=== PATIENT | male | born 1985 | race African-American/Black ===

== ENCOUNTER 2017-02-18 12:46 | Observation (INO) | payer MEDICAID ==
[~2017-02-18] VITALS: Ht 167.6 cm; Wt 68.1 kg
[~2017-02-18 12:46] MED LIST: CEFD300C3 PO; HYDR2TAB6 PO
[2017-02-18] MEDS ORDERED: NS IV 1000 ML 1,000 ML IV ONE (12:58)
[2017-02-18] MEDS ORDERED: BUTORPHANOL INJ 2 MG/ML (STADOL) VIAL IV ONE ×2 (13:00→14:30)
[2017-02-18 13:04] LABS: BASOPHILS # (AUTO) 0.1 10^3/uL (0.0-0.1); BASOPHILS % (AUTO) 1 % (0-10); EOSINOPHILS # (AUTO) 0.3 10^3/uL (0.0-0.3); EOSINOPHILS % (AUTO) 2 % (0-10); LYMPHOCYTES # (AUTO) 1.8 X 10^3 (1.0-4.0); LYMPHOCYTES % (AUTO) 14 % (12-44); MEAN CORPUSCULAR HEMOGLOBIN 32 PG (25-34); MEAN CORPUSCULAR HGB CONC 36 G/DL (32-36); MEAN CORPUSCULAR VOLUME 89 FL (80-99); MEAN PLATELET VOLUME 12.1 FL (7.4-10.4); MONOCYTES # (AUTO) 1.9 X 10^3 (0.0-1.0); MONOCYTES % (AUTO) 14 % (0-12); NEUTROPHILS % (AUTO) 69 % (42-75); PLATELET COUNT 233 10^3/uL (130-400); RED CELL DISTRIBUTION WIDTH 20.3 % (10.0-14.5)
--- NOTE | 2017-02-18 13:22 | ED General ---
General Chief Complaint: General Problems/Pain Stated Complaint: GENERALIZED PAIN History of Present Illness Time Seen by Provider: 13:00 Initial Comments Patient brought to emergency department via EMS for acute pain and possible sickle cell crisis. He moved back to [place] from [place] approximately 2 weeks ago. He states he will be living here permanently now. He is not currently taking any medications. He was given a total of fentanyl and 100 g via EMS, pains remains a 6/10. He denies any trigger to set off the crisis. Complaining of upper back and shoulder pain. He denies a recent sickle cell crisis for at least 6 months. He was hospitalized on 2 previous occasions here for sickle cell, last time Apr 2016, he required 2 units PRBC and had issues with fluid overload. Timing/Duration: 1-3 Hours Severity: Moderate Modifying Factors: improves with Medication, improves with Rest Associated Systoms: Denies Symptoms Allergies and Home Medications Allergies Coded Allergies: morphine (Unverified Adverse Reaction, Unknown, PT HAS TAKEN LORTAB & STADOL IN THE PAST, 02/18/17) Home Medications No Active Prescriptions or Reported Meds Constitutional: see HPI Respiratory: no symptoms reported, see HPI Cardiovascular: no symptoms reported, see HPI Gastrointestinal: no symptoms reported, see HPI Musculoskeletal: see HPI, back pain (upper back), joint pain (bilateral shoulders) Skin: no symptoms reported, see HPI All Other Systems Reviewed Negative Unless Noted: Yes Past Jcnltji-Qdangv-Yyjyaq Hx Patient Social History Alcohol Use: Denies Use Recreational Drug Use: Yes Drug of Choice: MARIJUANA Smoking Status: Current Everyday Smoker Type Used: Cigarettes 2nd Hand Smoke Exposure: Yes Recent Hopitalizations: No Physical Abuse: No Sexual Abuse: No Immunizations Up To Date Tetanus Booster (TDap): More than 5yrs PED Vaccines UTD: No Seasonal Allergies Seasonal Allergies: No Surgeries History of Surgeries: Yes (SPLENECTOMY) Surgeries: Gallbladder, Orthopedic Respiratory History of Respiratory Disorde: No Currently Using CPAP: No Currently Using BIPAP: No Cardiovascular History of Cardiac Disorders: No Neurological History of Neurological Disord: No Reproductive System Hx Reproductive Disorders: No Sexually Transmitted Disease: No HIV/AIDS: No Gastrointestinal History of Gastrointestinal Di: No Musculoskeletal History of Musculoskeletal Dis: No Endocrine History of Endocrine Disorders: No Cancer History of Cancer: No Psychosocial History of Psychiatric Problem: No Suicide Risk Score: 0 Integumentary History of Skin or Integumenta: No Blood Transfusions History of Blood Disorders: Yes (SICKLE CELL ANEMIA) Adverse Reaction to a Blood Tr: No Reviewed Nursing Assessment Reviewed/Agree w Nursing PMH: Yes Family Medical History Family Medial History: Asthma G8 BROTHER Parkinson's disease Seizure disorder G8 BROTHER Physical Exam Vital Signs Vital Sign - Last 12Hours 02/18/17 02/18/17 02/18/17 12:46 15:30 16:16 Temp 99.0 Pulse 83 Resp 40 B/P (MAP) 112/67 Pulse Ox 91 O2 Delivery Room Air O2 Flow Rate 2.00 FiO2 28 Capillary Refill : General Appearance: No Apparent Distress, WD/WN Eyes: Bilateral Eye Normal Inspection, Bilateral Eye PERRL, Bilateral Eye EOMI , Bilateral Eye Scleral Icterus (mild) HEENT: PERRL/EOMI, TMs Normal, Normal ENT Inspection, Pharynx Normal Neck: Full Range of Motion, Normal Inspection, Non Tender, Supple Respiratory: Chest Non Tender, Lungs Clear, Normal Breath Sounds Cardiovascular: Regular Rate, Rhythm, No Edema, No Murmur, Normal Peripheral Pulses Gastrointestinal: Normal Bowel Sounds, No Organomegaly, No Pulsatile Mass, Non Tender, Soft Extremity: Normal Capillary Refill, Normal Inspection, Normal Range of Motion, Other (generalized myalgias and arthralgias) Neurologic/Psychiatric: Alert, Oriented x3, No Motor/Sensory Deficits, Normal Mood/Affect Skin: Normal Color, Warm/Dry Lymphatic: No Adenopathy Progress/Results/Core Measures Results/Orders Lab Results Laboratory Tests Test 02/18/17 12:55 Range/Units White Blood Count 13.0 H 4.3-11.0 10^3/uL Red Blood Count 2.76 L 4.35-5.85 10^6/uL Hemoglobin 8.6 L 13.3-17.7 G/DL Hematocrit 24 L 40-54 % Mean Corpuscular Volume 89 80-99 FL Mean Corpuscular Hemoglobin 32 25-34 PG Mean Corpuscular Hemoglobin Concent 36 32-36 G/DL Red Cell Distribution Width 20.3 H 10.0-14.5 % Platelet Count 233 130-400 10^3/uL Mean Platelet Volume 12.1 H 7.4-10.4 FL Neutrophils (%) (Auto) 69 42-75 % Lymphocytes (%) (Auto) 14 12-44 % Monocytes (%) (Auto) 14 H 0-12 % Eosinophils (%) (Auto) 2 0-10 % Basophils (%) (Auto) 1 0-10 % Neutrophils # (Auto) 9.0 H 1.8-7.8 X 10^3 Lymphocytes # (Auto) 1.8 1.0-4.0 X 10^3 Monocytes # (Auto) 1.9 H 0.0-1.0 X 10^3 Eosinophils # (Auto) 0.3 0.0-0.3 10^3/uL Basophils # (Auto) 0.1 0.0-0.1 10^3/uL Erythrocyte Sedimentation Rate 6 0-15 MM/HR Absolute Reticulocyte Count 328 H 24-90 10e9/L Percent Reticulocyte Count 11.87 H 0.50-2.40 % Sodium Level 140 135-145 MMOL/L Potassium Level 4.3 3.6-5.0 MMOL/L Chloride Level 107 98-107 MMOL/L Carbon Dioxide Level 25 21-32 MMOL/L Anion Gap 8 5-14 MMOL/L Blood Urea Nitrogen 7 7-18 MG/DL Creatinine 0.77 0.60-1.30 MG/DL Estimat Glomerular Filtration Rate > 60 BUN/Creatinine Ratio 9 Glucose Level 95 70-105 MG/DL Calcium Level 9.2 8.5-10.1 MG/DL Magnesium Level 2.2 1.8-2.4 MG/DL Total Bilirubin 3.5 H 0.1-1.0 MG/DL Aspartate Amino Transf (AST/SGOT) 35 H 5-34 U/L Alanine Aminotransferase (ALT/SGPT) 14 0-55 U/L Alkaline Phosphatase 53 40-136 U/L Total Creatine Kinase 43 30-200 U/L Creatine Kinase MB 0.2 <6.6 NG/ML C-Reactive Protein High Sensitivity 0.58 H 0.00-0.50 MG/DL Total Protein 7.0 6.4-8.2 GM/DL Albumin 4.0 3.2-4.5 GM/DL Smear Scan My Orders Orders - PEG STRAUSS Cbc With Automated Diff (02/18/17 12:49) Comprehensive Metabolic Panel (02/18/17 12:49) Creatine Kinase (02/18/17 12:49) Creatine Kinase Mb (02/18/17 12:49) Hs C Reactive Protein (02/18/17 12:49) Magnesium (02/18/17 12:49) Ua Culture If Indicated (02/18/17 12:49) Erythrocyte Sedimentation Rate (02/18/17 12:49) Ekg Tracing (02/18/17 12:49) Butorphanol Injection (Stadol Injection) (02/18/17 13:00) Saline Lock/Iv-Start (02/18/17 12:58) Ns Iv 1000 Ml (Sodium Chloride 0.9%) (02/18/17 12:58) Reticulocyte Count (02/18/17 14:18) Butorphanol Injection (Stadol Injection) (02/18/17 14:30) Medications Given in ED Current Medications Medications Dose Ordered Sig/Arlene Route Start Time Stop Time Status Last Admin Dose Admin Butorphanol Tartrate 2 mg ONCE ONCE IV 02/18/17 13:00 02/18/17 13:01 DC 02/18/17 13:05 2 MG Sodium Chloride 1,000 ml @ 175 mls/hr Q5H43M ONCE IV 02/18/17 12:58 02/18/17 15:40 DC 02/18/17 13:05 175 MLS/HR Vital Signs/I&O Vital Sign - Last 12Hours 02/18/17 02/18/17 02/18/17 02/18/17 12:46 15:30 15:31 16:16 Temp 99.0 97.3 Pulse 83 55 60 Resp 40 16 B/P (MAP) 112/67 104/65 Pulse Ox 91 100 94 O2 Delivery Room Air Nasal Cannula Nasal Cannula O2 Flow Rate 2.00 2.00 FiO2 28 Progress Note : Time: 13:00 Progress Note Initial evaluation for probable sickle cell crisis. The patient is already received 200 g of fentanyl and continue straight his pain at 6/10, will get Stadol 2 mg IV and fluid resuscitation, normal saline 1 L IV. 1330 patient resting, reports his pain has improved since the Stadol was administered. Hemoglobin 8.6, hematocrit 24, platelets 233, WBC 13. Absolute retake count 328, ESR 6. Total bilirubin 3.5, AST 35, ALT 14, CRP 0.58. Remainder of labs within normal limits. [address] Mcfadden, agreed to admit patient. Orders reviewed and in place. 1440 Dr. Mcfadden emergency department to evaluate patient. ECG Initial ECG Impression Date: Feb 18, 2017 Initial ECG Impression Time: 13:08 Initial ECG Rate: 69 Initial ECG Rhythm: Normal Sinus Initial ECG Intervals: Normal Initial ECG Intervals HI 160, QRS D 88, QT 368, QTC 395. Bradley PI, QRS 9, T 41. Initial ECG Impression: Normal Initial ECG Comparisson: Unchanged Comment Reviewed with Dr. Ruby, concurred with interpretation Departure Impression Impression: Primary Impression: Sickle cell crisis Additional Impression: Pain, acute Disposition: ADMITTED INPATIENT Condition: Stable Admissions Decision to Admit Reason: Admit from ER (General) Decision to Admit/Date: Feb 18, 2017 Time/Decision to Admit Time: 14:20 Departure-Patient Inst. Referrals: NO,LOCAL PHYSICIAN (PCP/Family) Primary Care Physician Scripts No Active Prescriptions or Reported Meds PEG STRAUSS Feb 18, 2017 13:22
[2017-02-18 13:23] LABS: ALANINE AMINOTRANSFERASE 14 U/L (0-55); ANION GAP 8 MMOL/L (5-14); ASPARTATE AMINO TRANSFERASE 35 U/L (5-34); BILIRUBIN,TOTAL 3.5 MG/DL (0.1-1.0); BLOOD UREA NITROGEN 7 MG/DL (7-18); BUN/CREATININE RATIO 9; CALCIUM 9.2 MG/DL (8.5-10.1); CARBON DIOXIDE 25 MMOL/L (21-32); CHLORIDE 107 MMOL/L (98-107); CREATINE KINASE 43 U/L (30-200); CREATININE SERUM 0.77 MG/DL (0.60-1.30); GFR ESTIMATED > 60; GLUCOSE 95 MG/DL (70-105); MAGNESIUM 2.2 MG/DL (1.8-2.4); POTASSIUM 4.3 MMOL/L (3.6-5.0); SODIUM 140 MMOL/L (135-145); hs C REACTIVE PROTEIN 0.58 MG/DL (0.00-0.50)
[2017-02-18 13:40] LABS: ERYTHROCYTE SEDIMENTATION RATE 6 MM/HR (0-15)
[2017-02-18 14:26] LABS: RED BLOOD COUNT 2.76 10^6/uL (4.35-5.85); RETICULOCYTE % 11.87 % (0.50-2.40)
--- NOTE | 2017-02-18 14:48 | History & Physical-Hospitalist ---
HPI History of Present Illness: HPI/Chief Complaint CC: Shoulder Pain HPI: Pt is a 31yoAAM with a pmh of sickle cell anemia who presented to the ER with CC of shoulder pain. He states his symptoms started today and have spread to his back. He has had similar pain in the past when he was having a crisis. He describes it as achy in his back and shoulder bones. He recently moved here from [place] and does not have a doctor. He previously had been on hydroxyurea but has been off of it for years. He does not take pain medicines at home on a daily basis. He alston snot currently follow with a spray maker or PCP. He denies any chest pain or SOB. He is unsure of his baseline hemoglobin. Source: patient, RN/MD, old records Date Seen 02/18/17 Time Seen by Provider: 14:20 Attending Physician Fantasma Mcfadden MD PCP No,Local Physician Referring Physician Date of Admission Home Medications & Allergies Home Medications Reviewed patient Home Medication Reconciliation Form Allergies Allergies Coded Allergies morphine (Unverified Adverse Reaction, Unknown, PT HAS TAKEN LORTAB & STADOL IN THE PAST, 02/18/17) Past Aedtqwy-Nmujit-Rwcowk Hx Patient Social History Alcohol Use: Denies Use Recreational Drug Use: Yes Drug of Choice: MARIJUANA Smoking Status: Current Everyday Smoker Cigaretts per day: 10 Type Used: Cigarettes 2nd Hand Smoke Exposure: Yes Recent Foreign Travel: No Contact w/other who traveled: No Recent Hopitalizations: No Recent Infectious Disease Expo: No Immunizations Up To Date Tetanus Booster (TDap): More than 5yrs Pediatric: No Seasonal Allergies Seasonal Allergies: No Surgeries Yes (SPLENECTOMY) Gallbladder, Orthopedic Respiratory No Currently Using CPAP: No Currently Using BIPAP: No Cardiovascular No Neurological No Reproductive System Hx Reproductive Disorders: No Sexually Transmitted Disease: No HIV/AIDS: No Gastrointestinal No Musculoskeletal No Endocrine History of Endocrine Disorders: No Cancer No Psychosocial History of Psychiatric Problem: No Integumentary History of Skin or Integumenta: No Blood Transfusions History of Blood Disorders: Yes (SICKLE CELL ANEMIA) Adverse Reaction to a Blood Tr: No Family Medical History Significant Family History: Asthma, Diabetes, Hypertension Family Hx: Asthma G8 BROTHER Parkinson's disease Seizure disorder G8 BROTHER Review of Systems Constitutional: No chills, No fever EENTM: No blurred vision, No double vision, No nose congestion, No throat pain Respiratory: No cough, No dyspnea on exertion, No short of breath Cardiovascular: No chest pain, No edema, No palpitations Gastrointestinal: No abdominal pain, No constipation, No diarrhea, No nausea, No vomiting Genitourinary: No dysuria, No frequency Musculoskeletal: back pain, joint pain Skin: No lesions, No rash Psychiatric/Neurological: Denies Headache, Denies Numbness, Denies Tingling Physical Exam Physical Exam Vital Signs Vital Sign - Last 12Hours 02/18/17 02/18/17 02/18/17 12:46 15:30 16:16 Temp 99.0 Pulse 83 Resp 40 B/P (MAP) 112/67 Pulse Ox 91 O2 Delivery Room Air O2 Flow Rate 2.00 FiO2 28 Capillary Refill : Less Than 3 Seconds General Appearance: No Apparent Distress, WD/WN HEENT: PERRL/EOMI, Moist Mucous Membranes, Scleral Icterus (L), Scleral Icterus (R) Neck: Non Tender, Supple Respiratory: Chest Non Tender, Lungs Clear, Normal Breath Sounds, No Accessory Muscle Use, No Respiratory Distress Cardiovascular: Regular Rate, Rhythm, No Murmur Gastrointestinal: Normal Bowel Sounds, Non Tender, Soft Extremity: Normal Capillary Refill, No Calf Tenderness, No Pedal Edema Neurologic/Psychiatric: Alert, Oriented x3 Skin: Normal Color, Warm/Dry Results Results/Procedures Lab Laboratory Tests 02/18/17 12:55 Assessment/Plan Admission Diagnosis Sickle Cell Crisis Diagnosis/Problems Diagnosis/Problems (1) Sickle cell crisis Status: Acute Assessment & Plan: History of sickle cell, has had multiple admissions here for crisis Pain controlled with Stadol and Fentanyl in ER, will continue IVF NS @150ml/hr Hgb 8.6, review shows normally close to 10 Await retic count Supplemental oxygen (2) Hyperbilirubinemia Status: Chronic Assessment & Plan: Elevated but down from where it normally is during admission Likely due to crisis Will get direct bili (3) Leukocytosis Status: Acute Assessment & Plan: Likely due to crisis No signs of infection Qualifiers: Qualified Codes: D72.829 - Elevated white blood cell count, unspecified (4) Tobacco abuse Status: Chronic Assessment & Plan: Recommended cessation (5) Prophylactic measure Assessment & Plan: Lovenox Regular Diet NS 150 ml/hr FANTASMA MCFADDEN MD Feb 18, 2017 14:48
[2017-02-18 15:31] VITALS: BP 104/65
[2017-02-18] MEDS ORDERED: CATHETER FLUSH 10 ML SYR IV PRN (15:45)
[2017-02-18] MEDS: NS IV 1000 ML 1,000 ML IV SCH ×2 (15:46→22:24)
[2017-02-18 16:16] VITALS: BP 104/65
[2017-02-18] MEDS ORDERED: RT-ALBUTEROL SULF 2.5 MG/3 ML PRE-MIX VIAL IH PRN (17:00)
[2017-02-18] MEDS: BUTORPHANOL INJ 2 MG/ML (STADOL) VIAL IV PRN ×2 (17:33→22:23)
--- NOTE | 2017-02-18 18:11 | Diagnostic Imaging Report ---
INDICATION: Sickle cell disease, shoulder pain. COMPARISON: 05/22/2016. FINDINGS: Single view of the chest demonstrates cardiac enlargement with central vascular congestion. There is no pneumothorax, effusion, or focal infiltrate. Osseous structures are stable. IMPRESSION: Cardiac enlargement with central vascular congestion. Dictated by: Dictated on workstation # [id number]
[2017-02-18] MEDS: fentaNYL INJECTION 100 MCG/2 ML AMP INJ PRN (18:43)
[2017-02-18] MEDS: RT-ALBUTEROL SULF 2.5 MG/3 ML PRE-MIX VIAL IH SCH (19:14)
[2017-02-18 19:22] VITALS: BP 109/64
--- NOTE | 2017-02-18 20:32 | CONSULTATION REPORT ---
DATE OF SERVICE: 02/18/2017 REFERRING PHYSICIAN: Johanna Mcfadden The patient is admitted to room 422. IMPRESSION: 1. A 31-year-old male with sickle cell anemia admitted with fairly rapid onset shoulder and upper back pain since the last 24 hours. 2. The patient has just moved from [place] to [place] and has not been drinking adequately. He has been out in the hot weather the past 2 days and complained of dry mouth, clinically consistent with dehydration. 3. Acute sickling episode with bone pain. 4. No evidence of fever or other infections triggering the sickle cell crisis. RECOMMENDATIONS: 1. Pain control as you are doing. 2. To receive hydration with normal saline at 500 mL x2 liters, then at 150 mL per hour. 3. Oxygen to maintain saturations more than 92%. 4. Repeat CBC, reticulocyte count and smear in the morning, along with chemistry panel. 5. If hemoglobin drops below 8 grams/dL, would recommend transfusion with 1 unit of packed red blood cells. 6. Previously the patient has been moving around between [place], [place] and [place] and did not have a steady home or followups with a physician. Today he mentioned that he is not moving from [place] now and will be staying here. I will consider treatment with hydroxyurea to reduce the acute crisis if he is compliant and will follow up on an outpatient basis. BRIEF HISTORY: The patient is a 31-year-old -Latvian male with a history of sickle cell anemia and multiple admissions at [facility] during the last year for acute crisis. He has had hospitalizations both in [place] as well as in [place], intermittently. He moved back to [place] approximately a week ago and has been busy and not drinking adequately. He started having shoulder and upper back pain. Within the last 24 hours it was worsening rapidly and he came to the emergency room. He was admitted for pain control and management of exacerbation of sickle cell crisis. Hematology consultation was requested for concurrent management. PAST MEDICAL HISTORY: Significant for sickle cell disease. He has had frequent crises recently. In the past, he was treated with hydroxyurea when he was in [place], but he has not taken this for several years. No other medical problems other than the multiple hospitalizations for sickle cell crises. PRIOR SURGERIES: Include a cholecystectomy and previous orthopedic surgery. SOCIAL HISTORY: The patient is not . He recently moved to [facility] from [place], but has been here on multiple previous occasions. Today, the patient indicated that he will be staying in [place] now onwards. He smokes at least a pack of cigarettes on a daily basis and uses recreational drugs. Also uses alcohol intermittently, but denied binge drinking. FAMILY HISTORY: Significant for his brother with history of asthma and another brother with history of seizure disorder. PHYSICAL EXAMINATION: Today showed young -Latvian male, somnolent but arousable. He is in mild distress due to the back pain. His temperature was 97.3, pulse rate of 55, respirations 16, blood pressure 104/65, pulse oximetry showed 100% saturation on 2 liters of oxygen by nasal cannula. HEENT: Normocephalic, extraocular muscles intact. Conjunctivae were slightly pale, mild scleral icterus noted. Oral mucosa dry. NECK: Supple with no JVD. No cervical, supraclavicular, or axillary lymphadenopathy palpable. CHEST: Symmetrical. LUNGS: Fairly clear to auscultation without wheezes or rales. CARDIOVASCULAR: Regular in rate and rhythm. No murmurs or gallops heard. ABDOMEN: Soft, nontender, with no hepatosplenomegaly or other masses palpable. EXTREMITIES: Showed no edema. NEUROLOGICAL: Grossly intact without focal motor deficits. CBC done today in the emergency room showed WBC 13.0, hemoglobin 8.6, platelet count 233,000 with neutrophil count of 9.0, lymphocyte count 1.8, and monocyte count of 1.9. Absolute reticulocyte count was elevated at 328,000 with percentage of 11.87. Chemistry panel showed normal electrolytes. BUN was 7 and creatinine 0.77, the GFR more than 60 mL per minute. Total bilirubin was 3.5 with AST of 35. The rest of the liver function studies are within normal limits. Chest x-ray is pending. Thank you for allowing me to participate in this patient's care. I will follow the patient with you and make appropriate recommendations. Job ID: [id number] DocumentID: [id number] Dictated Date: 02/18/2017 17:54:08 Outbound Call Center Representative Date: 02/18/2017 20:31:40 Dictated By: JORDAN SIMS MD [facility]
[2017-02-19] VITALS (9 sets, daily range): BP systolic 104–116; BP diastolic 55–77
[2017-02-19] MEDS: fentaNYL INJECTION 100 MCG/2 ML AMP INJ PRN ×3 (01:53→11:17)
[2017-02-19] MEDS: NS IV 1000 ML 1,000 ML IV SCH ×3 (05:20→19:35)
[2017-02-19] MEDS: BUTORPHANOL INJ 2 MG/ML (STADOL) VIAL IV PRN ×2 (05:20→09:40)
[2017-02-19] MEDS: RT-ALBUTEROL SULF 2.5 MG/3 ML PRE-MIX VIAL IH SCH ×2 (07:03→19:24)
[2017-02-19 07:07] LABS: BASOPHILS # (AUTO) 0.1 10^3/uL (0.0-0.1); BASOPHILS % (AUTO) 1 % (0-10); EOSINOPHILS # (AUTO) 0.2 10^3/uL (0.0-0.3); EOSINOPHILS % (AUTO) 2 % (0-10); LYMPHOCYTES # (AUTO) 2.2 X 10^3 (1.0-4.0); LYMPHOCYTES % (AUTO) 20 % (12-44); MEAN CORPUSCULAR HEMOGLOBIN 31 PG (25-34); MEAN CORPUSCULAR HGB CONC 35 G/DL (32-36); MEAN CORPUSCULAR VOLUME 90 FL (80-99); MEAN PLATELET VOLUME 12.1 FL (7.4-10.4); MONOCYTES # (AUTO) 1.5 X 10^3 (0.0-1.0); MONOCYTES % (AUTO) 13 % (0-12); NEUTROPHILS # (AUTO) 7.3 X 10^3 (1.8-7.8); NEUTROPHILS % (AUTO) 64 % (42-75); PLATELET COUNT 171 10^3/uL (130-400); RED BLOOD COUNT 2.44 10^6/uL (4.35-5.85); RED CELL DISTRIBUTION WIDTH 20.4 % (10.0-14.5); RETICULOCYTE % 12.07 % (0.50-2.40); WHITE BLOOD COUNT 11.3 10^3/uL (4.3-11.0)
[2017-02-19 07:36] LABS: ALANINE AMINOTRANSFERASE 13 U/L (0-55); ALBUMIN 3.7 GM/DL (3.2-4.5); ANION GAP 9 MMOL/L (5-14); ASPARTATE AMINO TRANSFERASE 25 U/L (5-34); BILIRUBIN,TOTAL 3.1 MG/DL (0.1-1.0); BLOOD UREA NITROGEN 6 MG/DL (7-18); BUN/CREATININE RATIO 8; CALCIUM 8.8 MG/DL (8.5-10.1); CARBON DIOXIDE 25 MMOL/L (21-32); CHLORIDE 108 MMOL/L (98-107); CREATININE SERUM 0.73 MG/DL (0.60-1.30); GFR ESTIMATED > 60; GLUCOSE 120 MG/DL (70-105); POTASSIUM 3.8 MMOL/L (3.6-5.0); SODIUM 142 MMOL/L (135-145); TOTAL PROTEIN 6.6 GM/DL (6.4-8.2)
[2017-02-19 07:43] LABS: PATH WILL NEED TO REVIEW SMEAR PATH TO REVIEW
[2017-02-19 07:44] LABS: ANISOCYTOSIS MODERATE; EOSINOPHILS % (MANUAL) 4 %; LYMPHOCYTES % (MANUAL) 16 %; NEUTROPHILS % (MANUAL) 68 %; POIKILOCYTOSIS MODERATE; POLYCHROMASIA MODERATE
[2017-02-19 07:45] LABS: SICKLE CELLS MARKED
--- NOTE | 2017-02-19 10:27 | Progress Note-Hospitalist ---
Subjective HPI/CC On Admission Date Seen by Provider: Feb 19, 2017 Time Seen by Provider: 09:20 CC: Shoulder Pain HPI: Pt is a 31yoAAM with a pmh of sickle cell anemia who presented to the ER with CC of shoulder pain. He states his symptoms started today and have spread to his back. He has had similar pain in the past when he was having a crisis. He describes it as achy in his back and shoulder bones. He recently moved here from [place] and does not have a doctor. He previously had been on hydroxyurea but has been off of it for years. He does not take pain medicines at home on a daily basis. He alston snot currently follow with a cleaner operator or PCP. He denies any chest pain or SOB. He is unsure of his baseline hemoglobin. Subjective/Events-last exam Pt reports feeling slightly better than yesterday. He continue to have pain. He still denies any SOB/CP. Objective Exam Vital Signs Vital Sign - Last 12Hours 02/18/17 02/18/17 02/18/17 12:46 15:30 16:16 Temp 99.0 Pulse 83 Resp 40 B/P (MAP) 112/67 Pulse Ox 91 O2 Delivery Room Air O2 Flow Rate 2.00 FiO2 28 Capillary Refill : Less Than 3 Seconds General Appearance: No Apparent Distress, WD/WN Respiratory: Lungs Clear, No Respiratory Distress Cardiovascular: No Murmur Gastrointestinal: Normal Bowel Sounds, Non Tender, Soft Neurologic/Psychiatric: Alert, Oriented x3 Results/Procedures Lab Laboratory Tests 02/18/17 12:55 02/19/17 06:40 Assessment/Plan Assessment and Plan Assess & Plan/Chief Complaint Sickle Cell Crisis Diagnosis/Problems Diagnosis/Problems (1) Sickle cell crisis Status: Acute Assessment & Plan: History of sickle cell, has had multiple admissions here for crisis Pain controlled with Stadol and Fentanyl in ER, will continue Will add orals as well in attempt to transition to regimen for home IVF NS @150ml/hr Hgb 7.6,likely dilutional, will defer transfusion Supplemental oxygen (2) Hyperbilirubinemia Status: Chronic Assessment & Plan: Elevated but down from where it normally is during admission Likely due to crisis Will get direct bili (3) Leukocytosis Status: Acute Assessment & Plan: Likely due to crisis, improving No signs of infection Qualifiers: Qualified Codes: D72.829 - Elevated white blood cell count, unspecified (4) Tobacco abuse Status: Chronic Assessment & Plan: Recommended cessation (5) Prophylactic measure Assessment & Plan: Lovenox Regular Diet NS 150 ml/hr Will add stool softeners FANTASMA HARTMANN MD Feb 19, 2017 10:27
[2017-02-19] MEDS: POLYETHYLENE GLYCOL 17 GM (MIRALAX) PACK PO SCH (11:16)
[2017-02-19] MEDS: HYDROcodone/APAP 5 MG/325 MG (LORTAB) TAB PO PRN ×2 (11:17→23:47)
--- NOTE | 2017-02-19 14:49 | Progress Note-Standard ---
Standard Progress Note Progress Notes/Assess & Plan Date Seen by Provider: Feb 19, 2017 Time Seen by Provider: 14:42 Progress/Assessment & Plan 31-year-old -[place] male with history of sickle cell anemia admitted with acute shoulder and back pain. Elevated reticulocyte count and significant sickling on the peripheral smear. Still having significant pain. Fentanyl not controlling pain well. Previously has had good luck with Dilaudid. Will DC fentanyl and start on Dilaudid IV. Labs noted. Hemoglobin 7.6. We will transfuse 1 unit PRBC. Maintain hemoglobin more than 8 g/dL. Continue hydration. Maintain oxygen saturation more than or equal to 95. Monitor CBC and reticulocyte count serially. Once pain under control with reticulocyte count normalizing, may discharge patient. He does not need maintenance pain medications when not in crisis. Schedule a follow-up with me at the cancer center in 3-4 weeks. No oncology, coverage this weekend. Dr. Jeffery waste minimization technician for next week as I am out of town. JORDAN SIMS Feb 19, 2017 14:49
[2017-02-19] MEDS: HYDROmorphone (DILAUDID) 2 MG/ML VIAL IVP PRN ×2 (15:04→19:35)
[2017-02-20] VITALS: BP 108/70
[2017-02-20] MEDS: HYDROmorphone (DILAUDID) 2 MG/ML VIAL IVP PRN ×3 (01:04→06:43)
[2017-02-20] MEDS: NS IV 1000 ML 1,000 ML IV SCH ×2 (01:47→08:28)
[2017-02-20 04:00] VITALS: BP 118/72
[2017-02-20 06:40] LABS: BASOPHILS # (AUTO) 0.1 10^3/uL (0.0-0.1); BASOPHILS % (AUTO) 1 % (0-10); EOSINOPHILS # (AUTO) 0.4 10^3/uL (0.0-0.3); EOSINOPHILS % (AUTO) 4 % (0-10); LYMPHOCYTES # (AUTO) 1.9 X 10^3 (1.0-4.0); LYMPHOCYTES % (AUTO) 19 % (12-44); MEAN CORPUSCULAR HEMOGLOBIN 31 PG (25-34); MEAN CORPUSCULAR HGB CONC 34 G/DL (32-36); MEAN CORPUSCULAR VOLUME 89 FL (80-99); MEAN PLATELET VOLUME 12.1 FL (7.4-10.4); MONOCYTES # (AUTO) 1.8 X 10^3 (0.0-1.0); MONOCYTES % (AUTO) 18 % (0-12); NEUTROPHILS # (AUTO) 5.8 X 10^3 (1.8-7.8); NEUTROPHILS % (AUTO) 58 % (42-75); PLATELET COUNT 189 10^3/uL (130-400); RED BLOOD COUNT 2.95 10^6/uL (4.35-5.85); RED CELL DISTRIBUTION WIDTH 19.5 % (10.0-14.5); RETICULOCYTE % 10.96 % (0.50-2.40)
[2017-02-20] MEDS: RT-ALBUTEROL SULF 2.5 MG/3 ML PRE-MIX VIAL IH SCH (06:47)
[2017-02-20 08:00] VITALS: BP 100/53
[2017-02-20] MEDS: POLYETHYLENE GLYCOL 17 GM (MIRALAX) PACK PO SCH (08:28)
[2017-02-20] MEDS: HYDROcodone/APAP 5 MG/325 MG (LORTAB) TAB PO PRN (08:29)
[2017-02-20 11:00] VITALS: BP 100/53
--- NOTE | 2017-02-20 11:15 | Discharge Summary-Hospitalist ---
Diagnosis/Chief Complaint Date of Admission Feb 18, 2017 at 15:20 Date of Discharge Discharge Date: Feb 20, 2017 Admission Diagnosis Sickle Cell Crisis Discharge Diagnosis Sickle Cell Crisis (1) Sickle cell crisis Status: Acute Assessment & Plan: History of sickle cell, has had multiple admissions here for crisis Pain controlled with Stadol and Dilaudid, Lortab added as well IVF NS @150ml/hr received 1u pRBCs here Supplemental oxygen Retic count up today (2) Hyperbilirubinemia Status: Chronic Assessment & Plan: Near baseline, improving (3) Leukocytosis Status: Resolved Assessment & Plan: Likely due to crisis, No signs of infection (4) Tobacco abuse Status: Chronic Assessment & Plan: Recommended cessation (5) Prophylactic measure Assessment & Plan: Lovenox Regular Diet NS 150 ml/hr Stool softeners Discharge Summary Consultations Oncology- Dr. Sims Discharge Physical Examination Allergies: Coded Allergies: morphine (Unverified Adverse Reaction, Unknown, PT HAS TAKEN LORTAB & STADOL IN THE PAST, 02/18/17) Vitals & I&Os Vital Signs Date Time Temp Pulse Resp B/P (MAP) Pulse Ox O2 Delivery O2 Flow Rate FiO2 02/20/17 11:00 69 18 100/53 98 Nasal Cannula 3.00 02/20/17 08:00 98.4 02/18/17 16:16 28 Hospital Course Pt is a 31yoAAM who presented with severe shoulder pain found to be in sickle cell crisis. He was admitted for IVF, oxygen, and pain management. Dr. Sims was consulted to assist with management. His pain improved and he received 1 unit of pRBC during his admission. On day of discharge he was still on oxygen, requiring IV pain medicine, and his retic count was increasing. Upon my arrival to room he informed me that he would like to leave today. I discussed plan of care and how I did not feel he was medically optimized for discharge. I explained the risk of leaving prior to optimization and informed him he would have to leave AMA. He acknowledged risks of leaving including and debility and signed appropriate AMA paperwork. Labs (last 24 hrs) Laboratory Tests 02/20/17 06:23: White Blood Count 10.0, Red Blood Count 2.95L, Hemoglobin 9.0L, Hematocrit 26L, Mean Corpuscular Volume 89, Mean Corpuscular Hemoglobin 31, Mean Corpuscular Hemoglobin Concent 34, Red Cell Distribution Width 19.5H, Platelet Count 189, Mean Platelet Volume 12.1H, Neutrophils (%) (Auto) 58, Lymphocytes (%) (Auto) 19 , Monocytes (%) (Auto) 18H, Eosinophils (%) (Auto) 4, Basophils (%) (Auto) 1, Neutrophils # (Auto) 5.8, Lymphocytes # (Auto) 1.9, Monocytes # (Auto) 1.8H, Eosinophils # (Auto) 0.4H, Basophils # (Auto) 0.1, Absolute Reticulocyte Count 323H, Percent Reticulocyte Count 10.96H Pending Labs Laboratory Tests 02/20/17 06:23: White Blood Count 10.0, Red Blood Count 2.95, Hemoglobin 9.0, Hematocrit 26, Mean Corpuscular Volume 89, Mean Corpuscular Hemoglobin 31, Mean Corpuscular Hemoglobin Concent 34, Red Cell Distribution Width 19.5, Platelet Count 189, Mean Platelet Volume 12.1, Neutrophils (%) (Auto) 58, Lymphocytes (%) (Auto) 19 , Monocytes (%) (Auto) 18, Eosinophils (%) (Auto) 4, Basophils (%) (Auto) 1, Neutrophils # (Auto) 5.8, Lymphocytes # (Auto) 1.9, Monocytes # (Auto) 1.8, Eosinophils # (Auto) 0.4, Basophils # (Auto) 0.1, Absolute Reticulocyte Count 323, Percent Reticulocyte Count 10.96 Discharge Home Medications: Active Scripts Active No Active Prescriptions or Reported Medications Instructions to patient/family Please see electronic discharge instructions given to patient. Clinical Quality Measures DVT/VTE Risk/Contraindication: Risk Factor Score Per Nursin RFS Level Per Nursing on Admit: 1=Low/No VTE PPX Copy Copies To 1: JORDAN SIMS Problem Qualifiers (1) Leukocytosis: Leukocytosis type: unspecified Qualified Codes: D72.829 - Elevated white blood cell count, unspecified FANTASMA HARTMANN MD Feb 20, 2017 11:15
== END 2017-02-20 11:09 | disposition left against medical advice (07) ==
LOC: EDUNIT# 12:46 → ER 12:47 → 4TH 14:20 → UNDOADMOB 14:20 → 4TH 15:20
PROVIDERS: ADMIT Family Medicine; ATTEND Family Medicine
DX: D57.00 Hb-SS disease with crisis, unspecified (principal); I51.7 Cardiomegaly; E80.6 Other disorders of bilirubin metabolism; D72.829 Elevated white blood cell count, unspecified; F17.210 Nicotine dependence, cigarettes, uncomplicated
CPT/HCPCS: 36415; 36430; 71010; 80053; 82550; 82553; 83735; 85007; 85025; 85027; 85045; 85652; 86141; 86850; 86900; 86901; 86920; 93005; 94640; 94760; 96361; 96374; 96376; G0378

== ENCOUNTER 2017-04-25 03:23 | Inpatient (IN) | payer MEDICAID, OTHER ==
[~2017-04-25] VITALS: Ht 167.6 cm; Wt 69.9 kg
[2017-04-25] VITALS (8 sets, daily range): BP systolic 98–105; BP diastolic 57–70
[2017-04-25] MEDS ORDERED: fentaNYL INJECTION 100 MCG/2 ML AMP ONE (03:25)
[2017-04-25] MEDS ORDERED: NS IV 1000 ML 1,000 ML ONE (03:25)
[2017-04-25] MEDS ORDERED: fentaNYL INJECTION 100 MCG/2 ML AMP IVP STA ×2 (03:34→03:50)
[2017-04-25] MEDS ORDERED: NS IV 1000 ML 1,000 ML IV ONE (03:34)
[2017-04-25 03:41] LABS: BASOPHILS # (AUTO) 0.1 10^3/uL (0.0-0.1); BASOPHILS % (AUTO) 1 % (0-10); EOSINOPHILS # (AUTO) 0.4 10^3/uL (0.0-0.3); EOSINOPHILS % (AUTO) 5 % (0-10); LYMPHOCYTES # (AUTO) 3.5 X 10^3 (1.0-4.0); LYMPHOCYTES % (AUTO) 38 % (12-44); MEAN CORPUSCULAR HEMOGLOBIN 31 PG (25-34); MEAN CORPUSCULAR HGB CONC 36 G/DL (32-36); MEAN CORPUSCULAR VOLUME 88 FL (80-99); MEAN PLATELET VOLUME 11.9 FL (7.4-10.4); MONOCYTES # (AUTO) 1.5 X 10^3 (0.0-1.0); MONOCYTES % (AUTO) 16 % (0-12); NEUTROPHILS # (AUTO) 3.7 X 10^3 (1.8-7.8); NEUTROPHILS % (AUTO) 40 % (42-75); PLATELET COUNT 189 10^3/uL (130-400); RED BLOOD COUNT 2.93 10^6/uL (4.35-5.85); RED CELL DISTRIBUTION WIDTH 22.3 % (10.0-14.5); WHITE BLOOD COUNT 9.2 10^3/uL (4.3-11.0)
[2017-04-25] MEDS ORDERED: ONDANSETRON 4 MG/2 ML (SDV) Z0FRAN IVP ONE (03:45)
[2017-04-25 03:53] LABS: ALANINE AMINOTRANSFERASE 13 U/L (0-55); ALBUMIN 4.1 GM/DL (3.2-4.5); ANION GAP 10 MMOL/L (5-14); ASPARTATE AMINO TRANSFERASE 33 U/L (5-34); BILIRUBIN,TOTAL 4.1 MG/DL (0.1-1.0); BLOOD UREA NITROGEN 10 MG/DL (7-18); BUN/CREATININE RATIO 11; CALCIUM 9.3 MG/DL (8.5-10.1); CARBON DIOXIDE 27 MMOL/L (21-32); CHLORIDE 105 MMOL/L (98-107); CREATININE SERUM 0.89 MG/DL (0.60-1.30); GFR ESTIMATED > 60; GLUCOSE 91 MG/DL (70-105); POTASSIUM 4.2 MMOL/L (3.6-5.0); SODIUM 142 MMOL/L (135-145); TOTAL PROTEIN 7.3 GM/DL (6.4-8.2)
[2017-04-25 03:59] LABS: ANISOCYTOSIS MODERATE; BAND NEUTROPHILS 3 %; EOSINOPHILS % (MANUAL) 4 %; LYMPHOCYTES % (MANUAL) 33 %; NEUTROPHILS % (MANUAL) 37 %; POIKILOCYTOSIS SLIGHT; POLYCHROMASIA MODERATE; SICKLE CELLS MARKED; TROPONIN I < 0.30 NG/ML (<0.30)
[2017-04-25 04:00] LABS: CRENATED RBC SLIGHT; INR 1.1 (0.8-1.4); PROTHROMBIN TIME PATIENT 14.2 SEC (12.2-14.7)
--- NOTE | 2017-04-25 04:01 | ED General ---
General Chief Complaint: General Problems/Pain Stated Complaint: SICKLE CELL ANEMIA PAIN Nursing Triage Note: C/O GENERALIZED PAIN DURING SICKLE CELL CRISIS. Nursing Sepsis Screen: No Definite Risk Source of Information: Patient, EMS History of Present Illness Time Seen by Provider: 03:23 Initial Comments PT ARRIVES VIA EMS FROM HOME PT STATES IT FEELS LIKE HE IS HAVING A SICKLE CELL CRISIS STATES HE WOKE UP APPROXIMATELY AN HOUR AGO WITH SEVERE PAIN IN TRUNK AREA, MOSTLY IN HIS LOWER BACK BUT ALSO SOME IN CHEST STATES ALL DAY YESTERDAY HE FELT A LITTLE ACHEY HAS HAD SLIGHT NON-PRODUCTIVE COUGH NO FEVER NO SHORTNESS OF BREATH C/O NAUSEA, NO VOMITING HAS BEEN A LITTLE LIGHTHEADED OFF AND ON THE LAST FEW DAYS NO HEADACHE NO VISION CHANGES NO PARESTHESIAS OR MOTOR DEFICITS THIS IS PT'S 4TH VISIT FOR THIS PROBLEM--LAST TIME WAS IN PT MOVED HERE OVER A YEAR AGO FROM [place], BUT WAS ALSO LIVING IN [place] AND HAD SEVERAL HOSPITAL ADMITS IN THOSE STATES WELL. PT HAS BEEN ADVISED AND APPOINTMENTS ARRANGED FOR PT TO ESTABLISH WITH LOCAL PCP AND HEMATOLOGY, BUT PT HAS NEVER ATTEMPTED TO FOLLOW UP WITH ANYONE AT ANY TIME. PT HAS BEEN ON HYDROXYUREA IN THE PAST, BUT NOT FOR A LONG TIME. PT IS S/P SPLENECTOMY PCP: NONE Allergies and Home Medications Allergies Coded Allergies: morphine (Unverified Adverse Reaction, Unknown, PT HAS TAKEN LORTAB & STADOL IN THE PAST, 02/18/17) Home Medications No Active Prescriptions or Reported Meds Constitutional: see HPI, No chills, No diaphoresis, dizziness, No fever EENTM: no symptoms reported Respiratory: see HPI, cough, No short of breath, No wheezing Cardiovascular: see HPI, chest pain, No edema, No palpitations, No syncope, No vascular heart diseas Gastrointestinal: see HPI, abdominal pain, nausea, No vomiting Genitourinary: no symptoms reported, No hematuria Musculoskeletal: see HPI, back pain, muscle pain Skin: no symptoms reported Psychiatric/Neurological: No Symptoms Reported, Anxiety, Denies Headache, Denies Numbness, Denies Paresthesia, Denies Seizure, Denies Tingling, Denies Weakness Hematologic/Lymphatic: See HPI Immunological/Allergic: no symptoms reported Past Inesbkq-Gllmwd-Smnmqv Hx Patient Social History Alcohol Use: Occasionally Uses (HISTORY OF ABUSE, CLAIMS NOW ONLY "OCCASIONAL" USE, CLAIMS LAST USE WAS 03/23/17) Number of Drinks Today: 0 Alcohol Beverage of Choice: Whiskey Recreational Drug Use: Yes (+THC, COCAINE (SNORTED) HAS ALSO ADMITTED TO METHAMPHETAMINESIN PAST) Drug of Choice: THC, COCAINE, ALSO ADMITTED TO METHAMPHETAMINES IN PAST Smoking Status: Current Everyday Smoker (1 PPD) Type Used: Cigarettes 2nd Hand Smoke Exposure: Yes Recent Foreign Travel: No Contact w/Someone Who Travel: No Recent Infectious Disease Expo: No Recent Hopitalizations: No Immunizations Up To Date Tetanus Booster (TDap): More than 5yrs PED Vaccines UTD: No Seasonal Allergies Seasonal Allergies: No Surgeries History of Surgeries: Yes (SPLENECTOMY; LEFT FOREARM SURGERY--CAUGHT IN RINGER OF WASHING MACHINE AGE 5; BILATERAL ANKLE SURGERY ) Surgeries: Gallbladder, Orthopedic Respiratory History of Respiratory Disorde: No Currently Using CPAP: No Currently Using BIPAP: No Cardiovascular History of Cardiac Disorders: No Neurological History of Neurological Disord: No Reproductive System Hx Reproductive Disorders: No Sexually Transmitted Disease: No HIV/AIDS: No Genitourinary History of Genitourinary Disor: No Gastrointestinal History of Gastrointestinal Di: No Musculoskeletal History of Musculoskeletal Dis: Yes (LEFT FOREARM INJURY AGE 5--S/P SURGERY; BIALTERAL ANKLE SURGERY ) Endocrine History of Endocrine Disorders: No HEENT History of HEENT Disorders: No Cancer History of Cancer: No Psychosocial History of Psychiatric Problem: No Integumentary History of Skin or Integumenta: No Blood Transfusions History of Blood Disorders: Yes (SICKLE CELL ANEMIA) Adverse Reaction to a Blood Tr: No Family Medical History Significant Family History: Asthma, Diabetes, Hypertension Family Medial History: Asthma G8 BROTHER Parkinson's disease Seizure disorder G8 BROTHER Physical Exam Vital Signs Vital Sign - Last 12Hours 04/25/17 04/25/17 03:30 03:36 Temp 98.8 Pulse 74 Resp 37 B/P (MAP) 109/88 Pulse Ox 100 O2 Delivery Nasal Cannula O2 Flow Rate 3.00 Capillary Refill : Less Than 3 Seconds General Appearance: WD/WN, Anxious, Other (MOANING, GRUNTING, DIRTY, MALODOROUS ) HEENT: PERRL/EOMI, Other (ORAL MUCOSA DRY) Neck: Full Range of Motion, Normal Inspection, Non Tender, Supple, No Carotid Bruit, No JVD Respiratory: Normal Breath Sounds, No Accessory Muscle Use Cardiovascular: Regular Rate, Rhythm, No Edema, No JVD, No Murmur, Normal Peripheral Pulses Gastrointestinal: Normal Bowel Sounds, No Organomegaly, No Pulsatile Mass, Non Tender, Soft Back: Normal Inspection, No CVA Tenderness, No Vertebral Tenderness Extremity: Normal Capillary Refill, Normal Inspection, Normal Range of Motion, Non Tender, No Calf Tenderness, No Pedal Edema Neurologic/Psychiatric: Alert, Oriented x3, No Motor/Sensory Deficits, 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 Norm as Tested Skin: Normal Color, Warm/Dry, Tattoos/Piercings (TATTOOS) Progress/Results/Core Measures Suspected Sepsis Recent Fever Within 48 Hours: No Infection Criteria Present: None New/Unexplained Altered Menta: No Sepsis Screen: No Definite Risk Sepsis Diagnosis: SIRS Temperature:98.8 Pulse: 74 Respiratory Rate: 37 Laboratory Tests 04/25/17 03:30: White Blood Count 9.2 Blood Pressure 109 /88 Mean: 95 Laboratory Tests 04/25/17 03:30: Creatinine 0.89, INR Comment 1.1, Platelet Count 189, Total Bilirubin 4.1H Results/Orders Lab Results Laboratory Tests Test 04/25/17 03:30 04/25/17 04:40 Range/Units White Blood Count 9.2 4.3-11.0 10^3/uL Red Blood Count 2.93 L 4.35-5.85 10^6/uL Hemoglobin 9.2 L 13.3-17.7 G/DL Hematocrit 26 L 40-54 % Mean Corpuscular Volume 88 80-99 FL Mean Corpuscular Hemoglobin 31 25-34 PG Mean Corpuscular Hemoglobin Concent 36 32-36 G/DL Red Cell Distribution Width 22.3 H 10.0-14.5 % Platelet Count 189 130-400 10^3/uL Mean Platelet Volume 11.9 H 7.4-10.4 FL Neutrophils (%) (Auto) 40 L 42-75 % Lymphocytes (%) (Auto) 38 12-44 % Monocytes (%) (Auto) 16 H 0-12 % Eosinophils (%) (Auto) 5 0-10 % Basophils (%) (Auto) 1 0-10 % Neutrophils # (Auto) 3.7 1.8-7.8 X 10^3 Lymphocytes # (Auto) 3.5 1.0-4.0 X 10^3 Monocytes # (Auto) 1.5 H 0.0-1.0 X 10^3 Eosinophils # (Auto) 0.4 H 0.0-0.3 10^3/uL Basophils # (Auto) 0.1 0.0-0.1 10^3/uL Neutrophils % (Manual) 37 % Lymphocytes % (Manual) 33 % Monocytes % (Manual) 23 % Eosinophils % (Manual) 4 % Band Neutrophils 3 % Nucleated Red Blood Cells 2 Polychromasia MODERATE Poikilocytosis SLIGHT Anisocytosis MODERATE Sickle Cells MARKED Crenated Cell SLIGHT Prothrombin Time 14.2 12.2-14.7 SEC INR Comment 1.1 0.8-1.4 Activated Partial Thromboplast Time 30 24-35 SEC Sodium Level 142 135-145 MMOL/L Potassium Level 4.2 3.6-5.0 MMOL/L Chloride Level 105 98-107 MMOL/L Carbon Dioxide Level 27 21-32 MMOL/L Anion Gap 10 5-14 MMOL/L Blood Urea Nitrogen 10 7-18 MG/DL Creatinine 0.89 0.60-1.30 MG/DL Estimat Glomerular Filtration Rate > 60 BUN/Creatinine Ratio 11 Glucose Level 91 70-105 MG/DL Calcium Level 9.3 8.5-10.1 MG/DL Total Bilirubin 4.1 H 0.1-1.0 MG/DL Aspartate Amino Transf (AST/SGOT) 33 5-34 U/L Alanine Aminotransferase (ALT/SGPT) 13 0-55 U/L Alkaline Phosphatase 51 40-136 U/L Troponin I < 0.30 <0.30 NG/ML Total Protein 7.3 6.4-8.2 GM/DL Albumin 4.1 3.2-4.5 GM/DL Urine Color YELLOW Urine Clarity CLEAR Urine pH 8 5-9 Urine Specific [place] 1.010 L 1.016-1.022 Urine Protein 1+ H NEGATIVE Urine Glucose (UA) NEGATIVE NEGATIVE Urine Ketones NEGATIVE NEGATIVE Urine Nitrite NEGATIVE NEGATIVE Urine Bilirubin NEGATIVE NEGATIVE Urine Urobilinogen 4 H NORMAL MG/DL Urine Leukocyte Esterase NEGATIVE NEGATIVE Urine RBC (Auto) 3+ H NEGATIVE Urine RBC NONE /HPF Urine WBC NONE /HPF Urine Squamous Epithelial Cells RARE /HPF Urine Crystals NONE /LPF Urine Bacteria NEGATIVE /HPF Urine Casts NONE /LPF Urine Mucus NEGATIVE /LPF Urine Culture Indicated NO My Orders Orders - MERCEDES DAVID DO Fentanyl Injection (Sublimaze Injection (04/25/17 03:25) Ns Iv 1000 Ml (Sodium Chloride 0.9%) (04/25/17 03:25) Saline Lock/Iv-Start (04/25/17 03:34) Ekg Tracing (04/25/17 03:34) O2 (04/25/17 03:34) Monitor-Rhythm Ecg Trace Only (04/25/17 03:34) Comprehensive Metabolic Panel (04/25/17 03:34) Drug Screen Stat (Urine) (04/25/17 03:34) Protime With Inr (04/25/17 03:34) Partial Thromboplastin Time (04/25/17 03:34) Troponin I (04/25/17 03:34) Ua Culture If Indicated (04/25/17 03:34) Saline Lock/Iv-Start (04/25/17 03:34) Ns Iv 1000 Ml (Sodium Chloride 0.9%) (04/25/17 03:34) Fentanyl Injection (Sublimaze Injection (04/25/17 03:34) Cbc And Manual Diff (04/25/17 03:34) Chest 1 View, Ap/Pa Only (04/25/17 03:41) Ondansetron Injection (Zofran Injectio (04/25/17 03:45) Fentanyl Injection (Sublimaze Injection (04/25/17 03:50) Enoxaparin Injection (Lovenox Injection) (04/25/17 04:30) Medications Given in ED Current Medications Medications Dose Ordered Sig/Arlene Route Start Time Stop Time Status Last Admin Dose Admin Fentanyl Citrate 100 mcg STK-MED ONCE .ROUTE 04/25/17 03:25 04/25/17 03:35 DC 04/25/17 03:37 100 MCG Ondansetron HCl 4 mg ONCE ONCE IVP 04/25/17 03:45 04/25/17 03:46 DC 04/25/17 03:47 4 MG Sodium Chloride 1,000 ml @ ud STK-MED ONCE .ROUTE 04/25/17 03:25 04/25/17 03:35 DC 04/25/17 03:37 1,000 MLS/HR Vital Signs/I&O Vital Sign - Last 12Hours 04/25/17 04/25/17 04/25/17 03:30 03:36 04:34 Temp 98.8 98.8 Pulse 74 68 Resp 37 13 B/P (MAP) 109/88 Pulse Ox 100 100 100 O2 Delivery Nasal Cannula Nasal Cannula Nasal Cannula O2 Flow Rate 3.00 3.00 3.00 Capillary Refill : Less Than 3 Seconds Blood Pressure Mean: 95 Progress Note : Progress Note PAIN EASED WITH FENTANYL ECG Initial ECG Impression Time: 04:02 Initial ECG Rate: 70 Initial ECG Rhythm: Normal Sinus Initial ECG Impression: Normal Initial ECG Comparisson: Unchanged Diagnostic Imaging Comments CXR--NO ACUTE PROCESS, PENDING RADIOLOGIST REVIEW Reviewed: Reviewed by Me Departure Communication (Admissions) Progress Notes 0410--SPOKE WITH DR. HARTMANN, ACCEPTS PT FOR ADMIT. WILL CONSULT HEMATOLOGY IN AM Impression Impression: Primary Impression: Sickle cell crisis Additional Impressions: Anemia Elevated bilirubin Non-compliance Disposition: ADMITTED INPATIENT Condition: Improved Admissions Decision to Admit Reason: Admit from ER (General) Decision to Admit/Date: Apr 25, 2017 Time/Decision to Admit Time: 04:10 Departure-Patient Inst. Referrals: NO,LOCAL PHYSICIAN (PCP/Family) Primary Care Physician Scripts No Active Prescriptions or Reported Meds MERCEDES DAVID DO Apr 25, 2017 04:01
[2017-04-25] MEDS ORDERED: ENOXAPARIN 40 MG/0.4 ML (LOVENOX) SYR SC ONE (04:30)
[2017-04-25 04:47] LABS: BILIRUBIN,URINE NEGATIVE (NEGATIVE); KETONES,URINE NEGATIVE (NEGATIVE); LEUKOCYTE ESTERASE ,URINE NEGATIVE (NEGATIVE); NITRITE,URINE NEGATIVE (NEGATIVE); PH,URINE 8 (5-9); PROTEIN,URINE 1+ (NEGATIVE); UROBILINOGEN,URINE 4 MG/DL (NORMAL)
[2017-04-25] MEDS ORDERED: 1/2 NS IV SOLUTION 1,000 ML IV ONE (04:49)
[2017-04-25] MEDS ORDERED: BUTORPHANOL INJ 2 MG/ML (STADOL) VIAL ONE (04:57)
[2017-04-25 05:01] LABS: SQUAMOUS EPITHELIAL CELL,UR RARE /HPF
[2017-04-25] MEDS ORDERED: 1/2 NS IV SOLUTION 1,000 ML IV SCH (05:15)
[2017-04-25] MEDS ORDERED: ONDANSETRON 4 MG/2 ML (SDV) Z0FRAN IV PRN (05:45)
[2017-04-25] MEDS ORDERED: fentaNYL INJECTION 100 MCG/2 ML AMP IV PRN (05:45)
[2017-04-25] MEDS ORDERED: BUTORPHANOL INJ 2 MG/ML (STADOL) VIAL IV PRN (05:45)
[2017-04-25] MEDS ORDERED: INFLUENZA TRIvalent 2017-2018 0.5 ML/45 MCG SYR IM ONE (07:15)
--- NOTE | 2017-04-25 07:59 | Diagnostic Imaging Report ---
Indication: Chest pain. Sickle cell disease. Comparison: 02/18/17 Findings: Upright portable view of the chest is obtained. Heart size is upper limits of normal. The pulmonary vessels appear unremarkable. No focal pneumonia is seen. The lungs are clear. Impression: No acute abnormalities demonstrated. Dictated by: Dictated on workstation # [id number]
[2017-04-25 08:27] LABS: RED BLOOD COUNT 2.98 10^6/uL (4.35-5.85); RETICULOCYTE % 13.74 % (0.50-2.40)
--- NOTE | 2017-04-25 09:15 | History & Physical-Hospitalist ---
HPI History of Present Illness: HPI/Chief Complaint Pt is a 31yoAAM with a PMH of sickle cell anemia known to me from previous admission for sickle cell crisis. He reports he had been feeling achey yesterday and then was awoke from sleep due to the pain in his upper extremities prompting him to seek evaluation in the ER. He denies any SOB or chest pain. He still has back pain and upper arm pain. He reports minimal improvement from yesterday and feels the stadol is more effective than the fentanyl at this time. He denies any other complaints. He has not followed up with hematology since his last admission because he lost his paperwork and missed his appointment. Source: patient Date Seen 04/25/17 Time Seen by Provider: 08:30 Attending Physician Fantasma Mcfadden MD PCP No,Local Physician Referring Physician Date of Admission Apr 25, 2017 at 4:10 am Home Medications & Allergies Home Medications Reviewed patient Home Medication Reconciliation Form Allergies Allergies Coded Allergies morphine (Unverified Adverse Reaction, Unknown, PT HAS TAKEN LORTAB & STADOL IN THE PAST, 02/18/17) Past Nembipl-Yffcfb-Ebfozv Hx Patient Social History Alcohol Use: Occasionally Uses Number of Drinks Today: 0 Alcohol Beverage of Choice: Whiskey Recreational Drug Use: Yes (+THC, COCAINE (SNORTED) HAS ALSO ADMITTED TO METHAMPHETAMINESIN PAST) Drug of Choice: THC, COCAINE, ALSO ADMITTED TO METHAMPHETAMINES IN PAST Smoking Status: Current Everyday Smoker Type Used: Cigarettes 2nd Hand Smoke Exposure: Yes Physical Abuse Screen: No Sexual Abuse: No Recent Foreign Travel: No Contact w/other who traveled: No Recent Hopitalizations: No Recent Infectious Disease Expo: No Immunizations Up To Date Tetanus Booster (TDap): More than 5yrs Pediatric: No Seasonal Allergies Seasonal Allergies: No Surgeries Yes Gallbladder, Orthopedic Respiratory No Currently Using CPAP: No Currently Using BIPAP: No Cardiovascular No Neurological No Reproductive System Hx Reproductive Disorders: No Sexually Transmitted Disease: No HIV/AIDS: No Genitourinary No Gastrointestinal No Musculoskeletal Yes (LEFT FOREARM INJURY AGE 5--S/P SURGERY; BIALTERAL ANKLE SURGERY ) Fractures Endocrine History of Endocrine Disorders: No HEENT History of HEENT Disorders: No Cancer No Psychosocial History of Psychiatric Problem: No Integumentary History of Skin or Integumenta: No Blood Transfusions History of Blood Disorders: Yes (SICKLE CELL ANEMIA) Adverse Reaction to a Blood Tr: No Family Medical History Significant Family History: Asthma, Diabetes, Hypertension Family Hx: Asthma G8 BROTHER Parkinson's disease Seizure disorder G8 BROTHER Review of Systems Constitutional: No chills, No fever EENTM: No blurred vision, No double vision, No nose congestion, No throat pain Respiratory: No cough, No dyspnea on exertion, No short of breath Cardiovascular: No chest pain, No edema, No palpitations Gastrointestinal: No abdominal pain, No constipation, No diarrhea, No nausea, No vomiting Genitourinary: No dysuria, No frequency Musculoskeletal: back pain, joint pain, muscle pain Skin: No lesions, No rash Psychiatric/Neurological: Denies Headache, Denies Numbness, Denies Tingling Physical Exam Physical Exam Vital Signs Vital Sign - Last 12Hours 04/25/17 04/25/17 03:30 03:36 Temp 98.8 Pulse 74 Resp 37 B/P (MAP) 109/88 Pulse Ox 100 O2 Delivery Nasal Cannula O2 Flow Rate 3.00 Capillary Refill : Less Than 3 Seconds General Appearance: No Apparent Distress, WD/WN HEENT: PERRL/EOMI, Moist Mucous Membranes, No Scleral Icterus (L), No Scleral Icterus (R) Neck: Non Tender, Supple Respiratory: Lungs Clear, No Respiratory Distress Cardiovascular: Regular Rate, Rhythm, No JVD, No Murmur, Normal Peripheral Pulses Gastrointestinal: Normal Bowel Sounds, Non Tender, Soft Extremity: Normal Capillary Refill, Non Tender, No Calf Tenderness, No Pedal Edema Neurologic/Psychiatric: Alert, Oriented x3, Normal Mood/Affect Skin: Normal Color, Warm/Dry Results Results/Procedures Lab Laboratory Tests 04/25/17 03:30 04/25/17 09:47 Assessment/Plan Admission Diagnosis Sickle Cell Crisis Diagnosis/Problems Diagnosis/Problems (1) Sickle cell crisis Status: Acute Assessment & Plan: Retic up, pain consistent with crisis Will transition to Dilaudid as has provided better pain control last admission Will continue Stadol Continue IVF Continue oxygen supplementation Consult Heme appreciate recs (2) Non-compliance Status: Acute Assessment & Plan: Has not follow up since admission 2 months ago Discussed the importance of regular follow up Left AMA last time Advised patient on need to follow up regularly and to stay through this admission until medically optimized, he agreed (3) Tobacco abuse Status: Chronic Assessment & Plan: Recommended cessation (4) Hyperbilirubinemia Status: Chronic Assessment & Plan: Lower than previous admissions No appreciable jaundice (5) Prophylactic measure Assessment & Plan: Lovenox NS at 150ml/hr Reg Diet Clinical Quality Measures DVT/VTE Risk/Contraindication: Risk Factor Score Per Nursin RFS Level Per Nursing on Admit: 1=Low/No VTE PPX FANTASMA MCFADDEN MD Apr 25, 2017 9:15 am
[2017-04-25] MEDS: NS IV 1000 ML 1,000 ML IV SCH ×3 (09:41→23:17)
[2017-04-25] MEDS: ENOXAPARIN 40 MG/0.4 ML (LOVENOX) SYR SC SCH (09:41)
[2017-04-25 09:54] LABS: BASOPHILS # (AUTO) 0.1 10^3/uL (0.0-0.1); BASOPHILS % (AUTO) 1 % (0-10); EOSINOPHILS # (AUTO) 0.3 10^3/uL (0.0-0.3); EOSINOPHILS % (AUTO) 2 % (0-10); LYMPHOCYTES # (AUTO) 3.1 X 10^3 (1.0-4.0); LYMPHOCYTES % (AUTO) 23 % (12-44); MEAN CORPUSCULAR HEMOGLOBIN 32 PG (25-34); MEAN CORPUSCULAR HGB CONC 36 G/DL (32-36); MEAN CORPUSCULAR VOLUME 88 FL (80-99); MONOCYTES # (AUTO) 1.6 X 10^3 (0.0-1.0); MONOCYTES % (AUTO) 12 % (0-12); NEUTROPHILS # (AUTO) 8.5 X 10^3 (1.8-7.8); NEUTROPHILS % (AUTO) 62 % (42-75); RED BLOOD COUNT 2.79 10^6/uL (4.35-5.85); RED CELL DISTRIBUTION WIDTH 21.9 % (10.0-14.5); RETICULOCYTE % 14.81 % (0.50-2.40); WHITE BLOOD COUNT 13.6 10^3/uL (4.3-11.0)
[2017-04-25 10:17] LABS: ALANINE AMINOTRANSFERASE 14 U/L (0-55); ANION GAP 6 MMOL/L (5-14); ASPARTATE AMINO TRANSFERASE 35 U/L (5-34); BILIRUBIN,TOTAL 3.8 MG/DL (0.1-1.0); BLOOD UREA NITROGEN 7 MG/DL (7-18); BUN/CREATININE RATIO 9; CALCIUM 8.8 MG/DL (8.5-10.1); CARBON DIOXIDE 26 MMOL/L (21-32); CHLORIDE 107 MMOL/L (98-107); CREATININE SERUM 0.77 MG/DL (0.60-1.30); GFR ESTIMATED > 60; GLUCOSE 91 MG/DL (70-105); POTASSIUM 4.6 MMOL/L (3.6-5.0); SODIUM 139 MMOL/L (135-145); TOTAL PROTEIN 7.4 GM/DL (6.4-8.2)
[2017-04-25 10:25] LABS: BAND NEUTROPHILS 2 %; BASOPHILS % (MANUAL) 1 %; EOSINOPHILS % (MANUAL) 1 %; LYMPHOCYTES % (MANUAL) 23 %; NEUTROPHILS % (MANUAL) 58 %
[2017-04-25 10:26] LABS: MICROCYTOSIS MODERATE; POLYCHROMASIA MODERATE
[2017-04-25 10:27] LABS: SICKLE CELLS MODERATE
[2017-04-25 10:28] LABS: METAMYELOCYTES % 1 %
[2017-04-25 10:29] LABS: ANISOCYTOSIS MODERATE
[2017-04-25] MEDS ORDERED: diphenhydrAMINE 25 MG TAB (BENADRYL) PO NR (10:30)
[2017-04-25] MEDS ORDERED: ACETAMINOPHEN 500 MG TAB (TYLENOL) PO NR (10:30)
[2017-04-25 10:32] LABS: PLATELET COUNT 174 10^3/uL (130-400)
[2017-04-25] MEDS: HYDROmorphone (DILAUDID) 2 MG/ML VIAL IVP PRN ×4 (10:39→22:04)
[2017-04-25] MEDS: FOLIC ACID 1 MG TAB PO SCH (12:38)
--- NOTE | 2017-04-25 14:02 | CONSULTATION REPORT ---
DATE OF SERVICE: 04/25/2017 REFERRING PHYSICIAN: Johanna Mcfadden MD. The patient is admitted to ICU bed 8. IMPRESSION: 1. Sickle cell crisis with lower back pain and hypoxia. 2. History of sickle cell disease with recurrent crises. 2. Noncompliance with no outpatient followup. 3. Clinical dehydration. RECOMMENDATIONS: 1. Pain control with narcotic agents as you are doing. 2. Aggressive hydration because of dehydration. 3. Repeat CBC now and try to maintain hemoglobin more than 9 grams per deciliter. 4. Start the patient on folic acid 1 mg p.o. daily. HISTORY OF PRESENT ILLNESS: The patient is a 31-year-old -[place] male with history of sickle cell disease who has had multiple admissions for acute crisis in the past. Most recent admission was in January 2017. At that time, the patient left the hospital against medical advice once his pain had improved. He was recommended outpatient followup for consideration of hydroxyurea therapy, but he never made an appointment or kept this. He came to the emergency room last night with rapid onset low back pain. He has not been feeling well the past two days, but denied any fevers or other infections. He has not been eating or drinking well the past 24 hours prior to admission. PAST MEDICAL HISTORY: Significant for sickle cell disease with intermittent crisis. He was on treatment with hydroxyurea in the distant past. No other medical problems. PAST SURGICAL HISTORY: Include cholecystectomy and orthopedic surgery. SOCIAL HISTORY: The patient is single and is living in [facility] now. Previously, he lived in [place] and [place] intermittently. He uses approximately a pack of cigarettes daily and smokes cannabis also on an intermittent basis. He uses alcohol intermittently, but denied binge drinking. FAMILY HISTORY: Significant for his brother with seizure disorder and another brother with history of asthma. PHYSICAL EXAMINATION: GENERAL: Showed young -Eth[place]ian male, well developed and nourished, awake and oriented and in moderate distress due to low back pain. VITAL SIGNS: Temperature was 98.6, pulse rate 70, respiratory rate 18, blood pressure 103/70, oxygen saturation was 97% on 2 liters of oxygen by nasal cannula. HEENT: Normocephalic, extraocular muscles intact, conjunctivae slightly pale, oral mucosa is dry. NECK: Supple, with no JVD. No cervical, supraclavicular or axillary lymphadenopathy palpable. CHEST: Symmetrical. LUNGS: Clear to auscultation without wheezes or rales. HEART: Regular in rate and rhythm. No murmurs or gallops are heard. ABDOMEN: Soft, nontender with no hepatosplenomegaly or other masses palpable. The patient did not have any point tenderness on percussion along the spine. EXTREMITIES: Showed no edema. NEUROLOGIC: Showed no focal motor deficits. LABORATORY DATA: CBC done in the emergency room showed WBC 9.2, hemoglobin 9.2, MCV 88, platelet count 189,000. Absolute reticulocyte count of 410,000. Chemistry panel showed normal electrolytes and renal function. Total bilirubin was elevated at 4.1 with the rest of the liver function studies within normal limits. Chest x-ray done at the emergency room showed the heart size at upper limits of normal. Pulmonary vessels were unremarkable. No evidence of infiltrates or atelectasis noted. No other abnormalities noted. Thank you for allowing me to participate in this patient's care. I will follow the patient with you and make appropriate recommendations. Job ID: [id number] DocumentID: [id number] Dictated Date: 04/25/2017 09:55:02 Straw Hat Presser Date: 04/25/2017 14:01:25 Dictated By: JORDAN SIMS MD
[2017-04-26] VITALS (7 sets, daily range): BP systolic 100–117; BP diastolic 61–65
[2017-04-26] MEDS: NS IV 1000 ML 1,000 ML IV SCH ×3 (01:03→15:00)
[2017-04-26] MEDS: HYDROmorphone (DILAUDID) 2 MG/ML VIAL IVP PRN ×5 (02:04→22:09)
[2017-04-26] MEDS: FOLIC ACID 1 MG TAB PO SCH (08:38)
[2017-04-26] MEDS: ENOXAPARIN 40 MG/0.4 ML (LOVENOX) SYR SC SCH (09:48)
--- NOTE | 2017-04-26 14:37 | Progress Note-Hospitalist ---
Standard Progress Note Progress Notes/Assess & Plan Date Seen 04/26/17 Time Seen by Provider: 14:34 Diagnosis Sickle Cell Crisis Assess & Plan/Chief Complaint The patient is a 31-year-old black male who was admitted yesterday from the emergency room. He is known to have sickle cell disease. He was the admitted here earlier this year with a sickle cell crisis. This apparently began early yesterday. The trigger is not so clear. It is known that he has been something of a transient over the last year or more. He was originally from [place]. He has been in [facility] and [place] and now states that he is a resident of [place]. He is feeling much better today and would like to be discharged. I expect Dr. Gallegos to make rounds after clinic today and he will be the final determinant of this. Physical exam: He is ambulatory and pleasant. Lungs are clear to auscultation. CV is regular without murmur. Abdomen is soft without pain to palpation. Extremities show no pedal edema. Impression: Sickle cell crisis. Plan: Discharge if okay with Dr. Gallegos Labs Laboratory Tests 04/25/17 03:30 04/25/17 09:47 KAYY ANDREA MD Apr 26, 2017 14:37
--- NOTE | 2017-04-26 14:47 | Discharge Instructions ---
Discharge Instructions Patient Instructions Goal/Follow Up Appt: Drink at least 1 quart and a half of liquids each day Patient Instructions: If you to remain in the area make arrangements to be seen in the hematology Department at the cancer clinic Return to The Hospital For: Recurrence of symptoms Activity & Diet Discharge Diet: No Restrictions KAYY ANDREA MD Apr 26, 2017 14:47
[2017-04-26] MEDS ORDERED: HYDROmorphone (DILAUDID) 2 MG/ML VIAL IVP NR (17:15)
--- NOTE | 2017-04-26 17:17 | Progress Note-Standard ---
Standard Progress Note Progress Notes/Assess & Plan Date Seen by Provider: Apr 26, 2017 Time Seen by Provider: 17:11 Progress/Assessment & Plan 31-year-old -Martiniquais male with history of sickle cell disease admitted with rapid onset low back pain and sickle cell crisis. He is using pain medications regularly. He is on IV fluids and oxygen. He is feeling much better than the last 24 hours. He is sitting up and eating well. He did go outside and smoke per nursing staff. Back pain is better but still bothering him when he is sitting up and moving around. Vital Sign - Last 12Hours Date Time Temp Pulse Resp B/P (MAP) Pulse Ox O2 Delivery O2 Flow Rate FiO2 04/26/17 16:37 98.0 04/26/17 16:09 87 18 104/61 82 Room Air 04/26/17 08:00 2.00 Physical examination he is stable with no new findings since yesterday. Labs from yesterday noted. No labs were done today. Planning discharge for tomorrow if stable. I will decrease the IV fluids to 75 mL per hour per patient request. Recheck labs tomorrow morning. Follow-up at the cancer center in 2-3 weeks to discuss about treatment with hydroxyurea. JORDAN SIMS Apr 26, 2017 17:17
[2017-04-27] MEDS: NS IV 1000 ML 1,000 ML IV SCH (01:44)
[2017-04-27] MEDS: HYDROmorphone (DILAUDID) 2 MG/ML VIAL IVP PRN ×2 (03:45→08:30)
[2017-04-27 04:32] VITALS: BP 98/55
[2017-04-27 06:54] LABS: BASOPHILS # (AUTO) 0.1 10^3/uL (0.0-0.1); BASOPHILS % (AUTO) 1 % (0-10); EOSINOPHILS # (AUTO) 0.7 10^3/uL (0.0-0.3); EOSINOPHILS % (AUTO) 7 % (0-10); LYMPHOCYTES % (AUTO) 22 % (12-44); MEAN CORPUSCULAR HEMOGLOBIN 31 PG (25-34); MEAN CORPUSCULAR HGB CONC 36 G/DL (32-36); MEAN CORPUSCULAR VOLUME 86 FL (80-99); MEAN PLATELET VOLUME 12.3 FL (7.4-10.4); MONOCYTES # (AUTO) 1.6 X 10^3 (0.0-1.0); MONOCYTES % (AUTO) 18 % (0-12); NEUTROPHILS # (AUTO) 4.8 X 10^3 (1.8-7.8); NEUTROPHILS % (AUTO) 52 % (42-75); PLATELET COUNT 173 10^3/uL (130-400); RED BLOOD COUNT 2.79 10^6/uL (4.35-5.85); RED CELL DISTRIBUTION WIDTH 22.2 % (10.0-14.5); RETICULOCYTE % 11.89 % (0.50-2.40); WHITE BLOOD COUNT 9.2 10^3/uL (4.3-11.0)
[2017-04-27 07:12] LABS: ALANINE AMINOTRANSFERASE 25 U/L (0-55); ALBUMIN 3.6 GM/DL (3.2-4.5); ANION GAP 10 MMOL/L (5-14); ASPARTATE AMINO TRANSFERASE 49 U/L (5-34); BILIRUBIN,TOTAL 3.4 MG/DL (0.1-1.0); BLOOD UREA NITROGEN 8 MG/DL (7-18); BUN/CREATININE RATIO 11; CALCIUM 8.8 MG/DL (8.5-10.1); CARBON DIOXIDE 21 MMOL/L (21-32); CHLORIDE 108 MMOL/L (98-107); GFR ESTIMATED > 60; GLUCOSE 80 MG/DL (70-105); POTASSIUM 4.5 MMOL/L (3.6-5.0); SODIUM 139 MMOL/L (135-145); TOTAL PROTEIN 6.6 GM/DL (6.4-8.2)
[2017-04-27 08:00] VITALS: BP 120/65
[2017-04-27] MEDS: ENOXAPARIN 40 MG/0.4 ML (LOVENOX) SYR SC SCH (08:24)
[2017-04-27] MEDS: FOLIC ACID 1 MG TAB PO SCH (08:24)
--- NOTE | 2017-04-27 11:37 | Progress Note-Hospitalist ---
Standard Progress Note Progress Notes/Assess & Plan Date Seen 04/27/17 Time Seen by Provider: 11:35 Diagnosis Sickle Cell Crisis Assess & Plan/Chief Complaint The patient reports that he feels even better today than yesterday. He has his appetite returned. His been up and walking in the hallways and is eager to leave. His lab is slightly improved over yesterday. Dr. Duvall has arranged for follow-up appointment at the cancer center in 2-3 weeks. Physical exam: He is alert and pleasant. Lungs are clear to auscultation. CV is regular without murmur. Abdomen is soft without tenderness to palpation. Impression: Sickle cell crisis resolving. Plan: Discharge. See discharge sequence for more details. Labs Laboratory Tests 04/27/17 06:26 KAYY ANDREA MD Apr 27, 2017 11:37
[2017-04-27 13:17] VITALS: BP 120/65
== END 2017-04-27 13:17 | disposition home or self-care (01) | DRG 812 ==
LOC: EDUNIT# 03:23 → ER 03:24 → ICU 04:10 → 4TH 10:35
PROVIDERS: ADMIT Family Medicine; ATTEND Family Medicine
DX: D57.00 Hb-SS disease with crisis, unspecified (principal); E86.0 Dehydration; R09.02 Hypoxemia; M54.5 Low back pain; E80.6 Other disorders of bilirubin metabolism; F12.90 Cannabis use, unspecified, uncomplicated; F17.210 Nicotine dependence, cigarettes, uncomplicated; Z91.19 Patient's noncompliance with other medical treatment and regimen
CPT/HCPCS: 36415; 71010; 80053; 80306; 81000; 84484; 85007; 85025; 85027; 85045; 85610; 85730; 86850; 86900; 86901; 86920; 93005; 93041

== ENCOUNTER 2017-05-14 14:51 | Outpatient (RCR) | payer MEDICAID, OTHER ==
[2017-05-14 15:12] LABS: BASOPHILS # (AUTO) 0.1 10^3/uL (0.0-0.1); BASOPHILS % (AUTO) 2 % (0-10); EOSINOPHILS # (AUTO) 0.5 10^3/uL (0.0-0.3); EOSINOPHILS % (AUTO) 6 % (0-10); HEMATOCRIT 28 % (40-54); HEMOGLOBIN 9.8 G/DL (13.3-17.7); LYMPHOCYTES # (AUTO) 2.2 X 10^3 (1.0-4.0); LYMPHOCYTES % (AUTO) 30 % (12-44); MEAN CORPUSCULAR HEMOGLOBIN 31 PG (25-34); MEAN CORPUSCULAR HGB CONC 35 G/DL (32-36); MEAN CORPUSCULAR VOLUME 88 FL (80-99); MEAN PLATELET VOLUME 11.7 FL (7.4-10.4); MONOCYTES # (AUTO) 1.4 X 10^3 (0.0-1.0); MONOCYTES % (AUTO) 19 % (0-12); NEUTROPHILS # (AUTO) 3.2 X 10^3 (1.8-7.8); NEUTROPHILS % (AUTO) 44 % (42-75); PLATELET COUNT 233 10^3/uL (130-400); RED BLOOD COUNT 3.15 10^6/uL (4.35-5.85); RED CELL DISTRIBUTION WIDTH 18.4 % (10.0-14.5); WHITE BLOOD COUNT 7.2 10^3/uL (4.3-11.0)
[2017-05-14 15:30] LABS: ALANINE AMINOTRANSFERASE 9 U/L (0-55); ALBUMIN 4.2 GM/DL (3.2-4.5); ALKALINE PHOSPHATASE 55 U/L (40-136); BILIRUBIN,TOTAL 4.2 MG/DL (0.1-1.0); BUN/CREATININE RATIO 12; CALCIUM 9.4 MG/DL (8.5-10.1); CARBON DIOXIDE 28 MMOL/L (21-32); CHLORIDE 102 MMOL/L (98-107); CREATININE SERUM 0.78 MG/DL (0.60-1.30); GFR ESTIMATED > 60; GLUCOSE 86 MG/DL (70-105); POTASSIUM 4.2 MMOL/L (3.6-5.0); SODIUM 138 MMOL/L (135-145); TOTAL PROTEIN 7.4 GM/DL (6.4-8.2)
[2017-05-14] MEDS ORDERED: PNEUMOCOCCAL VACCINE 25 MCG/0.5 ML VIAL IM ONE (15:45)
== END 2017-08-12 | disposition home or self-care (01) ==
LOC: ONC 14:51
PROVIDERS: ATTEND Internal Medicine Hematology & Oncology
DX: D57.1 Sickle-cell disease without crisis (principal); F17.210 Nicotine dependence, cigarettes, uncomplicated; Z90.81 Acquired absence of spleen; Z23 Encounter for immunization
CPT/HCPCS: 36415; 80053; 82306; 82728; 83020; 83540; 85025; 90471; 90732; 99213

== ENCOUNTER 2017-06-19 04:12 | Inpatient (IN) | payer MEDICAID, OTHER ==
[~2017-06-19] VITALS: Ht 167.6 cm; Wt 65.8 kg
--- OUTSIDE RECORDS SUMMARY | 2017-06-19 04:19 | XMS REPORT | Continuity of Care Document ---
Author Author [facility] Organization [facility] Address Unknown Phone Unavailable Allergies Active Description Code Type Severity Reaction Onset Reported/Identified Relationship to Patient Clinical Status Yes No Known Drug Allergies [id number] Drug Allergy Unknown N/A 10/03/2015 Yes morphine [id number] Drug Allergy Unknown N/A 05/19/2016 Yes morphine [id number] Drug Allergy Unknown PT HAS TAKEN LO 02/18/2017 Medications There is no data. Problems Date Dx Coded Attending Type Code Diagnosis Diagnosed By 10/04/2015 LESLIE GILL DO Ot D57.01 HB-SS DISEASE WITH ACUTE CHEST SYNDROME 10/04/2015 LESLIE GILL DO Ot F12.90 CANNABIS USE, UNSPECIFIED, UNCOMPLICATED 10/04/2015 BRIDGET DÍAZ LESLIE Ot F17.210 NICOTINE DEPENDENCE, CIGARETTES, UNCOMPL 10/04/2015 BRIDGET DÍAZ LESLIE Ot J18.9 PNEUMONIA, UNSPECIFIED ORGANISM 10/04/2015 BRIDGET DÍAZ LESLIE Ot R09.02 HYPOXEMIA 10/05/2015 BRIDGET DÍAZ LESLIE Ot D57.01 HB-SS DISEASE WITH ACUTE CHEST SYNDROME 10/05/2015 BRIDGET DÍAZ LESLIE Ot F12.90 CANNABIS USE, UNSPECIFIED, UNCOMPLICATED 10/05/2015 TRUDY GILL DOI Ot F17.210 NICOTINE DEPENDENCE, CIGARETTES, UNCOMPL 10/05/2015 BRIDGET DÍAZ LESLIE Ot J18.9 PNEUMONIA, UNSPECIFIED ORGANISM 10/05/2015 BRIDGET DÍAZ LESLIE Ot R09.02 HYPOXEMIA 10/05/2015 BRIDGET DÍAZ LESLIE Ot D57.01 HB-SS DISEASE WITH ACUTE CHEST SYNDROME 10/05/2015 LESLIE GILL DO Ot F12.90 CANNABIS USE, UNSPECIFIED, UNCOMPLICATED 10/05/2015 TRUDY GILL DOI Ot F17.210 NICOTINE DEPENDENCE, CIGARETTES, UNCOMPL 10/05/2015 BRIDGET DÍAZ LESLIE Ot J18.9 PNEUMONIA, UNSPECIFIED ORGANISM 10/05/2015 GILL DO, LESLIE Ot R09.02 HYPOXEMIA 10/06/2015 GILL DO LESLIE Ot D57.01 HB-SS DISEASE WITH ACUTE CHEST SYNDROME 10/06/2015 BRIDGET DO LESLIE Ot F12.90 CANNABIS USE, UNSPECIFIED, UNCOMPLICATED 10/06/2015 BRIDGET DO LESLIE Ot F17.210 NICOTINE DEPENDENCE, CIGARETTES, UNCOMPL 10/06/2015 BRIDGET DO LESLIE Ot J18.9 PNEUMONIA, UNSPECIFIED ORGANISM 10/06/2015 BRIDGET DO LESLIE Ot R09.02 HYPOXEMIA 10/07/2015 BRIDGET DO LESLIE Ot D57.01 HB-SS DISEASE WITH ACUTE CHEST SYNDROME 10/07/2015 BRIDGET DO LESLIE Ot F12.90 CANNABIS USE, UNSPECIFIED, UNCOMPLICATED 10/07/2015 BRIDGET DÍAZ LESLIE Ot F17.210 NICOTINE DEPENDENCE, CIGARETTES, UNCOMPL 10/07/2015 BRIDGET DÍAZ LESLIE Ot J18.9 PNEUMONIA, UNSPECIFIED ORGANISM 10/07/2015 TRUDY GILL DOI Ot R09.02 HYPOXEMIA 10/08/2015 TRUDY GILL DOI Ot D57.01 HB-SS DISEASE WITH ACUTE CHEST SYNDROME 10/08/2015 TRUDY GILL DOI Ot F12.90 CANNABIS USE, UNSPECIFIED, UNCOMPLICATED 10/08/2015 BRIDGET DÍAZ LESLIE Ot F17.210 NICOTINE DEPENDENCE, CIGARETTES, UNCOMPL 10/08/2015 TRUDY GILL DOI Ot J18.9 PNEUMONIA, UNSPECIFIED ORGANISM 10/08/2015 BRIDGET DÍAZ LESLIE Ot R09.02 HYPOXEMIA 10/08/2015 BRIDGET DÍAZ LESLIE Ot D57.01 HB-SS DISEASE WITH ACUTE CHEST SYNDROME 10/08/2015 TRUDY GILL DOI Ot E87.70 FLUID OVERLOAD, UNSPECIFIED 10/08/2015 BRIDGET DÍAZ LESLIE Ot F12.90 CANNABIS USE, UNSPECIFIED, UNCOMPLICATED 10/08/2015 BRIDGET DÍAZ LESLIE Ot F15.10 OTHER STIMULANT ABUSE, UNCOMPLICATED 10/08/2015 BRIDGET DÍAZ LESLIE Ot F17.210 NICOTINE DEPENDENCE, CIGARETTES, UNCOMPL 10/08/2015 BRIDGET DÍAZ LESLIE Ot J18.9 PNEUMONIA, UNSPECIFIED ORGANISM 10/08/2015 TRUDY GILL DOI Ot K59.00 CONSTIPATION, UNSPECIFIED 10/08/2015 BRIDGET DÍAZ LESLIE Ot R09.02 HYPOXEMIA 10/08/2015 TRUDY GILL DOI Ot T40.2X5A ADVERSE EFFECT OF OTHER OPIOIDS, INITIAL 05/21/2016 AYDE TOLLIVER MD Ot D57.01 HB-SS DISEASE WITH ACUTE CHEST SYNDROME 05/21/2016 AYDE TOLLIVER MD Ot F17.210 NICOTINE DEPENDENCE, CIGARETTES, UNCOMPL 05/21/2016 AYDE TOLLIVER MD Ot D57.01 HB-SS DISEASE WITH ACUTE CHEST SYNDROME 05/21/2016 AYDE TOLLIVER MD Ot F17.210 NICOTINE DEPENDENCE, CIGARETTES, UNCOMPL 05/22/2016 AYDE TOLLIVER MD Ot D57.01 HB-SS DISEASE WITH ACUTE CHEST SYNDROME 05/22/2016 AYDE TOLLIVER MD Ot E87.70 FLUID OVERLOAD, UNSPECIFIED 05/22/2016 AYDE TOLLIVER MD Ot F17.210 NICOTINE DEPENDENCE, CIGARETTES, UNCOMPL 05/22/2016 AYDE TOLLIVER MD Ot J98.11 ATELECTASIS 05/22/2016 AYDE TOLLIVER MD Ot K59.03 DRUG INDUCED CONSTIPATION 05/22/2016 AYDE TOLLIVER MD Ot L50.9 URTICARIA, UNSPECIFIED 05/22/2016 AYDE TOLLIVER MD Ot R09.02 HYPOXEMIA 05/22/2016 AYDE TOLLIVER MD Ot T40.2X5A ADVERSE EFFECT OF OTHER OPIOIDS, INITIAL 02/20/2017 FANTASMA HARTMANN MD Ot D57.00 HB-SS DISEASE WITH CRISIS, UNSPECIFIED 02/20/2017 FANTASMA HARTMANN MD Ot D72.829 ELEVATED WHITE BLOOD CELL COUNT, UNSPECI 02/20/2017 FANTASMA HARTMANN MD Ot E80.6 OTHER DISORDERS OF BILIRUBIN METABOLISM 02/20/2017 FANTASMA HARTMANN MD Ot F17.210 NICOTINE DEPENDENCE, CIGARETTES, UNCOMPL 02/20/2017 FANTASMA HARTMANN MD Ot I51.7 CARDIOMEGALY 04/26/2017 FANTASMA HARTMANN MD, Ot D57.00 HB-SS DISEASE WITH CRISIS, UNSPECIFIED 04/26/2017 FANTASMA HARTMANN MD Ot E80.6 OTHER DISORDERS OF BILIRUBIN METABOLISM 04/26/2017 FANTASMA HARTMANN MD Ot E86.0 DEHYDRATION 04/26/2017 FANTASMA HARTMANN MD Ot F12.90 CANNABIS USE, UNSPECIFIED, UNCOMPLICATED 04/26/2017 MARY KATE MD, FANTASMA M Ot F17.210 NICOTINE DEPENDENCE, CIGARETTES, UNCOMPL 04/26/2017 FANTASMA HARTMANN MD Ot M54.5 LOW BACK PAIN 04/26/2017 FANTASMA HARTMANN MD Ot R09.02 HYPOXEMIA 04/26/2017 FANTASMA HARTMANN MD Ot Z91.19 PATIENT'S NONCOMPLIANCE W OT MEDICAL TR 04/27/2017 FANTASMA HARTMANN MD Ot D57.00 HB-SS DISEASE WITH CRISIS, UNSPECIFIED 04/27/2017 FANTASMA HARTMANN MD Ot E80.6 OTHER DISORDERS OF BILIRUBIN METABOLISM 04/27/2017 FANTASMA HARTMANN MD Ot E86.0 DEHYDRATION 04/27/2017 FANTASMA HARTMANN MD Ot F12.90 CANNABIS USE, UNSPECIFIED, UNCOMPLICATED 04/27/2017 FANTASMA HARTMANN MD Ot F17.210 NICOTINE DEPENDENCE, CIGARETTES, UNCOMPL 04/27/2017 FANTASMA HARTMANN MD Ot M54.5 LOW BACK PAIN 04/27/2017 FANTASMA HARTMANN MD Ot R09.02 HYPOXEMIA 04/27/2017 FANTASMA HARTMANN MD Ot Z91.19 PATIENT'S NONCOMPLIANCE W [facility] 04/27/2017 FANTASMA HARTMANN MD Ot D57.00 HB-SS DISEASE WITH CRISIS, UNSPECIFIED 04/27/2017 FANTASMA HARTMANN MD Ot E80.6 OTHER DISORDERS OF BILIRUBIN METABOLISM 04/27/2017 FANTASMA HARTMANN MD Ot E86.0 DEHYDRATION 04/27/2017 FANTASMA HARTMANN MD Ot F12.90 CANNABIS USE, UNSPECIFIED, UNCOMPLICATED 04/27/2017 FANTASMA HARTMANN MD Ot F17.210 NICOTINE DEPENDENCE, CIGARETTES, UNCOMPL 04/27/2017 FANTASMA HARTMANN MD Ot M54.5 LOW BACK PAIN 04/27/2017 FANTASMA HARTMANN MD Ot R09.02 HYPOXEMIA 04/27/2017 FANTASMA HARTMANN MD Ot Z91.19 PATIENT'S NONCOMPLIANCE W [facility] 05/19/2017 PEBBLES PALMER MD, Ot D57.1 SICKLE-CELL DISEASE WITHOUT CRISIS 05/19/2017 PEBBLES PALMER MD Ot F17.210 NICOTINE DEPENDENCE, CIGARETTES, UNCOMPL 05/19/2017 PEBBLES PALMER MD, Ot Z23 ENCOUNTER FOR IMMUNIZATION 05/19/2017 PEBBLES PALMER MD, Ot Z90.81 ACQUIRED ABSENCE OF SPLEEN 06/01/2017 PEBBLES PALMER MD, Ot D57.1 SICKLE-CELL DISEASE WITHOUT CRISIS 06/01/2017 PEBBLES PALMER MD, Ot F17.210 NICOTINE DEPENDENCE, CIGARETTES, UNCOMPL 06/01/2017 PEBBLES PALMER MD, Ot Z23 ENCOUNTER FOR IMMUNIZATION 06/01/2017 PEBBLES PALMER MD, Ot Z90.81 ACQUIRED ABSENCE OF SPLEEN Procedures There is no data. Results Test Result Range PT panel in platelet poor plasma by coagulation assay - 05/19/16 01:09 Prothrombin time (PT) in platelet poor plasma by coagulation assay 14.5 s 12.2-14.7 INR in platelet poor plasma or blood by coagulation assay 1.2 0.8-1.4 Activated partial thromboplastin time (aPTT) in platelet poor plasma bycoagulation assay - 05/19/16 01:09 Activated partial thromboplastin time (aPTT) in platelet poor plasma bycoagulation assay 30 s 24-35 Complete blood count (CBC) with automated white blood cell (WBC) differential - 05/19/16 01:09 Blood leukocytes automated count (number/volume) 12.3 10*3/uL 4.3-11.0 Blood erythrocytes automated count (number/volume) 3.04 10*6/uL 4.35-5.85 Venous blood hemoglobin measurement (mass/volume) 9.3 g/dL 13.3-17.7 Blood hematocrit (volume fraction) 27 % 40-54 Automated erythrocyte mean corpuscular volume 88 [foz_us] 80-99 Automated erythrocyte mean corpuscular hemoglobin (mass per erythrocyte) 31 pg 25-34 Automated erythrocyte mean corpuscular hemoglobin concentration measurement ( mass/volume) 35 g/dL 32-36 Automated erythrocyte distribution width ratio 24.6 % 10.0-14.5 Automated blood platelet count (count/volume) 271 10*3/uL 130-400 Automated blood platelet mean volume measurement 11.5 [foz_us] 7.4-10.4 Automated blood neutrophils/100 leukocytes 52 % 42-75 Automated blood lymphocytes/100 leukocytes 27 % 12-44 Blood monocytes/100 leukocytes 15 % 0-12 Automated blood eosinophils/100 leukocytes 4 % 0-10 Automated blood basophils/100 leukocytes 1 % 0-10 Blood neutrophils automated count (number/volume) 6.4 10*3 1.8-7.8 Blood lymphocytes automated count (number/volume) 3.3 10*3 1.0-4.0 Blood monocytes automated count (number/volume) 1.8 10*3 0.0-1.0 Automated eosinophil count 0.5 10*3/uL 0.0-0.3 Automated blood basophil count (count/volume) 0.2 10*3/uL 0.0-0.1 Blood manual differential performed detection - 05/19/16 01:09 Blood monocytes/100 leukocytes 12 % NRG Manual blood segmented neutrophils/100 leukocytes 51 % NRG Blood band neutrophils/100 leukocytes 1 % NRG Manual blood lymphocytes/100 leukocytes 30 % NRG Manual eosinophils/100 leukocytes in nose 3 % NRG Manual blood basophils/100 leukocytes 3 % NRG Blood polychromasia detection by light microscopy MARKED NRG Blood anisocytosis detection by light microscopy MARKED NRG Blood poikilocytosis detection by light microscopy MARKED NRG Manual blood nucleated erythrocytes/100 leukocytes ratio 5 NRG Blood hypochromia detection by light microscopy MODERATE NRG Blood target cells detection by light microscopy MARKED NRG Blood sickle cells detection by light microscopy MARKED NRG Erythrocyte sedimentation rate by westergren method - 05/19/16 01:09 Erythrocyte sedimentation rate by westergren method 7 mm 0-15 Comprehensive metabolic panel - 05/19/16 01:09 Serum or plasma sodium measurement (moles/volume) 138 mmol/L 135-145 Serum or plasma potassium measurement (moles/volume) 3.9 mmol/L 3.6-5.0 Serum or plasma chloride measurement (moles/volume) 106 mmol/L 98-107 Carbon dioxide 24 mmol/L 21-32 Serum or plasma anion gap determination (moles/volume) 8 mmol/L 5-14 Serum or plasma urea nitrogen measurement (mass/volume) 5 mg/dL 7-18 Serum or plasma creatinine measurement (mass/volume) 0.71 mg/dL 0.60-1.30 Serum or plasma urea nitrogen/creatinine mass ratio 7 NRG Serum or plasma creatinine measurement with calculation of estimated glomerular filtration rate > NRG Serum or plasma glucose measurement (mass/volume) 97 mg/dL 70-105 Serum or plasma calcium measurement (mass/volume) 9.1 mg/dL 8.5-10.1 Serum or plasma total bilirubin measurement (mass/volume) 5.2 mg/dL 0.1-1.0 Serum or plasma alkaline phosphatase measurement (enzymatic activity/volume) 61 U/L 40-136 Serum or plasma aspartate aminotransferase measurement (enzymatic activity/ volume) 29 U/L 5-34 Serum or plasma alanine aminotransferase measurement (enzymatic activity/volume ) 12 U/L 0-55 Serum or plasma protein measurement (mass/volume) 6.7 g/dL 6.4-8.2 Serum or plasma albumin measurement (mass/volume) 4.0 g/dL 3.2-4.5 Magnesium - 05/19/16 01:09 Magnesium 2.3 mg/dL 1.8-2.4 Serum or plasma creatine kinase measurement (enzymatic activity/volume) - 05/19 01:09 Serum or plasma creatine kinase measurement (enzymatic activity/volume) 54 U/L 30-200 Serum or plasma troponin i.cardiac measurement (mass/volume) - 05/19/16 01:09 Serum or plasma troponin i.cardiac measurement (mass/volume) < ng/ mL <0.30 Fibrin D-dimer FEU measurement in platelet poor plasma (mass/volume) - 01:09 Fibrin D-dimer FEU measurement in platelet poor plasma (mass/volume) 2.00 ug/mL 0.00-0.49 Serum or plasma lithium measurement (moles/volume) - 05/19/16 01:09 BNP level 31.3 pg/mL <100.0 Automated reticulocyte percentage - 05/19/16 02:30 Blood erythrocytes automated count (number/volume) 2.82 10*6/uL 4.35-5.85 Blood reticulocytes count (number/volume) 505 10*9/L 24- 90 Blood reticulocytes/100 erythrocytes 17.90 % 0.50-2.40 Complete urinalysis with reflex to culture - 05/19/16 03:37 Urine color determination YELLOW NRG Urine clarity determination CLEAR NRG Urine pH measurement by test strip 6.5 5-9 Specific gravity of urine by test strip 1.010 1.016- 1.022 Urine protein assay by test strip, semi-quantitative 1+ NEGATIVE Urine glucose detection by automated test strip NEGATIVE NEGATIVE Erythrocytes detection in urine sediment by light microscopy 1+ NEGATIVE Urine ketones detection by automated test strip NEGATIVE NEGATIVE Urine nitrite detection by test strip NEGATIVE NEGATIVE Urine total bilirubin detection by test strip NEGATIVE NEGATIVE Urine urobilinogen measurement by automated test strip (mass/volume) NORMAL NORMAL Urine leukocyte esterase detection by dipstick 1+ NEGATIVE Automated urine sediment erythrocyte count by microscopy (number/high power field) RARE NRG Automated urine sediment leukocyte count by microscopy (number/high power field ) RARE NRG Bacteria detection in urine sediment by light microscopy NEGATIVE NRG Squamous epithelial cells detection in urine sediment by light microscopy RARE NRG Crystals detection in urine sediment by light microscopy NONE NRG Casts detection in urine sediment by light microscopy NONE NRG Mucus detection in urine sediment by light microscopy SMALL NRG Complete urinalysis with reflex to culture NO NRG Complete blood count (CBC) with automated white blood cell (WBC) differential - 05/19/16 06:23 Blood leukocytes automated count (number/volume) 14.5 10*3/uL 4.3-11.0 Blood erythrocytes automated count (number/volume) 2.72 10*6/uL 4.35-5.85 Venous blood hemoglobin measurement (mass/volume) 8.3 g/dL 13.3-17.7 Blood hematocrit (volume fraction) 24 % 40-54 Automated erythrocyte mean corpuscular volume 88 [foz_us] 80-99 Automated erythrocyte mean corpuscular hemoglobin (mass per erythrocyte) 31 pg 25-34 Automated erythrocyte mean corpuscular hemoglobin concentration measurement ( mass/volume) 35 g/dL 32-36 Automated erythrocyte distribution width ratio 23.5 % 10.0-14.5 Automated blood platelet count (count/volume) 216 10*3/uL 130-400 Automated blood platelet mean volume measurement 10.9 [foz_us] 7.4-10.4 Automated blood neutrophils/100 leukocytes 54 % 42-75 Automated blood lymphocytes/100 leukocytes 30 % 12-44 Blood monocytes/100 leukocytes 12 % 0-12 Automated blood eosinophils/100 leukocytes 3 % 0-10 Automated blood basophils/100 leukocytes 1 % 0-10 Blood neutrophils automated count (number/volume) 7.8 10*3 1.8-7.8 Blood lymphocytes automated count (number/volume) 4.3 10*3 1.0-4.0 Blood monocytes automated count (number/volume) 1.8 10*3 0.0-1.0 Automated eosinophil count 0.5 10*3/uL 0.0-0.3 Automated blood basophil count (count/volume) 0.2 10*3/uL 0.0-0.1 Comprehensive metabolic panel - 05/19/16 06:23 Serum or plasma sodium measurement (moles/volume) 139 mmol/L 135-145 Serum or plasma potassium measurement (moles/volume) 3.8 mmol/L 3.6-5.0 Serum or plasma chloride measurement (moles/volume) 109 mmol/L 98-107 Carbon dioxide 24 mmol/L 21-32 Serum or plasma anion gap determination (moles/volume) 6 mmol/L 5-14 Serum or plasma urea nitrogen measurement (mass/volume) 5 mg/dL 7-18 Serum or plasma creatinine measurement (mass/volume) 0.67 mg/dL 0.60-1.30 Serum or plasma urea nitrogen/creatinine mass ratio 7 NRG Serum or plasma creatinine measurement with calculation of estimated glomerular filtration rate > NRG Serum or plasma glucose measurement (mass/volume) 104 mg/dL 70-105 Serum or plasma calcium measurement (mass/volume) 8.5 mg/dL 8.5-10.1 Serum or plasma total bilirubin measurement (mass/volume) 4.3 mg/dL 0.1-1.0 Serum or plasma alkaline phosphatase measurement (enzymatic activity/volume) 58 U/L 40-136 Serum or plasma aspartate aminotransferase measurement (enzymatic activity/ volume) 39 U/L 5-34 Serum or plasma alanine aminotransferase measurement (enzymatic activity/volume ) 15 U/L 0-55 Serum or plasma protein measurement (mass/volume) 6.3 g/dL 6.4-8.2 Serum or plasma albumin measurement (mass/volume) 3.7 g/dL 3.2-4.5 Serum or plasma phosphate measurement (mass/volume) - 05/19/16 06:23 Serum or plasma phosphate measurement (mass/volume) 4.1 mg/dL 2.3-4.7 Magnesium - 05/19/16 06:23 Magnesium 2.3 mg/dL 1.8-2.4 Blood lactic acid measurement (moles/volume) - 05/19/16 12:50 Blood lactic acid measurement (moles/volume) 1.2 mmol/L 0.5-2.0 Bacterial blood culture - 05/19/16 12:50 Bacterial blood culture NG NRG Bacterial blood culture - 05/19/16 13:30 Bacterial blood culture NG NRG Complete urinalysis with reflex to culture - 05/19/16 16:45 Urine color determination YELLOW NRG Urine clarity determination CLEAR NRG Urine pH measurement by test strip 6.5 5-9 Specific gravity of urine by test strip 1.010 1.016- 1.022 Urine protein assay by test strip, semi-quantitative NEGATIVE NEGATIVE Urine glucose detection by automated test strip NEGATIVE NEGATIVE Erythrocytes detection in urine sediment by light microscopy NEGATIVE NEGATIVE Urine ketones detection by automated test strip NEGATIVE NEGATIVE Urine nitrite detection by test strip NEGATIVE NEGATIVE Urine total bilirubin detection by test strip NEGATIVE NEGATIVE Urine urobilinogen measurement by automated test strip (mass/volume) NORMAL NORMAL Urine leukocyte esterase detection by dipstick NEGATIVE NEGATIVE Automated urine sediment erythrocyte count by microscopy (number/high power field) NONE NRG Automated urine sediment leukocyte count by microscopy (number/high power field ) RARE NRG Bacteria detection in urine sediment by light microscopy NEGATIVE NRG Squamous epithelial cells detection in urine sediment by light microscopy RARE NRG Crystals detection in urine sediment by light microscopy NONE NRG Casts detection in urine sediment by light microscopy NONE NRG Mucus detection in urine sediment by light microscopy NEGATIVE NRG Complete urinalysis with reflex to culture NO NRG RED CELLS LEUKO REDUCED AS1 - 05/19/16 18:21 RED CELLS LEUKO REDUCED AS1 TRANSFUSED 05/20/16 1528 NRG Blood type T Indirect antibody screen panel - 05/19/16 18:21 ABO+Rh group AP NRG Transfusion band number [id number] NRG Blood group antibody screen NEGATIVE NRG Complete blood count (CBC) with automated white blood cell (WBC) differential - 05/20/16 04:00 Blood leukocytes automated count (number/volume) 15.0 10*3/uL 4.3-11.0 Blood erythrocytes automated count (number/volume) 2.43 10*6/uL 4.35-5.85 Venous blood hemoglobin measurement (mass/volume) 7.2 g/dL 13.3-17.7 Blood hematocrit (volume fraction) 21 % 40-54 Automated erythrocyte mean corpuscular volume 85 [foz_us] 80-99 Automated erythrocyte mean corpuscular hemoglobin (mass per erythrocyte) 30 pg 25-34 Automated erythrocyte mean corpuscular hemoglobin concentration measurement ( mass/volume) 35 g/dL 32-36 Automated erythrocyte distribution width ratio 23.7 % 10.0-14.5 Automated blood platelet count (count/volume) 222 10*3/uL 130-400 Automated blood platelet mean volume measurement 11.4 [foz_us] 7.4-10.4 Automated blood neutrophils/100 leukocytes 68 % 42-75 Automated blood lymphocytes/100 leukocytes 15 % 12-44 Blood monocytes/100 leukocytes 14 % 0-12 Automated blood eosinophils/100 leukocytes 2 % 0-10 Automated blood basophils/100 leukocytes 1 % 0-10 Blood neutrophils automated count (number/volume) 10.2 10*3 1.8-7.8 Blood lymphocytes automated count (number/volume) 2.3 10*3 1.0-4.0 Blood monocytes automated count (number/volume) 2.1 10*3 0.0-1.0 Automated eosinophil count 0.3 10*3/uL 0.0-0.3 Automated blood basophil count (count/volume) 0.1 10*3/uL 0.0-0.1 Automated reticulocyte percentage - 05/20/16 04:00 Blood reticulocytes count (number/volume) 355 10*9/L 24- 90 Blood reticulocytes/100 erythrocytes 14.62 % 0.50-2.40 Whole blood basic metabolic panel - 05/20/16 04:00 Serum or plasma sodium measurement (moles/volume) 136 mmol/L 135-145 Serum or plasma potassium measurement (moles/volume) 4.0 mmol/L 3.6-5.0 Serum or plasma chloride measurement (moles/volume) 110 mmol/L 98-107 Carbon dioxide 20 mmol/L 21-32 Serum or plasma anion gap determination (moles/volume) 6 mmol/L 5-14 Serum or plasma urea nitrogen measurement (mass/volume) 5 mg/dL 7-18 Serum or plasma creatinine measurement (mass/volume) 0.69 mg/dL 0.60-1.30 Serum or plasma urea nitrogen/creatinine mass ratio 7 NRG Serum or plasma creatinine measurement with calculation of estimated glomerular filtration rate > NRG Serum or plasma glucose measurement (mass/volume) 96 mg/dL 70-105 Serum or plasma calcium measurement (mass/volume) 8.2 mg/dL 8.5-10.1 Serum or plasma phosphate measurement (mass/volume) - 05/20/16 04:00 Serum or plasma phosphate measurement (mass/volume) 3.6 mg/dL 2.3-4.7 Magnesium - 05/20/16 04:00 Magnesium 1.9 mg/dL 1.8-2.4 Complete blood count (CBC) with automated white blood cell (WBC) differential - 05/21/16 03:35 Blood leukocytes automated count (number/volume) 11.6 10*3/uL 4.3-11.0 Blood erythrocytes automated count (number/volume) 3.21 10*6/uL 4.35-5.85 Venous blood hemoglobin measurement (mass/volume) 9.7 g/dL 13.3-17.7 Blood hematocrit (volume fraction) 27 % 40-54 Automated erythrocyte mean corpuscular volume 84 [foz_us] 80-99 Automated erythrocyte mean corpuscular hemoglobin (mass per erythrocyte) 30 pg 25-34 Automated erythrocyte mean corpuscular hemoglobin concentration measurement ( mass/volume) 36 g/dL 32-36 Automated erythrocyte distribution width ratio 21.8 % 10.0-14.5 Automated blood platelet count (count/volume) 205 10*3/uL 130-400 Automated blood platelet mean volume measurement 11.8 [foz_us] 7.4-10.4 Automated blood neutrophils/100 leukocytes 67 % 42-75 Automated blood lymphocytes/100 leukocytes 13 % 12-44 Blood monocytes/100 leukocytes 17 % 0-12 Automated blood eosinophils/100 leukocytes 2 % 0-10 Automated blood basophils/100 leukocytes 1 % 0-10 Blood neutrophils automated count (number/volume) 8.3 10*3 1.8-7.8 Blood lymphocytes automated count (number/volume) 1.6 10*3 1.0-4.0 Blood monocytes automated count (number/volume) 2.1 10*3 0.0-1.0 Automated eosinophil count 0.3 10*3/uL 0.0-0.3 Automated blood basophil count (count/volume) 0.1 10*3/uL 0.0-0.1 Whole blood basic metabolic panel - 05/21/16 03:35 Serum or plasma sodium measurement (moles/volume) 138 mmol/L 135-145 Serum or plasma potassium measurement (moles/volume) 3.6 mmol/L 3.6-5.0 Serum or plasma chloride measurement (moles/volume) 104 mmol/L 98-107 Carbon dioxide 24 mmol/L 21-32 Serum or plasma anion gap determination (moles/volume) 10 mmol/L 5-14 Serum or plasma urea nitrogen measurement (mass/volume) 7 mg/dL 7-18 Serum or plasma creatinine measurement (mass/volume) 0.79 mg/dL 0.60-1.30 Serum or plasma urea nitrogen/creatinine mass ratio 9 NRG Serum or plasma creatinine measurement with calculation of estimated glomerular filtration rate > NRG Serum or plasma glucose measurement (mass/volume) 94 mg/dL 70-105 Serum or plasma calcium measurement (mass/volume) 8.5 mg/dL 8.5-10.1 Serum or plasma phosphate measurement (mass/volume) - 05/21/16 03:35 Serum or plasma phosphate measurement (mass/volume) 4.5 mg/dL 2.3-4.7 Magnesium - 05/21/16 03:35 Magnesium 2.1 mg/dL 1.8-2.4 Whole blood basic metabolic panel - 05/22/16 04:01 Serum or plasma sodium measurement (moles/volume) 139 mmol/L 135-145 Serum or plasma potassium measurement (moles/volume) 3.8 mmol/L 3.6-5.0 Serum or plasma chloride measurement (moles/volume) 104 mmol/L 98-107 Carbon dioxide 27 mmol/L 21-32 Serum or plasma anion gap determination (moles/volume) 8 mmol/L 5-14 Serum or plasma urea nitrogen measurement (mass/volume) 8 mg/dL 7-18 Serum or plasma creatinine measurement (mass/volume) 0.70 mg/dL 0.60-1.30 Serum or plasma urea nitrogen/creatinine mass ratio 11 NRG Serum or plasma creatinine measurement with calculation of estimated glomerular filtration rate > NRG Serum or plasma glucose measurement (mass/volume) 114 mg/dL 70-105 Serum or plasma calcium measurement (mass/volume) 8.8 mg/dL 8.5-10.1 Serum or plasma phosphate measurement (mass/volume) - 05/22/16 04:01 Serum or plasma phosphate measurement (mass/volume) 4.1 mg/dL 2.3-4.7 Magnesium - 05/22/16 04:01 Magnesium 2.2 mg/dL 1.8-2.4 Complete blood count (CBC) with automated white blood cell (WBC) differential - 05/22/16 04:01 Blood leukocytes automated count (number/volume) 9.6 10*3/uL 4.3-11.0 Blood erythrocytes automated count (number/volume) 3.04 10*6/uL 4.35-5.85 Venous blood hemoglobin measurement (mass/volume) 9.0 g/dL 13.3-17.7 Blood hematocrit (volume fraction) 26 % 40-54 Automated erythrocyte mean corpuscular volume 84 [foz_us] 80-99 Automated erythrocyte mean corpuscular hemoglobin (mass per erythrocyte) 30 pg 25-34 Automated erythrocyte mean corpuscular hemoglobin concentration measurement ( mass/volume) 35 g/dL 32-36 Automated erythrocyte distribution width ratio 21.1 % 10.0-14.5 Automated blood platelet count (count/volume) 175 10*3/uL 130-400 Automated blood platelet mean volume measurement 11.2 [foz_us] 7.4-10.4 Automated blood neutrophils/100 leukocytes 59 % 42-75 Automated blood lymphocytes/100 leukocytes 18 % 12-44 Blood monocytes/100 leukocytes 17 % 0-12 Automated blood eosinophils/100 leukocytes 6 % 0-10 Automated blood basophils/100 leukocytes 0 % 0-10 Blood neutrophils automated count (number/volume) 5.7 10*3 1.8-7.8 Blood lymphocytes automated count (number/volume) 1.7 10*3 1.0-4.0 Blood monocytes automated count (number/volume) 1.6 10*3 0.0-1.0 Automated eosinophil count 0.6 10*3/uL 0.0-0.3 Automated blood basophil count (count/volume) 0.0 10*3/uL 0.0-0.1 Blood blood smear finding identification by light microscopy YES NRG Automated reticulocyte percentage - 05/22/16 04:01 Blood reticulocytes count (number/volume) 443 10*9/L 24- 90 Blood reticulocytes/100 erythrocytes 14.56 % 0.50-2.40 Complete blood count (CBC) with automated white blood cell (WBC) differential - 02/18/17 12:55 Blood leukocytes automated count (number/volume) 13.0 10*3/uL 4.3-11.0 Blood erythrocytes automated count (number/volume) 2.70 10*6/uL 4.35-5.85 Venous blood hemoglobin measurement (mass/volume) 8.6 g/dL 13.3-17.7 Blood hematocrit (volume fraction) 24 % 40-54 Automated erythrocyte mean corpuscular volume 89 [foz_us] 80-99 Automated erythrocyte mean corpuscular hemoglobin (mass per erythrocyte) 32 pg 25-34 Automated erythrocyte mean corpuscular hemoglobin concentration measurement ( mass/volume) 36 g/dL 32-36 Automated erythrocyte distribution width ratio 20.3 % 10.0-14.5 Automated blood platelet count (count/volume) 233 10*3/uL 130-400 Automated blood platelet mean volume measurement 12.1 [foz_us] 7.4-10.4 Automated blood neutrophils/100 leukocytes 69 % 42-75 Automated blood lymphocytes/100 leukocytes 14 % 12-44 Blood monocytes/100 leukocytes 14 % 0-12 Automated blood eosinophils/100 leukocytes 2 % 0-10 Automated blood basophils/100 leukocytes 1 % 0-10 Blood neutrophils automated count (number/volume) 9.0 10*3 1.8-7.8 Blood lymphocytes automated count (number/volume) 1.8 10*3 1.0-4.0 Blood monocytes automated count (number/volume) 1.9 10*3 0.0-1.0 Automated eosinophil count 0.3 10*3/uL 0.0-0.3 Automated blood basophil count (count/volume) 0.1 10*3/uL 0.0-0.1 Blood blood smear finding identification by light microscopy [facility] Comprehensive metabolic panel - 02/18/17 12:55 Serum or plasma sodium measurement (moles/volume) 140 mmol/L 135-145 Serum or plasma potassium measurement (moles/volume) 4.3 mmol/L 3.6-5.0 Serum or plasma chloride measurement (moles/volume) 107 mmol/L 98-107 Carbon dioxide 25 mmol/L 21-32 Serum or plasma anion gap determination (moles/volume) 8 mmol/L 5-14 Serum or plasma urea nitrogen measurement (mass/volume) 7 mg/dL 7-18 Serum or plasma creatinine measurement (mass/volume) 0.77 mg/dL 0.60-1.30 Serum or plasma urea nitrogen/creatinine mass ratio 9 NR Serum or plasma creatinine measurement with calculation of estimated glomerular filtration rate > [facility] Serum or plasma glucose measurement (mass/volume) 95 mg/dL 70-105 Serum or plasma calcium measurement (mass/volume) 9.2 mg/dL 8.5-10.1 Serum or plasma total bilirubin measurement (mass/volume) 3.5 mg/dL 0.1-1.0 Serum or plasma alkaline phosphatase measurement (enzymatic activity/volume) 53 U/L 40-136 Serum or plasma aspartate aminotransferase measurement (enzymatic activity/ volume) 35 U/L 5-34 Serum or plasma alanine aminotransferase measurement (enzymatic activity/volume ) 14 U/L 0-55 Serum or plasma protein measurement (mass/volume) 7.0 g/dL 6.4-8.2 Serum or plasma albumin measurement (mass/volume) 4.0 g/dL 3.2-4.5 Magnesium - 02/18/17 12:55 Magnesium 2.2 mg/dL 1.8-2.4 Serum or plasma creatine kinase measurement (enzymatic activity/volume) - 02/18 12:55 Serum or plasma creatine kinase measurement (enzymatic activity/volume) 43 U/L 30-200 Serum or plasma creatine kinase MB measurement (enzymatic activity/volume) - 12:55 Serum or plasma creatine kinase MB measurement (enzymatic activity/volume) 0.2 ng/mL <6.6 Serum or plasma C reactive protein measurement (mass/volume) - 02/18/17 12:55 Serum or plasma C reactive protein measurement (mass/volume) 0.58 mg /dL 0.00-0.50 Erythrocyte sedimentation rate by westergren method - 02/18/17 12:55 Erythrocyte sedimentation rate by westergren method 6 mm 0-15 Automated reticulocyte percentage - 02/18/17 12:55 Blood erythrocytes automated count (number/volume) 2.76 10*6/uL 4.35-5.85 Blood reticulocytes count (number/volume) 328 10*9/L 24- 90 Blood reticulocytes/100 erythrocytes 11.87 % 0.50-2.40 Comprehensive metabolic panel - 02/19/17 06:40 Serum or plasma sodium measurement (moles/volume) 142 mmol/L 135-145 Serum or plasma potassium measurement (moles/volume) 3.8 mmol/L 3.6-5.0 Serum or plasma chloride measurement (moles/volume) 108 mmol/L 98-107 Carbon dioxide 25 mmol/L 21-32 Serum or plasma anion gap determination (moles/volume) 9 mmol/L 5-14 Serum or plasma urea nitrogen measurement (mass/volume) 6 mg/dL 7-18 Serum or plasma creatinine measurement (mass/volume) 0.73 mg/dL 0.60-1.30 Serum or plasma urea nitrogen/creatinine mass ratio 8 NRG Serum or plasma creatinine measurement with calculation of estimated glomerular filtration rate > NRG Serum or plasma glucose measurement (mass/volume) 120 mg/dL 70-105 Serum or plasma calcium measurement (mass/volume) 8.8 mg/dL 8.5-10.1 Serum or plasma total bilirubin measurement (mass/volume) 3.1 mg/dL 0.1-1.0 Serum or plasma alkaline phosphatase measurement (enzymatic activity/volume) 45 U/L 40-136 Serum or plasma aspartate aminotransferase measurement (enzymatic activity/ volume) 25 U/L 5-34 Serum or plasma alanine aminotransferase measurement (enzymatic activity/volume ) 13 U/L 0-55 Serum or plasma protein measurement (mass/volume) 6.6 g/dL 6.4-8.2 Serum or plasma albumin measurement (mass/volume) 3.7 g/dL 3.2-4.5 Pathologist review of blood test by dougie - 02/19/17 06:40 Blood leukocytes automated count (number/volume) 11.3 10*3/uL 4.3-11.0 Blood erythrocytes automated count (number/volume) 2.44 10*6/uL 4.35-5.85 Venous blood hemoglobin measurement (mass/volume) 7.6 g/dL 13.3-17.7 Blood hematocrit (volume fraction) 22 % 40-54 Automated erythrocyte mean corpuscular volume 90 [foz_us] 80-99 Automated erythrocyte mean corpuscular hemoglobin (mass per erythrocyte) 31 pg 25-34 Automated erythrocyte mean corpuscular hemoglobin concentration measurement ( mass/volume) 35 g/dL 32-36 Automated erythrocyte distribution width ratio 20.4 % 10.0-14.5 Automated blood platelet count (count/volume) 171 10*3/uL 130-400 Automated blood platelet mean volume measurement 12.1 [foz_us] 7.4-10.4 Automated blood neutrophils/100 leukocytes 64 % 42-75 Automated blood lymphocytes/100 leukocytes 20 % 12-44 Blood monocytes/100 leukocytes 12 % NRG Automated blood eosinophils/100 leukocytes 2 % 0-10 Automated blood basophils/100 leukocytes 1 % 0-10 Blood neutrophils automated count (number/volume) 7.3 10*3 1.8-7.8 Blood lymphocytes automated count (number/volume) 2.2 10*3 1.0-4.0 Blood monocytes automated count (number/volume) 1.5 10*3 0.0-1.0 Automated eosinophil count 0.2 10*3/uL 0.0-0.3 Automated blood basophil count (count/volume) 0.1 10*3/uL 0.0-0.1 Manual blood segmented neutrophils/100 leukocytes 68 % NRG Manual blood lymphocytes/100 leukocytes 16 % NRG Manual eosinophils/100 leukocytes in nose 4 % NRG Blood polychromasia detection by light microscopy MODERATE NRG Blood anisocytosis detection by light microscopy MODERATE NRG Blood poikilocytosis detection by light microscopy MODERATE NRG Manual blood nucleated erythrocytes/100 leukocytes ratio 3 NRG Blood reticulocytes count (number/volume) 295 10*9/L 24- 90 Blood reticulocytes/100 erythrocytes 12.07 % 0.50-2.40 Blood sickle cells detection by light microscopy MARKED NRG RED CELLS LEUKO REDUCED AS1 - 02/19/17 12:25 RED CELLS LEUKO REDUCED AS1 TRANSFUSED 02/19/17 1354 NRG Blood type T Indirect antibody screen panel - 02/19/17 12:25 ABO+Rh group AP NRG Transfusion band number [id number] NRG Blood group antibody screen NEGATIVE NRG Complete blood count (CBC) with automated white blood cell (WBC) differential - 02/20/17 06:23 Blood leukocytes automated count (number/volume) 10.0 10*3/uL 4.3-11.0 Blood erythrocytes automated count (number/volume) 2.95 10*6/uL 4.35-5.85 Venous blood hemoglobin measurement (mass/volume) 9.0 g/dL 13.3-17.7 Blood hematocrit (volume fraction) 26 % 40-54 Automated erythrocyte mean corpuscular volume 89 [foz_us] 80-99 Automated erythrocyte mean corpuscular hemoglobin (mass per erythrocyte) 31 pg 25-34 Automated erythrocyte mean corpuscular hemoglobin concentration measurement ( mass/volume) 34 g/dL 32-36 Automated erythrocyte distribution width ratio 19.5 % 10.0-14.5 Automated blood platelet count (count/volume) 189 10*3/uL 130-400 Automated blood platelet mean volume measurement 12.1 [foz_us] 7.4-10.4 Automated blood neutrophils/100 leukocytes 58 % 42-75 Automated blood lymphocytes/100 leukocytes 19 % 12-44 Blood monocytes/100 leukocytes 18 % 0-12 Automated blood eosinophils/100 leukocytes 4 % 0-10 Automated blood basophils/100 leukocytes 1 % 0-10 Blood neutrophils automated count (number/volume) 5.8 10*3 1.8-7.8 Blood lymphocytes automated count (number/volume) 1.9 10*3 1.0-4.0 Blood monocytes automated count (number/volume) 1.8 10*3 0.0-1.0 Automated eosinophil count 0.4 10*3/uL 0.0-0.3 Automated blood basophil count (count/volume) 0.1 10*3/uL 0.0-0.1 Automated reticulocyte percentage - 02/20/17 06:23 Blood reticulocytes count (number/volume) 323 10*9/L 24- 90 Blood reticulocytes/100 erythrocytes 10.96 % 0.50-2.40 Blood CBC with ordered manual differential panel - 04/25/17 03:30 Blood leukocytes automated count (number/volume) 9.2 10*3/uL 4.3-11.0 Blood erythrocytes automated count (number/volume) 2.93 10*6/uL 4.35-5.85 Venous blood hemoglobin measurement (mass/volume) 9.2 g/dL 13.3-17.7 Blood hematocrit (volume fraction) 26 % 40-54 Automated erythrocyte mean corpuscular volume 88 [foz_us] 80-99 Automated erythrocyte mean corpuscular hemoglobin (mass per erythrocyte) 31 pg 25-34 Automated erythrocyte mean corpuscular hemoglobin concentration measurement ( mass/volume) 36 g/dL 32-36 Automated erythrocyte distribution width ratio 22.3 % 10.0-14.5 Automated blood platelet count (count/volume) 189 10*3/uL 130-400 Automated blood platelet mean volume measurement 11.9 [foz_us] 7.4-10.4 Automated blood neutrophils/100 leukocytes 40 % 42-75 Automated blood lymphocytes/100 leukocytes 38 % 12-44 Blood monocytes/100 leukocytes 23 % NRG Automated blood eosinophils/100 leukocytes 5 % 0-10 Automated blood basophils/100 leukocytes 1 % 0-10 Blood neutrophils automated count (number/volume) 3.7 10*3 1.8-7.8 Blood lymphocytes automated count (number/volume) 3.5 10*3 1.0-4.0 Blood monocytes automated count (number/volume) 1.5 10*3 0.0-1.0 Automated eosinophil count 0.4 10*3/uL 0.0-0.3 Automated blood basophil count (count/volume) 0.1 10*3/uL 0.0-0.1 Manual blood segmented neutrophils/100 leukocytes 37 % NRG Blood band neutrophils/100 leukocytes 3 % NRG Manual blood lymphocytes/100 leukocytes 33 % NRG Manual eosinophils/100 leukocytes in nose 4 % NRG Blood polychromasia detection by light microscopy MODERATE NRG Blood anisocytosis detection by light microscopy MODERATE NRG Blood poikilocytosis detection by light microscopy SLIGHT NRG Manual blood nucleated erythrocytes/100 leukocytes ratio 2 NRG Blood jimena cells detection by light microscopy SLIGHT NRG Blood sickle cells detection by light microscopy MARKED NRG Comprehensive metabolic panel - 04/25/17 03:30 Serum or plasma sodium measurement (moles/volume) 142 mmol/L 135-145 Serum or plasma potassium measurement (moles/volume) 4.2 mmol/L 3.6-5.0 Serum or plasma chloride measurement (moles/volume) 105 mmol/L 98-107 Carbon dioxide 27 mmol/L 21-32 Serum or plasma anion gap determination (moles/volume) 10 mmol/L 5-14 Serum or plasma urea nitrogen measurement (mass/volume) 10 mg/dL 7-18 Serum or plasma creatinine measurement (mass/volume) 0.89 mg/dL 0.60-1.30 Serum or plasma urea nitrogen/creatinine mass ratio 11 NRG Serum or plasma creatinine measurement with calculation of estimated glomerular filtration rate > NRG Serum or plasma glucose measurement (mass/volume) 91 mg/dL 70-105 Serum or plasma calcium measurement (mass/volume) 9.3 mg/dL 8.5-10.1 Serum or plasma total bilirubin measurement (mass/volume) 4.1 mg/dL 0.1-1.0 Serum or plasma alkaline phosphatase measurement (enzymatic activity/volume) 51 U/L 40-136 Serum or plasma aspartate aminotransferase measurement (enzymatic activity/ volume) 33 U/L 5-34 Serum or plasma alanine aminotransferase measurement (enzymatic activity/volume ) 13 U/L 0-55 Serum or plasma protein measurement (mass/volume) 7.3 g/dL 6.4-8.2 Serum or plasma albumin measurement (mass/volume) 4.1 g/dL 3.2-4.5 Serum or plasma troponin i.cardiac measurement (mass/volume) - 04/25/17 03:30 Serum or plasma troponin i.cardiac measurement (mass/volume) < ng/ mL <0.30 PT panel in platelet poor plasma by coagulation assay - 04/25/17 03:30 Prothrombin time (PT) in platelet poor plasma by coagulation assay 14.2 s 12.2-14.7 INR in platelet poor plasma or blood by coagulation assay 1.1 0.8-1.4 Activated partial thromboplastin time (aPTT) in platelet poor plasma bycoagulation assay - 04/25/17 03:30 Activated partial thromboplastin time (aPTT) in platelet poor plasma bycoagulation assay 30 s 24-35 Automated reticulocyte percentage - 04/25/17 03:30 Blood erythrocytes automated count (number/volume) 2.98 10*6/uL 4.35-5.85 Blood reticulocytes count (number/volume) 410 10*9/L 24- 90 Blood reticulocytes/100 erythrocytes 13.74 % 0.50-2.40 Complete urinalysis with reflex to culture - 04/25/17 04:40 Urine color determination YELLOW NRG Urine clarity determination CLEAR NRG Urine pH measurement by test strip 8 5-9 Specific gravity of urine by test strip 1.010 1.016- 1.022 Urine protein assay by test strip, semi-quantitative 1+ NEGATIVE Urine glucose detection by automated test strip NEGATIVE NEGATIVE Erythrocytes detection in urine sediment by light microscopy 3+ NEGATIVE Urine ketones detection by automated test strip NEGATIVE NEGATIVE Urine nitrite detection by test strip NEGATIVE NEGATIVE Urine total bilirubin detection by test strip NEGATIVE NEGATIVE Urine urobilinogen measurement by automated test strip (mass/volume) 4 mg/dL NORMAL Urine leukocyte esterase detection by dipstick NEGATIVE NEGATIVE Automated urine sediment erythrocyte count by microscopy (number/high power field) NONE NRG Automated urine sediment leukocyte count by microscopy (number/high power field ) NONE NRG Bacteria detection in urine sediment by light microscopy NEGATIVE NRG Squamous epithelial cells detection in urine sediment by light microscopy RARE NRG Crystals detection in urine sediment by light microscopy NONE NRG Casts detection in urine sediment by light microscopy NONE NRG Mucus detection in urine sediment by light microscopy NEGATIVE NRG Complete urinalysis with reflex to culture NO NRG Urine drug screening test - 04/25/17 04:40 Urine phencyclidine detection by screening method NEGATIVE NEGATIVE Urine benzodiazepines detection by screening method NEGATIVE NEGATIVE Urine cocaine detection NEGATIVE NEGATIVE Urine amphetamines detection by screening method NEGATIVE NEGATIVE Urine methamphetamine detection by screening method NEGATIVE NEGATIVE Urine cannabinoids detection by screening method POSITIVE NEGATIVE Urine opiates detection by screening method POSITIVE NEGATIVE Urine barbiturates detection NEGATIVE NEGATIVE Screening urine tricyclic antidepressants detection NEGATIVE NEGATIVE Urine methadone detection by screening method NEGATIVE NEGATIVE Urine oxycodone detection NEGATIVE NEGATIVE Urine propoxyphene detection NEGATIVE NEGATIVE Comprehensive metabolic panel - 04/25/17 09:47 Serum or plasma sodium measurement (moles/volume) 139 mmol/L 135-145 Serum or plasma potassium measurement (moles/volume) 4.6 mmol/L 3.6-5.0 Serum or plasma chloride measurement (moles/volume) 107 mmol/L 98-107 Carbon dioxide 26 mmol/L 21-32 Serum or plasma anion gap determination (moles/volume) 6 mmol/L 5-14 Serum or plasma urea nitrogen measurement (mass/volume) 7 mg/dL 7-18 Serum or plasma creatinine measurement (mass/volume) 0.77 mg/dL 0.60-1.30 Serum or plasma urea nitrogen/creatinine mass ratio 9 NRG Serum or plasma creatinine measurement with calculation of estimated glomerular filtration rate > NRG Serum or plasma glucose measurement (mass/volume) 91 mg/dL 70-105 Serum or plasma calcium measurement (mass/volume) 8.8 mg/dL 8.5-10.1 Serum or plasma total bilirubin measurement (mass/volume) 3.8 mg/dL 0.1-1.0 Serum or plasma alkaline phosphatase measurement (enzymatic activity/volume) 52 U/L 40-136 Serum or plasma aspartate aminotransferase measurement (enzymatic activity/ volume) 35 U/L 5-34 Serum or plasma alanine aminotransferase measurement (enzymatic activity/volume ) 14 U/L 0-55 Serum or plasma protein measurement (mass/volume) 7.4 g/dL 6.4-8.2 Serum or plasma albumin measurement (mass/volume) 4.0 g/dL 3.2-4.5 Complete blood count (CBC) with automated white blood cell (WBC) differential - 04/25/17 09:47 Blood leukocytes automated count (number/volume) 13.6 10*3/uL 4.3-11.0 Blood erythrocytes automated count (number/volume) 2.79 10*6/uL 4.35-5.85 Venous blood hemoglobin measurement (mass/volume) 8.8 g/dL 13.3-17.7 Blood hematocrit (volume fraction) 25 % 40-54 Automated erythrocyte mean corpuscular volume 88 [foz_us] 80-99 Automated erythrocyte mean corpuscular hemoglobin (mass per erythrocyte) 32 pg 25-34 Automated erythrocyte mean corpuscular hemoglobin concentration measurement ( mass/volume) 36 g/dL 32-36 Automated erythrocyte distribution width ratio 21.9 % 10.0-14.5 Automated blood platelet count (count/volume) 174 10*3/uL 130-400 Automated blood platelet mean volume measurement 11.0 [foz_us] 7.4-10.4 Automated blood neutrophils/100 leukocytes 62 % 42-75 Automated blood lymphocytes/100 leukocytes 23 % 12-44 Blood monocytes/100 leukocytes 12 % 0-12 Automated blood eosinophils/100 leukocytes 2 % 0-10 Automated blood basophils/100 leukocytes 1 % 0-10 Blood neutrophils automated count (number/volume) 8.5 10*3 1.8-7.8 Blood lymphocytes automated count (number/volume) 3.1 10*3 1.0-4.0 Blood monocytes automated count (number/volume) 1.6 10*3 0.0-1.0 Automated eosinophil count 0.3 10*3/uL 0.0-0.3 Automated blood basophil count (count/volume) 0.1 10*3/uL 0.0-0.1 Blood manual differential performed detection - 04/25/17 09:47 Blood monocytes/100 leukocytes 14 % NRG Manual blood segmented neutrophils/100 leukocytes 58 % NRG Blood band neutrophils/100 leukocytes 2 % NRG Manual blood lymphocytes/100 leukocytes 23 % NRG Manual eosinophils/100 leukocytes in nose 1 % NRG Manual blood basophils/100 leukocytes 1 % NRG Blood polychromasia detection by light microscopy MODERATE NRG Blood anisocytosis detection by light microscopy MODERATE NRG Manual blood metamyelocytes/100 leukocytes 1 % NRG Blood dohle body detection by light microscopy SLIGHT NRG Manual blood nucleated erythrocytes/100 leukocytes ratio 3 NRG Blood microcytes detection by light microscopy MODERATE NRG Blood sickle cells detection by light microscopy MODERATE NRG Serum or plasma troponin i.cardiac measurement (mass/volume) - 04/25/17 09:47 Serum or plasma troponin i.cardiac measurement (mass/volume) < ng/ mL <0.30 Automated reticulocyte percentage - 04/25/17 09:47 Blood reticulocytes count (number/volume) 413 10*9/L 24- 90 Blood reticulocytes/100 erythrocytes 14.81 % 0.50-2.40 RED CELLS LEUKO REDUCED AS1 - 04/25/17 12:10 RED CELLS LEUKO REDUCED AS1 TRANSFUSED 04/25/17 1341 [facility] Blood type T Indirect antibody screen panel - 04/25/17 12:10 ABO+Rh group AP NRG Transfusion band number [id number] NR Blood group antibody screen NEGATIVE NRG Serum or plasma troponin i.cardiac measurement (mass/volume) - 04/25/17 15:36 Serum or plasma troponin i.cardiac measurement (mass/volume) < ng/ mL <0.30 Comprehensive metabolic panel - 04/27/17 06:26 Serum or plasma sodium measurement (moles/volume) 139 mmol/L 135-145 Serum or plasma potassium measurement (moles/volume) 4.5 mmol/L 3.6-5.0 Serum or plasma chloride measurement (moles/volume) 108 mmol/L 98-107 Carbon dioxide 21 mmol/L 21-32 Serum or plasma anion gap determination (moles/volume) 10 mmol/L 5-14 Serum or plasma urea nitrogen measurement (mass/volume) 8 mg/dL 7-18 Serum or plasma creatinine measurement (mass/volume) 0.70 mg/dL 0.60-1.30 Serum or plasma urea nitrogen/creatinine mass ratio 11 NRG Serum or plasma creatinine measurement with calculation of estimated glomerular filtration rate > NRG Serum or plasma glucose measurement (mass/volume) 80 mg/dL 70-105 Serum or plasma calcium measurement (mass/volume) 8.8 mg/dL 8.5-10.1 Serum or plasma total bilirubin measurement (mass/volume) 3.4 mg/dL 0.1-1.0 Serum or plasma alkaline phosphatase measurement (enzymatic activity/volume) 54 U/L 40-136 Serum or plasma aspartate aminotransferase measurement (enzymatic activity/ volume) 49 U/L 5-34 Serum or plasma alanine aminotransferase measurement (enzymatic activity/volume ) 25 U/L 0-55 Serum or plasma protein measurement (mass/volume) 6.6 g/dL 6.4-8.2 Serum or plasma albumin measurement (mass/volume) 3.6 g/dL 3.2-4.5 Complete blood count (CBC) with automated white blood cell (WBC) differential - 04/27/17 06:26 Blood leukocytes automated count (number/volume) 9.2 10*3/uL 4.3-11.0 Blood erythrocytes automated count (number/volume) 2.79 10*6/uL 4.35-5.85 Venous blood hemoglobin measurement (mass/volume) 8.6 g/dL 13.3-17.7 Blood hematocrit (volume fraction) 24 % 40-54 Automated erythrocyte mean corpuscular volume 86 [foz_us] 80-99 Automated erythrocyte mean corpuscular hemoglobin (mass per erythrocyte) 31 pg 25-34 Automated erythrocyte mean corpuscular hemoglobin concentration measurement ( mass/volume) 36 g/dL 32-36 Automated erythrocyte distribution width ratio 22.2 % 10.0-14.5 Automated blood platelet count (count/volume) 173 10*3/uL 130-400 Automated blood platelet mean volume measurement 12.3 [foz_us] 7.4-10.4 Automated blood neutrophils/100 leukocytes 52 % 42-75 Automated blood lymphocytes/100 leukocytes 22 % 12-44 Blood monocytes/100 leukocytes 18 % 0-12 Automated blood eosinophils/100 leukocytes 7 % 0-10 Automated blood basophils/100 leukocytes 1 % 0-10 Blood neutrophils automated count (number/volume) 4.8 10*3 1.8-7.8 Blood lymphocytes automated count (number/volume) 2.0 10*3 1.0-4.0 Blood monocytes automated count (number/volume) 1.6 10*3 0.0-1.0 Automated eosinophil count 0.7 10*3/uL 0.0-0.3 Automated blood basophil count (count/volume) 0.1 10*3/uL 0.0-0.1 Automated reticulocyte percentage - 04/27/17 06:26 Blood reticulocytes count (number/volume) 332 10*9/L 24- 90 Blood reticulocytes/100 erythrocytes 11.89 % 0.50-2.40 Encounters ACCT No. Visit Date/Time Discharge Status Pt. Type Provider Facility Loc./Unit Complaint [id number] 05/14/2017 14:51:00 05/14/2017 23:59:59 CLS Outpatient ESTELA MD, ROGEL [facility] ONC [id number] 04/25/2017 04:10:00 04/27/2017 13:17:00 DIS Inpatient MARY KATE OROZCO, FANTASMA [place] [facility] 4TH SICKLE CELL CRISIS,ANEMIA ,ELEVATED BILIRUBIN [id number] 02/18/2017 15:20:00 02/20/2017 11:00:00 DIS Inpatient MARY KATE OROZCO, FANTASMA [place] [address] SICKLE CELL CRISIS [id number] 05/19/2016 02:15:00 05/22/2016 15:00:00 DIS Inpatient AYDE TOLLIVER MD [facility] [address] SICKLE CELL CRISIS [id number] 06/19/2017 04:14:00 ACT Emergency MILKA OROZCO, MOE Ordaz [facility] ER LOWER BACK LEG PAIN [id number] 10/03/2015 06:17:00 ACT Inpatient LESLIE GILL DO [facility] 4TH SICKLE CELL CRISIS,PNEUMONIA,HYPOXIA
[2017-06-19] MEDS ORDERED: HYDROmorphone (DILAUDID) 2 MG/ML VIAL IVP STA ×2 (04:25→04:59)
[2017-06-19] MEDS ORDERED: NS IV 1000 ML 1,000 ML IV ONE (04:25)
[2017-06-19 04:37] LABS: ABSOLUTE RETIC # 407 10e9/L (24-90); BASOPHILS # (AUTO) 0.1 10^3/uL (0.0-0.1); BASOPHILS % (AUTO) 1 % (0-10); EOSINOPHILS # (AUTO) 0.4 10^3/uL (0.0-0.3); EOSINOPHILS % (AUTO) 4 % (0-10); HEMATOCRIT 26 % (40-54); HEMOGLOBIN 9.3 G/DL (13.3-17.7); LYMPHOCYTES # (AUTO) 2.7 X 10^3 (1.0-4.0); LYMPHOCYTES % (AUTO) 24 % (12-44); MEAN CORPUSCULAR HEMOGLOBIN 31 PG (25-34); MEAN CORPUSCULAR HGB CONC 36 G/DL (32-36); MEAN CORPUSCULAR VOLUME 86 FL (80-99); MEAN PLATELET VOLUME 11.8 FL (7.4-10.4); MONOCYTES # (AUTO) 1.5 X 10^3 (0.0-1.0); MONOCYTES % (AUTO) 14 % (0-12); NEUTROPHILS # (AUTO) 6.5 X 10^3 (1.8-7.8); NEUTROPHILS % (AUTO) 57 % (42-75); PLATELET COUNT 216 10^3/uL (130-400); RED BLOOD COUNT 2.99 10^6/uL (4.35-5.85); RED CELL DISTRIBUTION WIDTH 21.6 % (10.0-14.5); WHITE BLOOD COUNT 11.3 10^3/uL (4.3-11.0)
[2017-06-19 04:57] LABS: SMEAR SCAN COMMENT YES
[2017-06-19 05:02] LABS: ALANINE AMINOTRANSFERASE 8 U/L (0-55); ALKALINE PHOSPHATASE 50 U/L (40-136); BILIRUBIN,TOTAL 4.5 MG/DL (0.1-1.0); BUN/CREATININE RATIO 8; CALCIUM 9.5 MG/DL (8.5-10.1); CARBON DIOXIDE 24 MMOL/L (21-32); CHLORIDE 102 MMOL/L (98-107); CREATININE SERUM 0.83 MG/DL (0.60-1.30); GFR ESTIMATED > 60; GLUCOSE 81 MG/DL (70-105); POTASSIUM 3.8 MMOL/L (3.6-5.0); SODIUM 138 MMOL/L (135-145); TOTAL PROTEIN 7.2 GM/DL (6.4-8.2)
--- NOTE | 2017-06-19 05:31 | ED General ---
General Chief Complaint: General Problems/Pain Stated Complaint: LOWER BACK & LEG PAIN Nursing Triage Note: PT TO ED 5 W/ C/O LOWER BACK ET BILAT LEG PAIN ONSET X3 DAYS, WORSE THIS AM. PT HAS HX OF SICKLE CELL Nursing Sepsis Screen: No Definite Risk Source of Information: Patient Exam Limitations: No Limitations History of Present Illness Date Seen by Provider: Jun 19, 2017 Time Seen by Provider: 04:20 Initial Comments Here with complaint of bilateral lower extremity pain for the last 3 days. Has a history of sickle cell disease and states that is in a sickle cell crisis. Has been seen for this a few times previously and has been hospitalized for that here. Patient asking for pain medicine for the sickle crisis pain. Denies recent fever or chills. Denies breathing problems or chest pain. Denies nausea or vomiting. Timing/Duration: 2-3 Days Severity: Moderate, Severe Associated Systoms: No Chest Pain, No Cough, No Fever/Chills, No Nausea/ Vomiting, No Shortness of Air, No Weakness Allergies and Home Medications Allergies Coded Allergies: morphine (Unverified Adverse Reaction, Unknown, PT HAS TAKEN LORTAB & STADOL IN THE PAST, 02/18/17) Home Medications No Active Prescriptions or Reported Meds Constitutional: see HPI, No chills, No fever EENTM: no symptoms reported Respiratory: no symptoms reported, No cough, No short of breath Cardiovascular: No chest pain, No edema Gastrointestinal: No abdominal pain, No nausea, No vomiting Genitourinary: no symptoms reported Musculoskeletal: see HPI, joint pain, muscle pain, No muscle weakness Skin: no symptoms reported Psychiatric/Neurological: No Symptoms Reported All Other Systems Reviewed Negative Unless Noted: Yes Past Tahjsnd-Babsdp-Bwyugf Hx Patient Social History Alcohol Use: Denies Use Number of Drinks Today: GG Alcohol Beverage of Choice: Whiskey Recreational Drug Use: Yes (MARIJUANA AT PRESENT) Drug of Choice: THC, COCAINE, ALSO ADMITTED TO METHAMPHETAMINES IN PAST Smoking Status: Current Everyday Smoker Type Used: Cigarettes 2nd Hand Smoke Exposure: Yes Recent Foreign Travel: No Contact w/Someone Who Travel: No Recent Infectious Disease Expo: No Recent Hopitalizations: No Physical Abuse: No Sexual Abuse: No Mistreated: No Fear: No Immunizations Up To Date Tetanus Booster (TDap): More than 5yrs PED Vaccines UTD: No Seasonal Allergies Seasonal Allergies: No Surgeries History of Surgeries: Yes Surgeries: Gallbladder, Orthopedic Respiratory History of Respiratory Disorde: No Currently Using CPAP: No Currently Using BIPAP: No Cardiovascular History of Cardiac Disorders: No Neurological History of Neurological Disord: No Reproductive System Hx Reproductive Disorders: No Sexually Transmitted Disease: No HIV/AIDS: No Genitourinary History of Genitourinary Disor: No Gastrointestinal History of Gastrointestinal Di: No Musculoskeletal History of Musculoskeletal Dis: Yes (LEFT FOREARM INJURY AGE 5--S/P SURGERY; BIALTERAL ANKLE SURGERY ) Musculoskeletal Disorders: Fractures Endocrine History of Endocrine Disorders: No HEENT History of HEENT Disorders: No Cancer History of Cancer: No Psychosocial History of Psychiatric Problem: No Suicide Risk Score: 0 Integumentary History of Skin or Integumenta: No Blood Transfusions History of Blood Disorders: Yes (SICKLE CELL ANEMIA) Adverse Reaction to a Blood Tr: No Reviewed Nursing Assessment Reviewed/Agree w Nursing PMH: Yes Family Medical History Significant Family History: Asthma, Diabetes, Hypertension Family Medial History: Asthma G8 BROTHER Parkinson's disease Seizure disorder G8 BROTHER Physical Exam Vital Signs Vital Sign - Last 12Hours 06/19/17 04:14 Temp 97.5 Pulse 87 Resp 24 B/P (MAP) 99/71 (80) Pulse Ox 98 O2 Delivery Room Air Capillary Refill : Less Than 3 Seconds General Appearance: WD/WN, Moderate Distress HEENT: PERRL/EOMI, Pharynx Normal Neck: Non Tender, Supple Respiratory: Lungs Clear, Normal Breath Sounds Cardiovascular: Regular Rate, Rhythm, No Murmur Gastrointestinal: Non Tender, Soft Back: Normal Inspection, No CVA Tenderness, No Vertebral Tenderness Extremity: Normal Range of Motion, No Pedal Edema, Other (moderate to significant tenderness bilateral lower extremities with right greater than left. ) Neurologic/Psychiatric: Alert, Oriented x3 Skin: Normal Color, Warm/Dry Progress/Results/Core Measures Suspected Sepsis Recent Fever Within 48 Hours: No Infection Criteria Present: None New/Unexplained Altered Menta: No Sepsis Screen: No Definite Risk Sepsis Diagnosis: SIRS Temperature:97.5 Pulse: 87 Respiratory Rate: 24 Laboratory Tests 06/19/17 04:30: White Blood Count 11.3H Blood Pressure 99 /71 Mean: 80 Laboratory Tests 06/19/17 04:30: Creatinine 0.83, Platelet Count 216, Total Bilirubin 4.5H Results/Orders Lab Results Laboratory Tests Test 06/19/17 04:30 Range/Units White Blood Count 11.3 H 4.3-11.0 10^3/uL Red Blood Count 2.99 L 4.35-5.85 10^6/uL Hemoglobin 9.3 L 13.3-17.7 G/DL Hematocrit 26 L 40-54 % Mean Corpuscular Volume 86 80-99 FL Mean Corpuscular Hemoglobin 31 25-34 PG Mean Corpuscular Hemoglobin Concent 36 32-36 G/DL Red Cell Distribution Width 21.6 H 10.0-14.5 % Platelet Count 216 130-400 10^3/uL Mean Platelet Volume 11.8 H 7.4-10.4 FL Neutrophils (%) (Auto) 57 42-75 % Lymphocytes (%) (Auto) 24 12-44 % Monocytes (%) (Auto) 14 H 0-12 % Eosinophils (%) (Auto) 4 0-10 % Basophils (%) (Auto) 1 0-10 % Neutrophils # (Auto) 6.5 1.8-7.8 X 10^3 Lymphocytes # (Auto) 2.7 1.0-4.0 X 10^3 Monocytes # (Auto) 1.5 H 0.0-1.0 X 10^3 Eosinophils # (Auto) 0.4 H 0.0-0.3 10^3/uL Basophils # (Auto) 0.1 0.0-0.1 10^3/uL Absolute Reticulocyte Count 407 H 24-90 10e9/L Percent Reticulocyte Count 13.60 H 0.50-2.40 % Sodium Level 138 135-145 MMOL/L Potassium Level 3.8 3.6-5.0 MMOL/L Chloride Level 102 98-107 MMOL/L Carbon Dioxide Level 24 21-32 MMOL/L Anion Gap 12 5-14 MMOL/L Blood Urea Nitrogen 7 7-18 MG/DL Creatinine 0.83 0.60-1.30 MG/DL Estimat Glomerular Filtration Rate > 60 BUN/Creatinine Ratio 8 Glucose Level 81 70-105 MG/DL Calcium Level 9.5 8.5-10.1 MG/DL Total Bilirubin 4.5 H 0.1-1.0 MG/DL Aspartate Amino Transf (AST/SGOT) 24 5-34 U/L Alanine Aminotransferase (ALT/SGPT) 8 0-55 U/L Alkaline Phosphatase 50 40-136 U/L Total Protein 7.2 6.4-8.2 GM/DL Albumin 4.0 3.2-4.5 GM/DL Smear Scan YES My Orders Orders - MOE JARQUIN MD Cbc With Automated Diff (06/19/17 04:25) Comprehensive Metabolic Panel (06/19/17 04:25) Ua Culture If Indicated (06/19/17 04:25) Saline Lock/Iv-Start (06/19/17 04:25) Ns Iv 1000 Ml (Sodium Chloride 0.9%) (06/19/17 04:25) Hydromorphone Injection (Dilaudid Inject (06/19/17 04:25) Reticulocyte Count (06/19/17 04:25) O2 (06/19/17 04:25) Monitor-Rhythm Ecg Trace Only (06/19/17 04:25) Hydromorphone Injection (Dilaudid Inject (06/19/17 04:59) Medications Given in ED Current Medications Medications Dose Ordered Sig/Arlene Route Start Time Stop Time Status Last Admin Dose Admin Sodium Chloride 1,000 ml @ 0 mls/hr Q0M ONCE IV 06/19/17 04:25 06/19/17 04:28 DC 06/19/17 04:34 1,000 MLS/HR Vital Signs/I&O Vital Sign - Last 12Hours 06/19/17 04:14 Temp 97.5 Pulse 87 Resp 24 B/P (MAP) 99/71 (80) Pulse Ox 98 O2 Delivery Room Air Capillary Refill : Less Than 3 Seconds Blood Pressure Mean: 80 Progress Note : Progress Note Seen and evaluated. IV, labs,, UA, Dilaudid 1 mg IV, normal saline 1 L bolus and O2 via nasal cannula initiated. Monitor patient. Patient had is not improved. Repeat dosing of Dilaudid 2 mg IV ordered. This did help his pain. I did discuss the case with Dr. Mcfadden at 0545 and she accepts patient for admission, inpatient status. Patient agrees with plan. Departure Communication (Admissions) Time/Spoke to Admitting Phy: 05:45 Impression Impression: Primary Impression: Sickle cell crisis Disposition: 09 ADMITTED INPATIENT Condition: Stable Admissions Decision to Admit Reason: Admit from ER (General) Decision to Admit/Date: Jun 19, 2017 Time/Decision to Admit Time: 05:45 Departure-Patient Inst. Referrals: FANTASMA MCFADDEN MD (PCP) Primary Care Physician Scripts No Active Prescriptions or Reported Meds MOE JARQUIN MD Jun 19, 2017 05:31
--- OUTSIDE RECORDS SUMMARY | 2017-06-19 06:20 | XMS REPORT | Continuity of Care Document ---
Author Author [facility] Organization [facility] Address Unknown Phone Unavailable Allergies Active Description Code Type Severity Reaction Onset Reported/Identified Relationship to Patient Clinical Status Yes No Known Drug Allergies [id number] Drug Allergy Unknown N/A 10/03/2015 Yes morphine [id number] Drug Allergy Unknown N/A 05/19/2016 Yes morphine [id number] Drug Allergy Unknown PT HAS TAKEN LO [...] NICOTINE DEPENDENCE, CIGARETTES, UNCOMPL 10/08/2015 BRIDGET DÍAZ LESLEI Ot J18.9 PNEUMONIA, UNSPECIFIED ORGANISM 10/08/2015 TRUDY [...] HARTMANN MD Ot Z91.19 PATIENT'S NONCOMPLIANCE [facility] 04/27/2017 FANTASMA HARTMANN MD Ot [...] HARTMANN MD Ot Z91.19 PATIENT'S NONCOMPLIANCE [facility] 05/19/2017 PEBBLES PALMER MD, Ot [...] ABO+Rh group AP NRG Transfusion band number [id number] NRG Blood group antibody screen NEGATIVE NRG [...] blood smear finding identification by light microscopy [facility] Comprehensive metabolic panel - 02/18/17 [...] calculation of estimated glomerular filtration rate > [facility] Serum or plasma glucose measurement [...] ABO+Rh group AP NRG Transfusion band number [id number] NRG Blood group antibody screen NEGATIVE NRG [...] CELLS LEUKO REDUCED AS1 TRANSFUSED 04/25/17 1341 [facility] Blood type T Indirect antibody screen panel - 04/25/17 12:10 ABO+Rh group AP NRG Transfusion band number [id number] NR Blood group antibody screen NEGATIVE NRG [...] 90 Blood reticulocytes/100 erythrocytes 11.89 % 0.50-2.40 Complete blood count (CBC) with automated white blood cell (WBC) differential - 06/19/17 04:30 Blood leukocytes automated count (number/volume) 11.3 10*3/uL 4.3-11.0 Blood erythrocytes automated count (number/volume) 2.99 10*6/uL 4.35-5.85 Venous blood hemoglobin measurement (mass/volume) 9.3 g/dL 13.3-17.7 Blood hematocrit (volume fraction) 26 % 40-54 Automated erythrocyte mean corpuscular volume 86 [foz_us] 80-99 Automated erythrocyte mean corpuscular hemoglobin (mass per erythrocyte) 31 pg 25-34 Automated erythrocyte mean corpuscular hemoglobin concentration measurement ( mass/volume) 36 g/dL 32-36 Automated erythrocyte distribution width ratio 21.6 % 10.0-14.5 Automated blood platelet count (count/volume) 216 10*3/uL 130-400 Automated blood platelet mean volume measurement 11.8 [foz_us] 7.4-10.4 Automated blood neutrophils/100 leukocytes 57 % 42-75 Automated blood lymphocytes/100 leukocytes 24 % 12-44 Blood monocytes/100 leukocytes 14 % 0-12 Automated blood eosinophils/100 leukocytes 4 % 0-10 Automated blood basophils/100 leukocytes 1 % 0-10 Blood neutrophils automated count (number/volume) 6.5 10*3 1.8-7.8 Blood lymphocytes automated count (number/volume) 2.7 10*3 1.0-4.0 Blood monocytes automated count (number/volume) 1.5 10*3 0.0-1.0 Automated eosinophil count 0.4 10*3/uL 0.0-0.3 Automated blood basophil count (count/volume) 0.1 10*3/uL 0.0-0.1 Blood blood smear finding identification by light microscopy YES NRG Automated reticulocyte percentage - 06/19/17 04:30 Blood reticulocytes count (number/volume) 407 10*9/L 24- 90 Blood reticulocytes/100 erythrocytes 13.60 % 0.50-2.40 Comprehensive metabolic panel - 06/19/17 04:30 Serum or plasma sodium measurement (moles/volume) 138 mmol/L 135-145 Serum or plasma potassium measurement (moles/volume) 3.8 mmol/L 3.6-5.0 Serum or plasma chloride measurement (moles/volume) 102 mmol/L 98-107 Carbon dioxide 24 mmol/L 21-32 Serum or plasma anion gap determination (moles/volume) 12 mmol/L 5-14 Serum or plasma urea nitrogen measurement (mass/volume) 7 mg/dL 7-18 Serum or plasma creatinine measurement (mass/volume) 0.83 mg/dL 0.60-1.30 Serum or plasma urea nitrogen/creatinine mass ratio 8 NRG Serum or plasma creatinine measurement with calculation of estimated glomerular filtration rate > NRG Serum or plasma glucose measurement (mass/volume) 81 mg/dL 70-105 Serum or plasma calcium measurement (mass/volume) 9.5 mg/dL 8.5-10.1 Serum or plasma total bilirubin measurement (mass/volume) 4.5 mg/dL 0.1-1.0 Serum or plasma alkaline phosphatase measurement (enzymatic activity/volume) 50 U/L 40-136 Serum or plasma aspartate aminotransferase measurement (enzymatic activity/ volume) 24 U/L 5-34 Serum or plasma alanine aminotransferase measurement (enzymatic activity/volume ) 8 U/L 0-55 Serum or plasma protein measurement (mass/volume) 7.2 g/dL 6.4-8.2 Serum or plasma albumin measurement (mass/volume) 4.0 g/dL 3.2-4.5 Encounters ACCT No. Visit Date/Time Discharge Status Pt. Type Provider Facility Loc./Unit Complaint [id number] 05/14/2017 14:51:00 05/14/2017 23:59:59 CLS Outpatient PEBBLES PALMER MD [facility] ONC [id number] 04/25/2017 04:10:00 04/27/2017 13:17:00 DIS Inpatient FANTASMA HARTMANN MD [facility] 4TH SICKLE CELL CRISIS,ANEMIA ,ELEVATED BILIRUBIN [id number] 02/18/2017 15:20:00 02/20/2017 11:00:00 DIS Inpatient FANTASMA HARTMANN MD [facility] 4TH SICKLE CELL CRISIS [id number] 05/19/2016 02:15:00 05/22/2016 15:00:00 DIS Inpatient AYDE TOLLIVER MD [facility] 4TH SICKLE CELL CRISIS [id number] 06/19/2017 04:14:00 ACT Emergency MOE JARQUIN MD [facility] ER LOWER BACK LEG PAIN [id number] 10/03/2015 06:17:00 ACT Inpatient LESLIE GILL DO [facility] 4TH SICKLE CELL CRISIS,PNEUMONIA,HYPOXIA
[2017-06-19] MEDS ORDERED: NS IV 1000 ML 1,000 ML ONE (07:42)
[2017-06-19 08:30] VITALS: BP 93/55
[2017-06-19] MEDS: HYDROmorphone (DILAUDID) 2 MG/ML VIAL IV PRN ×6 (08:33→23:21)
[2017-06-19] MEDS: NS IV 1000 ML 1,000 ML IV SCH ×2 (11:05→16:29)
[2017-06-19 11:24] VITALS: BP 93/55
[2017-06-19] MEDS ORDERED: RT-ALBUTEROL SULF 2.5 MG/3 ML PRE-MIX VIAL INH PRN (11:30)
[2017-06-19] MEDS ORDERED: INFLUENZA TRIvalent 2017-2018 0.5 ML/45 MCG SYR IM ONE (11:45)
[2017-06-19 12:00] VITALS: BP 113/56
--- NOTE | 2017-06-19 12:18 | History & Physical-Hospitalist ---
HPI History of Present Illness: HPI/Chief Complaint Pt is a 31yoAAM with a PMH of sickle cell disease known to me from previous admissions. He presented to the ER for shoulder and leg pain that he felt was similar to his pain when he was in crisis. This has been going on for ~3 days but worsened this AM. He reports his pain is mostly in his left shoulder and his right ankle currently. He reports dilaudid is helping with his pain when he gets it but he is still having significant pain. He reports he did follow up with Dr Gallegos and was prescribed hydroxyurea but did not pick it up from the pharmacy. Source: patient Date Seen 06/19/17 Time Seen by Provider: 11:45 Attending Physician Fantasma Hartmann MD PCP Fantasma Hartmann MD Referring Physician Date of Admission Jun 19, 2017 at 5:50 am Home Medications & Allergies Home Medications Reviewed patient Home Medication Reconciliation Form Allergies Allergies Coded Allergies morphine (Unverified Adverse Reaction, Unknown, PT HAS TAKEN LORTAB & STADOL IN THE PAST, 02/18/17) Past Pfqbwun-Wpemls-Vwjccv Hx Patient Social History Alcohol Use: Denies Use Number of Drinks Today: GG Alcohol Beverage of Choice: Whiskey Recreational Drug Use: Yes (MARIJUANA AT PRESENT denies cocain or meth use @ this time 06/19/17) Drug of Choice: THC, COCAINE, ALSO ADMITTED TO METHAMPHETAMINES IN PAST. Smoking Status: Current Everyday Smoker Type Used: Cigarettes 2nd Hand Smoke Exposure: Yes Physical Abuse Screen: No Sexual Abuse: No Recent Foreign Travel: No Contact w/other who traveled: No Recent Hopitalizations: No Recent Infectious Disease Expo: No Immunizations Up To Date Tetanus Booster (TDap): More than 5yrs Pediatric: No Seasonal Allergies Seasonal Allergies: No Surgeries Yes Gallbladder, Orthopedic Respiratory No Currently Using CPAP: No Currently Using BIPAP: No Cardiovascular No Neurological No Reproductive System Hx Reproductive Disorders: No Sexually Transmitted Disease: No HIV/AIDS: No Genitourinary No Gastrointestinal No Musculoskeletal Yes (LEFT FOREARM INJURY AGE 5--S/P SURGERY; BIALTERAL ANKLE SURGERY INFANT) Fractures Endocrine History of Endocrine Disorders: No HEENT History of HEENT Disorders: No Cancer No Psychosocial History of Psychiatric Problem: No Integumentary History of Skin or Integumenta: No Blood Transfusions History of Blood Disorders: Yes (SICKLE CELL ANEMIA) Adverse Reaction to a Blood Tr: No Reviewed Nursing Assessment Reviewed/Agree w Nursing PMH: Yes Family Medical History Significant Family History: Asthma, Diabetes, Hypertension Family Hx: Asthma G8 BROTHER Parkinson's disease Seizure disorder G8 BROTHER Review of Systems Constitutional: No chills, No fever Respiratory: No cough, No short of breath Cardiovascular: No chest pain, No palpitations Gastrointestinal: No abdominal pain, No nausea, No vomiting Genitourinary: no symptoms reported Musculoskeletal: back pain, joint pain Physical Exam Physical Exam Vital Signs Vital Sign - Last 12Hours 06/19/17 06/19/17 04:14 11:24 Temp 97.5 Pulse 87 Resp 24 B/P (MAP) 99/71 (80) Pulse Ox 100 O2 Delivery Nasal Cannula O2 Flow Rate 3.00 FiO2 28 Capillary Refill : Less Than 3 Seconds General Appearance: WD/WN, Mild Distress (appears uncomfortable) HEENT: PERRL/EOMI, Moist Mucous Membranes Neck: Non Tender, Supple Respiratory: Lungs Clear, No Respiratory Distress Cardiovascular: Regular Rate, Rhythm, No Murmur Gastrointestinal: Normal Bowel Sounds, Non Tender, Soft Extremity: No Pedal Edema Neurologic/Psychiatric: Alert, Oriented x3, Normal Mood/Affect Skin: Normal Color, Warm/Dry Results Results/Procedures Lab Laboratory Tests 06/19/17 04:30 Assessment/Plan Admission Diagnosis Sickle Cell Crisis Diagnosis/Problems Diagnosis/Problems (1) Sickle cell crisis Status: Acute Assessment & Plan: Continue IVF and IV pain medicine Hgb 9.3 currently, no indication for transfusion at this time Trend, goal to keep above 8 Continue supplemental oxygen Hem consulted (2) Hyperbilirubinemia Status: Chronic Assessment & Plan: Near his baseline likely due to crisis (3) Leukocytosis Status: Resolved Assessment & Plan: likely reactive, trend Qualifiers: Qualified Codes: D72.829 - Elevated white blood cell count, unspecified (4) Noncompliance Assessment & Plan: Has not yet picked up hydroxyurea Has left AMA in the past Will continue to offer education on importance of compliance with medications and follow up Clinical Quality Measures DVT/VTE Risk/Contraindication: Risk Factor Score Per Nursin RFS Level Per Nursing on Admit: 2=Moderate FANTASMA HARTMANN MD Jun 19, 2017 12:18 pm
[2017-06-19 16:00] VITALS: BP 114/55
[2017-06-19] MEDS: RT-ALBUTEROL SULF 2.5 MG/3 ML PRE-MIX VIAL INH SCH (19:36)
[2017-06-19 20:00] VITALS: BP 103/60
[2017-06-20] VITALS (9 sets, daily range): BP systolic 96–113; BP diastolic 50–67
[2017-06-20] MEDS: NS IV 1000 ML 1,000 ML IV SCH ×3 (00:35→19:22)
[2017-06-20] MEDS: HYDROmorphone (DILAUDID) 2 MG/ML VIAL IV PRN ×6 (03:39→21:27)
[2017-06-20 04:58] LABS: ABSOLUTE RETIC # 281 10e9/L (24-90); BASOPHILS # (AUTO) 0.1 10^3/uL (0.0-0.1); BASOPHILS % (AUTO) 1 % (0-10); EOSINOPHILS # (AUTO) 0.3 10^3/uL (0.0-0.3); EOSINOPHILS % (AUTO) 2 % (0-10); LYMPHOCYTES # (AUTO) 2.7 X 10^3 (1.0-4.0); LYMPHOCYTES % (AUTO) 22 % (12-44); MEAN CORPUSCULAR HEMOGLOBIN 31 PG (25-34); MEAN CORPUSCULAR HGB CONC 36 G/DL (32-36); MEAN CORPUSCULAR VOLUME 86 FL (80-99); MEAN PLATELET VOLUME 12.5 FL (7.4-10.4); MONOCYTES # (AUTO) 2.4 X 10^3 (0.0-1.0); MONOCYTES % (AUTO) 20 % (0-12); NEUTROPHILS # (AUTO) 6.8 X 10^3 (1.8-7.8); NEUTROPHILS % (AUTO) 55 % (42-75); PLATELET COUNT 159 10^3/uL (130-400); RED BLOOD COUNT 2.25 10^6/uL (4.35-5.85); RED CELL DISTRIBUTION WIDTH 20.9 % (10.0-14.5)
[2017-06-20 05:21] LABS: HEMATOCRIT 21 % (40-54); WHITE BLOOD COUNT 11.6 10^3/uL (4.3-11.0)
[2017-06-20 05:23] LABS: SMEAR SCAN COMMENT YES
[2017-06-20 05:29] LABS: ALANINE AMINOTRANSFERASE 15 U/L (0-55); ALBUMIN 3.4 GM/DL (3.2-4.5); ALKALINE PHOSPHATASE 45 U/L (40-136); BILIRUBIN,TOTAL 3.3 MG/DL (0.1-1.0); BUN/CREATININE RATIO 9; CALCIUM 8.5 MG/DL (8.5-10.1); CARBON DIOXIDE 22 MMOL/L (21-32); CHLORIDE 105 MMOL/L (98-107); CREATININE SERUM 0.69 MG/DL (0.60-1.30); GFR ESTIMATED > 60; GLUCOSE 102 MG/DL (70-105); POTASSIUM 4.1 MMOL/L (3.6-5.0); SODIUM 139 MMOL/L (135-145); TOTAL PROTEIN 6.3 GM/DL (6.4-8.2)
[2017-06-20] MEDS: RT-ALBUTEROL SULF 2.5 MG/3 ML PRE-MIX VIAL INH SCH ×2 (08:01→19:45)
[2017-06-20] MEDS ORDERED: NS IV 500 ML 500 ML IV SCH (12:08)
--- NOTE | 2017-06-20 14:07 | Progress Note-Hospitalist ---
Subjective HPI/CC On Admission Date Seen by Provider: Jun 20, 2017 Time Seen by Provider: 11:30 Pt is a 31yoAAM with a PMH of sickle cell disease known to me from previous admissions. He presented to the ER for shoulder and leg pain that he felt was similar to his pain when he was in crisis. This has been going on for ~3 days but worsened this AM. He reports his pain is mostly in his left shoulder and his right ankle currently. He reports dilaudid is helping with his pain when he gets it but he is still having significant pain. He reports he did follow up with Dr Gallegos and was prescribed hydroxyurea but did not pick it up from the pharmacy. Subjective/Events-last exam Pt reports pain improved. Would like to DC home today. Discussed indications for continued admission, need for blood transfusion, and risks of leaving before medical optimization. Original still intent on leaving AMA but after some thought decided to stay. Objective Exam Vital Signs Vital Sign - Last 12Hours 06/19/17 06/19/17 04:14 11:24 Temp 97.5 Pulse 87 Resp 24 B/P (MAP) 99/71 (80) Pulse Ox 100 O2 Delivery Nasal Cannula O2 Flow Rate 3.00 FiO2 28 Capillary Refill : Less Than 3 Seconds General Appearance: No Apparent Distress, WD/WN HEENT: Scleral Icterus (L) (mild), Scleral Icterus (R) (mild) Respiratory: No Respiratory Distress Extremity: Other (normal gait) Neurologic/Psychiatric: Alert, Oriented x3 Results/Procedures Lab Laboratory Tests 06/20/17 04:22 Assessment/Plan Assessment and Plan Assess & Plan/Chief Complaint sickle cell crisis Diagnosis/Problems Diagnosis/Problems (1) Sickle cell crisis Status: Acute Assessment & Plan: Continue IVF and IV pain medicine Hgb 7.0 this AM, will transfuse x1 Continue supplemental oxygen Heme consulted (2) Hyperbilirubinemia Status: Chronic Assessment & Plan: Improving (3) Leukocytosis Status: Resolved Assessment & Plan: likely reactive, trend Qualifiers: Qualified Codes: D72.829 - Elevated white blood cell count, unspecified (4) Noncompliance Assessment & Plan: Has not yet picked up hydroxyurea Has left AMA in the past Will continue to offer education on importance of compliance with medications and follow up FANTASMA HARTMANN MD Jun 20, 2017 2:07 pm
[2017-06-21 00:40] VITALS: BP 106/66
[2017-06-21] MEDS: HYDROmorphone (DILAUDID) 2 MG/ML VIAL IV PRN ×7 (01:29→22:10)
[2017-06-21] MEDS: NS IV 1000 ML 1,000 ML IV SCH ×4 (01:37→18:56)
[2017-06-21 04:55] VITALS: BP 104/68
[2017-06-21 06:16] LABS: BASOPHILS # (AUTO) 0.1 10^3/uL (0.0-0.1); BASOPHILS % (AUTO) 1 % (0-10); EOSINOPHILS # (AUTO) 0.7 10^3/uL (0.0-0.3); EOSINOPHILS % (AUTO) 6 % (0-10); HEMATOCRIT 23 % (40-54); HEMOGLOBIN 8.1 G/DL (13.3-17.7); LYMPHOCYTES # (AUTO) 1.9 X 10^3 (1.0-4.0); LYMPHOCYTES % (AUTO) 19 % (12-44); MEAN CORPUSCULAR HEMOGLOBIN 30 PG (25-34); MEAN CORPUSCULAR HGB CONC 36 G/DL (32-36); MEAN CORPUSCULAR VOLUME 85 FL (80-99); MEAN PLATELET VOLUME 12.4 FL (7.4-10.4); MONOCYTES # (AUTO) 1.8 X 10^3 (0.0-1.0); MONOCYTES % (AUTO) 18 % (0-12); NEUTROPHILS # (AUTO) 5.7 X 10^3 (1.8-7.8); NEUTROPHILS % (AUTO) 56 % (42-75); PLATELET COUNT 195 10^3/uL (130-400); RED BLOOD COUNT 2.68 10^6/uL (4.35-5.85); RED CELL DISTRIBUTION WIDTH 19.4 % (10.0-14.5); WHITE BLOOD COUNT 10.2 10^3/uL (4.3-11.0)
[2017-06-21 06:34] LABS: SMEAR SCAN COMMENT YES
[2017-06-21 07:00] LABS: ALANINE AMINOTRANSFERASE 13 U/L (0-55); ALBUMIN 3.3 GM/DL (3.2-4.5); ALKALINE PHOSPHATASE 48 U/L (40-136); BILIRUBIN,TOTAL 2.7 MG/DL (0.1-1.0); BUN/CREATININE RATIO 9; CALCIUM 8.6 MG/DL (8.5-10.1); CARBON DIOXIDE 24 MMOL/L (21-32); CHLORIDE 106 MMOL/L (98-107); CREATININE SERUM 0.68 MG/DL (0.60-1.30); GFR ESTIMATED > 60; GLUCOSE 97 MG/DL (70-105); POTASSIUM 3.9 MMOL/L (3.6-5.0); SODIUM 139 MMOL/L (135-145); TOTAL PROTEIN 6.2 GM/DL (6.4-8.2)
[2017-06-21] MEDS: RT-ALBUTEROL SULF 2.5 MG/3 ML PRE-MIX VIAL INH SCH ×2 (07:50→21:30)
[2017-06-21 08:00] VITALS: BP 119/75
[2017-06-21 11:51] LABS: RED BLOOD COUNT 2.67 10^6/uL (4.35-5.85); RETICULOCYTE % 10.5 % (0.50-2.40)
[2017-06-21 12:00] VITALS: BP 108/62
[2017-06-21 16:00] VITALS: BP 122/70
--- NOTE | 2017-06-21 16:02 | Progress Note-Hospitalist ---
Subjective HPI/CC On Admission Date Seen by Provider: Jun 21, 2017 Time Seen by Provider: 16:00 Pt is a 31yoAAM with a PMH of sickle cell disease known to me from previous admissions. He presented to the ER for shoulder and leg pain that he felt was similar to his pain when he was in crisis. This has been going on for ~3 days but worsened this AM. He reports his pain is mostly in his left shoulder and his right ankle currently. He reports dilaudid is helping with his pain when he gets it but he is still having significant pain. He reports he did follow up with Dr Gallegos and was prescribed hydroxyurea but did not pick it up from the pharmacy. Subjective/Events-last exam Pt reports doing well. Pain improving. No other complaints. Objective Exam Vital Signs Vital Sign - Last 12Hours 06/19/17 06/19/17 04:14 11:24 Temp 97.5 Pulse 87 Resp 24 B/P (MAP) 99/71 (80) Pulse Ox 100 O2 Delivery Nasal Cannula O2 Flow Rate 3.00 FiO2 28 Capillary Refill : Less Than 3 Seconds General Appearance: No Apparent Distress, WD/WN Respiratory: Lungs Clear, No Respiratory Distress Cardiovascular: Regular Rate, Rhythm, No Murmur Gastrointestinal: Normal Bowel Sounds, Non Tender, Soft Neurologic/Psychiatric: Alert, Oriented x3, Normal Mood/Affect Results/Procedures Lab Laboratory Tests 06/21/17 05:40 Assessment/Plan Assessment and Plan Assess & Plan/Chief Complaint sickle cell crisis Diagnosis/Problems Diagnosis/Problems (1) Sickle cell crisis Status: Acute Assessment & Plan: Continue IVF and IV pain medicine Hgb 8.1 this AM Continue supplemental oxygen Heme consulted Dr Gallegos out sick today but did discuss with him, will see tomorrow if back (2) Hyperbilirubinemia Status: Chronic Assessment & Plan: Improving (3) Leukocytosis Status: Resolved Assessment & Plan: likely reactive, trend Qualifiers: Qualified Codes: D72.829 - Elevated white blood cell count, unspecified (4) Noncompliance Assessment & Plan: Has not yet picked up hydroxyurea Has left AMA in the past Will continue to offer education on importance of compliance with medications and follow up FANTASMA HARTMANN MD Jun 21, 2017 16:02
[2017-06-21 20:00] VITALS: BP 112/66
[2017-06-22] VITALS (9 sets, daily range): BP systolic 96–113; BP diastolic 47–65
[2017-06-22] MEDS: HYDROmorphone (DILAUDID) 2 MG/ML VIAL IV PRN ×7 (01:52→22:04)
[2017-06-22] MEDS: NS IV 1000 ML 1,000 ML IV SCH ×3 (02:00→19:35)
[2017-06-22] MEDS: RT-ALBUTEROL SULF 2.5 MG/3 ML PRE-MIX VIAL INH SCH ×3 (07:39→20:46)
[2017-06-22 07:41] LABS: BASOPHILS # (AUTO) 0.1 10^3/uL (0.0-0.1); BASOPHILS % (AUTO) 1 % (0-10); EOSINOPHILS % (AUTO) 11 % (0-10); HEMATOCRIT 21 % (40-54); HEMOGLOBIN 7.5 G/DL (13.3-17.7); LYMPHOCYTES # (AUTO) 1.7 X 10^3 (1.0-4.0); LYMPHOCYTES % (AUTO) 19 % (12-44); MEAN CORPUSCULAR HEMOGLOBIN 30 PG (25-34); MEAN CORPUSCULAR HGB CONC 36 G/DL (32-36); MEAN CORPUSCULAR VOLUME 84 FL (80-99); MEAN PLATELET VOLUME 12.5 FL (7.4-10.4); MONOCYTES # (AUTO) 1.7 X 10^3 (0.0-1.0); MONOCYTES % (AUTO) 19 % (0-12); NEUTROPHILS # (AUTO) 4.5 X 10^3 (1.8-7.8); NEUTROPHILS % (AUTO) 51 % (42-75); PLATELET COUNT 189 10^3/uL (130-400); RED CELL DISTRIBUTION WIDTH 19.8 % (10.0-14.5); WHITE BLOOD COUNT 8.9 10^3/uL (4.3-11.0)
[2017-06-22] MEDS ORDERED: NS IV 500 ML 500 ML IV SCH (14:03)
--- NOTE | 2017-06-22 14:13 | Progress Note-Hospitalist ---
Subjective HPI/CC On Admission Date Seen by Provider: Jun 22, 2017 Time Seen by Provider: 14:09 Pt is a 31yoAAM with a PMH of sickle cell disease known to me from previous admissions. He presented to the ER for shoulder and leg pain that he felt was similar to his pain when he was in crisis. This has been going on for ~3 days but worsened this AM. He reports his pain is mostly in his left shoulder and his right ankle currently. He reports dilaudid is helping with his pain when he gets it but he is still having significant pain. He reports he did follow up with Dr Gallegos and was prescribed hydroxyurea but did not pick it up from the pharmacy. Subjective/Events-last exam Still having persistent pain. Review of notes shows lower oxygen saturations. Hgb dropped again today. Objective Exam Vital Signs Vital Sign - Last 12Hours 06/19/17 06/19/17 04:14 11:24 Temp 97.5 Pulse 87 Resp 24 B/P (MAP) 99/71 (80) Pulse Ox 100 O2 Delivery Nasal Cannula O2 Flow Rate 3.00 FiO2 28 Capillary Refill : Less Than 3 Seconds General Appearance: No Apparent Distress, WD/WN HEENT: Scleral Icterus (L), Scleral Icterus (R) Respiratory: Lungs Clear, No Respiratory Distress Cardiovascular: Regular Rate, Rhythm, No Murmur Extremity: Pedal Edema Neurologic/Psychiatric: Alert, Oriented x3, Normal Mood/Affect Results/Procedures Lab Laboratory Tests 06/22/17 06:00 Assessment/Plan Assessment and Plan Assess & Plan/Chief Complaint sickle cell crisis Diagnosis/Problems Diagnosis/Problems (1) Sickle cell crisis Status: Acute Assessment & Plan: Continue IVF and IV pain medicine Hgb 7.5 this AM Will transfuse x1 Continue supplemental oxygen Heme consulted, appreciate recs (2) Hyperbilirubinemia Status: Chronic Assessment & Plan: Improving (3) Leukocytosis Status: Resolved Assessment & Plan: resolved Qualifiers: Qualified Codes: D72.829 - Elevated white blood cell count, unspecified (4) Noncompliance Assessment & Plan: Has not yet picked up hydroxyurea Has left AMA in the past Will continue to offer education on importance of compliance with medications and follow up FANTASMA HARTMANN MD Jun 22, 2017 14:13
--- NOTE | 2017-06-22 17:57 | CONSULTATION REPORT ---
DATE OF SERVICE: 06/22/2017 REFERRING PHYSICIAN: Johanna Mcfadden MD The patient is admitted to room 420. IMPRESSION: A 31-year-old male with a history of sickle cell disease requiring multiple admissions in the past for crisis. Following his last admission in March, the patient [facility] and was prescribed hydroxyurea. He did not tack picker the prescription because he did not have a ride to the pharmacy and he was not sure about the cost. He presented to the emergency room this time with 3-day history of lower back pain radiating to both his lower extremities and pelvis of fairly significant nature. He was evaluated in the emergency room and admitted for further management. He has been receiving pain control, IV hydration, oxygen supplementation as well as transfusion as needed to maintain his hemoglobin more than 8 grams per deciliter. Hematology consultation was requested for concurrent management. PAST MEDICAL HISTORY: Significant for sickle cell disease as mentioned, he was on treatment with hydroxyurea in the distant past, but has not had a stable follow up with hematology for several years. Also has noncompliance until recently. PAST SURGICAL HISTORY: Include cholecystectomy and fractures in the distant past. SOCIAL HISTORY: The patient is single, but is living in [place] with a significant other. He smokes up to a pack of cigarettes a day and uses cannabis on an intermittent basis. Previously, he has used other recreational drugs like methamphetamine and cocaine. He uses alcohol intermittently. FAMILY HISTORY: Significant for his brother with seizure disorder and another brother with asthma. PHYSICAL EXAMINATION: GENERAL: Today showed a young male, well developed, well nourished, awake and oriented, in mild distress. VITAL SIGNS: His temperature was 98.9, pulse rate of 97, respirations 18, blood pressure 101/56, oxygen saturation 97% on 3 liters of oxygen by nasal cannula. HEENT: Normocephalic, extraocular muscles intact, conjunctivae slightly pale, oral mucosa moist. NECK: Supple with no JVD. No cervical, supraclavicular or axillary lymphadenopathy palpable. CHEST: Symmetrical. LUNGS: Fairly clear to auscultation without wheezes or rales. CARDIOVASCULAR: Regular in rate and rhythm without murmurs or gallops. ABDOMEN: Soft, nontender with no hepatosplenomegaly or other masses palpable. EXTREMITIES: Showed no edema. NEUROLOGIC: Showed no focal motor deficits. LABORATORY DATA: CBC done today showed white count of 8.9, hemoglobin 7.5, platelet count 189,000 with neutrophil count of 4.5 and lymphocyte count of 1.7. Absolute reticulocyte count at the time of admission was 407,000, while yesterday this was 280,000. Chemistry panel done yesterday showed normal electrolytes and renal function. His total bilirubin was 2.7 yesterday and at the time of admission was elevated at 4.5. The patient did not have a chest x-ray done today and does not have any documented fever during the current hospitalization. ASSESSMENT: 1. Acute exacerbation of sickle cell crisis with low back and pelvic pain. 2. Hypoxia without oxygen supplementation. 3. 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 4. Pain due to above. RECOMMENDATIONS: 1. Continue pain control as you are doing. 2. Continue IV hydration and oxygen supplementation and maintain hemoglobin level more than or equal to 8 grams per deciliter. 3. Increase activity level as tolerated. Obtain renal social worker consult with regarding assistance to obtain hydroxyurea. 4. Follow up at the [facility] within 1 to 2 weeks of discharge to follow up on outpatient therapy. 5. Continue folic acid 1 mg daily. Job ID: [id number] DocumentID: [id number] Dictated Date: 06/22/2017 17:15:16 Gun Barrel Finisher Date: 06/22/2017 17:56:34 Dictated By: JORDAN SIMS MD
[2017-06-23 00:25] VITALS: BP 122/62
[2017-06-23] MEDS: HYDROmorphone (DILAUDID) 2 MG/ML VIAL IV PRN ×2 (01:22→06:09)
[2017-06-23] MEDS: RT-ALBUTEROL SULF 2.5 MG/3 ML PRE-MIX VIAL INH SCH ×2 (03:02→07:16)
[2017-06-23 04:30] VITALS: BP 130/70
[2017-06-23 05:54] LABS: ABSOLUTE RETIC # 274 10e9/L (24-90); BASOPHILS # (AUTO) 0.1 10^3/uL (0.0-0.1); BASOPHILS % (AUTO) 1 % (0-10); EOSINOPHILS % (AUTO) 11 % (0-10); HEMATOCRIT 25 % (40-54); HEMOGLOBIN 9.1 G/DL (13.3-17.7); LYMPHOCYTES # (AUTO) 2.1 X 10^3 (1.0-4.0); LYMPHOCYTES % (AUTO) 23 % (12-44); MEAN CORPUSCULAR HEMOGLOBIN 31 PG (25-34); MEAN CORPUSCULAR HGB CONC 36 G/DL (32-36); MEAN CORPUSCULAR VOLUME 84 FL (80-99); MONOCYTES # (AUTO) 1.7 X 10^3 (0.0-1.0); MONOCYTES % (AUTO) 19 % (0-12); NEUTROPHILS # (AUTO) 4.3 X 10^3 (1.8-7.8); NEUTROPHILS % (AUTO) 47 % (42-75); PLATELET COUNT 227 10^3/uL (130-400); RED BLOOD COUNT 2.98 10^6/uL (4.35-5.85); RED CELL DISTRIBUTION WIDTH 19.1 % (10.0-14.5); RETICULOCYTE % 9.18 % (0.50-2.40); WHITE BLOOD COUNT 9.1 10^3/uL (4.3-11.0)
--- NOTE | 2017-06-23 08:13 | Discharge Summary-Hospitalist ---
Diagnosis/Chief Complaint Date of Admission Jun 19, 2017 at 05:50 Date of Discharge Discharge Date: Jun 23, 2017 Admission Diagnosis Sickle Cell Crisis Discharge Diagnosis sickle cell crisis (1) Sickle cell crisis Status: Acute Assessment & Plan: Hgb improved to 9.1 Oxygenation improved Plan to DC home- advised to follow up with Dr. Palmer or Dr. El Mukherjee consulted, appreciate recs (2) Hyperbilirubinemia Status: Chronic Assessment & Plan: Improving (3) Leukocytosis Status: Resolved Assessment & Plan: resolved (4) Noncompliance Assessment & Plan: Has not yet picked up hydroxyurea Has left AMA in the past Will continue to offer education on importance of compliance with medications and follow up Discharge Summary Consultations Lonny- Dr. Gallegos Discharge Physical Examination Allergies: Coded Allergies: morphine (Unverified Adverse Reaction, Unknown, PT HAS TAKEN LORTAB & STADOL IN THE PAST, 02/18/17) Vitals & I&Os Vital Signs Date Time Temp Pulse Resp B/P (MAP) Pulse Ox O2 Delivery O2 Flow Rate FiO2 06/23/17 07:16 93 Nasal Cannula 3.00 06/23/17 04:30 98.1 81 17 130/70 (90) 06/22/17 07:39 32 Hospital Course Pt is a 31yoAAM with a PMH of Sickle Cell Anemia who presented to the ER with complaints of leg and shoulder pain consistent with pain he has had during previously crisis. He was found to be in crisis and admitted. He ultimately necessitated 2 units of pRBCs during this admission but ultimately responded to therapy with fluids, oxygen, transfusions, and IV pain medicines. He felt ready to go home on day of discharge and hemoglobin had improved along with improving oxygenation. He was advised to follow up with Dr. Palmer or Dr. Gallegos in 1-2 weeks and advised of the importance of compliance with his medication regimen as prescribed by them to help prevent further episodes. Labs (last 24 hrs) Laboratory Tests 06/22/17 09:37: Lab Scanned Report Transfusion Reaction Form 06/23/17 05:06: White Blood Count 9.1, Red Blood Count 2.98L, Hemoglobin 9.1#L, Hematocrit 25L, Mean Corpuscular Volume 84, Mean Corpuscular Hemoglobin 31, Mean Corpuscular Hemoglobin Concent 36, Red Cell Distribution Width 19.1H, Platelet Count 227, Mean Platelet Volume 12.0H, Neutrophils (%) (Auto) 47, Lymphocytes (%) (Auto) 23 , Monocytes (%) (Auto) 19H, Eosinophils (%) (Auto) 11H, Basophils (%) (Auto) 1, Neutrophils # (Auto) 4.3, Lymphocytes # (Auto) 2.1, Monocytes # (Auto) 1.7H, Eosinophils # (Auto) 1.0H, Basophils # (Auto) 0.1, Absolute Reticulocyte Count 274H, Percent Reticulocyte Count 9.18H Pending Labs Laboratory Tests 06/23/17 05:06: White Blood Count 9.1, Red Blood Count 2.98, Hemoglobin 9.1, Hematocrit 25, Mean Corpuscular Volume 84, Mean Corpuscular Hemoglobin 31, Mean Corpuscular Hemoglobin Concent 36, Red Cell Distribution Width 19.1, Platelet Count 227, Mean Platelet Volume 12.0, Neutrophils (%) (Auto) 47, Lymphocytes (%) (Auto) 23 , Monocytes (%) (Auto) 19, Eosinophils (%) (Auto) 11, Basophils (%) (Auto) 1, Neutrophils # (Auto) 4.3, Lymphocytes # (Auto) 2.1, Monocytes # (Auto) 1.7, Eosinophils # (Auto) 1.0, Basophils # (Auto) 0.1, Absolute Reticulocyte Count 274, Percent Reticulocyte Count 9.18 Discharge Home Medications: Active Scripts Active No Active Prescriptions or Reported Medications Instructions to patient/family Please see electronic discharge instructions given to patient. Clinical Quality Measures DVT/VTE Risk/Contraindication: Risk Factor Score Per Nursin RFS Level Per Nursing on Admit: 2=Moderate Copy Copies To 1: JORDAN GALLEGOS; PEBBLES PALMER MD Problem Qualifiers (1) Leukocytosis: Leukocytosis type: unspecified Qualified Codes: D72.829 - Elevated white blood cell count, unspecified FANTASMA HARTMANN MD Jun 23, 2017 08:13
[2017-06-23 08:39] VITALS: BP 103/67
[2017-06-23 09:00] VITALS: BP 108/62
== END 2017-06-23 09:00 | disposition home or self-care (01) | DRG 812 ==
LOC: EDUNIT# 04:12 → ER 04:14 → 4TH 05:50
PROVIDERS: ADMIT Family Medicine; ATTEND Family Medicine
DX: D57.00 Hb-SS disease with crisis, unspecified (principal); F17.210 Nicotine dependence, cigarettes, uncomplicated; F12.90 Cannabis use, unspecified, uncomplicated; E80.6 Other disorders of bilirubin metabolism; D72.829 Elevated white blood cell count, unspecified; Z91.14 Patient's other noncompliance with medication regimen
CPT/HCPCS: 36415; 80053; 85025; 85045; 86850; 86900; 86901; 86920; 93041; 94640; 94664; 94760; 96361; 96374

== ENCOUNTER 2018-04-24 05:24 | Inpatient (IN) | payer MEDICAID ==
[2018-04-24] VITALS (7 sets, daily range): BP systolic 87–136; BP diastolic 51–89
[~2018-04-24] VITALS: Ht 167.6 cm; Wt 70.8 kg
[~2018-04-24 05:24] MED LIST changes: +FOLI1TAB24 PO; +NF-HYD500C PO
[2018-04-24] MEDS ORDERED: NS IV 1000 ML 1,500 ML IV ONE (05:30)
[2018-04-24] MEDS ORDERED: fentaNYL INJECTION 100 MCG/2 ML AMP IVP ONE (05:30)
[2018-04-24] MEDS ORDERED: FAMOTIDINE 20 MG (PEPCID) TABLET PO STA (05:39)
[2018-04-24] MEDS ORDERED: ANTACID SUSP 30 ML UDC (MYLANTA) PO ONE (05:45)
[2018-04-24] MEDS ORDERED: LIDOCAINE 2% VISCOUS 15 ML UDC PO ONE (05:45)
--- NOTE | 2018-04-24 05:57 | ED General ---
General Chief Complaint: General Problems/Pain Stated Complaint: SICKLE CELL ANEMIA Source of Information: Patient, EMS Exam Limitations: No Limitations (CHARY YANEZ) History of Present Illness Date Seen by Provider: Apr 24, 2018 Time Seen by Provider: 05:30 Initial Comments Patient presents to ER by private conveyance with chief complaint he is having pain in his left flank and side of his chest. He has a history of sickle cell anemia and is having an acute sickle cell pain that he associates with his left chest. He says he gets this about every 3 or 4 months. Usually uses full of gas and hydroxyurea but he ran out about a month ago and has not followed up to get refilled. He follows with Dr. Alvarado, hematology. He's not had any fevers chills nausea vomiting diarrhea or other abdominal pain. No history of abdominal surgeries. He says he has not taken anything at home for pain. Recently he's had a little cold but not been sick with any productive cough or other symptoms. No fevers. (CHARY YANEZ) Allergies and Home Medications Allergies Coded Allergies: morphine (Verified Adverse Reaction, Unknown, PT HAS TAKEN LORTAB & STADOL IN THE PAST, 04/24/18) Home Medications Folic Acid 1 Mg Tablet, 1 MG PO DAILY, (Reported) LAST FILLED #30 07-08-17 Hydroxyurea 500 Mg Cap, 500 MG PO DAILY, (Reported) LAST FILLED #30 07-08-17 Patient Home Medication List Home Medication List Reviewed: Yes (CHARY YANEZ) Review of Systems Review of Systems Constitutional: No chills, No diaphoresis, No fever EENTM: No ear pain, No eye pain Respiratory: No cough, No phlegm, No short of breath, No wheezing Cardiovascular: see HPI, chest pain; No edema, No palpitations Gastrointestinal: No abdominal pain, No constipation, No diarrhea, No nausea Genitourinary: No discharge, No dysuria Musculoskeletal: No back pain, No joint pain; other (left flank pain) (CHARY YANEZ) Past Cdzrynw-Jfhloy-Mnfaun Hx Patient Social History Alcohol Use: Regular Use Alcohol Beverage of Choice: Whiskey Recreational Drug Use: Yes Drug of Choice: THC, COCAINE, ALSO ADMITTED TO METHAMPHETAMINES IN PAST. Smoking Status: Current Everyday Smoker Type Used: Cigarettes 2nd Hand Smoke Exposure: Yes Recent Foreign Travel: No Contact w/Someone Who Travel: No Recent Hopitalizations: No (CHARY YANEZ) Immunizations Up To Date Tetanus Booster (TDap): More than 5yrs PED Vaccines UTD: No (CHARY YANEZ) Seasonal Allergies Seasonal Allergies: No (CHARY YANEZ) Past Medical History Surgeries: Yes (SPLEENECTOMY) Gallbladder, Orthopedic Respiratory: No Currently Using CPAP: No Currently Using BIPAP: No Cardiac: No Neurological: No Reproductive Disorders: No Sexually Transmitted Disease: No HIV/AIDS: No Genitourinary: No Gastrointestinal: No Musculoskeletal: Yes (LEFT FOREARM INJURY AGE 5--S/P SURGERY; BIALTERAL ANKLE SURGERY ) Fractures Endocrine: No HEENT: No Cancer: No Psychosocial: No Integumentary: No Blood Disorders: Yes (SICKLE CELL ANEMIA) Adverse Reaction/Blood Tranf: No (CHARY YANEZ) Family Medical History Asthma G8 BROTHER Parkinson's disease Seizure disorder G8 BROTHER Asthma, Diabetes, Hypertension (CHARY YANEZ) Physical Exam Vital Signs Vital Signs - First Documented 04/24/18 05:25 Temp 96.9 Pulse 95 Resp 18 B/P (MAP) 106/71 (83) Pulse Ox 98 O2 Delivery Nasal Cannula O2 Flow Rate 4.00 (TERRELL CULLEN MD) Vital Signs Capillary Refill : (CHARY YANEZ) Height, Weight, BMI Height: 5'6.00" Weight: 153lbs. 2.0oz. [id number]; 24.7 BMI Method:Stated General Appearance: WD/WN, Anxious, Mild Distress Eyes: Bilateral Eye Normal Inspection, Bilateral Eye PERRL, Bilateral Eye EOMI HEENT: PERRL/EOMI, TMs Normal, Normal ENT Inspection, Pharynx Normal; No Moist Mucous Membranes Neck: Full Range of Motion, Non Tender, Supple Respiratory: No Accessory Muscle Use, No Respiratory Distress, Rales (faint left-sided basilar) Cardiovascular: Regular Rate, Rhythm, No Edema, Normal Peripheral Pulses Gastrointestinal: Normal Bowel Sounds, No Organomegaly, Non Tender, Soft Extremity: Normal Capillary Refill, No Pedal Edema Neurologic/Psychiatric: Alert, Oriented x3, Normal Mood/Affect Skin: Normal Color, Warm/Dry (CHARY YANEZ) Focused Exam Lactate Level 04/24/18 05:45: Lactic Acid Level 1.79 (TERRELL CULLEN MD) Lactic Acid Level Laboratory Tests Test 04/24/18 05:45 Lactic Acid Level 1.79 MMOL/L (0.50-2.00) (TERRELL CULLEN MD) Progress/Results/Core Measures Suspected Sepsis SIRS Temperature: Pulse: Respiratory Rate: Laboratory Tests 04/24/18 05:45: Blood Pressure / Mean: 04/24/18 05:45: Laboratory Tests 04/24/18 05:45: (CHARY YANEZ) Results/Orders Lab Results Laboratory Tests Test 04/24/18 05:45 Range/Units White Blood Count 10.7 4.3-11.0 10^3/uL Red Blood Count 2.66 L 4.35-5.85 10^6/uL Hemoglobin 8.5 L 13.3-17.7 G/DL Hematocrit 24 L 40-54 % Mean Corpuscular Volume 92 80-99 FL Mean Corpuscular Hemoglobin 32 25-34 PG Mean Corpuscular Hemoglobin Concent 35 32-36 G/DL Red Cell Distribution Width 25.9 H 10.0-14.5 % Platelet Count 193 130-400 10^3/uL Mean Platelet Volume 11.2 H 7.4-10.4 FL Neutrophils (%) (Auto) 56 42-75 % Lymphocytes (%) (Auto) 27 12-44 % Monocytes (%) (Auto) 11 0-12 % Eosinophils (%) (Auto) 5 0-10 % Basophils (%) (Auto) 2 0-10 % Neutrophils # (Auto) 7.1 1.8-7.8 X 10^3 Lymphocytes # (Auto) 3.5 1.0-4.0 X 10^3 Monocytes # (Auto) 1.4 H 0.0-1.0 X 10^3 Eosinophils # (Auto) 0.6 H 0.0-0.3 10^3/uL Basophils # (Auto) 0.2 H 0.0-0.1 10^3/uL Sodium Level 138 135-145 MMOL/L Potassium Level 4.4 3.6-5.0 MMOL/L Chloride Level 106 98-107 MMOL/L Carbon Dioxide Level 20 L 21-32 MMOL/L Anion Gap 12 5-14 MMOL/L Blood Urea Nitrogen 5 L 7-18 MG/DL Creatinine 0.82 0.60-1.30 MG/DL Estimat Glomerular Filtration Rate > 60 BUN/Creatinine Ratio 6 Glucose Level 78 70-105 MG/DL Lactic Acid Level 1.79 0.50-2.00 MMOL/L Calcium Level 9.5 8.5-10.1 MG/DL Corrected Calcium 9.3 8.5-10.1 MG/DL Total Bilirubin 5.3 H 0.1-1.0 MG/DL Aspartate Amino Transf (AST/SGOT) 34 5-34 U/L Alanine Aminotransferase (ALT/SGPT) 10 0-55 U/L Alkaline Phosphatase 64 40-136 U/L Troponin I < 0.30 <0.30 NG/ML C-Reactive Protein High Sensitivity 0.74 H 0.00-0.50 MG/DL Total Protein 7.6 6.4-8.2 GM/DL Albumin 4.2 3.2-4.5 GM/DL Smear Scan YES (TERRELL CULLEN MD) Micro Results Microbiology 04/24/18 Influenza Types A,B Antigen (ABRAM) - Final, Complete (TERRELL CULLEN MD) My Orders Orders - TERRELL CULLEN MD Hs C Reactive Protein (04/24/18 06:22) General/Regular (04/24/18 Breakfast) Hydromorphone Injection (Dilaudid Inject (04/24/18 06:43) Influenza A And B Antigens (04/24/18 06:43) Ua Culture If Indicated (04/24/18 07:00) Drug Screen Stat (Urine) (04/24/18 07:20) Hydromorphone Injection (Dilaudid Inject (04/24/18 07:55) (TERRELL CULLEN MD) Medications Given in ED Current Medications Medications Dose Ordered Sig/Arlene Route Start Time Stop Time Status Last Admin Dose Admin Fentanyl Citrate 75 mcg ONCE ONCE IVP 04/24/18 05:30 04/24/18 05:36 DC 04/24/18 05:47 75 MCG Sodium Chloride 1,500 ml @ 1,500 mls/hr ONCE ONCE IV 04/24/18 05:30 04/24/18 06:30 DC 04/24/18 05:47 1,500 MLS/HR (TERRELL CULLEN MD) Vital Signs/I&O 18 05:25 Temp 96.9 Pulse 95 Resp 18 B/P (MAP) 106/71 (83) Pulse Ox 98 O2 Delivery Nasal Cannula O2 Flow Rate 4.00 (TERRELL CULLEN MD) Vital Signs/I&O Capillary Refill : (CHARY YANEZ) Progress Note : Time: 05:55 Progress Note 20 cc/kg of normal saline, fentanyl 75 g, CBC, CMP, chest x-ray. EKG and Trop (CHARY YANEZ) Progress Note #1: Time: 06:41 Progress Note Care of this patient was assumed from Dr. Yanez at 06:00. Report received. Patient was reassessed and examined. He is still in significant discomfort after receiving fentanyl. He states Dilaudid usually works well for his sickle cell pain. He was found to have crackles particularly in the left lung. Fluids were slowed to prevent worsening atelectasis. Influenza swab was obtained. Chest x-ray shows questionable infiltrate versus atelectasis. CRP was added to help differentiate. Patient is requesting food. He is tolerating clear liquids well; he will be allowed order food. Oxygen saturation was at 100 percent so oxygen flow was decreased from 4 L to 2 L. Progress Note #2: Time: 07:22 Progress Note Influenza screen was negative. Patient is feeling significantly improved after Dilaudid and is more alert/energetic. Case discussed with Dr. Mcfadden who is agreeable to admission for observation and symptom management. Urinalysis is pending. (TERRELL CULLEN MD) ECG Initial ECG Impression Date: Apr 24, 2018 (CHARY YANEZ) Initial ECG Impression Time: 05:58 Initial ECG Rate: 71 Initial ECG Rhythm: Normal Sinus Initial ECG Intervals: Normal Initial ECG Impression: Normal Comment Normal sinus rhythm with no ST elevation or depression. No abnormal intervals or axis deviation. (TERRELL CULLEN MD) Diagnostic Imaging Diagonstic Imaging: Xray Plain Films/CT/US/NM/MRI: chest (2v) Reviewed: Reviewed by Me (CHARY YANEZ) Diagonstic Imaging: Xray Plain Films/CT/US/NM/MRI: chest Comments Chest x-ray viewed by me. Report not yet available. Compared with prior. There is atelectasis and/or infiltrate in the right lower lung. (TERRELL CULLEN MD) Transfer of Care Transfer of Care Time: 06:07 Care transferred to: Dr. Ruby (CHARY YANEZ) Departure Communication (Admissions) Time/Spoke to Admitting Phy: 07:15 Dr. Mcfadden (TERRELL CULLEN MD) Impression Primary Impression: Acute sickle cell crisis Additional Impressions: Chest pain Qualified Codes: R07.9 - Chest pain, unspecified Cough Disposition: ADMITTED INPATIENT Condition: Improved Admissions Decision to Admit Reason: Admit from ER (General) Decision to Admit/Date: Apr 24, 2018 Time/Decision to Admit Time: 06:00 (TERRELL CULLEN MD) Departure-Patient Inst. Referrals: NO,LOCAL PHYSICIAN (PCP/Family) Primary Care Physician CHARY YANEZ Apr 24, 2018 05:57 TERRELL CULLEN MD Apr 24, 2018 06:43
[2018-04-24 06:01] LABS: BASOPHILS # (AUTO) 0.2 10^3/uL (0.0-0.1); BASOPHILS % (AUTO) 2 % (0-10); EOSINOPHILS # (AUTO) 0.6 10^3/uL (0.0-0.3); EOSINOPHILS % (AUTO) 5 % (0-10); HEMATOCRIT 24 % (40-54); HEMOGLOBIN 8.5 G/DL (13.3-17.7); LYMPHOCYTES # (AUTO) 3.5 X 10^3 (1.0-4.0); LYMPHOCYTES % (AUTO) 27 % (12-44); MEAN CORPUSCULAR HEMOGLOBIN 32 PG (25-34); MEAN CORPUSCULAR HGB CONC 35 G/DL (32-36); MEAN CORPUSCULAR VOLUME 92 FL (80-99); MEAN PLATELET VOLUME 11.2 FL (7.4-10.4); MONOCYTES # (AUTO) 1.4 X 10^3 (0.0-1.0); MONOCYTES % (AUTO) 11 % (0-12); NEUTROPHILS # (AUTO) 7.1 X 10^3 (1.8-7.8); NEUTROPHILS % (AUTO) 56 % (42-75); PLATELET COUNT 193 10^3/uL (130-400); RED BLOOD COUNT 2.66 10^6/uL (4.35-5.85); RED CELL DISTRIBUTION WIDTH 25.9 % (10.0-14.5)
[2018-04-24 06:07] LABS: WHITE BLOOD COUNT 10.7 10^3/uL (4.3-11.0)
[2018-04-24 06:08] LABS: SMEAR SCAN COMMENT YES
[2018-04-24 06:15] LABS: ALANINE AMINOTRANSFERASE 10 U/L (0-55); ALBUMIN 4.2 GM/DL (3.2-4.5); ALKALINE PHOSPHATASE 64 U/L (40-136); BILIRUBIN,TOTAL 5.3 MG/DL (0.1-1.0); BUN/CREATININE RATIO 6; CALCIUM 9.5 MG/DL (8.5-10.1); CARBON DIOXIDE 20 MMOL/L (21-32); CHLORIDE 106 MMOL/L (98-107); CREATININE SERUM 0.82 MG/DL (0.60-1.30); GFR ESTIMATED > 60; GLUCOSE 78 MG/DL (70-105); POTASSIUM 4.4 MMOL/L (3.6-5.0); SODIUM 138 MMOL/L (135-145); TOTAL PROTEIN 7.6 GM/DL (6.4-8.2)
[2018-04-24] MEDS ORDERED: HYDROmorphone 2 MG/ML VIAL (DILAUDID) IV STA ×2 (06:43→07:55)
--- NOTE | 2018-04-24 07:17 | Diagnostic Imaging Report ---
INDICATION: Sickle cell crisis, chest pain PA and lateral chest Heart size and pulmonary vascularity are normal. Lungs are clear. There are no effusions or pneumothoraces. IMPRESSION: Negative chest Dictated by: Dictated on workstation # [id number]
[2018-04-24] MEDS ORDERED: RT-ALBUTEROL/IPRATROPIUM 3 ML (DUONEB) VIAL INH PRN (08:45)
[2018-04-24] MEDS: NS IV 1000 ML 1,000 ML IV SCH ×3 (08:56→22:08)
[2018-04-24] MEDS: oxyCODONE/APAP 5/325MG (PERCOCET 5) TABLET PO PRN ×2 (08:57→17:23)
[2018-04-24] MEDS ORDERED: ONDANSETRON 4 MG/2 ML (SDV) Z0FRAN IVP PRN (09:00)
--- NOTE | 2018-04-24 10:56 | History & Physical-Hospitalist ---
History of Present Illness HPI/Chief Complaint Pt is a 32yoAAM known to me from multiple previous admissions who presented to the ER for back pain. He states it's similar to his previous sickle cell crisis pain. He is currently very sleepy and even fell asleep during our exam. His pain started a few days ago but he is not sure what day exactly and has continued to worse. He is normally on hydroxyurea but has not taken it "since my last refill." Per med rec it appears his last refill was in November. He otherwise denies any complaints, specifically he denies chest pain and SOB. Source: patient Exam Limitations: clinical condition Date Seen 04/24/18 Time Seen by a Provider: 10:15 Attending Physician Fantasma Mcfadden MD PCP No,Local Physician Referring Physician Date of Admission Apr 24, 2018 at 7:20 am Home Medications & Allergies Home Medications Reviewed patient Home Medication Reconciliation performed by pharmacy medication reconciliations truck service technician and/or nursing. Patients Allergies have been reviewed. Allergies Allergies Coded Allergies morphine (Verified Adverse Reaction, Unknown, PT HAS TAKEN LORTAB & STADOL IN THE PAST, 04/24/18) Past Xzamdps-[id number]-[id number] Hx Past Med/Social Hx: Reviewed Nursing Past Med/Soc Hx Patient Social History Alcohol Use: Denies Use Number of Drinks Today: GG Alcohol Beverage of Choice: Whiskey Recreational Drug Use: Yes Drug of Choice: THC, COCAINE, ALSO ADMITTED TO METHAMPHETAMINES IN PAST. Smoking Status: Current Everyday Smoker Type Used: Cigarettes 2nd Hand Smoke Exposure: Yes Physical Abuse Screen: No Sexual Abuse: No Recent Foreign Travel: No Contact w/other who traveled: No Recent Hopitalizations: No Recent Infectious Disease Expo: No Immunizations Up To Date Tetanus Booster (TDap): Unknown Pediatric: No Seasonal Allergies Seasonal Allergies: No Past Medical History Surgeries: Gallbladder, Orthopedic Respiratory: Asthma Currently Using CPAP: No Currently Using BIPAP: No Reproductive: No Sexually Transmitted Disease: No HIV/AIDS: No Musculoskeletal: Fractures Are Your Blood Sugars Over 250: No History of Blood Disorders: Yes (SICKLE CELL ANEMIA) Adverse Reaction to Blood Akers: No Family History Reviewed Nursing Family Hx Asthma G8 BROTHER Parkinson's disease Seizure disorder G8 BROTHER Asthma, Diabetes, Hypertension Review of Systems Constitutional: No chills, No fever EENTM: No blurred vision, No double vision, No nose congestion, No throat pain Respiratory: No cough, No dyspnea on exertion, No short of breath Cardiovascular: No chest pain, No edema, No palpitations Gastrointestinal: No abdominal pain, No constipation, No diarrhea, No nausea, No vomiting Genitourinary: No dysuria, No frequency Musculoskeletal: back pain, joint pain Skin: No lesions, No rash Psychiatric/Neurological: Denies Headache, Denies Numbness, Denies Tingling Physical Exam Physical Exam Vital Signs Vital Signs - First Documented 04/24/18 05:25 Temp 96.9 Pulse 95 Resp 18 B/P (MAP) 106/71 (83) Pulse Ox 98 O2 Delivery Nasal Cannula O2 Flow Rate 4.00 Capillary Refill : Less Than 3 Seconds Height, Weight, BMI Height: 5'6.00" Weight: 156lbs. 2.0oz. 70.934771tw; 25.2 BMI Method:Stated General Appearance: No Apparent Distress, WD/WN HEENT: PERRL/EOMI, Moist Mucous Membranes Neck: Non Tender, Supple Respiratory: Lungs Clear, No Respiratory Distress Cardiovascular: Regular Rate, Rhythm, No Murmur Gastrointestinal: Normal Bowel Sounds, Non Tender, Soft Extremity: Normal Capillary Refill, No Calf Tenderness Neurologic/Psychiatric: Alert, Oriented x3, Normal Mood/Affect, Other (sleepy) Skin: Normal Color, Warm/Dry Results Results/Procedures Labs Laboratory Tests 04/24/18 05:45 Patient resulted labs reviewed. Imaging: Reviewed Imaging Report Assessment/Plan Admission Diagnosis Sickle Cell Crisis Admission Status: Inpatient Order (span 2 midnights) Reason for Inpatient Admission: Needs IVF, pain management, and will likely take more than 2 midnights to stabilize Diagnosis/Problems Diagnosis/Problems (1) Acute sickle cell crisis Status: Acute Assessment & Plan: Continue current pain regimen Start on oxygen End tidal ordered Heme consulted, appreciate recs Will get retic count (2) Noncompliance Status: Chronic Assessment & Plan: Has not taken hydroxyurea since his last refill in November Will need education prior to discharge on compliance Clinical Quality Measures DVT/VTE Risk/Contraindication: Risk Factor Score Per Nursin RFS Level Per Nursing on Admit: 2=Moderate FANTASMA MCFADDEN MD Apr 24, 2018 10:56 am
[2018-04-24 11:09] LABS: RED BLOOD COUNT 2.68 10^6/uL (4.35-5.85); RETICULOCYTE % 17.85 % (0.50-2.40)
[2018-04-24] MEDS ORDERED: FLU QUADRIvalent (5+ YOA) 2018-2019 (AFLURIA) 0.5 ML IM ONE (11:45)
[2018-04-24] MEDS: HYDROmorphone 2 MG/ML VIAL (DILAUDID) IV PRN (23:57)
[2018-04-25] VITALS (9 sets, daily range): BP systolic 92–108; BP diastolic 45–62
[2018-04-25] MEDS: HYDROmorphone 2 MG/ML VIAL (DILAUDID) IV PRN ×6 (03:58→21:42)
[2018-04-25] MEDS: NS IV 1000 ML 1,000 ML IV SCH ×4 (05:17→21:43)
[2018-04-25 07:08] LABS: ABSOLUTE RETIC # 420 10e9/L (24-90); MEAN CORPUSCULAR HEMOGLOBIN 31 PG (25-34); MEAN CORPUSCULAR HGB CONC 34 G/DL (32-36); MEAN CORPUSCULAR VOLUME 92 FL (80-99); MEAN PLATELET VOLUME 11.6 FL (7.4-10.4); PLATELET COUNT 156 10^3/uL (130-400); RED BLOOD COUNT 2.17 10^6/uL (4.35-5.85); RED CELL DISTRIBUTION WIDTH 25.2 % (10.0-14.5); RETICULOCYTE % 19.35 % (0.50-2.40)
[2018-04-25 07:19] LABS: ALANINE AMINOTRANSFERASE 9 U/L (0-55); ALBUMIN 3.7 GM/DL (3.2-4.5); ALKALINE PHOSPHATASE 58 U/L (40-136); BILIRUBIN,TOTAL 3.4 MG/DL (0.1-1.0); BUN/CREATININE RATIO 7; CALCIUM 8.7 MG/DL (8.5-10.1); CARBON DIOXIDE 21 MMOL/L (21-32); CHLORIDE 109 MMOL/L (98-107); CREATININE SERUM 0.72 MG/DL (0.60-1.30); GFR ESTIMATED > 60; GLUCOSE 96 MG/DL (70-105); POTASSIUM 3.8 MMOL/L (3.6-5.0); SODIUM 140 MMOL/L (135-145); TOTAL PROTEIN 6.8 GM/DL (6.4-8.2)
[2018-04-25 07:45] LABS: HEMOGLOBIN 6.8 G/DL (13.3-17.7)
[2018-04-25 07:46] LABS: HEMATOCRIT 20 % (40-54)
[2018-04-25 07:47] LABS: WHITE BLOOD COUNT 9.1 10^3/uL (4.3-11.0)
[2018-04-25 07:51] LABS: BAND NEUTROPHILS 0 %; BASOPHILS % (MANUAL) 1 %; EOSINOPHILS % (MANUAL) 12 %; LYMPHOCYTES % (MANUAL) 39 %; MONOCYTES % (MANUAL) 9 %; NEUTROPHILS % (MANUAL) 39 %; NUCLEATED RED BLOOD CELLS 25; POLYCHROMASIA MODERATE
[2018-04-25 07:53] LABS: ANISOCYTOSIS MARKED; POIKILOCYTOSIS MARKED; SICKLE CELLS MARKED; TARGET CELLS MODERATE
--- NOTE | 2018-04-25 13:01 | Progress Note-Hospitalist ---
Progress Note Progress Notes/Assess & Plan Date Seen 04/25/18 Time Seen by Provider: 12:56 Assessment & Plan The patient is a 32-year-old black male known to me. He presented with signs and symptoms of sickle cell crisis. Analysis of his pharmacy records show that he had not filled his urea since October or November. This has been his standard operating procedure throughout his other visits. When Dr. Chan was still here she admonished him sternly about the necessity of taking his medication. He reports today that he is feeling somewhat better. The pain has been localized mostly in the left lower chest just medial to the anterior axillary line. His laboratory shows his hemoglobin had fallen to 6.8. Examination of previous records show that he usual range has been in the 8-9 range. His bilirubin at admission was 5.3 and has fallen with hydration to 3.4. We are still awaiting hematology consultation. Physical exam: He was sleeping soundly when I entered the room. Lungs were clear to auscultation. CV was regular without murmur. The abdomen was somewhat generally tender to palpation. Impression: Sickle cell crisis. 2.sickle cell disease. 3.poor adherence to treatment regimen. Continue hydration. Await hematology recommendations. Focused Exam Lactate Level 04/24/18 05:45: Lactic Acid Level 1.79 KAYY ANDREA MD Apr 25, 2018 13:01
[2018-04-26] VITALS (7 sets, daily range): BP systolic 93–111; BP diastolic 54–60
--- NOTE | 2018-04-26 01:09 | CONSULTATION REPORT ---
DATE OF SERVICE: 04/25/2018 The patient was admitted to room #415. REFERRING PHYSICIAN: Johanna Mcfadden MD IMPRESSION: 1. A 32-year-old -[place] male with history of sickle cell disease, admitted with increasing back pain since last few days. 2. Noted to have significant anemia with a hemoglobin level of 6.8 and markedly elevated reticulocyte count consistent with acute sickling crisis. 3. Noncompliance with outpatient followups and management. RECOMMENDATIONS: 1. Continue aggressive hydration, supplemental oxygen and packed red blood cell transfusion to maintain hemoglobin more than 8 grams per deciliter range. 2. Folic acid 1 mg daily. 3. Pain control as you are doing. Monitor CBC, reticulocyte count and bilirubin level serially. 4. Follow up at the [facility] on discharge, to resume hydroxyurea therapy, which has proven to decrease episodes of crisis and hospitalization. BRIEF HISTORY: The patient is a 32-year-old -[place] male with history of sickle cell disease with intermittent crisis requiring hospitalization. Presented to the emergency room with increasing back pain and shortness of breath of a few days' duration. He was evaluated and found to have significant anemia with evidence of . He was admitted to the hospital for further management. A hematology consultation was obtained for concurrent management. PAST MEDICAL HISTORY: Significant for sickle cell disease since childhood. Initially, he was on hydroxyurea treatment, but for several years, he has not had regular medical followup and has not been taking hydroxyurea. After he moved to [place] from [place], he was seen by both Dr. Davis and Dr. Alvarado, who started the patient on hydroxyurea therapy, but he has not refilled this medication and has not taken this regularly. He has also not maintained his followup visit at the [facility]. His other past medical history is unremarkable. PAST SURGICAL HISTORY: Include cholecystectomy and a few fractures from trauma. SOCIAL HISTORY: The patient is single and is living with his fiancee in [place], [place]. He continues to smoke up to a pack of cigarettes daily. He also uses cannabis regularly. He has used other recreational drugs like methamphetamine and cocaine in the past. He uses alcohol intermittently, but denied binge drinking. PHYSICAL EXAMINATION: GENERAL: Today showed a young -[place]e male, well developed and nourished, awake and oriented, in mild distress due to the pain. VITAL SIGNS: Temperature was 96.3, pulse rate of 82, respirations 16, blood pressure 103/58, oxygen saturation at 97% on 3 liters of oxygen by nasal cannula. HEENT: Normocephalic, extraocular muscles intact, conjunctivae pale, oral mucosa slightly dry. NECK: Supple, with no JVD. No cervical, supraclavicular or axillary lymphadenopathy palpable. CHEST: Symmetrical. Lungs with slightly diminished breath sounds bilaterally without wheezes or rales. HEART: Regular rate and rhythm. No murmurs or gallops are heard. ABDOMEN: Soft, nontender with no hepatosplenomegaly or other masses palpable. EXTREMITIES: No edema. NEUROLOGIC: No focal motor deficits. LABORATORY DATA: CBC done earlier today showed total white count of 9.1, hemoglobin 6.8 and platelet count 156,000 with absolute reticulocyte count of 420,000. Chemistry panel showed relatively normal electrolytes. BUN was 5 and creatinine 0.72 with GFR more than 60 mL per minute. Total bilirubin was 3.4 with rest of the liver function studies within normal limits. Chest x-ray done at the time of admission was unremarkable. Thank you for allowing me to participate in this patient's care. I will follow the patient with you. Job ID: [id number] DocumentID: [id number] Dictated Date: 04/25/2018 18:02:06 Strike Operations Officer Date: 04/26/2018 01:08:51 Dictated By: JORDAN SIMS MD
[2018-04-26] MEDS: HYDROmorphone 2 MG/ML VIAL (DILAUDID) IV PRN ×3 (02:05→22:50)
[2018-04-26] MEDS: oxyCODONE/APAP 5/325MG (PERCOCET 5) TABLET PO PRN ×3 (05:50→18:01)
[2018-04-26] MEDS: NS IV 1000 ML 1,000 ML IV SCH ×3 (05:50→19:26)
[2018-04-26 06:05] LABS: ABSOLUTE RETIC # 429 10e9/L (24-90); BASOPHILS # (AUTO) 0.1 10^3/uL (0.0-0.1); BASOPHILS % (AUTO) 1 % (0-10); EOSINOPHILS # (AUTO) 0.7 10^3/uL (0.0-0.3); EOSINOPHILS % (AUTO) 7 % (0-10); HEMATOCRIT 22 % (40-54); HEMOGLOBIN 7.9 G/DL (13.3-17.7); LYMPHOCYTES # (AUTO) 3.5 X 10^3 (1.0-4.0); LYMPHOCYTES % (AUTO) 34 % (12-44); MEAN CORPUSCULAR HEMOGLOBIN 32 PG (25-34); MEAN CORPUSCULAR HGB CONC 35 G/DL (32-36); MEAN CORPUSCULAR VOLUME 90 FL (80-99); MEAN PLATELET VOLUME 11.2 FL (7.4-10.4); MONOCYTES # (AUTO) 1.4 X 10^3 (0.0-1.0); MONOCYTES % (AUTO) 14 % (0-12); NEUTROPHILS # (AUTO) 4.7 X 10^3 (1.8-7.8); NEUTROPHILS % (AUTO) 45 % (42-75); PLATELET COUNT 197 10^3/uL (130-400); RED BLOOD COUNT 2.48 10^6/uL (4.35-5.85); RED CELL DISTRIBUTION WIDTH 24.7 % (10.0-14.5); RETICULOCYTE % 17.28 % (0.50-2.40)
[2018-04-26 06:25] LABS: ALANINE AMINOTRANSFERASE 10 U/L (0-55); ALBUMIN 3.6 GM/DL (3.2-4.5); ALKALINE PHOSPHATASE 57 U/L (40-136); BILIRUBIN,TOTAL 3.9 MG/DL (0.1-1.0); BUN/CREATININE RATIO 6; CALCIUM 8.8 MG/DL (8.5-10.1); CARBON DIOXIDE 21 MMOL/L (21-32); CHLORIDE 111 MMOL/L (98-107); CREATININE SERUM 0.78 MG/DL (0.60-1.30); GFR ESTIMATED > 60; GLUCOSE 102 MG/DL (70-105); POTASSIUM 3.8 MMOL/L (3.6-5.0); SODIUM 142 MMOL/L (135-145); TOTAL PROTEIN 6.3 GM/DL (6.4-8.2)
[2018-04-26 07:15] LABS: SMEAR SCAN COMMENT YES
[2018-04-26] MEDS: FOLIC ACID 1 MG TAB PO SCH (08:28)
--- NOTE | 2018-04-26 12:17 | Progress Note-Hospitalist ---
Progress Note Progress Notes/Assess & Plan Date Seen 04/26/18 Time Seen by Provider: 12:14 Assessment & Plan The patient reports that he is feeling a bit better today. It came to my attention that he is been disconnecting all of his IVs and oxygen in order to go outside to smoke. It was explained to him that given his hemoglobin abnormality smoking was never a good plan but especially so while he is in crisis. Dr. Gallegos has seen the patient and made recommendations. Physical exam: He was sleeping when I entered the room. Lungs are clear to auscultation. CV is regular. There was minimal tenderness over the left lower ribs and upper abdomen. Bowel sounds are present. Impression: Sickle cell crisis. 2.sickle cell disease. 3.tobaccoism Plan: He is no longer to leave the floor to smoke. Continue present IV fluids and medications. Focused Exam Lactate Level 04/24/18 05:45: Lactic Acid Level 1.79 KAYY ANDREA MD Apr 26, 2018 12:17
[2018-04-27] VITALS: BP 104/59
[2018-04-27] MEDS: NS IV 1000 ML 1,000 ML IV SCH ×2 (02:05→10:00)
[2018-04-27 04:00] VITALS: BP 107/56
[2018-04-27] MEDS: oxyCODONE/APAP 5/325MG (PERCOCET 5) TABLET PO PRN ×3 (06:57→14:27)
[2018-04-27 08:50] VITALS: BP 124/62
[2018-04-27] MEDS: FOLIC ACID 1 MG TAB PO SCH (09:22)
[2018-04-27] MEDS ORDERED: OXYC1TAB87 PO (11:48)
--- NOTE | 2018-04-27 11:51 | Discharge Summary-Hospitalist ---
LESLIE GILL DO 04/27/18 1150: Diagnosis/Chief Complaint Date of Admission Apr 24, 2018 at 08:10 Date of Discharge Discharge Date: Apr 27, 2018 Admission Diagnosis Sickle Cell Crisis Discharge Diagnosis (1) Acute sickle cell crisis Status: Acute Assessment & Plan: Continue current pain regimen Start on oxygen End tidal ordered Heme consulted, appreciate recs Will get retic count (2) Noncompliance Status: Chronic Assessment & Plan: Has not taken hydroxyurea since his last refill in November Will need education prior to discharge on compliance (3) Hypoxia Status: Acute (4) Oxygen dependent Status: Acute Discharge Summary Discharge Physical Exam Allergies: Coded Allergies: morphine (Verified Adverse Reaction, Unknown, PT HAS TAKEN LORTAB & STADOL IN THE PAST, 04/24/18) Vitals & I&Os Vital Signs Date Time Temp Pulse Resp B/P (MAP) Pulse Ox O2 Delivery O2 Flow Rate FiO2 04/27/18 15:55 04/27/18 12:11 97.5 88 20 92 Nasal Cannula 3.00 General Appearance: No Apparent Distress, WD/WN, Chronically ill Respiratory: Chest Non Tender, Lungs Clear, Normal Breath Sounds, No Accessory Muscle Use, No Respiratory Distress Cardiovascular: Regular Rate, Rhythm, No Edema, No Gallop, No JVD, No Murmur, Normal Peripheral Pulses Skin: Normal Color, Warm/Dry Neurologic/Psychiatric: Alert, Oriented x3, No Motor/Sensory Deficits, Normal Mood/Affect Hospital Course Hospital course: patient had a lengthy hospital course for sickle cell crisis. Pt was given transfusion of 1 unit of blood and narcotic pain meds. Non- compliance with Dr Alvaraod appointments along with non-compliance with meds preclude anything other than a poor prognosis. Pt was deemed stable for DC on home O2 and will be encouraged to have close f/u with Dr Alvarado. Labs (last 24 hrs) Microbiology 04/24/18 Influenza Types A,B Antigen (ABRAM) - Final, Complete Patient resulted labs reviewed. Imaging: Reviewed Imaging Report Discussion & Recommendations Discharge Planning: <30 minutes discharge planning Discharge Home Medications: Active Scripts Active Percocet 5-325 mg Tablet (Oxycodone HCl/Acetaminophen) 1 Each Tablet 1 Tab PO Q4H PRN Reported Folic Acid 1 Mg Tablet 1 Mg PO DAILY LAST FILLED #30 12-16-17 Hydrea (Hydroxyurea) 500 Mg Cap 500 Mg PO DAILY LAST FILLED #30 12-16-17 Instructions to patient/family Please see electronic discharge instructions given to patient. Clinical Quality Measures DVT/VTE Risk/Contraindication: Risk Factor Score Per Nursin RFS Level Per Nursing on Admit: 2=Moderate TERRELL THEODORE MED STUDENT 04/27/18 1452: Discharge Summary Discharge Physical Exam Allergies: Coded Allergies: morphine (Verified Adverse Reaction, Unknown, PT HAS TAKEN LORTAB & STADOL IN THE PAST, 04/24/18) General Appearance: No Apparent Distress, WD/WN Respiratory: Chest Non Tender, Lungs Clear, Normal Breath Sounds, No Accessory Muscle Use, No Respiratory Distress Cardiovascular: Regular Rate, Rhythm, No Edema, No Gallop, No JVD, No Murmur, Normal Peripheral Pulses Skin: Normal Color, Warm/Dry Neurologic/Psychiatric: Alert, Oriented x3, No Motor/Sensory Deficits, Normal Mood/Affect Hospital Course The patient is a 32 y/o male who present to the [facility] on Apr 24 with a complaint of left sided flank and chest pain. He has a history of sickle cell anemia and typically takes hydroxyurea but had let his prescription lapse about 3 months ago. He was found to be significantly anemic and was admitted for observation and pain control. Hematology consult recommended PRBC transfusions and pain control as needed. He was managed with blood transfusions and pain medications and his symptoms gradually resolved over the course of several days. He will be discharged today with scheduled follow up with hematology. LESLIE GILL DO Apr 27, 2018 11:50 TERRELL THEODORE MED STUDENT Apr 27, 2018 14:52
[2018-04-27 12:11] VITALS: BP 110/53
[2018-04-27] MEDS: HYDROmorphone 2 MG/ML VIAL (DILAUDID) IV PRN (15:30)
== END 2018-04-27 15:55 | disposition home or self-care (01) | DRG 812 ==
LOC: EDUNIT# 05:24 → ER 05:25 → 4TH 07:20 → UNDOADMOB 07:20 → OBSVTOIN 08:10 → 4TH 08:10
PROVIDERS: ADMIT Family Medicine; ATTEND Internal Medicine
DX: D57.00 Hb-SS disease with crisis, unspecified (principal); F17.210 Nicotine dependence, cigarettes, uncomplicated; J45.909 Unspecified asthma, uncomplicated; Z91.14 Patient's other noncompliance with medication regimen
CPT/HCPCS: 36415; 36430; 71046; 80053; 83605; 84484; 85007; 85025; 85027; 85045; 86141; 86850; 86900; 86901; 86920; 87804; 93005; 93041; 94760; 94761; 96361; 96374; 96375; 96376; G0378

== ENCOUNTER 2018-05-18 11:11 | Outpatient (RCR) | payer MEDICAID, OTHER ==
[~2018-05-18 11:11] MED LIST changes: +OXYC1TAB87 PO
[2018-05-18 11:53] LABS: BASOPHILS # (AUTO) 0.2 10^3/uL (0.0-0.1); BASOPHILS % (AUTO) 2 % (0-10); EOSINOPHILS # (AUTO) 0.5 10^3/uL (0.0-0.3); EOSINOPHILS % (AUTO) 6 % (0-10); HEMATOCRIT 27 % (40-54); HEMOGLOBIN 9.2 G/DL (13.3-17.7); LYMPHOCYTES # (AUTO) 2.4 X 10^3 (1.0-4.0); LYMPHOCYTES % (AUTO) 31 % (12-44); MEAN CORPUSCULAR HEMOGLOBIN 31 PG (25-34); MEAN CORPUSCULAR HGB CONC 34 G/DL (32-36); MEAN CORPUSCULAR VOLUME 91 FL (80-99); MEAN PLATELET VOLUME 11.7 FL (7.4-10.4); MONOCYTES # (AUTO) 1.5 X 10^3 (0.0-1.0); MONOCYTES % (AUTO) 19 % (0-12); NEUTROPHILS # (AUTO) 3.2 X 10^3 (1.8-7.8); NEUTROPHILS % (AUTO) 41 % (42-75); PLATELET COUNT 246 10^3/uL (130-400); RED CELL DISTRIBUTION WIDTH 19.8 % (10.0-14.5); WHITE BLOOD COUNT 7.6 10^3/uL (4.3-11.0)
[2018-05-18 12:14] LABS: ALANINE AMINOTRANSFERASE 11 U/L (0-55); ALBUMIN 4.2 GM/DL (3.2-4.5); ALKALINE PHOSPHATASE 52 U/L (40-136); BILIRUBIN,TOTAL 4.1 MG/DL (0.1-1.0); BUN/CREATININE RATIO 5; CALCIUM 9.2 MG/DL (8.5-10.1); CARBON DIOXIDE 26 MMOL/L (21-32); CHLORIDE 106 MMOL/L (98-107); CREATININE SERUM 0.94 MG/DL (0.60-1.30); GFR ESTIMATED > 60; GLUCOSE 93 MG/DL (70-105); POTASSIUM 3.5 MMOL/L (3.6-5.0); SODIUM 141 MMOL/L (135-145); TOTAL PROTEIN 7.4 GM/DL (6.4-8.2)
[2018-07-25] MEDS ORDERED: OXYC-199 PO (09:23)
== END 2018-08-16 | disposition home or self-care (01) ==
LOC: ONC 11:11
PROVIDERS: ATTEND Internal Medicine Hematology & Oncology
DX: D57.00 Hb-SS disease with crisis, unspecified (principal); F17.210 Nicotine dependence, cigarettes, uncomplicated; J45.909 Unspecified asthma, uncomplicated
CPT/HCPCS: 36415; 80053; 82306; 82728; 85025; 99213

== ENCOUNTER 2018-07-25 05:04 | Emergency (ER) | payer MEDICAID ==
[~2018-07-25] VITALS: Ht 167.6 cm; Wt 68.0 kg
[2018-07-25] MEDS ORDERED: NS IV 1000 ML 1,000 ML IV SCH (05:10)
[2018-07-25] MEDS ORDERED: NS IV 1000 ML 1,000 ML IV ONE (05:10)
[2018-07-25] MEDS ORDERED: fentaNYL INJECTION 100 MCG/2 ML AMP IVP ONE ×2 (05:15→06:30)
--- NOTE | 2018-07-25 05:20 | ED Abdominal Pain ---
General Stated Complaint: BACK PAIN Source of Information: Patient, EMS Exam Limitations: No Limitations (CHARY YANEZ) History of Present Illness Date Seen by Provider: Jul 25, 2018 Time Seen by Provider: 04:58 Initial Comments The patient presents to ER by EMS with chief complaint of being woke up just prior to arrival and having pain in his back and flanks left worse than right. He has a history of sickle cell anemia and has had sickle crisis the past. 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 No history recent trauma. Denies any fevers. He's had a cough nonproductive for the past couple days. No sick contacts with influenza. He has not taken anything for the pain. He is not having any nausea or diarrhea. No constipation. He is on hydroxyurea and folic acid. He says he is missing about one or 2 doses a week on average. (CHARY YANEZ) Allergies and Home Medications Allergies Coded Allergies: morphine (Verified Adverse Reaction, Unknown, PT HAS TAKEN LORTAB & STADOL IN THE PAST, 04/24/18) Home Medications Folic Acid 1 Mg Tablet, 1 MG PO DAILY, (Reported) LAST FILLED #30 12-16-17 Hydroxyurea 500 Mg Cap, 500 MG PO DAILY, (Reported) LAST FILLED #30 12-16-17 Oxycodone HCl/Acetaminophen 1 Each Tablet, 1 TAB PO Q4H PRN for PAIN-MODERATE Prescribed by: LESLIE GILL on 04/27/18 1148 Oxycodone HCl/Acetaminophen 1 Each Tablet, 1-2 TAB PO Q4H PRN for PAIN-MODERATE Prescribed by: TERRELL RUBY on 07/25/18 0923 Patient Home Medication List Home Medication List Reviewed: Yes (CHARY YANEZ) Review of Systems Review of Systems Constitutional: No chills, No fever, No malaise EENTM: No Blurred Vision, No Double Vision Respiratory: Cough; Denies Shortness of Air Cardiovascular: Denies Chest Pain, Denies Lightheadedness Gastrointestinal: See HPI; Denies Constipated, Denies Diarrhea, Denies Nausea Genitourinary: Denies Burning, Denies Discharge Musculoskeletal: see HPI, back pain; No joint pain (CHARY YANEZ) Past Wlcwapw-Xasfwj-Nptmmd Hx Patient Social History Alcohol Use: Regular Use Alcohol Beverage of Choice: Whiskey Recreational Drug Use: Yes Drug of Choice: THC, COCAINE, ALSO ADMITTED TO METHAMPHETAMINES IN PAST. Smoking Status: Current Everyday Smoker Type Used: Cigarettes 2nd Hand Smoke Exposure: Yes Recent Foreign Travel: No Contact w/Someone Who Travel: No Recent Hopitalizations: No (CHARY YANEZ) Immunizations Up To Date Tetanus Booster (TDap): Unknown PED Vaccines UTD: No (CHARY YANEZ) Seasonal Allergies Seasonal Allergies: No (CHARY YANEZ) Past Medical History Surgeries: Yes (SPLEENECTOMY) Gallbladder, Orthopedic Respiratory: No Currently Using CPAP: No Currently Using BIPAP: No Cardiac: No Neurological: No Reproductive Disorders: No Sexually Transmitted Disease: No HIV/AIDS: No Genitourinary: No Gastrointestinal: No Musculoskeletal: Yes (LEFT FOREARM INJURY AGE 5--S/P SURGERY; BIALTERAL ANKLE SURGERY INFANT) Fractures Endocrine: No HEENT: No Cancer: No Psychosocial: No Integumentary: No Blood Disorders: Yes (SICKLE CELL ANEMIA) Adverse Reaction/Blood Tranf: No (CHARY YANEZ) Family Medical History Asthma G8 BROTHER Parkinson's disease Seizure disorder G8 BROTHER Asthma, Diabetes, Hypertension (CHARY YANEZ) Physical Exam Vital Signs Vital Signs - First Documented 07/25/18 07/25/18 05:08 09:30 Temp 97.2 Pulse 86 Resp 19 B/P (MAP) 101/69 (80) Pulse Ox 98 O2 Delivery Room Air (TERRELL CULLEN MD) Vital Signs Capillary Refill : (CHARY YANEZ) Height/Weight/BMI Height: 5'6.00" Weight: 156lbs. 2.0oz. 70.736459nw; 25.2 BMI Method:Stated General Appearance: WD/WN, mild distress HEENT: PERRL/EOMI, normal ENT inspection, pharynx normal Respiratory: chest non-tender, lungs clear, normal breath sounds, no respiratory distress, no accessory muscle use Cardiovascular: normal peripheral pulses, regular rate, rhythm, no edema Peripheral Pulses: 2+ Radial Pulses (R), 2+ Radial Pulses (L) Gastrointestinal: normal bowel sounds, soft, no organomegaly, tenderness (left flank tenderness to palpation) Extremities: no pedal edema, normal capillary refill Neurologic/Psychiatric: alert, normal mood/affect, oriented x 3 Skin: normal color, warm/dry (mild scleral icterus) (CHARY YANEZ) Progress/Results/Core Measures Results/Orders Lab Results Laboratory Tests Test 07/25/18 05:17 07/25/18 06:35 Range/Units White Blood Count 11.1 H 4.3-11.0 10^3/uL Red Blood Count 2.46 L 4.35-5.85 10^6/uL Hemoglobin 7.7 L 13.3-17.7 G/DL Hematocrit 23 L 40-54 % Mean Corpuscular Volume 92 80-99 FL Mean Corpuscular Hemoglobin 31 25-34 PG Mean Corpuscular Hemoglobin Concent 34 32-36 G/DL Red Cell Distribution Width 25.8 H 10.0-14.5 % Platelet Count 237 130-400 10^3/uL Mean Platelet Volume 11.2 H 7.4-10.4 FL Neutrophils (%) (Auto) 44 42-75 % Lymphocytes (%) (Auto) 27 12-44 % Monocytes (%) (Auto) 23 H 0-12 % Eosinophils (%) (Auto) 4 0-10 % Basophils (%) (Auto) 2 0-10 % Neutrophils # (Auto) 4.9 1.8-7.8 X 10^3 Lymphocytes # (Auto) 3.0 1.0-4.0 X 10^3 Monocytes # (Auto) 2.5 H 0.0-1.0 X 10^3 Eosinophils # (Auto) 0.5 H 0.0-0.3 10^3/uL Basophils # (Auto) 0.2 H 0.0-0.1 10^3/uL Sodium Level 141 135-145 MMOL/L Potassium Level 4.0 3.6-5.0 MMOL/L Chloride Level 106 98-107 MMOL/L Carbon Dioxide Level 25 21-32 MMOL/L Anion Gap 10 5-14 MMOL/L Blood Urea Nitrogen 6 L 7-18 MG/DL Creatinine 0.81 0.60-1.30 MG/DL Estimat Glomerular Filtration Rate > 60 BUN/Creatinine Ratio 7 Glucose Level 86 70-105 MG/DL Calcium Level 9.4 8.5-10.1 MG/DL Corrected Calcium 9.5 8.5-10.1 MG/DL Total Bilirubin 5.0 H 0.1-1.0 MG/DL Aspartate Amino Transf (AST/SGOT) 29 5-34 U/L Alanine Aminotransferase (ALT/SGPT) 10 0-55 U/L Alkaline Phosphatase 70 40-136 U/L Troponin I < 0.028 <0.028 NG/ML C-Reactive Protein High Sensitivity 1.10 H 0.00-0.50 MG/DL Total Protein 7.3 6.4-8.2 GM/DL Albumin 3.9 3.2-4.5 GM/DL Lipase 33 8-78 U/L Urine Color PAPITO H Urine Clarity CLEAR Urine pH 7 5-9 Urine Specific [place] 1.005 L 1.016-1.022 Urine Protein NEGATIVE NEGATIVE Urine Glucose (UA) NEGATIVE NEGATIVE Urine Ketones NEGATIVE NEGATIVE Urine Nitrite NEGATIVE NEGATIVE Urine Bilirubin NEGATIVE NEGATIVE Urine Urobilinogen NORMAL NORMAL MG/DL Urine Leukocyte Esterase NEGATIVE NEGATIVE Urine RBC (Auto) NEGATIVE NEGATIVE Urine RBC NONE /HPF Urine WBC NONE /HPF Urine Squamous Epithelial Cells 0-2 /HPF Urine Crystals NONE /LPF Urine Bacteria NEGATIVE /HPF Urine Casts NONE /LPF Urine Mucus NEGATIVE /LPF Urine Culture Indicated NO Urine Opiates Screen NEGATIVE NEGATIVE Urine Oxycodone Screen NEGATIVE NEGATIVE Urine Methadone Screen NEGATIVE NEGATIVE Urine Propoxyphene Screen NEGATIVE NEGATIVE Urine Barbiturates Screen NEGATIVE NEGATIVE Ur Tricyclic Antidepressants Screen NEGATIVE NEGATIVE Urine Phencyclidine Screen NEGATIVE NEGATIVE Urine Amphetamines Screen NEGATIVE NEGATIVE Urine Methamphetamines Screen NEGATIVE NEGATIVE Urine Benzodiazepines Screen NEGATIVE NEGATIVE Urine Cocaine Screen NEGATIVE NEGATIVE Urine Cannabinoids Screen NEGATIVE NEGATIVE (TERRELL CULLEN MD) My Orders Orders - TERRELL CULLEN MD Fentanyl Injection (Sublimaze Injection (07/25/18 06:30) Hydromorphone Injection (Dilaudid Inject (07/25/18 07:37) General/Regular (07/25/18 Breakfast) Oxycodone/Apap 5/325mg Tablet (Percocet (07/25/18 09:30) (TERRELL CULLEN MD) Medications Given in ED Current Medications Medications Dose Ordered Sig/Arlene Route Start Time Stop Time Status Last Admin Dose Admin Oxycodone/ Acetaminophen 1 tab ONCE ONCE PO 07/25/18 09:30 07/25/18 09:31 DC 07/25/18 09:28 1 TAB (TERRELL CULLEN MD) Vital Signs/I&O 07/25/18 07/25/18 07/25/18 05:08 09:28 09:30 Temp 97.2 97.2 97.2 Pulse 86 84 Resp 19 20 B/P (MAP) 101/69 (80) 109/69 (82) Pulse Ox 98 O2 Delivery Room Air (TERRELL CULLEN MD) Progress Progress Note : Time: 05:19 Progress Note We have labs to include a CMP, troponin and EKG chest x-ray for his cough and make sure there is no chance of coronary syndrome having a sickle crisis. We'll get a urinalysis to look for drug screen as well as look for blood in the urine might indicate alternative diagnosis. Fentanyl and 2 L of IV fluid. (CHARY YANEZ) Progress Note #1: Time: 07:39 Progress Note Care of this patient was assumed from Dr. Yanez at shift change. He has received 2 doses of fentanyl, each 100 g. He states this has not done much for his pain. He is received 1 L of IV fluid in the second liter is currently infusing. He is now hungry and requesting food. Since pain is not yet controlled, Dilaudid was ordered. Once we get pain controlled he will be discharged. Labs are unremarkable when compared to baseline. There is no evidence of infection. Chest x-ray was read as abnormal by the radiologist but actually appears unchanged from prior. CRP, unremarkable WBC, and absence of fever would suggest no presence of infection. Patient was reexamined and found to have minimal generalized abdominal tenderness with no focal tenderness. Progress Note #2: Progress Note Dilated was given for additional pain management. That did control his pain. Patient ate and was ready to go home. He was given a Percocet to hold her over until he was able to get to the pharmacy. Return precautions reviewed. (TERRELL CULLEN MD) Initial ECG Impression Date: Jul 25, 2018 Initial ECG Impression Time: 05:13 Initial ECG Rate: 81 Initial ECG Rhythm: Normal Sinus Initial ECG Intervals: Normal Initial ECG Impression: Normal Comment Sinus rhythm without ST elevation or depression. (CHARY YANEZ) Diagnostic Imaging Diagonstic Imaging: Xray Plain Films/CT/US/NM/MRI: chest (1v) Reviewed: Reviewed by Me (CHARY YANEZ) Transfer of Care Time: 06:18 Care transferred to: And Dr. Ruby (CHARY YANEZ) Departure Impression Primary Impression: Sickle cell anemia Qualified Codes: D57.00 - Hb-SS disease with crisis, unspecified Additional Impression: Bilateral flank pain Disposition: 01 HOME, SELF-CARE Condition: Improved Departure-Patient Inst. Decision time for Depature: 09:19 (TERRELL CULLEN MD) Referrals: NO,LOCAL PHYSICIAN (PCP/Family) Primary Care Physician Patient Instructions: Sickle Cell Disease Add. Discharge Instructions: Resume your hydroxyurea as prescribed. Follow-up with Dr. Alvarado as soon as possible. Return to care if symptoms worsen. Stay well-hydrated. Contact Dr. Lincoln or your primary care provider if you have any questions or concerns. Use Percocet as prescribed if you have any further pain. Scripts Oxycodone HCl/Acetaminophen (Percocet 5-325 mg Tablet) 1 Each Tablet 1-2 TAB PO Q4H PRN for PAIN-MODERATE MDD 6, #10 TAB Prov: TERRELL CULLEN MD 07/25/18 Copy Copies To 1: PEBBLES ALVARADO MD, TITUS J Jul 25, 2018 05:20 TERRELL CULLEN MD Jul 25, 2018 07:44
[2018-07-25 05:31] LABS: BASOPHILS # (AUTO) 0.2 10^3/uL (0.0-0.1); BASOPHILS % (AUTO) 2 % (0-10); EOSINOPHILS # (AUTO) 0.5 10^3/uL (0.0-0.3); EOSINOPHILS % (AUTO) 4 % (0-10); HEMATOCRIT 23 % (40-54); HEMOGLOBIN 7.7 G/DL (13.3-17.7); LYMPHOCYTES % (AUTO) 27 % (12-44); MEAN CORPUSCULAR HEMOGLOBIN 31 PG (25-34); MEAN CORPUSCULAR HGB CONC 34 G/DL (32-36); MEAN CORPUSCULAR VOLUME 92 FL (80-99); MEAN PLATELET VOLUME 11.2 FL (7.4-10.4); MONOCYTES # (AUTO) 2.5 X 10^3 (0.0-1.0); MONOCYTES % (AUTO) 23 % (0-12); NEUTROPHILS # (AUTO) 4.9 X 10^3 (1.8-7.8); NEUTROPHILS % (AUTO) 44 % (42-75); PLATELET COUNT 237 10^3/uL (130-400); RED CELL DISTRIBUTION WIDTH 25.8 % (10.0-14.5); WHITE BLOOD COUNT 11.1 10^3/uL (4.3-11.0)
[2018-07-25 05:49] LABS: ALANINE AMINOTRANSFERASE 10 U/L (0-55); ALBUMIN 3.9 GM/DL (3.2-4.5); ALKALINE PHOSPHATASE 70 U/L (40-136); BUN/CREATININE RATIO 7; CALCIUM 9.4 MG/DL (8.5-10.1); CARBON DIOXIDE 25 MMOL/L (21-32); CHLORIDE 106 MMOL/L (98-107); CREATININE SERUM 0.81 MG/DL (0.60-1.30); GFR ESTIMATED > 60; GLUCOSE 86 MG/DL (70-105); LIPASE 33 U/L (8-78); SODIUM 141 MMOL/L (135-145); TOTAL PROTEIN 7.3 GM/DL (6.4-8.2)
[2018-07-25 06:45] LABS: BILIRUBIN,URINE NEGATIVE (NEGATIVE); CLARITY,URINE CLEAR; COLOR,URINE AMBER; GLUCOSE, URINE (UA) NEGATIVE (NEGATIVE); KETONES,URINE NEGATIVE (NEGATIVE); LEUKOCYTE ESTERASE ,URINE NEGATIVE (NEGATIVE); NITRITE,URINE NEGATIVE (NEGATIVE); PH,URINE 7 (5-9); PROTEIN,URINE NEGATIVE (NEGATIVE); UROBILINOGEN,URINE NORMAL (NORMAL)
--- NOTE | 2018-07-25 06:50 | Diagnostic Imaging Report ---
INDICATION: Back pain COMPARISON: 04/24/2018 FINDINGS: Single view of the chest demonstrates cardiac enlargement with interstitial prominence which could be a degree of fluid volume overload. Early pneumonia not excluded. There is no consolidation, pneumothorax or effusion. Osseous structures are age-appropriate. IMPRESSION: Cardiac enlargement with slight prominence of the interstitium representing fluid volume overload or possibly early pneumonia. Followup recommended. Dictated by: Dictated on workstation # [id number]
[2018-07-25 06:52] LABS: BACTERIA,URINE NEGATIVE /HPF; SQUAMOUS EPITHELIAL CELL,UR 0-2 /HPF
[2018-07-25 07:01] LABS: AMPHETAMINE SCREEN, URINE NEGATIVE (NEGATIVE); BARBITURATE SCREEN URINE NEGATIVE (NEGATIVE); BENZODIAZEPINES SCREEN URINE NEGATIVE (NEGATIVE); CANNABINOID SCREEN, URINE NEGATIVE (NEGATIVE); COCAINE SCREEN URINE NEGATIVE (NEGATIVE); METHADONE STAT NEGATIVE (NEGATIVE); METHAMPHETAMINE SCREEN URINE S NEGATIVE (NEGATIVE); OPIATE SCREEN URINE NEGATIVE (NEGATIVE); OXYCODONE STAT NEGATIVE (NEGATIVE); PROPOXYPHENE STAT NEGATIVE (NEGATIVE); TRICYCLIC ANTIDEPRESSANTS SCRE NEGATIVE (NEGATIVE)
[2018-07-25] MEDS ORDERED: HYDROmorphone 2 MG/ML VIAL (DILAUDID) IV STA (07:37)
[2018-07-25] MEDS ORDERED: OXYC-199 PO (09:23)
[2018-07-25 09:30] VITALS: BP 109/69
[2018-07-25] MEDS ORDERED: oxyCODONE/APAP 5/325MG (PERCOCET 5) TABLET PO ONE (09:30)
== END 2018-07-25 09:30 | disposition home or self-care (01) ==
LOC: EDUNIT# 05:04 → ER 05:05
DX: D57.00 Hb-SS disease with crisis, unspecified (principal); R10.9 Unspecified abdominal pain; F17.210 Nicotine dependence, cigarettes, uncomplicated; Z88.5 Allergy status to narcotic agent; Z90.81 Acquired absence of spleen; Z82.49 Family history of ischemic heart disease and other diseases of the circulatory system
CPT/HCPCS: 36415; 71045; 80053; 80306; 81000; 83690; 84484; 85025; 86141; 93005; 96361; 96374; 96375; 96376

== ENCOUNTER 2018-09-09 12:41 | Emergency (ER) | payer MEDICAID ==
[~2018-09-09] VITALS: Ht 167.6 cm; Wt 68.0 kg
[~2018-09-09 12:41] MED LIST changes: +OXYC-199 PO
[2018-09-09] MEDS ORDERED: PROMETHAZINE INJ 25 MG/ML (PHENERGAN) AMP IVP ONE (12:45)
[2018-09-09] MEDS ORDERED: diphenhydrAMINE 50 MG/ML INJ (BENADRYL) IVP ONE (12:45)
[2018-09-09] MEDS ORDERED: fentaNYL INJECTION 100 MCG/2 ML AMP IVP ONE ×2 (12:45→14:15)
--- NOTE | 2018-09-09 12:54 | ED Back Pain ---
General Source of Information: Patient, EMS History of Present Illness Date Seen by Provider: Sep 09, 2018 Time Seen by Provider: 12:48 Initial Comments This 33-year-old male presents with severe low back pain that began last 24 hours. The patient had multiple similar presentations in the past secondary to sickle cell disease. Patient denies associated fever, chills, dysuria or frequency, significant radiation of the low back pain, associated paresthesias or weakness of the lower extremities. Patient denies associated nausea vomiting or diarrhea. He denies shortness of breath. He denies chest pain or palpitations Allergies and Home Medications Allergies Coded Allergies: morphine (Verified Adverse Reaction, Unknown, PT HAS TAKEN LORTAB & STADOL IN THE PAST, 04/24/18) Uncoded Allergies: SHELLFISH (Allergy, Unknown, 09/09/18) Patient Home Medication List Home Medication List Reviewed: Yes Review of Systems Constitutional: No chills, No fever; malaise EENTM: No hearing loss Respiratory: No cough, No hemoptysis, No short of breath Cardiovascular: No chest pain, No edema, No palpitations Gastrointestinal: No abdominal pain, No heartburn, No nausea Genitourinary: No dysuria, No frequency Musculoskeletal: see HPI, back pain; No joint swelling, No muscle stiffness, No neck pain Skin: No change in color, No rash Psychiatric/Neurological: Denies Headache, Denies Seizure Past Bkqbepe-Pyharw-Zuhqlc Hx Past Med/Social Hx: Reviewed Nursing Past Med/Soc Hx Patient Social History Alcohol Beverage of Choice: Whiskey Drug of Choice: THC, COCAINE, ALSO ADMITTED TO METHAMPHETAMINES IN PAST. Type Used: Cigarettes 2nd Hand Smoke Exposure: Yes Recent Hopitalizations: No Immunizations Up To Date Tetanus Booster (TDap): Unknown PED Vaccines UTD: No Seasonal Allergies Seasonal Allergies: No Past Medical History Surgeries: Yes (SPLENECTOMY) Gallbladder, Orthopedic Respiratory: No Currently Using CPAP: No Currently Using BIPAP: No Cardiac: No Neurological: No Reproductive Disorders: No Sexually Transmitted Disease: No HIV/AIDS: No Genitourinary: No Gastrointestinal: No Musculoskeletal: Yes (LEFT FOREARM INJURY AGE 5--S/P SURGERY; BIALTERAL ANKLE SURGERY INFANT) Fractures Endocrine: No HEENT: No Cancer: No Psychosocial: No Integumentary: No Blood Disorders: Yes (SICKLE CELL ANEMIA) Adverse Reaction/Blood Tranf: No Family Medical History Asthma G8 BROTHER Parkinson's disease Seizure disorder G8 BROTHER Asthma, Diabetes, Hypertension Physical Exam Vital Signs Vital Signs - First Documented 09/09/18 12:50 Temp 98.1 Pulse 89 Resp 18 B/P (MAP) 104/62 (76) Pulse Ox 99 O2 Delivery Nasal Cannula O2 Flow Rate 2.00 Capillary Refill : Height, Weight, BMI Height: 5'6.00" Weight: 150lbs. 2.0oz. 68.582656ca; 25.2 BMI Method:Stated General Appearance: WD/WN, Mild Distress HEENT: Normal ENT Inspection Neck: Normal Inspection Cardiovascular: Regular Rate, Rhythm, No Murmur Respiratory: Chest Non Tender, Lungs Clear Gastrointestinal: Normal Bowel Sounds, Non Tender, Soft Back: Normal Inspection Extremity: Normal Capillary Refill, Normal Inspection Neurologic/Psychiatric: Oriented x3, No Motor/Sensory Deficits, Normal Mood/ Affect Skin: Normal Color, Warm/Dry; No Rash Progress/Results/Core Measures Results/Orders Lab Results Laboratory Tests Test 09/09/18 12:43 09/09/18 12:55 09/09/18 13:40 Range/Units Sodium Level 140 135-145 MMOL/L Potassium Level 4.9 3.6-5.0 MMOL/L Chloride Level 105 98-107 MMOL/L Carbon Dioxide Level 22 21-32 MMOL/L Anion Gap 13 5-14 MMOL/L Blood Urea Nitrogen 7 7-18 MG/DL Creatinine 0.84 0.60-1.30 MG/DL Estimat Glomerular Filtration Rate > 60 BUN/Creatinine Ratio 8 Glucose Level 89 70-105 MG/DL Calcium Level 9.2 8.5-10.1 MG/DL Corrected Calcium 9.3 8.5-10.1 MG/DL Total Bilirubin 5.3 H 0.1-1.0 MG/DL Aspartate Amino Transf (AST/SGOT) 35 H 5-34 U/L Alanine Aminotransferase (ALT/SGPT) 12 0-55 U/L Alkaline Phosphatase 66 40-136 U/L Total Protein 7.1 6.4-8.2 GM/DL Albumin 3.9 3.2-4.5 GM/DL White Blood Count 10.7 4.3-11.0 10^3/uL Red Blood Count 2.43 L 4.35-5.85 10^6/uL Hemoglobin 7.8 L 13.3-17.7 G/DL Hematocrit 22 L 40-54 % Mean Corpuscular Volume 91 80-99 FL Mean Corpuscular Hemoglobin 32 25-34 PG Mean Corpuscular Hemoglobin Concent 35 32-36 G/DL Red Cell Distribution Width 26.0 H 10.0-14.5 % Platelet Count 130-400 10^3/uL Mean Platelet Volume 7.4-10.4 FL Neutrophils (%) (Auto) 42-75 % Lymphocytes (%) (Auto) 12-44 % Monocytes (%) (Auto) 0-12 % Eosinophils (%) (Auto) 0-10 % Basophils (%) (Auto) 0-10 % Neutrophils # (Auto) 1.8-7.8 X 10^3 Lymphocytes # (Auto) 1.0-4.0 X 10^3 Monocytes # (Auto) 0.0-1.0 X 10^3 Eosinophils # (Auto) 0.0-0.3 10^3/uL Basophils # (Auto) 0.0-0.1 10^3/uL Absolute Reticulocyte Count 431 H 24-90 10e9/L Percent Reticulocyte Count 17.75 H 0.50-2.40 % My Orders Orders - CHINO FRANZ MD Cbc With Automated Diff (09/09/18 12:43) Reticulocyte Count (09/09/18 12:43) Comprehensive Metabolic Panel (09/09/18 12:43) Ua Culture If Indicated (09/09/18 12:43) Ns Iv 1000 Ml (Sodium Chloride 0.9%) (09/09/18 12:45) Fentanyl Injection (Sublimaze Injection (09/09/18 12:45) Promethazine Injection (Phenergan Injec (09/09/18 12:45) Diphenhydramine Injection (Benadryl Inje (09/09/18 12:45) Oxygen-Administer (09/09/18 13:00) General/Regular (09/09/18 Lunch) Fentanyl Injection (Sublimaze Injection (09/09/18 14:15) Manual Differential (09/09/18 13:40) Medications Given in ED Current Medications Medications Dose Ordered Sig/Arlene Route Start Time Stop Time Status Last Admin Dose Admin Diphenhydramine HCl 25 mg ONCE ONCE IVP 09/09/18 12:45 09/09/18 12:47 DC 09/09/18 13:00 25 MG Fentanyl Citrate 100 mcg ONCE ONCE IVP 09/09/18 12:45 09/09/18 12:47 DC 09/09/18 13:00 100 MCG Fentanyl Citrate 100 mcg ONCE ONCE IVP 09/09/18 14:15 09/09/18 14:16 DC 09/09/18 14:23 100 MCG Promethazine HCl 25 mg ONCE ONCE IVP 09/09/18 12:45 09/09/18 12:47 DC 09/09/18 13:02 25 MG Vital Signs/I&O 09/09/18 12:50 Temp 98.1 Pulse 89 Resp 18 B/P (MAP) 104/62 (76) Pulse Ox 99 O2 Delivery Nasal Cannula O2 Flow Rate 2.00 Progress Progress Note : Time: 15:04 Progress Note Patient received IV fluids, oxygen, and IV fentanyl. Patient was observed in the emergency department for approximately 2 hours. The patient's low back pain abated and he was ready for discharge. Departure Impression Primary Impression: Sickle cell disease with crisis Disposition: 01 HOME, SELF-CARE Condition: Improved Departure-Patient Inst. Decision time for Depature: 15:06 Referrals: [facility] [place],LOCAL PHYSICIAN (PCP) Primary Care Physician Patient Instructions: Sickle Cell Disease (DC) Add. Discharge Instructions: Rest at home. Vicodin for pain. Encourage fluids. Return if any problems or questions. Scripts Hydrocodone/Acetaminophen (Vicodin 5-300 mg Tablet) 1 Each Tablet 1-2 EACH PO Q6H PRN for PAIN-MODERATE MDD 10, #20 TAB Prov: CHINO FRANZ MD 09/09/18 CHINO FRANZ MD Sep 09, 2018 12:54
[2018-09-09] MEDS: NS IV 1000 ML 1,000 ML IV SCH ×2 (13:00→14:23)
[2018-09-09] MEDS ORDERED: OXYC-471 (13:16)
[2018-09-09 13:21] LABS: ALANINE AMINOTRANSFERASE 12 U/L (0-55); ALBUMIN 3.9 GM/DL (3.2-4.5); ALKALINE PHOSPHATASE 66 U/L (40-136); BILIRUBIN,TOTAL 5.3 MG/DL (0.1-1.0); BUN/CREATININE RATIO 8; CALCIUM 9.2 MG/DL (8.5-10.1); CARBON DIOXIDE 22 MMOL/L (21-32); CHLORIDE 105 MMOL/L (98-107); CREATININE SERUM 0.84 MG/DL (0.60-1.30); GFR ESTIMATED > 60; GLUCOSE 89 MG/DL (70-105); POTASSIUM 4.9 MMOL/L (3.6-5.0); SODIUM 140 MMOL/L (135-145); TOTAL PROTEIN 7.1 GM/DL (6.4-8.2)
[2018-09-09 14:26] LABS: ABSOLUTE RETIC # 431 10e9/L (24-90); HEMATOCRIT 22 % (40-54); HEMOGLOBIN 7.8 G/DL (13.3-17.7); MEAN CORPUSCULAR HEMOGLOBIN 32 PG (25-34); MEAN CORPUSCULAR HGB CONC 35 G/DL (32-36); MEAN CORPUSCULAR VOLUME 91 FL (80-99); RETICULOCYTE % 17.75 % (0.50-2.40); WHITE BLOOD COUNT 10.7 10^3/uL (4.3-11.0)
[2018-09-09] MEDS ORDERED: HYDR-3455 PO (15:07)
[2018-09-09 15:19] VITALS: BP 112/65
[2018-09-09 15:22] LABS: BAND NEUTROPHILS 0 %; BASOPHILS % (MANUAL) 2 %; EOSINOPHILS % (MANUAL) 2 %; LYMPHOCYTES % (MANUAL) 28 %; MONOCYTES % (MANUAL) 13 %; NEUTROPHILS % (MANUAL) 55 %; POLYCHROMASIA MODERATE
[2018-09-09 15:23] LABS: ANISOCYTOSIS MODERATE; HOWELL-JOLLY BODIES SLIGHT; SICKLE CELLS MARKED; TARGET CELLS SLIGHT
== END 2018-09-09 15:37 | disposition home or self-care (01) ==
LOC: EDUNIT# 12:41 → ER 12:44
DX: D57.00 Hb-SS disease with crisis, unspecified (principal); F12.10 Cannabis abuse, uncomplicated; F14.10 Cocaine abuse, uncomplicated; F15.10 Other stimulant abuse, uncomplicated; Z90.81 Acquired absence of spleen; Z77.22 Contact with and (suspected) exposure to environmental tobacco smoke (acute) (chronic); Z88.5 Allergy status to narcotic agent
CPT/HCPCS: 36415; 80053; 85007; 85027; 85045

== ENCOUNTER 2018-11-10 03:00 | Emergency (ER) | payer MEDICAID ==
[~2018-11-10] VITALS: Ht 167.6 cm; Wt 65.8 kg
[~2018-11-10 03:00] MED LIST changes: +HYDR-3455 PO; +OXYC-471
[2018-11-10] MEDS ORDERED: NS IV 1000 ML 1,000 ML IV ONE (03:06)
[2018-11-10 03:15] LABS: BASOPHILS # (AUTO) 0.1 10^3/uL (0.0-0.1); BASOPHILS % (AUTO) 1 % (0-10); EOSINOPHILS # (AUTO) 0.5 10^3/uL (0.0-0.3); EOSINOPHILS % (AUTO) 4 % (0-10); HEMATOCRIT 23 % (40-54); LYMPHOCYTES # (AUTO) 3.2 X 10^3 (1.0-4.0); LYMPHOCYTES % (AUTO) 25 % (12-44); MEAN CORPUSCULAR HEMOGLOBIN 32 PG (25-34); MEAN CORPUSCULAR HGB CONC 36 G/DL (32-36); MEAN CORPUSCULAR VOLUME 91 FL (80-99); MEAN PLATELET VOLUME 11.7 FL (7.4-10.4); MONOCYTES % (AUTO) 16 % (0-12); NEUTROPHILS % (AUTO) 54 % (42-75); PLATELET COUNT 189 10^3/uL (130-400); RED CELL DISTRIBUTION WIDTH 24.1 % (10.0-14.5)
[2018-11-10] MEDS ORDERED: HYDROmorphone 2 MG/ML VIAL (DILAUDID) IV ONE ×2 (03:15→04:00)
[2018-11-10 03:29] LABS: WHITE BLOOD COUNT 11.8 10^3/uL (4.3-11.0)
[2018-11-10 03:30] LABS: SMEAR SCAN COMMENT YES
[2018-11-10 03:31] LABS: ALANINE AMINOTRANSFERASE 9 U/L (0-55); ALBUMIN 4.1 GM/DL (3.2-4.5); ALKALINE PHOSPHATASE 63 U/L (40-136); BILIRUBIN,TOTAL 5.6 MG/DL (0.1-1.0); BUN/CREATININE RATIO 7; CALCIUM 9.2 MG/DL (8.5-10.1); CARBON DIOXIDE 20 MMOL/L (21-32); CHLORIDE 108 MMOL/L (98-107); CREATININE SERUM 0.83 MG/DL (0.60-1.30); GFR ESTIMATED > 60; GLUCOSE 102 MG/DL (70-105); POTASSIUM 3.7 MMOL/L (3.6-5.0); SODIUM 139 MMOL/L (135-145); TOTAL PROTEIN 6.9 GM/DL (6.4-8.2)
--- NOTE | 2018-11-10 03:46 | ED General ---
General Chief Complaint: General Problems/Pain Stated Complaint: SICKLE CELL CRISIS Nursing Triage Note: Pt to room #5 via cc ems cart from home with c/o sickle cell crisis. Upon arrival to a&Ox4 and moaning in pain. 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 Reports dry cough for x2 days. Lung sounds cta. Nursing Sepsis Screen: No Definite Risk Source of Information: Patient Exam Limitations: No Limitations History of Present Illness Date Seen by Provider: Nov 10, 2018 Time Seen by Provider: 03:02 Initial Comments This 33-year-old young man with sickle cell disease presents to the emergency room with complaints of back pain and bilateral lateral chest pain that woke him from sleep early this morning. It is a similar presentation to prior episodes of sickle cell pain and crisis. He has had a mild cough for the past couple days but has been afebrile. He denies any other signs or symptoms of acute infectious illness. He denies any alcohol consumption but does admit to marijuana use. 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 Allergies and Home Medications Allergies Coded Allergies: morphine (Verified Adverse Reaction, Unknown, PT HAS TAKEN LORTAB & STADOL IN THE PAST, 04/24/18) Uncoded Allergies: SHELLFISH (Allergy, Unknown, 09/09/18) Home Medications Hydrocodone/Acetaminophen 1 Each Tablet, 1-2 EACH PO Q6H PRN for PAIN-MODERATE Prescribed by: CHINO FRANZ MD on 09/09/18 1507 Patient Home Medication List Home Medication List Reviewed: Yes Review of Systems Review of Systems Constitutional: no symptoms reported EENTM: no symptoms reported Respiratory: see HPI Cardiovascular: no symptoms reported Gastrointestinal: no symptoms reported Genitourinary: no symptoms reported Musculoskeletal: see HPI Skin: no symptoms reported Psychiatric/Neurological: No Symptoms Reported Hematologic/Lymphatic: See HPI Immunological/Allergic: no symptoms reported Past Ensgtsa-Stystt-Pdejic Hx Past Med/Social Hx: Reviewed Nursing Past Med/Soc Hx Patient Social History Alcohol Use: Past History Number of Drinks Today: GG Alcohol Beverage of Choice: Whiskey Recreational Drug Use: Yes Drug of Choice: THC, COCAINE, ALSO ADMITTED TO METHAMPHETAMINES IN PAST. Smoking Status: Current Everyday Smoker Type Used: Cigarettes 2nd Hand Smoke Exposure: Yes Recent Foreign Travel: No Contact w/Someone Who Travel: No Recent Infectious Disease Expo: No Recent Hopitalizations: No Immunizations Up To Date Tetanus Booster (TDap): Unknown PED Vaccines UTD: No Seasonal Allergies Seasonal Allergies: No Past Medical History Surgeries: Yes (SPLENECTOMY) Gallbladder, Orthopedic Respiratory: No Currently Using CPAP: No Currently Using BIPAP: No Cardiac: No Neurological: No Reproductive Disorders: No Sexually Transmitted Disease: No HIV/AIDS: No Genitourinary: No Gastrointestinal: No Musculoskeletal: Yes (LEFT FOREARM INJURY AGE 5--S/P SURGERY; BIALTERAL ANKLE SURGERY ) Fractures Endocrine: No HEENT: No Cancer: No Psychosocial: No Integumentary: No Blood Disorders: Yes (SICKLE CELL ANEMIA) Adverse Reaction/Blood Tranf: No Family Medical History Asthma G8 BROTHER Parkinson's disease Seizure disorder G8 BROTHER Asthma, Diabetes, Hypertension Physical Exam Vital Signs Vital Signs - First Documented 11/10/18 03:00 Temp 97.5 Pulse 100 Resp 20 B/P (MAP) 115/74 (88) Pulse Ox 98 O2 Delivery Nasal Cannula O2 Flow Rate 3.00 Capillary Refill : Less Than 3 Seconds Height, Weight, BMI Height: 5'6.00" Weight: 145lbs. 2.0oz. 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 Norm as Tested Skin: Normal Color, Warm/Dry Progress/Results/Core Measures Suspected Sepsis Recent Fever Within 48 Hours: No Infection Criteria Present: None New/Unexplained Altered Menta: No Sepsis Screen: No Definite Risk SIRS Temperature:97.5 Pulse: 100 Respiratory Rate: 20 Laboratory Tests 11/10/18 03:05: White Blood Count 11.8H Blood Pressure 115 /74 Mean: 88 Laboratory Tests 11/10/18 03:05: Creatinine 0.83, Platelet Count 189, Total Bilirubin 5.6H Results/Orders Lab Results Laboratory Tests Test 11/10/18 03:05 Range/Units White Blood Count 11.8 H 4.3-11.0 10^3/uL Red Blood Count 2.48 L 4.35-5.85 10^6/uL Hemoglobin 8.0 L 13.3-17.7 G/DL Hematocrit 23 L 40-54 % Mean Corpuscular Volume 91 80-99 FL Mean Corpuscular Hemoglobin 32 25-34 PG Mean Corpuscular Hemoglobin Concent 36 32-36 G/DL Red Cell Distribution Width 24.1 H 10.0-14.5 % Platelet Count 189 130-400 10^3/uL Mean Platelet Volume 11.7 H 7.4-10.4 FL Neutrophils (%) (Auto) 54 42-75 % Lymphocytes (%) (Auto) 25 12-44 % Monocytes (%) (Auto) 16 H 0-12 % Eosinophils (%) (Auto) 4 0-10 % Basophils (%) (Auto) 1 0-10 % Neutrophils # (Auto) 7.0 1.8-7.8 X 10^3 Lymphocytes # (Auto) 3.2 1.0-4.0 X 10^3 Monocytes # (Auto) 2.0 H 0.0-1.0 X 10^3 Eosinophils # (Auto) 0.5 H 0.0-0.3 10^3/uL Basophils # (Auto) 0.1 0.0-0.1 10^3/uL Sodium Level 139 135-145 MMOL/L Potassium Level 3.7 3.6-5.0 MMOL/L Chloride Level 108 H 98-107 MMOL/L Carbon Dioxide Level 20 L 21-32 MMOL/L Anion Gap 11 5-14 MMOL/L Blood Urea Nitrogen 6 L 7-18 MG/DL Creatinine 0.83 0.60-1.30 MG/DL Estimat Glomerular Filtration Rate > 60 BUN/Creatinine Ratio 7 Glucose Level 102 70-105 MG/DL Calcium Level 9.2 8.5-10.1 MG/DL Corrected Calcium 9.1 8.5-10.1 MG/DL Total Bilirubin 5.6 H 0.1-1.0 MG/DL Aspartate Amino Transf (AST/SGOT) 28 5-34 U/L Alanine Aminotransferase (ALT/SGPT) 9 0-55 U/L Alkaline Phosphatase 63 40-136 U/L C-Reactive Protein High Sensitivity 0.62 H 0.00-0.50 MG/DL Total Protein 6.9 6.4-8.2 GM/DL Albumin 4.1 3.2-4.5 GM/DL Smear Scan YES My Orders Orders - TERRELL CULLEN MD Ed Iv/Invasive Line Start (11/10/18 03:06) Cbc With Automated Diff (11/10/18 03:06) Comprehensive Metabolic Panel (11/10/18 03:06) Ua Culture If Indicated (11/10/18 03:06) Ed Iv/Invasive Line Start (11/10/18 03:06) Ns Iv 1000 Ml (Sodium Chloride 0.9%) (11/10/18 03:06) Chest Pa/Lat (2 View) (11/10/18 03:06) Hydromorphone Injection (Dilaudid Inject (11/10/18 03:15) Hydromorphone Injection (Dilaudid Inject (11/10/18 04:00) Hs C Reactive Protein (11/10/18 04:16) Rx-Oxycodone/Apap 5-325 Mg (Rx-Percocet (11/10/18 05:15) Medications Given in ED Current Medications Medications Dose Ordered Sig/Arlene Route Start Time Stop Time Status Last Admin Dose Admin Hydromorphone HCl 1 mg ONCE ONCE IV 11/10/18 03:15 11/10/18 03:16 DC 11/10/18 03:13 1 MG Hydromorphone HCl 1 mg ONCE ONCE IV 11/10/18 04:00 11/10/18 04:01 DC 11/10/18 04:03 1 MG Sodium Chloride 1,000 ml @ 0 mls/hr Q0M ONCE IV 11/10/18 03:06 11/10/18 03:09 DC 11/10/18 03:13 0 MLS/HR Vital Signs/I&O 11/10/18 11/10/18 03:00 03:00 Temp 97.5 Pulse 100 Resp 20 B/P (MAP) 115/74 (88) Pulse Ox 98 98 O2 Delivery Nasal Cannula Nasal Cannula O2 Flow Rate 3.00 3.00 Capillary Refill : Less Than 3 Seconds Blood Pressure Mean: 88 Progress Note #1: Time: 03:45 Progress Note Patient seen and examined. Dilaudid was given with reasonably good results. Pain decreased from 8/10 down to 5/10. He is eager of IV normal saline. Chest x-rays pending. Labs are unremarkable in comparison to baseline. He has chronic anemia. Progress Note #2: Time: 05:06 Progress Note Patient is feeling much better after hydration and 2 doses of Dilantin. While chest x-ray showed some increase atelectasis/infiltrate in the lower lung vill[place], patient did not have a significant elevation in WBC or CRP. He was also afebrile. Antibiotic therapy was not felt necessary. Patient will be dismissed home with a take-home pack of Percocet for further pain management. Diagnostic Imaging Diagonstic Imaging: Xray Plain Films/CT/US/NM/MRI: chest Comments Chest x-ray viewed by me and compared with prior. Report not yet available. There is possibly some increased atelectasis or infiltrate in the lower villan[place] when compared with prior. Departure Impression Primary Impression: Sickle cell pain crisis Disposition: 01 HOME, SELF-CARE Condition: Improved Departure-Patient Inst. Decision time for Depature: 05:05 Referrals: NO,LOCAL PHYSICIAN (PCP/Family) Primary Care Physician Patient Instructions: Sickle Cell Disease Add. Discharge Instructions: Drink plenty of clear liquids. Use your Percocet every 4 hours as needed for pain control. Return to care if symptoms are worsening. Follow-up with your primary care provider and/or Dr. Alvarado as soon as possible. All discharge instructions reviewed with patient and/or family. Voiced understanding. TERRELL CULLEN MD Nov 10, 2018 03:46
[2018-11-10] MEDS ORDERED: RX-OXYCODONE/APAP 5-325 MG #4 TAB PK PO PRN (05:15)
[2018-11-10 05:20] VITALS: BP 109/62
--- NOTE | 2018-11-10 05:57 | Diagnostic Imaging Report ---
INDICATION: Sickle cell crisis PA and lateral chest Heart size and pulmonary vascularity are normal. Lungs are clear. There are no effusions or pneumothoraces. IMPRESSION: No acute abnormalities in the chest Dictated by: Dictated on workstation # [id number]
[2018-11-11] MEDS ORDERED: ONDA4TAB11 PO (09:05)
[2018-11-11] MEDS ORDERED: OXYC1TAB12 PO (09:05)
== END 2018-11-10 05:20 | disposition home or self-care (01) ==
LOC: EDUNIT# 03:00 → ER 03:02
DX: D57.00 Hb-SS disease with crisis, unspecified (principal); F12.10 Cannabis abuse, uncomplicated; F14.10 Cocaine abuse, uncomplicated; F17.210 Nicotine dependence, cigarettes, uncomplicated; Z88.5 Allergy status to narcotic agent; Z90.81 Acquired absence of spleen; Z98.890 Other specified postprocedural states
CPT/HCPCS: 36415; 71046; 80053; 85025; 86141; 96361; 96374; 96376

== ENCOUNTER 2018-11-11 06:35 | Emergency (ER) | payer MEDICAID ==
[~2018-11-11] VITALS: Ht 167.6 cm; Wt 65.8 kg
[2018-11-11] MEDS ORDERED: NS IV 500 ML 500 ML IV ONE (06:50)
[2018-11-11] MEDS ORDERED: NS IV 1000 ML 1,000 ML IV SCH ×2 (06:50→08:31)
--- NOTE | 2018-11-11 06:55 | NUR ---
ASSUMED CARE OF PT. INTRODUCED SELF TO PT ET PT ON BED MOANING AT THIS TIME.
[2018-11-11] MEDS ORDERED: HYDROmorphone 2 MG/ML VIAL (DILAUDID) IV ONE (07:00)
--- NOTE | 2018-11-11 07:01 | ED General ---
General Chief Complaint: General Problems/Pain Stated Complaint: SICKLE CELL CRISIS Source of Information: Patient Exam Limitations: No Limitations History of Present Illness Date Seen by Provider: Nov 11, 2018 Time Seen by Provider: 06:35 Initial Comments Patient presents to ER from EMS from home with chief complaint of bilateral fla nk chest pain consistent with his history of sickle cell crisis in the past. He is not on hydroxyurea because he has not followed recently with Dr. Alvarado, oncology. His crisis started about 2-3 days ago and he came to the ER yesterday was given Dilaudid and fluids and felt better. He went home with Percocet like a lot of soda and said this morning woke up again with a lot of pain coming back so came back to the ER. He does not have an appointment with Dr. Alvarado yet. He did have one episode of nausea vomiting yesterday after taking the Percocet. He has had an occasional cough for the past 2-3 days is nonproductive. He denies any fevers or chills. He denies dysuria, diarrhea or constipation. He says he does not drink alcohol anymore but does still smoke about half pack cigarettes per day. He denies use of illicit drugs. No other significant medical history. Allergies and Home Medications Allergies Coded Allergies: morphine (Verified Adverse Reaction, Unknown, PT HAS TAKEN LORTAB & STADOL IN THE PAST, 04/24/18) Uncoded Allergies: SHELLFISH (Allergy, Unknown, 09/09/18) Home Medications Hydrocodone/Acetaminophen 1 Each Tablet, 1-2 EACH PO Q6H PRN for PAIN-MODERATE Prescribed by: CHINO FRANZ MD on 09/09/18 1507 Ondansetron 4 Mg Tab.rapdis, 4 MG PO Q6H PRN for NAUSEA/VOMITING Prescribed by: CHARY SANCHEZ on 11/11/18 0905 Oxycodone HCl/Acetaminophen 1 Each Tablet, 1 TAB PO Q4H PRN for PAIN-MODERATE Prescribed by: CHARY SANCHEZ on 11/11/18 0905 Patient Home Medication List Home Medication List Reviewed: Yes Review of Systems Review of Systems Constitutional: No chills, No diaphoresis EENTM: No ear pain, No eye pain Respiratory: cough; No phlegm, No short of breath, No stridor, No wheezing Cardiovascular: No chest pain, No edema Gastrointestinal: No abdominal pain, No constipation, No diarrhea; nausea, vomiting Genitourinary: No discharge, No dysuria Musculoskeletal: see HPI, back pain; No joint pain Skin: No pruritus, No rash Past Knyfuhm-Zlrobm-Ztnaop Hx Patient Social History Alcohol Use: Denies Use Number of Drinks Today: GG Alcohol Beverage of Choice: Whiskey Recreational Drug Use: Yes Drug of Choice: THC, COCAINE, ALSO ADMITTED TO METHAMPHETAMINES IN PAST. Smoking Status: Current Everyday Smoker Type Used: Cigarettes (one half pack per day) 2nd Hand Smoke Exposure: Yes Recent Hopitalizations: No Immunizations Up To Date Tetanus Booster (TDap): Unknown PED Vaccines UTD: No Seasonal Allergies Seasonal Allergies: No Past Medical History Surgeries: Yes (SPLENECTOMY) Gallbladder, Orthopedic Respiratory: No Currently Using CPAP: No Currently Using BIPAP: No Cardiac: No Neurological: No Reproductive Disorders: No Sexually Transmitted Disease: No HIV/AIDS: No Genitourinary: No Gastrointestinal: No Musculoskeletal: Yes (LEFT FOREARM INJURY AGE 5--S/P SURGERY; BIALTERAL ANKLE SURGERY INFANT) Fractures Endocrine: No HEENT: No Cancer: No Psychosocial: No Integumentary: No Blood Disorders: Yes (SICKLE CELL ANEMIA) Adverse Reaction/Blood Tranf: No Family Medical History Asthma G8 BROTHER Parkinson's disease Seizure disorder G8 BROTHER Asthma, Diabetes, Hypertension Physical Exam Vital Signs Vital Signs - First Documented 11/11/18 06:35 Temp 97.0 Pulse 93 Resp 22 B/P (MAP) 108/67 (81) Pulse Ox 94 O2 Delivery Room Air Capillary Refill : Height, Weight, BMI Height: 5'6.00" Weight: 145lbs. 2.0oz. 65.524243xq; 25.2 BMI Method:Stated General Appearance: WD/WN, Mild Distress Eyes: Bilateral Eye Normal Inspection, Bilateral Eye PERRL, Bilateral Eye EOMI HEENT: PERRL/EOMI, TMs Normal, Normal ENT Inspection, Pharynx Normal; No Moist Mucous Membranes Neck: Full Range of Motion, Normal Inspection Respiratory: Lungs Clear, Normal Breath Sounds, No Accessory Muscle Use, No Respiratory Distress Cardiovascular: Regular Rate, Rhythm, No Edema, Normal Peripheral Pulses Gastrointestinal: Normal Bowel Sounds, No Organomegaly, Soft; No Rebound; Tenderness (mild epigastric tenderness), Other (No splenomegaly or McBurney's point tenderness.) Back: Normal Inspection, No CVA Tenderness, Other (whole back especially on the left side is tender.) Extremity: Normal Capillary Refill, Normal Inspection, No Pedal Edema Neurologic/Psychiatric: Alert, Oriented x3, No Motor/Sensory Deficits, Normal Mood/Affect Skin: Normal Color, Warm/Dry, Other (scar on left forearm) Progress/Results/Core Measures Suspected Sepsis SIRS Temperature: Pulse: Respiratory Rate: Laboratory Tests 11/11/18 06:55: White Blood Count 11.3H Blood Pressure / Mean: Laboratory Tests 11/11/18 06:55: Creatinine 0.74, Platelet Count 207, Total Bilirubin 5.9H Results/Orders Lab Results Laboratory Tests Test 11/11/18 06:55 11/11/18 08:31 Range/Units White Blood Count 11.3 H 4.3-11.0 10^3/uL Red Blood Count 2.35 L 4.35-5.85 10^6/uL Hemoglobin 7.4 L 13.3-17.7 G/DL Hematocrit 21 L 40-54 % Mean Corpuscular Volume 89 80-99 FL Mean Corpuscular Hemoglobin 31 25-34 PG Mean Corpuscular Hemoglobin Concent 35 32-36 G/DL Red Cell Distribution Width 25.3 H 10.0-14.5 % Platelet Count 207 130-400 10^3/uL Mean Platelet Volume 11.2 H 7.4-10.4 FL Neutrophils (%) (Auto) 59 42-75 % Lymphocytes (%) (Auto) 24 12-44 % Monocytes (%) (Auto) 12 0-12 % Eosinophils (%) (Auto) 4 0-10 % Basophils (%) (Auto) 1 0-10 % Neutrophils # (Auto) 6.7 1.8-7.8 X 10^3 Lymphocytes # (Auto) 2.7 1.0-4.0 X 10^3 Monocytes # (Auto) 1.3 H 0.0-1.0 X 10^3 Eosinophils # (Auto) 0.4 H 0.0-0.3 10^3/uL Basophils # (Auto) 0.1 0.0-0.1 10^3/uL Sodium Level 139 135-145 MMOL/L Potassium Level 3.8 3.6-5.0 MMOL/L Chloride Level 109 H 98-107 MMOL/L Carbon Dioxide Level 23 21-32 MMOL/L Anion Gap 7 5-14 MMOL/L Blood Urea Nitrogen 7 7-18 MG/DL Creatinine 0.74 0.60-1.30 MG/DL Estimat Glomerular Filtration Rate > 60 BUN/Creatinine Ratio 9 Glucose Level 99 70-105 MG/DL Calcium Level 8.8 8.5-10.1 MG/DL Corrected Calcium 8.9 8.5-10.1 MG/DL Magnesium Level 2.0 1.8-2.4 MG/DL Total Bilirubin 5.9 H 0.1-1.0 MG/DL Aspartate Amino Transf (AST/SGOT) 43 H 5-34 U/L Alanine Aminotransferase (ALT/SGPT) 12 0-55 U/L Alkaline Phosphatase 61 40-136 U/L Total Protein 6.8 6.4-8.2 GM/DL Albumin 3.9 3.2-4.5 GM/DL Urine Color PAPITO H Urine Clarity CLEAR Urine pH 5 5-9 Urine Specific [place] 1.010 L 1.016-1.022 Urine Protein 1+ H NEGATIVE Urine Glucose (UA) NEGATIVE NEGATIVE Urine Ketones NEGATIVE NEGATIVE Urine Nitrite NEGATIVE NEGATIVE Urine Bilirubin NEGATIVE NEGATIVE Urine Urobilinogen NORMAL NORMAL MG/DL Urine Leukocyte Esterase 1+ H NEGATIVE Urine RBC (Auto) 2+ H NEGATIVE Urine RBC RARE /HPF Urine WBC 2-5 /HPF Urine Squamous Epithelial Cells 0-2 /HPF Urine Crystals NONE /LPF Urine Bacteria NEGATIVE /HPF Urine Casts NONE /LPF Urine Mucus NEGATIVE /LPF Urine Culture Indicated NO Urine Opiates Screen POSITIVE H NEGATIVE Urine Oxycodone Screen POSITIVE H NEGATIVE Urine Methadone Screen NEGATIVE NEGATIVE Urine Propoxyphene Screen NEGATIVE NEGATIVE Urine Barbiturates Screen NEGATIVE NEGATIVE Ur Tricyclic Antidepressants Screen NEGATIVE NEGATIVE Urine Phencyclidine Screen NEGATIVE NEGATIVE Urine Amphetamines Screen POSITIVE H NEGATIVE Urine Methamphetamines Screen POSITIVE H NEGATIVE Urine Benzodiazepines Screen NEGATIVE NEGATIVE Urine Cocaine Screen NEGATIVE NEGATIVE Urine Cannabinoids Screen NEGATIVE NEGATIVE My Orders Orders - CHARY SANCHEZ Ed Iv/Invasive Line Start (11/11/18 06:50) Ns Iv 500 Ml (Sodium Chloride 0.9%) (11/11/18 06:50) Ns Iv 1000 Ml (Sodium Chloride 0.9%) (11/11/18 06:50) Cbc With Automated Diff (11/11/18 06:50) Comprehensive Metabolic Panel (11/11/18 06:50) Drug Screen Stat (Urine) (11/11/18 06:50) Magnesium (11/11/18 06:50) Ua Culture If Indicated (11/11/18 06:50) Chest 1 View, Ap/Pa Only (11/11/18 06:50) Hydromorphone Injection (Dilaudid Inject (11/11/18 07:00) Ed Iv/Invasive Line Start (11/11/18 08:31) Ns Iv 1000 Ml (Sodium Chloride 0.9%) (11/11/18 08:31) Ketorolac Injection (Toradol Injection) (11/11/18 08:45) Oxycodone/Acet 10/325mg Tablet (Percocet (11/11/18 09:00) General/Regular (11/11/18 Breakfast) Medications Given in ED Current Medications Medications Dose Ordered Sig/Arlene Route Start Time Stop Time Status Last Admin Dose Admin Hydromorphone HCl 1 mg ONCE ONCE IV 11/11/18 07:00 11/11/18 07:01 DC 11/11/18 07:01 1 MG Ketorolac Tromethamine 30 mg ONCE ONCE IVP 11/11/18 08:45 11/11/18 08:46 DC 11/11/18 08:39 30 MG Oxycodone/ Acetaminophen 1 tab ONCE ONCE PO 11/11/18 09:00 11/11/18 09:02 DC 11/11/18 10:07 7 TAB Sodium Chloride 500 ml @ 0 mls/hr Q0M ONCE IV 11/11/18 06:50 11/11/18 06:55 DC 11/11/18 07:01 0 MLS/HR Vital Signs/I&O 11/11/18 11/11/18 06:35 10:10 Temp 97.0 Pulse 93 71 Resp 22 16 B/P (MAP) 108/67 (81) 109/68 (82) Pulse Ox 94 98 O2 Delivery Room Air Room Air Capillary Refill : Progress Note : Time: 07:03 Progress Note 1500 cc of the over 20 mL/kg. A milligram of Dilaudid. Check some labs chest x- ray and urinalysis looking for sources of a trigger such as infection. He has a nonproductive cough but afebrile. We have counseled him on appropriate fluid intake avoiding soda and getting back to see Dr. Alvarado and getting started on his medications again. He has agreed that this is a goal of his. We'll provide him with some nausea medicine at home. Diagnostic Imaging Diagonstic Imaging: Xray Plain Films/CT/US/NM/MRI: chest (1v) Comments NAME: SAROJ LINDER [facility] REC#: [id number] PT STATUS: REG ER : 1985 PHYSICIAN: CHARY SANCHEZ MD ADMIT DATE: 11/11/18/ER Draft Date of Exam:11/11/18 CHEST 1 VIEW, AP/PA ONLY PATIENT HISTORY: Sickle cell. Bilateral flank pain. Low back pain. Chest pain. TECHNIQUE: Frontal view of the chest. COMPARISON: 11/10/2018 and priors. FINDINGS: There is stable mild cardiomegaly. There is diffuse interstitial opacity throughout the lungs bilaterally which appears chronic. No new consolidation is seen. There is no pleural effusion or pneumothorax. IMPRESSION: 1. Chronic interstitial opacities appear stable. No new consolidation is seen. 2. Stable cardiomegaly. Dictated on workstation # [id number] Dict: 11/11/18 0716 Trans: 11/11/18 0718 [id number] Interpreted by: PARISA PATEL MD Electronically signed by: Reviewed: Reviewed by Me Departure Impression Primary Impression: Sickle cell anemia with pain Disposition: 01 HOME, SELF-CARE Condition: Improved Departure-Patient Inst. Decision time for Depature: 09:00 Referrals: NO,LOCAL PHYSICIAN (PCP/Family) Primary Care Physician Patient Instructions: Sickle Cell Disease (DC) Add. Discharge Instructions: Please discontinue the use of caffeine, methamphetamine and other similar stimulants. These will increase your rate of dehydration and worsen your sickle cell pain symptoms. Drink lots of fluids such as water. Use the Percocet 1 tablet every 4-6 hours as needed to control your symptoms. Call Dr. Alvarado's office today and get and appointment scheduled to restart your medicines. If you have nausea use one tablet of Zofran every 6 hours as needed to prevent vomiting. All discharge instructions reviewed with patient and/or family. Voiced understanding. Scripts Ondansetron (Ondansetron Odt) 4 Mg Tab.rapdis 4 MG PO Q6H PRN for NAUSEA/VOMITING, #8 TAB 0 Refills Prov: CHARY SANCHEZ 11/11/18 Oxycodone HCl/Acetaminophen (Percocet 10-325 mg Tablet) 1 Each Tablet 1 TAB PO Q4H PRN for PAIN-MODERATE MDD 3 TABS for 4 Days, #24 TAB 0 Refills Prov: CHARY SANCHEZ 11/11/18 CHARY SANCHEZ Nov 11, 2018 07:01
--- NOTE | 2018-11-11 07:19 | Diagnostic Imaging Report ---
PATIENT HISTORY: Sickle cell. Bilateral flank pain. Low back pain. Chest pain. TECHNIQUE: Frontal view of the chest. COMPARISON: 11/10/2018 and priors. FINDINGS: There is stable mild cardiomegaly. There is diffuse interstitial opacity throughout the lungs bilaterally which appears chronic. No new consolidation is seen. There is no pleural effusion or pneumothorax. IMPRESSION: 1. Chronic interstitial opacities appear stable. No new consolidation is seen. 2. Stable cardiomegaly. Dictated by: Dictated on workstation # [id number]
[2018-11-11 07:20] LABS: BASOPHILS # (AUTO) 0.1 10^3/uL (0.0-0.1); BASOPHILS % (AUTO) 1 % (0-10); EOSINOPHILS # (AUTO) 0.4 10^3/uL (0.0-0.3); EOSINOPHILS % (AUTO) 4 % (0-10); HEMATOCRIT 21 % (40-54); HEMOGLOBIN 7.4 G/DL (13.3-17.7); LYMPHOCYTES # (AUTO) 2.7 X 10^3 (1.0-4.0); LYMPHOCYTES % (AUTO) 24 % (12-44); MEAN CORPUSCULAR HEMOGLOBIN 31 PG (25-34); MEAN CORPUSCULAR HGB CONC 35 G/DL (32-36); MEAN CORPUSCULAR VOLUME 89 FL (80-99); MEAN PLATELET VOLUME 11.2 FL (7.4-10.4); MONOCYTES # (AUTO) 1.3 X 10^3 (0.0-1.0); MONOCYTES % (AUTO) 12 % (0-12); NEUTROPHILS # (AUTO) 6.7 X 10^3 (1.8-7.8); NEUTROPHILS % (AUTO) 59 % (42-75); PLATELET COUNT 207 10^3/uL (130-400); RED CELL DISTRIBUTION WIDTH 25.3 % (10.0-14.5); WHITE BLOOD COUNT 11.3 10^3/uL (4.3-11.0)
[2018-11-11 07:37] LABS: ALANINE AMINOTRANSFERASE 12 U/L (0-55); ALBUMIN 3.9 GM/DL (3.2-4.5); ALKALINE PHOSPHATASE 61 U/L (40-136); BILIRUBIN,TOTAL 5.9 MG/DL (0.1-1.0); BUN/CREATININE RATIO 9; CALCIUM 8.8 MG/DL (8.5-10.1); CARBON DIOXIDE 23 MMOL/L (21-32); CHLORIDE 109 MMOL/L (98-107); CREATININE SERUM 0.74 MG/DL (0.60-1.30); GFR ESTIMATED > 60; GLUCOSE 99 MG/DL (70-105); POTASSIUM 3.8 MMOL/L (3.6-5.0); SODIUM 139 MMOL/L (135-145); TOTAL PROTEIN 6.8 GM/DL (6.4-8.2)
--- NOTE | 2018-11-11 07:57 | NUR ---
PT SLEEPING AT THIS TIME.
--- NOTE | 2018-11-11 08:07 | NUR ---
AFTER BEING WOKE UP BY REGISTRATION PT REQUESTS PAIN MEDS. DR NOTIFIED WHO STATES HE WILL SEND HIM HOME WITH PAIN MEDS AFTER HIS FLUIDS ARE DONE AND A URINE SAMPLE IS GIVEN. PT NOTIFIED.
--- NOTE | 2018-11-11 08:21 | NUR ---
ATTEMPTING TO URINIATE AT THIS TIME.
[2018-11-11 08:41] LABS: BILIRUBIN,URINE NEGATIVE (NEGATIVE); CLARITY,URINE CLEAR; COLOR,URINE AMBER; GLUCOSE, URINE (UA) NEGATIVE (NEGATIVE); KETONES,URINE NEGATIVE (NEGATIVE); LEUKOCYTE ESTERASE ,URINE 1+ (NEGATIVE); NITRITE,URINE NEGATIVE (NEGATIVE); PH,URINE 5 (5-9); PROTEIN,URINE 1+ (NEGATIVE); UROBILINOGEN,URINE NORMAL (NORMAL)
[2018-11-11] MEDS ORDERED: KETOROLAC 30 MG/ML VIAL IVP ONE (08:45)
[2018-11-11 08:53] LABS: BACTERIA,URINE NEGATIVE /HPF; RBC,URINE RARE /HPF; SQUAMOUS EPITHELIAL CELL,UR 0-2 /HPF
[2018-11-11 08:54] LABS: BENZODIAZEPINES SCREEN URINE NEGATIVE (NEGATIVE); COCAINE SCREEN URINE NEGATIVE (NEGATIVE)
[2018-11-11 08:55] LABS: AMPHETAMINE SCREEN, URINE POSITIVE (NEGATIVE); BARBITURATE SCREEN URINE NEGATIVE (NEGATIVE); CANNABINOID SCREEN, URINE NEGATIVE (NEGATIVE); METHADONE STAT NEGATIVE (NEGATIVE); METHAMPHETAMINE SCREEN URINE S POSITIVE (NEGATIVE); OPIATE SCREEN URINE POSITIVE (NEGATIVE); OXYCODONE STAT POSITIVE (NEGATIVE); PROPOXYPHENE STAT NEGATIVE (NEGATIVE); TRICYCLIC ANTIDEPRESSANTS SCRE NEGATIVE (NEGATIVE)
[2018-11-11] MEDS ORDERED: oxyCODONE/APAP 10/325MG (PERCOCET 10) TABLET PO ONE (09:00)
[2018-11-11] MEDS ORDERED: ONDA4TAB11 PO (09:05)
[2018-11-11] MEDS ORDERED: OXYC1TAB12 PO (09:05)
--- NOTE | 2018-11-11 09:09 | NUR ---
Breakfast ordered for pt.
--- NOTE | 2018-11-11 09:58 | NUR ---
PHARMACY CONTACTED FOR PAIN MED THAT IS NOT IN THE OMNICELL. PT REQUEST ANOTHER CAB VOUCHER LIKE HE HAD YESTERDAY. NOTIFIED HIM THAT WE COULD NOT PROVIDE A VOUCHER EVERYTIME HE CAME AND I WOULD HAVE TO HAVE IT APPROVED.
[2018-11-11 10:10] VITALS: BP 109/68
== END 2018-11-11 10:10 | disposition home or self-care (01) ==
LOC: EDUNIT# 06:47 → ER 06:49
DX: D57.00 Hb-SS disease with crisis, unspecified (principal); F12.10 Cannabis abuse, uncomplicated; F14.10 Cocaine abuse, uncomplicated; F17.210 Nicotine dependence, cigarettes, uncomplicated; Z88.5 Allergy status to narcotic agent; Z90.81 Acquired absence of spleen; Z98.890 Other specified postprocedural states; Z82.49 Family history of ischemic heart disease and other diseases of the circulatory system
CPT/HCPCS: 36415; 71045; 80053; 80306; 81000; 83735; 85025

== ENCOUNTER 2018-11-14 17:03 | Inpatient (IN) | payer MEDICAID ==
[~2018-11-14] VITALS: Ht 167.6 cm; Wt 73.5 kg
[~2018-11-14 17:03] MED LIST changes: +ONDA4TAB11 PO; +OXYC1TAB12 PO
--- NOTE | 2018-11-14 17:09 | ED General ---
General Chief Complaint: General Problems/Pain Stated Complaint: PAIN Source of Information: Patient Exam Limitations: No Limitations History of Present Illness Date Seen by Provider: Nov 14, 2018 Time Seen by Provider: 17:07 Initial Comments To ER per EMS with reports of severe low back pain that began a few days ago. He ran out of his Percocet a few days ago (but records show he was just here on 11/11/18 prescribed a four-day supply then and it hasn't even been 4 days since that was filled).. He has sickle cell disease resulting in frequent pain episodes. He does not manage this by taking the prescribed hydroxyurea, he states "it's been a little while" since he had his last dose of hydroxyurea. Records show he hasn't filled that since April. No fevers no cough no shortness of breath no chills. Timing/Duration: 2-3 Days Severity: Moderate Associated Systoms: No Chest Pain, No Fever/Chills, No Shortness of Air Allergies and Home Medications Allergies Coded Allergies: morphine (Verified Adverse Reaction, Unknown, PT HAS TAKEN LORTAB & STADOL IN THE PAST, 04/24/18) Uncoded Allergies: SHELLFISH (Allergy, Unknown, 09/09/18) Home Medications Hydrocodone/Acetaminophen 1 Each Tablet, 1-2 EACH PO Q6H PRN for PAIN-MODERATE Prescribed by: CHINO FRANZ MD on 09/09/18 1507 Ondansetron 4 Mg Tab.rapdis, 4 MG PO Q6H PRN for NAUSEA/VOMITING Prescribed by: CHARY SANCHEZ on 11/11/18 0905 Oxycodone HCl/Acetaminophen 1 Each Tablet, 1 TAB PO Q4H PRN for PAIN-MODERATE Prescribed by: CHARY SANCHEZ on 11/11/18 0905 Patient Home Medication List Home Medication List Reviewed: Yes Review of Systems Review of Systems Constitutional: see HPI; No chills, No fever EENTM: see HPI Respiratory: no symptoms reported Cardiovascular: no symptoms reported Genitourinary: no symptoms reported Musculoskeletal: see HPI, back pain Skin: no symptoms reported Psychiatric/Neurological: No Symptoms Reported Hematologic/Lymphatic: No Symptoms Reported Past Qlxhqzb-Efymwu-Csknky Hx Patient Social History Alcohol Beverage of Choice: Whiskey Drug of Choice: THC, COCAINE, ALSO ADMITTED TO METHAMPHETAMINES IN PAST. Type Used: Cigarettes 2nd Hand Smoke Exposure: Yes Recent Hopitalizations: No Immunizations Up To Date Tetanus Booster (TDap): Unknown PED Vaccines UTD: No Seasonal Allergies Seasonal Allergies: No Past Medical History Surgeries: Yes (SPLENECTOMY) Gallbladder, Orthopedic Respiratory: No Currently Using CPAP: No Currently Using BIPAP: No Cardiac: No Neurological: No Reproductive Disorders: No Sexually Transmitted Disease: No HIV/AIDS: No Genitourinary: No Gastrointestinal: No Musculoskeletal: Yes (LEFT FOREARM INJURY AGE 5--S/P SURGERY; BIALTERAL ANKLE SURGERY INFANT) Fractures Endocrine: No HEENT: No Cancer: No Psychosocial: No Integumentary: No Blood Disorders: Yes (SICKLE CELL ANEMIA) Adverse Reaction/Blood Tranf: No Family Medical History Asthma G8 BROTHER Parkinson's disease Seizure disorder G8 BROTHER Asthma, Diabetes, Hypertension Physical Exam Vital Signs Vital Signs - First Documented 11/14/18 17:07 Temp 98.9 Pulse 106 Resp 24 B/P (MAP) 114/69 (84) Pulse Ox 97 Capillary Refill : Height, Weight, BMI Height: 5'6.00" Weight: 145lbs. 2.0oz. 65.203493yl; 25.2 BMI Method:Stated General Appearance: No Apparent Distress, WD/WN Eyes: Bilateral Eye Normal Inspection, Bilateral Eye PERRL, Bilateral Eye EOMI HEENT: PERRL/EOMI, TMs Normal Respiratory: No Accessory Muscle Use, No Respiratory Distress Gastrointestinal: Normal Bowel Sounds, Non Tender, Soft Back: Normal Inspection Extremity: Normal Capillary Refill, Normal Inspection Neurologic/Psychiatric: Alert, Oriented x3 Skin: Normal Color, Warm/Dry Progress/Results/Core Measures Suspected Sepsis SIRS Temperature: Pulse: Respiratory Rate: Laboratory Tests 11/14/18 17:21: White Blood Count 9.5 Blood Pressure / Mean: Laboratory Tests 11/14/18 17:21: Creatinine 0.83, Platelet Count 192, Total Bilirubin 4.9H Results/Orders Lab Results Laboratory Tests Test 11/14/18 17:21 Range/Units White Blood Count 9.5 4.3-11.0 10^3/uL Red Blood Count 2.27 L 4.35-5.85 10^6/uL Hemoglobin 7.0 L 13.3-17.7 G/DL Hematocrit 20 *L 40-54 % Mean Corpuscular Volume 88 80-99 FL Mean Corpuscular Hemoglobin 31 25-34 PG Mean Corpuscular Hemoglobin Concent 36 32-36 G/DL Red Cell Distribution Width 23.4 H 10.0-14.5 % Platelet Count 192 130-400 10^3/uL Mean Platelet Volume 11.1 H 7.4-10.4 FL Neutrophils (%) (Auto) 62 42-75 % Lymphocytes (%) (Auto) 21 12-44 % Monocytes (%) (Auto) 14 H 0-12 % Eosinophils (%) (Auto) 2 0-10 % Basophils (%) (Auto) 1 0-10 % Neutrophils # (Auto) 6.2 1.8-7.8 X 10^3 Lymphocytes # (Auto) 2.1 1.0-4.0 X 10^3 Monocytes # (Auto) 1.4 H 0.0-1.0 X 10^3 Eosinophils # (Auto) 0.2 0.0-0.3 10^3/uL Basophils # (Auto) 0.1 0.0-0.1 10^3/uL Absolute Reticulocyte Count 393 H 24-90 10e9/L Percent Reticulocyte Count 17.33 H 0.50-2.40 % Sodium Level 141 135-145 MMOL/L Potassium Level 3.7 3.6-5.0 MMOL/L Chloride Level 106 98-107 MMOL/L Carbon Dioxide Level 24 21-32 MMOL/L Anion Gap 11 5-14 MMOL/L Blood Urea Nitrogen 8 7-18 MG/DL Creatinine 0.83 0.60-1.30 MG/DL Estimat Glomerular Filtration Rate > 60 BUN/Creatinine Ratio 10 Glucose Level 89 70-105 MG/DL Calcium Level 9.1 8.5-10.1 MG/DL Corrected Calcium 9.1 8.5-10.1 MG/DL Total Bilirubin 4.9 H 0.1-1.0 MG/DL Aspartate Amino Transf (AST/SGOT) 37 H 5-34 U/L Alanine Aminotransferase (ALT/SGPT) 19 0-55 U/L Alkaline Phosphatase 64 40-136 U/L Total Protein 7.5 6.4-8.2 GM/DL Albumin 4.0 3.2-4.5 GM/DL My Orders Orders - CECIL CORMIER DRUPAL PHP DEVELOPER Cbc With Automated Diff (11/14/18 17:05) Comprehensive Metabolic Panel (11/14/18 17:05) Ua Culture If Indicated (11/14/18 17:05) Lactated Ringers (Lr 1000 Ml Iv Solution (11/14/18 17:15) Hydromorphone Injection (Dilaudid Inject (11/14/18 17:15) Ketamine Injection (Ketalar Injection) (11/14/18 17:45) Lactated Ringers (Lr 1000 Ml Iv Solution (11/14/18 17:45) Reticulocyte Count (11/14/18 18:03) Red Cells Leukocytes Reduced (11/14/18 18:03) Type And Screen (11/14/18 18:03) Ns (Ivpb) (Sodium Chloride 0.9% Ivpb Bag (11/14/18 18:09) Hydromorphone Injection (Dilaudid Inject (11/14/18 19:00) Ketorolac Injection (Toradol Injection) (11/14/18 19:15) Hydromorphone Injection (Dilaudid Inject (11/14/18 19:15) Medications Given in ED Current Medications Medications Dose Ordered Sig/Arlene Route Start Time Stop Time Status Last Admin Dose Admin Hydromorphone HCl 1 mg ONCE ONCE IV 11/14/18 17:15 11/14/18 17:16 DC 11/14/18 17:30 1 MG Ketamine HCl 10 mg ONCE ONCE IV 11/14/18 17:45 11/14/18 17:46 DC 11/14/18 18:20 10 MG Vital Signs/I&O 11/14/18 17:07 Temp 98.9 Pulse 106 Resp 24 B/P (MAP) 114/69 (84) Pulse Ox 97 Capillary Refill : Departure Communication (Admissions) Time/Spoke to Admitting Phy: 18:[address] Noland who agrees to admit. We'll consult hematology. I also spoke with Dr. Gallegos since Dr. Alvarado is out of town until Wednesday. Dr. Gallegos recommends oxygen supplemental, 2 unit red blood cell transfusion tonight and IV fluids and pain control. Dr. Alvarado can consult on Wednesday when he returns. At t his time patient has received 1 mg of Dilaudid and 10 mg of IV ketamine, his pain is well controlled. He has received 2 L of IV fluids in the emergency room. 1932-sleeping at this time Impression Primary Impression: Vaso-occlusive pain due to sickle cell disease Additional Impression: Noncompliance Disposition: 09 ADMITTED INPATIENT Condition: Stable Admissions Decision to Admit Reason: Admit from ER (General) Decision to Admit/Date: Nov 14, 2018 Time/Decision to Admit Time: 18:11 Departure-Patient Inst. Referrals: NO,LOCAL PHYSICIAN (PCP/Family) Primary Care Physician CECIL CORMIER APRN Nov 14, 2018 17:09
[2018-11-14] MEDS ORDERED: HYDROmorphone 2 MG/ML VIAL (DILAUDID) IV ONE ×3 (17:15→19:15)
[2018-11-14 17:27] LABS: BASOPHILS # (AUTO) 0.1 10^3/uL (0.0-0.1); BASOPHILS % (AUTO) 1 % (0-10); EOSINOPHILS # (AUTO) 0.2 10^3/uL (0.0-0.3); EOSINOPHILS % (AUTO) 2 % (0-10); LYMPHOCYTES # (AUTO) 2.1 X 10^3 (1.0-4.0); LYMPHOCYTES % (AUTO) 21 % (12-44); MEAN CORPUSCULAR HEMOGLOBIN 31 PG (25-34); MEAN CORPUSCULAR HGB CONC 36 G/DL (32-36); MEAN CORPUSCULAR VOLUME 88 FL (80-99); MEAN PLATELET VOLUME 11.1 FL (7.4-10.4); MONOCYTES # (AUTO) 1.4 X 10^3 (0.0-1.0); MONOCYTES % (AUTO) 14 % (0-12); NEUTROPHILS # (AUTO) 6.2 X 10^3 (1.8-7.8); NEUTROPHILS % (AUTO) 62 % (42-75); PLATELET COUNT 192 10^3/uL (130-400); RED CELL DISTRIBUTION WIDTH 23.4 % (10.0-14.5)
[2018-11-14 17:30] LABS: HEMATOCRIT 20 % (40-54)
[2018-11-14] MEDS: LACTATED RINGERS 1,000 ML IV SCH ×2 (17:30→18:57)
[2018-11-14] MEDS ORDERED: KETAMINE HCL 100 MG/ML 5 ML VIAL IV ONE (17:45)
[2018-11-14] MEDS ORDERED: LACTATED RINGERS 1,000 ML IV SCH (17:45)
[2018-11-14 17:54] LABS: ALANINE AMINOTRANSFERASE 19 U/L (0-55); ALKALINE PHOSPHATASE 64 U/L (40-136); BILIRUBIN,TOTAL 4.9 MG/DL (0.1-1.0); BUN/CREATININE RATIO 10; CALCIUM 9.1 MG/DL (8.5-10.1); CARBON DIOXIDE 24 MMOL/L (21-32); CHLORIDE 106 MMOL/L (98-107); CREATININE SERUM 0.83 MG/DL (0.60-1.30); GFR ESTIMATED > 60; GLUCOSE 89 MG/DL (70-105); POTASSIUM 3.7 MMOL/L (3.6-5.0); SODIUM 141 MMOL/L (135-145); TOTAL PROTEIN 7.5 GM/DL (6.4-8.2)
[2018-11-14] MEDS ORDERED: NS (IVPB) 100 ML ONE (18:09)
[2018-11-14 18:26] LABS: WHITE BLOOD COUNT 9.5 10^3/uL (4.3-11.0)
[2018-11-14 18:34] LABS: RETICULOCYTE % 17.33 % (0.50-2.40)
[2018-11-14] MEDS ORDERED: KETOROLAC 30 MG/ML VIAL IVP ONE (19:15)
--- NOTE | 2018-11-14 19:25 | NUR ---
PT RESTING IN ROOM WITH EYES CLSOED AT THIS TIME, APPEARS TO BE SLEEPING. PULSE OX REPLACED ON PT R INDEX FINGER. PT EYES REMAIN CLOSED AND RESPIRATIONS APPEAR RELAXED.
[2018-11-14 19:45] VITALS: BP 100/53
[2018-11-14] MEDS ORDERED: ONDANSETRON 4 MG/2 ML (SDV) Z0FRAN IV PRN (20:00)
[2018-11-14] MEDS ORDERED: NS IV 500 ML 500 ML IV SCH (20:00)
[2018-11-14] MEDS ORDERED: CATHETER FLUSH 10 ML SYR IV PRN (20:00)
[2018-11-14] MEDS ORDERED: HYDROmorphone 2 MG/ML VIAL (DILAUDID) IV PRN (20:00)
[2018-11-14 20:23] VITALS: BP 124/74
[2018-11-14 20:41] VITALS: BP 127/75
--- NOTE | 2018-11-14 20:56 | NUR ---
THIS RN CALLED DR. HARTMANN IN REGARDS TO THE PT CRYING OUT IN PAIN RATING THE PAIN AT AN 8 ON A NUMERIC SCALE. ORDERS RECEIVED TO GIVE 1 MG DILADID IV PRN Q3H AND CHANGE PRN DILADID FROM PRN Q3H Addendum: 11/15/18 at 0123 by ROMERO GARCIA RN THIS RN CALLED DR. HARTMANN IN REGARDS TO THE PT CRYING OUT IN PAIN RATING THE PAIN AT AN 8 ON A NUMERIC SCALE. ORDERS RECEIVED TO GIVE 1 MG DILAUDID IV PRN Q3H AND CHANGE PRN DILAUDID FROM PRN Q3H TO PRN Q2H. ORDERS READ BACK AND VERIFIED.
[2018-11-14] MEDS: ENOXAPARIN 40 MG/0.4 ML (LOVENOX) SYR SC SCH (21:03)
[2018-11-14] MEDS: HYDROmorphone 2 MG/ML VIAL (DILAUDID) IV PRN ×2 (21:03→23:05)
[2018-11-14 22:59] VITALS: BP 124/62
[2018-11-14 23:24] VITALS: BP 121/63
[2018-11-14 23:42] VITALS: BP 108/62
[2018-11-15] MEDS: HYDROmorphone 2 MG/ML VIAL (DILAUDID) IV PRN ×8 (01:35→21:30)
[2018-11-15 01:58] VITALS: BP 109/64
[2018-11-15] MEDS: LACTATED RINGERS 1,000 ML IV SCH ×3 (02:03→18:38)
[2018-11-15 04:46] VITALS: BP 100/57
[2018-11-15 06:04] LABS: ABSOLUTE RETIC # 467 10e9/L (24-90); BASOPHILS % (AUTO) 0 % (0-10); EOSINOPHILS # (AUTO) 0.3 10^3/uL (0.0-0.3); EOSINOPHILS % (AUTO) 3 % (0-10); HEMATOCRIT 23 % (40-54); LYMPHOCYTES # (AUTO) 2.6 X 10^3 (1.0-4.0); LYMPHOCYTES % (AUTO) 26 % (12-44); MEAN CORPUSCULAR HEMOGLOBIN 31 PG (25-34); MEAN CORPUSCULAR HGB CONC 35 G/DL (32-36); MEAN CORPUSCULAR VOLUME 89 FL (80-99); MEAN PLATELET VOLUME 11.9 FL (7.4-10.4); MONOCYTES # (AUTO) 1.8 X 10^3 (0.0-1.0); MONOCYTES % (AUTO) 18 % (0-12); NEUTROPHILS # (AUTO) 5.3 X 10^3 (1.8-7.8); NEUTROPHILS % (AUTO) 53 % (42-75); PLATELET COUNT 189 10^3/uL (130-400); RED CELL DISTRIBUTION WIDTH 20.7 % (10.0-14.5); RETICULOCYTE % 17.84 % (0.50-2.40)
[2018-11-15 06:27] LABS: ALANINE AMINOTRANSFERASE 16 U/L (0-55); ALBUMIN 3.6 GM/DL (3.2-4.5); ALKALINE PHOSPHATASE 65 U/L (40-136); BILIRUBIN,TOTAL 3.4 MG/DL (0.1-1.0); BUN/CREATININE RATIO 13; CARBON DIOXIDE 24 MMOL/L (21-32); CHLORIDE 106 MMOL/L (98-107); CREATININE SERUM 0.72 MG/DL (0.60-1.30); GFR ESTIMATED > 60; GLUCOSE 95 MG/DL (70-105); POTASSIUM 3.8 MMOL/L (3.6-5.0); SODIUM 139 MMOL/L (135-145); TOTAL PROTEIN 6.8 GM/DL (6.4-8.2)
[2018-11-15 08:00] VITALS: BP 114/71
--- NOTE | 2018-11-15 09:08 | History & Physical-Hospitalist ---
History of Present Illness HPI/Chief Complaint Pt is a 33yoAAM well known to me from previous admissions who presented with back pain consistent with previous sickle cell crisis. His symptoms started a few days ago and he was seen in the ER at that time. His pain has continued to worsen. He has not been taking his hydroxyurea but states he has an appointment coming up with Dr Alvarado. He continues to smoke as well. He complains of severe pain at this time and history is somewhat limited by this. Source: patient Date Seen 11/15/18 Time Seen by a Provider: 09:03 Attending Physician Fantasma Mcfadden MD PCP No,Local Physician Referring Physician Date of Admission Nov 14, 2018 at 18:11 Home Medications & Allergies Home Medications Reviewed patient Home Medication Reconciliation performed by pharmacy medication reconciliations senior controls technician and/or nursing. Patients Allergies have been reviewed. Allergies Allergies Coded Allergies morphine (Verified Adverse Reaction, Unknown, PT HAS TAKEN LORTAB & STADOL IN THE PAST, 04/24/18) Uncoded Allergies SHELLFISH ( Allergy, Unknown, 09/09/18) Past Gsfnjrl-Tunirz-Vvidyz Hx Past Med/Social Hx: Reviewed Nursing Past Med/Soc Hx Patient Social History Alcohol Use: Denies Use Number of Drinks Today: GG Alcohol Beverage of Choice: Whiskey Recreational Drug Use: Yes Drug of Choice: THC, COCAINE, ALSO ADMITTED TO METHAMPHETAMINES IN PAST. Smoking Status: Current Someday Smoker Type Used: Cigarettes 2nd Hand Smoke Exposure: Yes Recent Foreign Travel: No Contact w/other who traveled: No Recent Hopitalizations: No Recent Infectious Disease Expo: No Immunizations Up To Date Tetanus Booster (TDap): Unknown Pediatric: No Seasonal Allergies Seasonal Allergies: No Past Medical History Surgeries: Gallbladder, Orthopedic Respiratory: Asthma Currently Using CPAP: No Currently Using BIPAP: No Reproductive: No Sexually Transmitted Disease: No HIV/AIDS: No Musculoskeletal: Fractures History of Blood Disorders: Yes (SICKLE CELL ANEMIA) Adverse Reaction to Blood Akers: No Family History Asthma G8 BROTHER Parkinson's disease Seizure disorder G8 BROTHER Asthma, Diabetes, Hypertension Review of Systems Constitutional: no symptoms reported EENTM: no symptoms reported Respiratory: No short of breath Cardiovascular: No chest pain Gastrointestinal: no symptoms reported Genitourinary: no symptoms reported Musculoskeletal: back pain Skin: no symptoms reported Psychiatric/Neurological: No Symptoms Reported Physical Exam Physical Exam Vital Signs Vital Signs - First Documented 11/14/18 11/14/18 17:07 19:31 Temp 98.9 Pulse 106 Resp 24 B/P (MAP) 114/69 (84) Pulse Ox 97 O2 Delivery Nasal Cannula O2 Flow Rate 2.00 Capillary Refill : Less Than 3 Seconds Height, Weight, BMI Height: 5'6.00" Weight: 162lbs. 0.0oz. 73.852512en; 26.2 BMI Method:Stated General Appearance: WD/WN, Other (appears uncomfortable, laying in bed) HEENT: Moist Mucous Membranes; No Scleral Icterus (L), No Scleral Icterus (R) Neck: Normal Inspection, Supple Respiratory: Lungs Clear, No Accessory Muscle Use, No Respiratory Distress Cardiovascular: Regular Rate, Rhythm, No JVD, No Murmur Gastrointestinal: Normal Bowel Sounds, Non Tender, Soft Extremity: No Calf Tenderness, No Pedal Edema Neurologic/Psychiatric: Alert, Oriented x3, Normal Mood/Affect Skin: Normal Color, Warm/Dry Results Results/Procedures Labs Laboratory Tests 11/14/18 17:21 11/15/18 05:05 Patient resulted labs reviewed. Assessment/Plan Admission Diagnosis Sickle Cell Crisis Admission Status: Inpatient Order (span 2 midnights) Reason for Inpatient Admission: IV fluids, pain medicine Diagnosis/Problems Diagnosis/Problems (1) Sickle cell crisis Status: Acute Assessment & Plan: Continue IVF Retic count up further today Oxygen was off so I placed back on patient Continue Dilaudid for pain Heme consult, appreciate recs (2) Noncompliance Status: Chronic Assessment & Plan: Has been off hydroxyurea Chronic issue Will consult social work (3) Tobacco abuse Status: Chronic Assessment & Plan: Recommended smoking cessation Clinical Quality Measures DVT/VTE Risk/Contraindication: Risk Factor Score Per Nursin RFS Level Per Nursing on Admit: 1=Low/No VTE PPX FANTASMA MCFADDEN MD Nov 15, 2018 09:08
[2018-11-15] MEDS ORDERED: ONDA4TAB11 PO (09:19)
[2018-11-15] MEDS ORDERED: HYDR500C2 PO (09:19)
[2018-11-15] MEDS ORDERED: OXYC-465 PO (09:19)
[2018-11-15] MEDS ORDERED: FOLI0.4T2 PO (09:19)
--- NOTE | 2018-11-15 09:27 | NUR ---
SPOKE WITH THE PATIENT ABOUT HIS MEDICATIONS. HE LISTED WHAT HE IS TAKING AND I COMPARED IT WITH THE EXT MED HX. HE STATES HE TAKES FOLIC ACID OTC DAILY. HE ALSO REPORTS HE TAKES HYDROXYUREA DAILY HOWEVER [facility] IT HAS NOT BEEN FILLED SINCE 05-18-18 #30. I NOTED THE PAST DUE FILL DATE ON THE MED REC.
[2018-11-15 12:00] VITALS: BP 94/59
--- NOTE | 2018-11-15 14:02 | NUR ---
SAROJ LINDER admitted to room 412-1, with an admitting diagnosis of HEART FAILURE, on 11/14/18 from DIRECT ADMIT via W/C, accompanied by FAMILY.SAROJ LINDER introduced to surroundings, call light, bed controls, phone, TV, temperature control, lights, meal times, smoking policy, visitor policy, side rail policy, bathrooms and showers. Patient Rights given to patient in the handbook. SAROJ LINDER verbalizes understanding that [facility] is not responsible for the loss or damage to any personal effects or valuables that are kept in the patients posession during their hospitalization. The following Patient Care Plans were discussed with the PT: Discharge Planning,IM GAS EXCH, INEFF BREATHING PATTERN, FL VOL EXCESS, ACT INTOL, AND ANXIETY. SAROJ LINDER verbalizes understanding of Interdisciplinary Patient Education. Patient and/or family were informed about the Rapid Response Team and its purpose. Addendum: 11/15/18 at 1445 by DEBORAH COULTER RN ERROR WRONG CHART -- ABOVE ADMISSION NOTE DONE IN ERR
--- NOTE | 2018-11-15 14:17 | NUR ---
Received referral from Dr. Mcfadden to assist pt in dealing with sickle cell disease, history of non-compliance, and any other psych-social issues . Pt lives at [facility] in [place]. He reports that he lives alone and is without transportation although he does have Medicaid transportation available, Historically, he was admitted to our hospital 2 times in 2017, 3 admissions in 2018 and was last [facility] by Dr[facility]ado [facility]. He didn't keep follow-up appts. He was seen by our ER 5 times in 2018 with his last visit resulting in his admission as was seen by our ER and released November 09, , and . All of his admissions appear to be a result of sickle cell crisis. He does have Medicaid benefits which would provide his medication. During our interview,pt admitted that he didn't feel well and was not forth coming in providing information. He states that he is from [place] which is his home and unclear if he plans to remain in [place]. Will continue to follow and hopefully he will be open to providing more information for assistance. He does appear depressed and would like to arrange out-pt support.
[2018-11-15 16:00] VITALS: BP 116/68
[2018-11-15] MEDS ORDERED: CYCLOBENZAPRINE 10 MG (FLEXERIL) TAB PO PRN (17:00)
[2018-11-15] MEDS ORDERED: HYDROmorphone 2 MG/ML VIAL (DILAUDID) IV NR (19:00)
[2018-11-15] MEDS: LIDOCAINE 4% (SALONPAS) PATCH TOP SCH (19:19)
[2018-11-15] MEDS: ENOXAPARIN 40 MG/0.4 ML (LOVENOX) SYR SC SCH (20:16)
[2018-11-15 20:47] VITALS: BP 106/58
[2018-11-16] VITALS: BP 113/70
[2018-11-16] MEDS: HYDROmorphone 2 MG/ML VIAL (DILAUDID) IV PRN ×7 (01:19→22:38)
[2018-11-16] MEDS: LACTATED RINGERS 1,000 ML IV SCH ×3 (03:12→19:46)
[2018-11-16 03:28] VITALS: BP 107/63
[2018-11-16 06:28] LABS: ABSOLUTE RETIC # 388 10e9/L (24-90); BASOPHILS # (AUTO) 0.1 10^3/uL (0.0-0.1); BASOPHILS % (AUTO) 1 % (0-10); EOSINOPHILS # (AUTO) 0.3 10^3/uL (0.0-0.3); EOSINOPHILS % (AUTO) 3 % (0-10); HEMATOCRIT 24 % (40-54); HEMOGLOBIN 8.4 G/DL (13.3-17.7); LYMPHOCYTES # (AUTO) 1.8 X 10^3 (1.0-4.0); LYMPHOCYTES % (AUTO) 18 % (12-44); MEAN CORPUSCULAR HEMOGLOBIN 31 PG (25-34); MEAN CORPUSCULAR HGB CONC 35 G/DL (32-36); MEAN CORPUSCULAR VOLUME 88 FL (80-99); MEAN PLATELET VOLUME 11.8 FL (7.4-10.4); MONOCYTES # (AUTO) 1.7 X 10^3 (0.0-1.0); MONOCYTES % (AUTO) 17 % (0-12); NEUTROPHILS # (AUTO) 6.1 X 10^3 (1.8-7.8); NEUTROPHILS % (AUTO) 61 % (42-75); PLATELET COUNT 205 10^3/uL (130-400); RETICULOCYTE % 14.11 % (0.50-2.40); WHITE BLOOD COUNT 10.1 10^3/uL (4.3-11.0)
[2018-11-16] MEDS: LIDODERM PATCH REMOVAL TP SCH ×2 (06:40→22:40)
[2018-11-16 08:00] VITALS: BP 119/78
[2018-11-16] MEDS: LIDOCAINE 4% (SALONPAS) PATCH TOP SCH (08:50)
--- NOTE | 2018-11-16 12:13 | NUR ---
Unscheduled [employer] downtime from [id number].
--- NOTE | 2018-11-16 13:34 | Progress Note-Hospitalist ---
Subjective HPI/CC On Admission Date Seen by Provider: Nov 16, 2018 Time Seen by Provider: 13:30 Pt is a 33yoAAM well known to me from previous admissions who presented with back pain consistent with previous sickle cell crisis. His symptoms started a few days ago and he was seen in the ER at that time. His pain has continued to worsen. He has not been taking his hydroxyurea but states he has an appointment coming up with Dr Alvarado. He continues to smoke as well. He complains of severe pain at this time and history is somewhat limited by this. Subjective/Events-last exam Pt reports continued pain. Gets relief with current regimen but doesn't feel it lasts long enough. Objective Exam Vital Signs Vital Signs Date Time Temp Pulse Resp B/P (MAP) Pulse Ox O2 Delivery O2 Flow Rate FiO2 11/16/18 08:50 Nasal Cannula 2.00 11/16/18 08:00 98.2 86 16 119/78 (92) 94 Capillary Refill : Less Than 3 Seconds General Appearance: WD/WN, Other (appears uncomfortable, laying in bed) Respiratory: Lungs Clear, No Accessory Muscle Use, No Respiratory Distress Cardiovascular: Regular Rate, Rhythm, No JVD, No Murmur Gastrointestinal: Normal Bowel Sounds, Non Tender, Soft Extremity: No Calf Tenderness, No Pedal Edema Neurologic/Psychiatric: Alert, Oriented x3 Skin: Normal Color, Warm/Dry Results/Procedures Lab Laboratory Tests 11/16/18 05:43 Patient resulted labs reviewed. Assessment/Plan Assessment and Plan Assess & Plan/Chief Complaint sickle cell crisis Diagnosis/Problems Diagnosis/Problems (1) Sickle cell crisis Status: Acute Assessment & Plan: Continue IVF Retic count down today Hgb up Continue Dilaudid for pain, resume oral percocet Heme consult, appreciate recs (2) Noncompliance Status: Chronic Assessment & Plan: Has been off hydroxyurea Chronic issue Will consult social work (3) Tobacco abuse Status: Chronic Assessment & Plan: Recommended smoking cessation Clinical Quality Measures DVT/VTE Risk/Contraindication: Risk Factor Score Per Nursin RFS Level Per Nursing on Admit: 1=Low/No VTE PPX FANTASMA HARTMANN MD Nov 16, 2018 13:34
[2018-11-16] MEDS: FOLIC ACID 1 MG TAB PO SCH (13:43)
[2018-11-16] MEDS: oxyCODONE/APAP 10/325MG (PERCOCET 10) TABLET PO PRN (13:43)
[2018-11-16 16:00] VITALS: BP 118/71
--- NOTE | 2018-11-16 17:28 | Consultation ---
History of Present Illness History of Present Illness Patient Consulted On(amarilis/time) 11/16/18 17:20 Date Seen by Provider: Nov 16, 2018 Time Seen by Provider: 17:20 History of Present Illness Mr. Smith is a 33 yo male with sickle cell disease who is admitted with sickle cell pain crisis. He started to develop severe back pain that he cannot describe well last and it progressively worsened. He is admitted about 2-3 times a year for sickle cell crisis. He does not take hydroxyurea as recommended. He does not drink a lot of fluids and mainly drinks Satnam-Aid and sugar based soft drinks. He still smokes and has not cut back. Allergies and Home Medications Allergies Coded Allergies: morphine (Verified Adverse Reaction, Unknown, PT HAS TAKEN LORTAB & STADOL IN THE PAST, 04/24/18) Uncoded Allergies: SHELLFISH (Allergy, Unknown, 09/09/18) Home Medications Folic Acid 0.4 Mg Tablet, 0.4 MG PO DAILY, (Reported) Hydroxyurea 500 Mg Capsule, 500 MG PO DAILY, (Reported) LAST FILLED #30 05-18-18 Ondansetron 4 Mg Tab.rapdis, 4 MG PO Q6H PRN for NAUSEA/VOMITING-1ST LINE, (Reported) Oxycodone HCl/Acetaminophen 1 Each Tablet, 1 TAB PO Q4H PRN for PAIN-MODERATE, (Reported) Patient Home Medication List Home Medication List Reviewed: Yes Past Rtpndfb-Nxeosg-Qjntfe Hx Past Med/Social Hx: Reviewed Nursing Past Med/Soc Hx Patient Social History Alcohol Use: Denies Use Number of Drinks Today: GG Alcohol Beverage of Choice: Whiskey Recreational Drug Use: Yes Drug of Choice: THC, COCAINE, ALSO ADMITTED TO METHAMPHETAMINES IN PAST. Smoking Status: Current Someday Smoker Type Used: Cigarettes 2nd Hand Smoke Exposure: Yes Recent Foreign Travel: No Contact w/Someone Who Travel: No Recent Infectious Disease Expo: No Recent Hopitalizations: No Immunizations Up To Date Tetanus Booster (TDap): Unknown PED Vaccines UTD: No Seasonal Allergies Seasonal Allergies: No Past Medical History Surgeries: Yes (SPLENECTOMY) Gallbladder, Orthopedic Respiratory: No Currently Using CPAP: No Currently Using BIPAP: No Cardiac: No Neurological: No Reproductive Disorders: No Sexually Transmitted Disease: No HIV/AIDS: No Genitourinary: No Gastrointestinal: No Musculoskeletal: Yes (LEFT FOREARM INJURY AGE 5--S/P SURGERY; BIALTERAL ANKLE SURGERY ) Fractures Endocrine: No HEENT: No Cancer: No Psychosocial: No Integumentary: No Blood Disorders: Yes (SICKLE CELL ANEMIA) Adverse Reaction/Blood Tranf: No Family Medical History Asthma G8 BROTHER Parkinson's disease Seizure disorder G8 BROTHER Asthma, Diabetes, Hypertension Review of Systems-General Constitutional: no symptoms reported EENTM: no symptoms reported Respiratory: no symptoms reported Cardiovascular: no symptoms reported Gastrointestinal: no symptoms reported Genitourinary: no symptoms reported Musculoskeletal: back pain Skin: no symptoms reported Psychiatric/Neurological: No Symptoms Reported Physical Exam-General Problems Physical Exam Vital Signs Vital Signs - First Documented 11/14/18 11/14/18 17:07 19:31 Temp 98.9 Pulse 106 Resp 24 B/P (MAP) 114/69 (84) Pulse Ox 97 O2 Delivery Nasal Cannula O2 Flow Rate 2.00 Capillary Refill : Less Than 3 Seconds General Appearance: WD/WN, moderate distress Eyes: Bilateral Eye Normal Inspection HEENT: normal ENT inspection Neck: normal inspection Respiratory: chest non-tender, lungs clear, normal breath sounds Cardiovascular: regular rate, rhythm, no edema Gastrointestinal: normal bowel sounds, non tender, soft Back: normal inspection Extremities: normal range of motion Neurologic/Psychiatric: no motor/sensory deficits, alert, normal mood/affect, oriented x 3 Skin: normal color, warm/dry Assessment/Plan Assessment/Plan Admission Diagnosis/Plan 33 yo male with uncomplicated sickle cell crisis. No evidence of acute chest syndrome. I agree with primary care management of sickle cell crisis. Continue opiate pain control, aggressive hydration, supplemental oxygen, and avoidance of cold. Recommend resumption of hydroxyurea on discharge and smoking cessation. Recommend addition of folic acid supplement. Thank you for allowing me to participate in the care of Mr. Smith. Clinical Quality Measures DVT/VTE Risk/Contraindication: Risk Factor Score Per Nursin RFS Level Per Nursing on Admit: 1=Low/No VTE PPX PEBBLES PALMER MD Nov 16, 2018 17:28
[2018-11-16] MEDS: ENOXAPARIN 40 MG/0.4 ML (LOVENOX) SYR SC SCH (22:39)
[2018-11-17 00:20] VITALS: BP 107/59
[2018-11-17] MEDS: HYDROmorphone 2 MG/ML VIAL (DILAUDID) IV PRN ×4 (01:48→13:21)
[2018-11-17] MEDS: LACTATED RINGERS 1,000 ML IV SCH ×2 (03:34→13:04)
[2018-11-17] MEDS: oxyCODONE/APAP 10/325MG (PERCOCET 10) TABLET PO PRN ×2 (03:35→10:12)
[2018-11-17 04:01] LABS: ABSOLUTE RETIC # 297 10e9/L (24-90); BASOPHILS % (AUTO) 1 % (0-10); EOSINOPHILS # (AUTO) 0.5 10^3/uL (0.0-0.3); EOSINOPHILS % (AUTO) 6 % (0-10); HEMATOCRIT 25 % (40-54); HEMOGLOBIN 8.5 G/DL (13.3-17.7); LYMPHOCYTES % (AUTO) 24 % (12-44); MEAN CORPUSCULAR HEMOGLOBIN 30 PG (25-34); MEAN CORPUSCULAR HGB CONC 34 G/DL (32-36); MEAN CORPUSCULAR VOLUME 89 FL (80-99); MEAN PLATELET VOLUME 11.4 FL (7.4-10.4); MONOCYTES # (AUTO) 1.5 X 10^3 (0.0-1.0); MONOCYTES % (AUTO) 17 % (0-12); NEUTROPHILS # (AUTO) 4.4 X 10^3 (1.8-7.8); NEUTROPHILS % (AUTO) 52 % (42-75); PLATELET COUNT 214 10^3/uL (130-400); RED CELL DISTRIBUTION WIDTH 20.9 % (10.0-14.5); RETICULOCYTE % 10.44 % (0.50-2.40); WHITE BLOOD COUNT 8.4 10^3/uL (4.3-11.0)
[2018-11-17 08:00] VITALS: BP 110/68
[2018-11-17] MEDS: LIDOCAINE 4% (SALONPAS) PATCH TOP SCH (08:13)
[2018-11-17] MEDS: FOLIC ACID 1 MG TAB PO SCH (08:13)
[2018-11-17] MEDS ORDERED: OXYC-465 PO (09:46)
[2018-11-17] MEDS ORDERED: FOLI1TAB24 PO (09:46)
[2018-11-17] MEDS ORDERED: HYDR500C2 PO (09:46)
--- NOTE | 2018-11-17 13:11 | Progress Note-Hospitalist ---
Subjective HPI/CC On Admission Date Seen by Provider: Nov 17, 2018 Time Seen by Provider: 13:08 Pt is a 33yoAAM well known to me from previous admissions who presented with back pain consistent with previous sickle cell crisis. His symptoms started a few days ago and he was seen in the ER at that time. His pain has continued to worsen. He has not been taking his hydroxyurea but states he has an appointment coming up with Dr Alvarado. He continues to smoke as well. He complains of severe pain at this time and history is somewhat limited by this. Subjective/Events-last exam Pt reports feeling better and pain improving. No other complaints. Objective Exam Vital Signs Vital Signs Date Time Temp Pulse Resp B/P (MAP) Pulse Ox O2 Delivery O2 Flow Rate FiO2 11/17/18 08:15 Nasal Cannula 2.00 11/17/18 08:00 98.2 84 18 110/68 (82) 96 Capillary Refill : Less Than 3 Seconds General Appearance: WD/WN, Other (appears uncomfortable, laying in bed) Respiratory: Lungs Clear, Normal Breath Sounds, No Accessory Muscle Use Cardiovascular: Regular Rate, Rhythm, No JVD, No Murmur Gastrointestinal: Normal Bowel Sounds, Non Tender, Soft Extremity: No Pedal Edema Neurologic/Psychiatric: Alert, Oriented x3, Normal Mood/Affect Results/Procedures Lab Laboratory Tests 11/17/18 03:20 Patient resulted labs reviewed. Assessment/Plan Assessment and Plan Assess & Plan/Chief Complaint sickle cell crisis Diagnosis/Problems Diagnosis/Problems (1) Sickle cell crisis Status: Acute Assessment & Plan: Continue IVF Retic count down further today Hgb still up Continue Dilaudid for pain, continue oral percocet in preparation for DC Heme consult, appreciate recs (2) Noncompliance Status: Chronic Assessment & Plan: Has been off hydroxyurea Chronic issue Will consult social work Discussed with patient regarding noncompliance and states that medicaid covers medicine and should be able to cover ride to appointments Recommended strongly the need for compliance (3) Tobacco abuse Status: Chronic Assessment & Plan: Recommended smoking cessation Clinical Quality Measures DVT/VTE Risk/Contraindication: Risk Factor Score Per Nursin RFS Level Per Nursing on Admit: 1=Low/No VTE PPX FANTASMA HARTMANN MD Nov 17, 2018 13:11
--- NOTE | 2018-11-17 15:04 | Discharge Summary-Hospitalist ---
Diagnosis/Chief Complaint Date of Admission Nov 14, 2018 at 18:11 Date of Discharge Nov 17, 2018 at 14:40 Discharge Date: Nov 17, 2018 Admission Diagnosis Sickle Cell Crisis Discharge Diagnosis (1) Sickle cell crisis Status: Acute Assessment & Plan: treated with IVF, pain control, and oxygen Retic count down further today Hgb still up Continue Dilaudid for pain, continue oral percocet in preparation for DC Heme consult, appreciate recs (2) Noncompliance Status: Chronic Assessment & Plan: Has been off hydroxyurea Chronic issue Will consult social work Discussed with patient regarding noncompliance and states that medicaid covers medicine and should be able to cover ride to appointments Recommended strongly the need for compliance (3) Tobacco abuse Status: Chronic Assessment & Plan: Recommended smoking cessation Discharge Summary Procedures/Consulations Heme/Onc- Dr Alvarado Discharge Physical Exam Allergies: Coded Allergies: morphine (Verified Adverse Reaction, Unknown, PT HAS TAKEN LORTAB & STADOL IN THE PAST, 04/24/18) Uncoded Allergies: SHELLFISH (Allergy, Unknown, 09/09/18) Vitals & I&Os Vital Signs Date Time Temp Pulse Resp B/P (MAP) Pulse Ox O2 Delivery O2 Flow Rate FiO2 11/17/18 14:30 11/17/18 08:15 Nasal Cannula 2.00 11/17/18 08:00 98.2 84 18 96 General Appearance: No Apparent Distress, WD/WN Respiratory: Lungs Clear, No Respiratory Distress Cardiovascular: Regular Rate, Rhythm, No Murmur Neurologic/Psychiatric: Alert, Oriented x3 Hospital Course Pt was admitted for a sickle cell crisis. He responded well to oxygen and IVF. His pain was controlled with IV Dilaudid and he was transitioned to oral percocet with adequate control. Social Work was consulted to discuss noncompliance and assist with access to care. Labs (last 24 hrs) Laboratory Tests 11/17/18 03:20: White Blood Count 8.4, Red Blood Count 2.84L, Hemoglobin 8.5L, Hematocrit 25L, Mean Corpuscular Volume 89, Mean Corpuscular Hemoglobin 30, Mean Corpuscular Hemoglobin Concent 34, Red Cell Distribution Width 20.9H, Platelet Count 214, Mean Platelet Volume 11.4H, Neutrophils (%) (Auto) 52, Lymphocytes (%) (Auto) 24, Monocytes (%) (Auto) 17H, Eosinophils (%) (Auto) 6, Basophils (%) (Auto) 1, Neutrophils # (Auto) 4.4, Lymphocytes # (Auto) 2.0, Monocytes # (Auto) 1.5H, Eosinophils # (Auto) 0.5H, Basophils # (Auto) 0.0, Absolute Reticulocyte Count 297H, Percent Reticulocyte Count 10.44H Patient resulted labs reviewed. Discussion & Recommendations Discharge Planning: >30 minutes discharge planning Discharge Home Medications: Active Scripts Active Folic Acid 1 Mg Tablet 1 Mg PO DAILY Hydroxyurea 500 Mg Capsule 500 Mg PO DAILY LAST FILLED #30 05-18-18 Oxycodone-Acetaminophen 10-325 (Oxycodone HCl/Acetaminophen) 1 Each Tablet 1 Tab PO Q4H PRN Reported Ondansetron Odt (Ondansetron) 4 Mg Tab.rapdis 4 Mg PO Q6H PRN Instructions to patient/family Please see electronic discharge instructions given to patient. Clinical Quality Measures DVT/VTE Risk/Contraindication: Risk Factor Score Per Nursin RFS Level Per Nursing on Admit: 1=Low/No VTE PPX FANTASMA HARTMANN MD Nov 17, 2018 15:04
--- NOTE | 2018-11-17 15:05 | Discharge Inst-Simple/Standard ---
Discharge Inst-Standard Discharge Medications New, Converted or Re-Newed RX: Transmitted to Pharmacy Patient Instructions/Follow Up Plan of Care/Instructions/FU: Please continue to take your medications as written and follow up with Dr Alvarado. It is very important for you to take your medication regularly. Please quit smoking as well. Activity as Tolerated: Yes Discharge Diet: No Restrictions Return to The Hospital For: Chest pain, Shortness of breath, worsening pain, if you feel you re getting worse. Planned Outpatient Orders/Ref. Pneu Vac Indicated: Yes FANTASMA HARTMANN MD Nov 17, 2018 09:37
--- NOTE | 2018-11-17 15:09 | NUR ---
Met with pt prior to discharge. He identified his No. 1 worry was that he was without food. His foodstamps were cancelled as he failed to send his paperwork in timely at the renewal period. He receives SSI and doesn't receive his SSI check till the November.Contacted Dept of Children and Families and they did receive pt's renewal papers the We did request a expeditions determination. 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 He did think he could arrange transportation to [facility] from one of his "associates" Discussed his history of missing appts. and stated that he is aware of his Medicaid transportation benefit but fails to schedule 3 days prior to appt. Also discussed his referral to [facility] and the possibility of utilizing both their medical and mental health services. He stated he would consider and reluctantly acknowledges his depression but also state he "likes to keep to Himself" he denied any thoughts of self-harm. Will follow and give pt follow-up appt at the [facility] and ensure he has transportation for this appt.
== END 2018-11-17 14:40 | disposition home or self-care (01) | DRG 812 ==
LOC: EDUNIT# 17:03 → ER 17:04 → 4TH 18:11
PROVIDERS: ADMIT Family Medicine; ATTEND Family Medicine
DX: D57.00 Hb-SS disease with crisis, unspecified (principal); M54.5 Low back pain; F17.210 Nicotine dependence, cigarettes, uncomplicated; Z90.81 Acquired absence of spleen; Z91.14 Patient's other noncompliance with medication regimen
CPT/HCPCS: 36415; 80053; 85025; 85045; 86850; 86900; 86901; 86920; 96361; 96374; 96375

== ENCOUNTER 2019-07-05 15:06 | Emergency (ER) | payer MEDICAID ==
[~2019-07-05] VITALS: Ht 167.7 cm; Wt 68.1 kg
[~2019-07-05 15:06] MED LIST changes: +FOLI0.4T2 PO; +HYDR500C2 PO; +OXYC-465 PO
[2019-07-05 15:10] VITALS: BP 123/78
[2019-07-05] MEDS ORDERED: NS IV 1000 ML 1,000 ML IV SCH ×2 (15:15→16:30)
[2019-07-05] MEDS ORDERED: HYDROmorphone 2 MG/ML VIAL (DILAUDID) IV ONE ×2 (15:15→16:15)
--- NOTE | 2019-07-05 15:15 | ED Chest Pain ---
General Stated Complaint: CHEST PAIN Source: patient Exam Limitations: no limitations History of Present Illness Date Seen by Provider: Jul 05, 2019 Time Seen by Provider: 15:14 Initial Comments To ER with central chest pain for "a few days". History of sickle cell disease, not taking any medication for it. Girlfriend at the bedside states "he is not doing anything hes supposed to be". No fevers. Timing/Duration: 2-3 days Severity/Quality: moderate Location: central Radiation: no radiation Activities at Onset: none ASA po INSTRUMENT REPAIRER HELPER: No NTG SL INSTRUMENT REPAIRER HELPER: No Allergies and Home Medications Allergies Coded Allergies: morphine (Verified Adverse Reaction, Unknown, PT HAS TAKEN LORTAB & STADOL IN THE PAST, 04/24/18) Uncoded Allergies: SHELLFISH (Allergy, Unknown, 09/09/18) Home Medications Folic Acid 1 Mg Tablet, 1 MG PO DAILY Prescribed by: FANTASMA HARTMANN on 11/17/18 0946 Hydroxyurea 500 Mg Capsule, 500 MG PO DAILY LAST FILLED #30 05-18-18 Prescribed by: FANTASMA HARTMANN on 11/17/18 0946 Ondansetron 4 Mg Tab.rapdis, 4 MG PO Q6H PRN for NAUSEA/VOMITING-1ST LINE, (Reported) Oxycodone HCl/Acetaminophen 1 Each Tablet, 1 TAB PO Q4H PRN for PAIN-MODERATE Prescribed by: FANTASMA HARTMANN on 11/17/18 0946 Patient Home Medication List Home Medication List Reviewed: Yes Review of Systems Review of Systems Constitutional: see HPI; No chills, No fever EENTM: No Symptoms Reported Respiratory: No Symptoms Reported Cardiovascular: See HPI, Chest Pain Gastrointestinal: No Symptoms Reported Genitourinary: No Symptoms Reported Musculoskeletal: no symptoms reported Skin: no symptoms reported Endocrine: No Symptoms Reported Past Rekpnax-Vswlgg-Krbfjz Hx Patient Social History Alcohol Beverage of Choice: Whiskey Drug of Choice: THC, COCAINE, ALSO ADMITTED TO METHAMPHETAMINES IN PAST. Type Used: Cigarettes 2nd Hand Smoke Exposure: Yes Recent Foreign Travel: No Contact w/Someone Who Travel: No Recent Hopitalizations: No Immunizations Up To Date Tetanus Booster (TDap): Unknown PED Vaccines UTD: No Seasonal Allergies Seasonal Allergies: No Past Medical History Surgeries: Yes (SPLENECTOMY) Gallbladder, Orthopedic Respiratory: No Currently Using CPAP: No Currently Using BIPAP: No Cardiac: No Neurological: No Reproductive Disorders: No Sexually Transmitted Disease: No HIV/AIDS: No Genitourinary: No Gastrointestinal: No Musculoskeletal: Yes (LEFT FOREARM INJURY AGE 5--S/P SURGERY; BIALTERAL ANKLE SURGERY INFANT) Fractures Endocrine: No HEENT: No Cancer: No Psychosocial: No Integumentary: No Blood Disorders: Yes (SICKLE CELL ANEMIA) Adverse Reaction/Blood Tranf: No Family Medical History Asthma G8 BROTHER Parkinson's disease Seizure disorder G8 BROTHER Asthma, Diabetes, Hypertension Physical Exam Vital Signs Vital Signs - First Documented 07/05/19 15:10 Temp 37.4 Pulse 98 Resp 20 B/P (MAP) 123/78 (93) Pulse Ox 88 O2 Delivery Nasal Cannula O2 Flow Rate 2.0 Capillary Refill : Height, Weight, BMI Height: 5'6.00" Weight: 162lbs. 0.0oz. 73.486504mm; 26.2 BMI Method:Stated General Appearance: Moderate Distress, Other (grunting, appears to be in pain) HEENT: PERRL/EOMI, Normal ENT Inspection, Pharynx Normal, Other (scleral icterus) Respiratory: No Accessory Muscle Use, No Respiratory Distress Cardiovascular: Normal Peripheral Pulses, Tachycardia Gastrointestinal: Non Tender, Soft Extremity: Normal Capillary Refill, Normal Inspection Neurologic/Psychiatric: Alert, Oriented x3 Skin: Normal Color, Warm/Dry Progress/Results/Core Measures Results/Orders Lab Results Laboratory Tests Test 07/05/19 15:20 Range/Units White Blood Count 13.1 H 4.3-11.0 10^3/uL Red Blood Count 2.43 L 4.35-5.85 10^6/uL Hemoglobin 7.8 L 13.3-17.7 G/DL Hematocrit 22 L 40-54 % Mean Corpuscular Volume 89 80-99 FL Mean Corpuscular Hemoglobin 32 25-34 PG Mean Corpuscular Hemoglobin Concent 36 32-36 G/DL Red Cell Distribution Width 25.7 H 10.0-14.5 % Platelet Count 194 130-400 10^3/uL Mean Platelet Volume 10.5 H 7.4-10.4 FL Neutrophils (%) (Auto) 52 42-75 % Lymphocytes (%) (Auto) 29 12-44 % Monocytes (%) (Auto) 16 H 0-12 % Eosinophils (%) (Auto) 2 0-10 % Basophils (%) (Auto) 1 0-10 % Neutrophils # (Auto) 6.8 1.8-7.8 X 10^3 Lymphocytes # (Auto) 3.8 1.0-4.0 X 10^3 Monocytes # (Auto) 2.1 H 0.0-1.0 X 10^3 Eosinophils # (Auto) 0.3 0.0-0.3 10^3/uL Basophils # (Auto) 0.1 0.0-0.1 10^3/uL Sodium Level 138 135-145 MMOL/L Potassium Level 3.4 L 3.6-5.0 MMOL/L Chloride Level 104 98-107 MMOL/L Carbon Dioxide Level 21 21-32 MMOL/L Anion Gap 13 5-14 MMOL/L Blood Urea Nitrogen 6 L 7-18 MG/DL Creatinine 0.94 0.60-1.30 MG/DL Estimat Glomerular Filtration Rate > 60 BUN/Creatinine Ratio 6 Glucose Level 101 70-105 MG/DL Calcium Level 8.8 8.5-10.1 MG/DL Corrected Calcium 8.7 8.5-10.1 MG/DL Total Bilirubin 8.1 H 0.1-1.0 MG/DL Aspartate Amino Transf (AST/SGOT) 31 5-34 U/L Alanine Aminotransferase (ALT/SGPT) 15 0-55 U/L Alkaline Phosphatase 63 40-136 U/L Troponin I < 0.028 <0.028 NG/ML Total Protein 7.5 6.4-8.2 GM/DL Albumin 4.1 3.2-4.5 GM/DL My Orders Orders - CECIL CORMIER APRN Cbc With Automated Diff (07/05/19 15:11) Comprehensive Metabolic Panel (07/05/19 15:11) Ed Iv/Invasive Line Start (07/05/19 15:11) Ekg Tracing (07/05/19 15:11) Troponin I (07/05/19 15:11) Chest Pa/Lat (2 View) (07/05/19 15:11) Ns Iv 1000 Ml (Sodium Chloride 0.9%) (07/05/19 15:15) Hydromorphone Injection (Dilaudid Inject (07/05/19 15:15) Hydromorphone Injection (Dilaudid Inject (07/05/19 16:15) Medications Given in ED Current Medications Medications Dose Ordered Sig/Arlene Route Start Time Stop Time Status Last Admin Dose Admin Hydromorphone HCl 0.5 mg ONCE ONCE IV 07/05/19 15:15 07/05/19 15:16 DC 07/05/19 15:29 0.5 MG Hydromorphone HCl 1 mg ONCE ONCE IV 07/05/19 16:15 07/05/19 16:16 DC 07/05/19 16:19 1 MG Vital Signs/I&O 07/05/19 07/05/19 07/05/19 15:10 15:10 15:12 Temp 37.4 Pulse 98 Resp 20 B/P (MAP) 123/78 (93) Pulse Ox 88 88 O2 Delivery Nasal Cannula Room Air Nasal Cannula O2 Flow Rate 2.0 2.00 Departure Communication (Admissions) 1725-over Dr. Farris who agreed to admit for IV fluids, pain control. Patient agrees until he was about to go upstairs, and got upset because his girlfriend was leaving and now he wants to leave. Advised him he'll need to sign out AGAINST MEDICAL ADVICE and he will sign this form. Advised of the risks of discharge against advice. Impression Primary Impression: Noncompliance Additional Impressions: Sickle cell crisis Hyperbilirubinemia Oxygen dependent Disposition: 07 AGAINST MEDICAL ADVICE Condition: Against Medical Advice Admissions Decision to Admit Reason: Admit from ER (General) Decision to Admit/Date: Jul 05, 2019 Time/Decision to Admit Time: 15:28 Departure-Patient Inst. Referrals: NO,LOCAL PHYSICIAN (PCP/Family) Primary Care Physician CECIL CORMIER APRN Jul 05, 2019 15:15
[2019-07-05 15:33] LABS: BASOPHILS # (AUTO) 0.1 10^3/uL (0.0-0.1); BASOPHILS % (AUTO) 1 % (0-10); EOSINOPHILS # (AUTO) 0.3 10^3/uL (0.0-0.3); EOSINOPHILS % (AUTO) 2 % (0-10); HEMATOCRIT 22 % (40-54); HEMOGLOBIN 7.8 G/DL (13.3-17.7); LYMPHOCYTES # (AUTO) 3.8 X 10^3 (1.0-4.0); LYMPHOCYTES % (AUTO) 29 % (12-44); MEAN CORPUSCULAR HEMOGLOBIN 32 PG (25-34); MEAN CORPUSCULAR HGB CONC 36 G/DL (32-36); MEAN CORPUSCULAR VOLUME 89 FL (80-99); MEAN PLATELET VOLUME 10.5 FL (7.4-10.4); MONOCYTES # (AUTO) 2.1 X 10^3 (0.0-1.0); MONOCYTES % (AUTO) 16 % (0-12); NEUTROPHILS # (AUTO) 6.8 X 10^3 (1.8-7.8); NEUTROPHILS % (AUTO) 52 % (42-75); PLATELET COUNT 194 10^3/uL (130-400); RED CELL DISTRIBUTION WIDTH 25.7 % (10.0-14.5); WHITE BLOOD COUNT 13.1 10^3/uL (4.3-11.0)
--- NOTE | 2019-07-05 15:56 | Diagnostic Imaging Report ---
INDICATION: Chest pain. TIME OF EXAM: 3:54 p.m. COMPARISON: Comparison is made with prior chest from 11/11/2018. FINDINGS: The heart size is stable. Lungs appear to be fairly clear. No infiltrates are seen. There is no effusion or pneumothorax identified. The pulmonary vascularity is normal. IMPRESSION: No acute cardiopulmonary process is detected. Dictated by: Dictated on workstation # [id number]
[2019-07-05 16:00] LABS: ALANINE AMINOTRANSFERASE 15 U/L (0-55); ALBUMIN 4.1 GM/DL (3.2-4.5); ALKALINE PHOSPHATASE 63 U/L (40-136); BILIRUBIN,TOTAL 8.1 MG/DL (0.1-1.0); BUN/CREATININE RATIO 6; CALCIUM 8.8 MG/DL (8.5-10.1); CARBON DIOXIDE 21 MMOL/L (21-32); CHLORIDE 104 MMOL/L (98-107); CREATININE SERUM 0.94 MG/DL (0.60-1.30); GFR ESTIMATED > 60; GLUCOSE 101 MG/DL (70-105); POTASSIUM 3.4 MMOL/L (3.6-5.0); SODIUM 138 MMOL/L (135-145); TOTAL PROTEIN 7.5 GM/DL (6.4-8.2)
--- NOTE | 2019-07-05 17:08 | NUR ---
Turned pt's O2 off at this time and pt's sat dropped to 88% again. O2 reapplied.
[2019-07-08] MEDS ORDERED: OXC5T PO (11:04)
[2019-07-08] MEDS ORDERED: CEFD300C3 PO (11:08)
== END 2019-07-05 17:24 | disposition left against medical advice (07) ==
LOC: EDUNIT# 15:06 → ER 15:07 → 4TH 16:24 → UNDOADMIN 16:24
DX: D57.00 Hb-SS disease with crisis, unspecified (principal); E80.7 Disorder of bilirubin metabolism, unspecified; Z99.81 Dependence on supplemental oxygen; Z91.19 Patient's noncompliance with other medical treatment and regimen; Z88.5 Allergy status to narcotic agent; Z77.22 Contact with and (suspected) exposure to environmental tobacco smoke (acute) (chronic); Z82.49 Family history of ischemic heart disease and other diseases of the circulatory system
CPT/HCPCS: 36415; 71046; 80053; 84484; 85025; 93005

== ENCOUNTER 2019-07-06 05:35 | Inpatient (IN) | payer MEDICAID ==
[~2019-07-06] VITALS: Ht 167.7 cm; Wt 68.1 kg
[2019-07-06] VITALS (15 sets, daily range): BP systolic 102–114; BP diastolic 64–77
[2019-07-06] MEDS ORDERED: ASPIRIN 81 MG CHEW (CHILDREN'S ASA) PO ONE (05:45)
[2019-07-06] MEDS: NITROGLYCERIN 0.4 MG SL TABS BTL 25'S SL PRN ×3 (05:49→06:05)
--- NOTE | 2019-07-06 05:49 | NUR ---
pain 10/ 0555 pain 10/ ntg given 06 pain / ntg given
[2019-07-06 05:53] LABS: BASOPHILS # (AUTO) 0.2 10^3/uL (0.0-0.1); BASOPHILS % (AUTO) 1 % (0-10); EOSINOPHILS # (AUTO) 0.3 10^3/uL (0.0-0.3); EOSINOPHILS % (AUTO) 2 % (0-10); HEMATOCRIT 24 % (40-54); HEMOGLOBIN 8.4 G/DL (13.3-17.7); LYMPHOCYTES # (AUTO) 3.6 X 10^3 (1.0-4.0); LYMPHOCYTES % (AUTO) 27 % (12-44); MEAN CORPUSCULAR HEMOGLOBIN 32 PG (25-34); MEAN CORPUSCULAR HGB CONC 35 G/DL (32-36); MEAN CORPUSCULAR VOLUME 90 FL (80-99); MEAN PLATELET VOLUME 10.9 FL (7.4-10.4); MONOCYTES # (AUTO) 2.1 X 10^3 (0.0-1.0); MONOCYTES % (AUTO) 15 % (0-12); NEUTROPHILS # (AUTO) 7.2 X 10^3 (1.8-7.8); NEUTROPHILS % (AUTO) 54 % (42-75); PLATELET COUNT 232 10^3/uL (130-400); RED CELL DISTRIBUTION WIDTH 26.2 % (10.0-14.5)
[2019-07-06 06:07] LABS: PROTHROMBIN TIME PATIENT 13.9 SEC (12.2-14.7)
[2019-07-06 06:12] LABS: WHITE BLOOD COUNT 11.2 10^3/uL (4.3-11.0)
[2019-07-06 06:13] LABS: SMEAR SCAN COMMENT YES
[2019-07-06] MEDS ORDERED: NS IV 1000 ML 1,000 ML IV ONE ×2 (06:15)
[2019-07-06] MEDS ORDERED: HYDROmorphone 2 MG/ML VIAL (DILAUDID) IV ONE ×2 (06:15→07:00)
--- NOTE | 2019-07-06 06:19 | ED Chest Pain ---
General Chief Complaint: Chest Pain Stated Complaint: CP Nursing Triage Note: right sided chest pain x3 days. Nursing Sepsis Screen: No Definite Risk Source: patient Exam Limitations: no limitations History of Present Illness Date Seen by Provider: Jul 06, 2019 Time Seen by Provider: 05:45 Initial Comments This 33 year old young man with sickle cell disease presents to the ER with complaints of chest pain. He was seen in this emergency room last night and was advised to be admitted due to his symptoms, hypoxia and abnormal labs. However, he left AGAINST MEDICAL ADVICE. Symptoms have continued and he presents again this morning. He is afebrile but has noted some mild cough. He has also noted scleral icterus for the past few days. He rates his pain as 8 out of 10. He arrived via EMS. They reported oxygen saturation in the 80s on room air. Allergies and Home Medications Allergies Coded Allergies: morphine (Verified Adverse Reaction, Unknown, PT HAS TAKEN LORTAB & STADOL IN THE PAST, 04/24/18) Uncoded Allergies: SHELLFISH (Allergy, Unknown, 09/09/18) Home Medications No Active Prescriptions or Reported Meds Patient Home Medication List Home Medication List Reviewed: Yes Review of Systems Review of Systems Constitutional: no symptoms reported EENTM: No Symptoms Reported Respiratory: See HPI Cardiovascular: No Symptoms Reported Gastrointestinal: No Symptoms Reported Genitourinary: No Symptoms Reported Musculoskeletal: no symptoms reported Skin: no symptoms reported Psychiatric/Neurological: No Symptoms Reported Endocrine: No Symptoms Reported Hematologic/Lymphatic: See HPI Past Pvhdbjl-Walziw-Ppgcpn Hx Past Med/Social Hx: Reviewed Nursing Past Med/Soc Hx Patient Social History Alcohol Use: Occasionally Uses Number of Drinks Today: GG Alcohol Beverage of Choice: Whiskey Recreational Drug Use: Yes Drug of Choice: THC, COCAINE, ALSO ADMITTED TO METHAMPHETAMINES IN PAST. Smoking Status: Current Everyday Smoker Type Used: Cigarettes 2nd Hand Smoke Exposure: Yes Recent Foreign Travel: No Contact w/Someone Who Travel: No Recent Infectious Disease Expo: No Recent Hopitalizations: No Physical Abuse: No Sexual Abuse: No Mistreated: No Fear: No Immunizations Up To Date Tetanus Booster (TDap): Unknown PED Vaccines UTD: No Seasonal Allergies Seasonal Allergies: No Past Medical History Surgeries: Yes (SPLENECTOMY) Gallbladder, Orthopedic Respiratory: No Currently Using CPAP: No Currently Using BIPAP: No Cardiac: No Neurological: No Reproductive Disorders: No Sexually Transmitted Disease: No HIV/AIDS: No Genitourinary: No Gastrointestinal: No Musculoskeletal: Yes (LEFT FOREARM INJURY AGE 5--S/P SURGERY; BIALTERAL ANKLE SURGERY ) Fractures Endocrine: No HEENT: No Cancer: No Psychosocial: No Integumentary: No Blood Disorders: Yes (SICKLE CELL ANEMIA) Adverse Reaction/Blood Tranf: No Family Medical History Reviewed Nursing Family Hx Asthma G8 BROTHER Parkinson's disease Seizure disorder G8 BROTHER Asthma, Diabetes, Hypertension Physical Exam Vital Signs Vital Signs - First Documented 07/06/19 05:36 Temp 37.1 Pulse 106 Resp 24 B/P (MAP) 114/65 (81) Pulse Ox 94 O2 Delivery Nasal Cannula O2 Flow Rate 3.0 Capillary Refill : Less Than 3 Seconds Height, Weight, BMI Height: 5'6.00" Weight: 162lbs. 0.0oz. 73.910573ve; 24.00 BMI Method:Stated General Appearance: WD/WN, Mild Distress HEENT: PERRL/EOMI, TMs Normal, Normal ENT Inspection Neck: Normal Inspection Respiratory: No Accessory Muscle Use, No Respiratory Distress, Crackles (faint in the bases) Cardiovascular: No Edema, No Murmur, Tachycardia (regular) Gastrointestinal: Normal Bowel Sounds, Soft, Tenderness (minimal in the right upper quadrant) Extremity: Normal Inspection, No Pedal Edema Neurologic/Psychiatric: Alert, Oriented x3, No Motor/Sensory Deficits, Normal Mood/Affect, retail planner II-XII Norm as Tested Skin: Normal Color, Warm/Dry Progress/Results/Core Measures Results/Orders Lab Results Laboratory Tests Test 07/06/19 05:46 Range/Units White Blood Count 11.2 H 4.3-11.0 10^3/uL Red Blood Count 2.65 L 4.35-5.85 10^6/uL Hemoglobin 8.4 L 13.3-17.7 G/DL Hematocrit 24 L 40-54 % Mean Corpuscular Volume 90 80-99 FL Mean Corpuscular Hemoglobin 32 25-34 PG Mean Corpuscular Hemoglobin Concent 35 32-36 G/DL Red Cell Distribution Width 26.2 H 10.0-14.5 % Platelet Count 232 130-400 10^3/uL Mean Platelet Volume 10.9 H 7.4-10.4 FL Neutrophils (%) (Auto) 54 42-75 % Lymphocytes (%) (Auto) 27 12-44 % Monocytes (%) (Auto) 15 H 0-12 % Eosinophils (%) (Auto) 2 0-10 % Basophils (%) (Auto) 1 0-10 % Neutrophils # (Auto) 7.2 1.8-7.8 X 10^3 Lymphocytes # (Auto) 3.6 1.0-4.0 X 10^3 Monocytes # (Auto) 2.1 H 0.0-1.0 X 10^3 Eosinophils # (Auto) 0.3 0.0-0.3 10^3/uL Basophils # (Auto) 0.2 H 0.0-0.1 10^3/uL Prothrombin Time 13.9 12.2-14.7 SEC INR Comment 1.0 0.8-1.4 Activated Partial Thromboplast Time 31 24-35 SEC Sodium Level 140 135-145 MMOL/L Potassium Level 4.1 3.6-5.0 MMOL/L Chloride Level 106 98-107 MMOL/L Carbon Dioxide Level 25 21-32 MMOL/L Anion Gap 9 5-14 MMOL/L Blood Urea Nitrogen 6 L 7-18 MG/DL Creatinine 0.80 0.60-1.30 MG/DL Estimat Glomerular Filtration Rate > 60 BUN/Creatinine Ratio 8 Glucose Level 103 70-105 MG/DL Calcium Level 9.1 8.5-10.1 MG/DL Corrected Calcium 8.9 8.5-10.1 MG/DL Magnesium Level 2.1 1.6-2.4 MG/DL Total Bilirubin 8.0 H 0.1-1.0 MG/DL Aspartate Amino Transf (AST/SGOT) 39 H 5-34 U/L Alanine Aminotransferase (ALT/SGPT) 19 0-55 U/L Alkaline Phosphatase 62 40-136 U/L Total Creatine Kinase 28 L 30-200 U/L Creatine Kinase MB 0.2 <6.6 NG/ML Myoglobin 13.1 10.0-92.0 NG/ML Troponin I < 0.028 <0.028 NG/ML C-Reactive Protein High Sensitivity 3.66 H 0.00-0.50 MG/DL B-Type Natriuretic Peptide 13.0 <100.0 PG/ML Total Protein 7.7 6.4-8.2 GM/DL Albumin 4.2 3.2-4.5 GM/DL Amylase Level 78 25-125 U/L Lipase 18 8-78 U/L Serum Alcohol < 10 <10 MG/DL Smear Scan YES Micro Results Microbiology 07/06/19 Influenza Types A,B Antigen (ABRAM) - Final, Complete My Orders Orders - TERRELL CULLEN MD Ns Iv 1000 Ml (Sodium Chloride 0.9%) (07/06/19 06:15) Ns Iv 1000 Ml (Sodium Chloride 0.9%) (07/06/19 06:15) Hydromorphone Injection (Dilaudid Inject (07/06/19 06:15) Hs C Reactive Protein (07/06/19 06:13) Alcohol (07/06/19 06:19) Drug Screen Stat (Urine) (07/06/19 06:19) Influenza A And B Antigens (07/06/19 06:51) Hydromorphone Injection (Dilaudid Inject (07/06/19 07:00) Ceftriaxone For Iv Use (Rocephin For I (07/06/19 07:00) Blood Culture (07/06/19 07:07) Sputum Culture (07/06/19 07:07) Vital Signs Adult Sepsis Patie Q15M (07/06/19 07:07) Remove Rings In Anticipation O (07/06/19 07:07) Lactic Acid Analyzer (07/06/19 07:07) Procalcitonin (Pct) (07/06/19 07:10) Medications Given in ED Current Medications Medications Dose Ordered Sig/Arlene Route Start Time Stop Time Status Last Admin Dose Admin Aspirin 324 mg ONCE ONCE PO 07/06/19 05:45 07/06/19 05:46 DC 07/06/19 05:49 324 MG Ceftriaxone Sodium 1000 mg/ Sterile Water 10 ml @ 200 mls/hr ONCE ONCE IV 07/06/19 07:00 07/06/19 07:02 DC 07/06/19 07:05 200 MLS/HR Hydromorphone HCl 0.5 mg ONCE ONCE IV 07/06/19 06:15 07/06/19 06:16 DC 07/06/19 06:21 0.5 MG Hydromorphone HCl 1 mg ONCE ONCE IV 07/06/19 07:00 07/06/19 07:01 DC 07/06/19 07:05 1 MG Nitroglycerin 0.4 mg UD PRN SL 07/06/19 05:45 07/06/19 06:05 DC 07/06/19 06:05 0.4 MG Sodium Chloride 1,000 ml @ 250 mls/hr Q4H ONCE IV 07/06/19 06:15 07/06/19 10:14 07/06/19 06:17 250 MLS/HR Vital Signs/I&O 07/06/19 07/06/19 07/06/19 05:36 05:36 05:36 Temp 37.1 Pulse 106 Resp 24 B/P (MAP) 114/65 (81) Pulse Ox 94 94 O2 Delivery Nasal Cannula Nasal Cannula Nasal Cannula O2 Flow Rate 3.0 3.00 3.0 Blood Pressure Mean: 81 Progress Progress Note #1: Time: 07:12 Progress Note Patient is being treated with oxygen therapy, a normal saline bolus at 250 mL per hour, and allotted for pain control. Patient still states pain of 8/10 after Dilaudid 0.5 mg. Dilaudid 1 mg is now being given. There was some question of infiltrate in the lung bases on x-ray as well as crackles on exam. It is possible that this could be developing pneumonia versus results of sickle cell crisis. As a precaution we are ordering a lactic acid and blood cultures as well as Rocephin for empiric antibiotic therapy. Patient's tachycardia and hypoxia are secondary to sickle cell disease. Patient is NOT likely septic. His CRP is low and he is afebrile. Empiric antibiotic therapy will be continued as a precaution. We will continue with IV hydration, pain management, and oxygen support. Hemoglobin and bilirubin are stable when compared with his labs yesterday. Case was discussed with Dr. Farris who agrees with admission. Urine drug screen and influenza screen are pending at this time. A pro-calcitonin level was added to help determine if there is truly presence of bacterial pneumonia. Progress Note #2: Time: 07:29 Progress Note It should be noted that Rocephin was administered prior to drawing blood cultures. The decision to draw blood cultures and lactic acid was determined after conversation with the attending physician and therefore nursing staff was not notified of the blood culture order prior to administering Rocephin. Initial ECG Impression Date: Jul 06, 2019 Initial ECG Impression Time: 05:41 Initial ECG Rate: 103 Initial ECG Rhythm: S.Tach Comment Sinus tachycardia with no ST elevation or depression. No abnormal intervals or axis deviation. Diagnostic Imaging Diagonstic Imaging: Xray Plain Films/CT/US/NM/MRI: chest Comments Chest x-ray viewed by me and report reviewed. See report below: NAME: SAROJ LINDER REC#: [id number] PT STATUS: REG ER : 1985 PHYSICIAN: MERCEDES DAVID DO ADMIT DATE: 07/06/19/ER Draft Date of Exam:07/06/19 CHEST 1 VIEW, AP/PA ONLY INDICATION: Right-sided chest pain. TECHNIQUE: Frontal view of the chest. COMPARISON: 07/05/2019 FINDINGS: There are bibasilar airspace opacities which appear increased compared to the prior study. The cardiac silhouette is stable in size. No significant pleural effusion or pneumothorax is seen. IMPRESSION: 1. Bibasilar airspace opacities appear increased since the prior study, may represent atelectasis or infiltrate. Dictated on workstation # [id number] Dict: [birth year]28 Trans: 07/06/1931 [id number] Interpreted by: PARISA PATEL MD Departure Communication (Admissions) Time/Spoke to Admitting Phy: 07:05 Dr. Farris Impression Primary Impression: Sickle cell crisis Additional Impressions: Hyperbilirubinemia Hypoxia Chest pain Qualified Codes: R07.9 - Chest pain, unspecified Pulmonary infiltrates on CXR Disposition: ADMITTED INPATIENT Condition: Improved Admissions Decision to Admit Reason: Admit from ER (General) Decision to Admit/Date: Jul 06, 2019 Time/Decision to Admit Time: 07:00 Departure-Patient Inst. Referrals: NO,LOCAL PHYSICIAN (PCP/Family) Primary Care Physician Scripts No Active Prescriptions or Reported Meds TERRELL CULLEN MD Jul 06, 2019 06:19
--- NOTE | 2019-07-06 06:25 | NUR ---
urinal provided, urine specimen requested.
[2019-07-06 06:31] LABS: ALANINE AMINOTRANSFERASE 19 U/L (0-55); ALBUMIN 4.2 GM/DL (3.2-4.5); ALKALINE PHOSPHATASE 62 U/L (40-136); AMYLASE 78 U/L (25-125); BUN/CREATININE RATIO 8; CALCIUM 9.1 MG/DL (8.5-10.1); CARBON DIOXIDE 25 MMOL/L (21-32); CHLORIDE 106 MMOL/L (98-107); CREATINE KINASE 28 U/L (30-200); GFR ESTIMATED > 60; GLUCOSE 103 MG/DL (70-105); LIPASE 18 U/L (8-78); MAGNESIUM 2.1 MG/DL (1.6-2.4); POTASSIUM 4.1 MMOL/L (3.6-5.0); SODIUM 140 MMOL/L (135-145); TOTAL PROTEIN 7.7 GM/DL (6.4-8.2)
--- NOTE | 2019-07-06 06:31 | Diagnostic Imaging Report ---
INDICATION: Right-sided chest pain. TECHNIQUE: Frontal view of the chest. COMPARISON: 07/05/2019 FINDINGS: There are bibasilar airspace opacities which appear increased compared to the prior study. The cardiac silhouette is stable in size. No significant pleural effusion or pneumothorax is seen. IMPRESSION: 1. Bibasilar airspace opacities appear increased since the prior study, may represent atelectasis or infiltrate. Dictated by: Dictated on workstation # [id number]
[2019-07-06 06:39] LABS: CREATINE KINASE MB 0.2 NG/ML (<6.6)
--- NOTE | 2019-07-06 06:58 | NUR ---
ASSUMED CARE OF PT. IN TALKING TO PT AT THIS TIME.
[2019-07-06] MEDS ORDERED: cefTRIAXone FOR IV USE 1,000 MG in WATER (STERILE) FOR INJECTION 10 ML IV ONE (07:00)
--- NOTE | 2019-07-06 07:39 | NUR ---
LAB IN ROOM DRAWING 2ND SET OF BC.
[2019-07-06] MEDS ORDERED: AZITHROMYCIN 500 MG/NS 250 ML IVPB IV NR ×2 (08:15)
[2019-07-06] MEDS ORDERED: ONDANSETRON 4 MG/2 ML (SDV) Z0FRAN IV PRN (08:15)
[2019-07-06] MEDS ORDERED: oxyCODONE/APAP 5/325MG (PERCOCET 5) TABLET PO PRN (08:15)
[2019-07-06] MEDS ORDERED: CATHETER FLUSH 10 ML SYR IV PRN (08:15)
[2019-07-06] MEDS ORDERED: FLU QUADRIvalent (5+ YOA) 2019-2020 (AFLURIA) 0.5 ML IM ONE (08:30)
[2019-07-06] MEDS: NS IV 1000 ML 1,000 ML IV SCH ×3 (08:59→21:39)
--- NOTE | 2019-07-06 09:34 | NUR ---
PATIENT STATES HE DOES NOT TAKE ANY MEDICATIONS AT THIS TIME.
[2019-07-06 10:28] LABS: RETICULOCYTE % 20.46 % (0.50-2.40)
[2019-07-06] MEDS: HYDROmorphone 2 MG/ML VIAL (DILAUDID) IV PRN ×3 (12:32→21:39)
[2019-07-06 13:53] LABS: AMPHETAMINE SCREEN, URINE POSITIVE (NEGATIVE); BARBITURATE SCREEN URINE NEGATIVE (NEGATIVE); BENZODIAZEPINES SCREEN URINE NEGATIVE (NEGATIVE); CANNABINOID SCREEN, URINE NEGATIVE (NEGATIVE); COCAINE SCREEN URINE NEGATIVE (NEGATIVE); METHADONE STAT NEGATIVE (NEGATIVE); METHAMPHETAMINE SCREEN URINE S POSITIVE (NEGATIVE); OPIATE SCREEN URINE POSITIVE (NEGATIVE); OXYCODONE STAT POSITIVE (NEGATIVE); PROPOXYPHENE STAT NEGATIVE (NEGATIVE); TRICYCLIC ANTIDEPRESSANTS SCRE NEGATIVE (NEGATIVE)
[2019-07-06] MEDS ORDERED: MELATONIN 3 MG TABLET PO PRN (14:45)
--- NOTE | 2019-07-06 15:03 | History & Physical-Hospitalist ---
History of Present Illness HPI/Chief Complaint Geraldo Smith is 33-year-old male with past medical history of sickle cell disease who presented with bilateral rib pain. He had been in the emergency room the night before and was to be admitted but left AGAINST MEDICAL ADVICE. He reports having bilateral lower rib pain for the past couple days. He reports shortness of breath and cough. He denies any fevers or chills. He denies any sore throat. He reports runny nose. He reports headache. He denies any abdominal pain, nausea, vomiting, or diarrhea. He denies any dysuria. He has not been seeing a doctor for years. He has not been taking any medications. Source: patient Exam Limitations: no limitations Date Seen 07/06/19 Time Seen by a Provider: 08:45 Attending Physician Nelly Howe MD PCP No,Local Physician Referring Physician Date of Admission Jul 06, 2019 at 07:20 Home Medications & Allergies Home Medications Reviewed patient Home Medication Reconciliation performed by pharmacy medication reconciliations reliability technician and/or nursing. Patients Allergies have been reviewed. Allergies Allergies Coded Allergies morphine (Verified Adverse Reaction, Unknown, PT HAS TAKEN LORTAB & STADOL IN THE PAST, 04/24/18) Uncoded Allergies SHELLFISH ( Allergy, Unknown, 09/09/18) Past Qaggsan-Pulhxe-Snhkfy Hx Past Med/Social Hx: Reviewed Nursing Past Med/Soc Hx Patient Social History Alcohol Use: Occasionally Uses Number of Drinks Today: GG Alcohol Beverage of Choice: Whiskey Recreational Drug Use: Yes Drug of Choice: THC, COCAINE, ALSO ADMITTED TO METHAMPHETAMINES IN PAST. Smoking Status: Current Everyday Smoker Type Used: Cigarettes 2nd Hand Smoke Exposure: Yes Recent Foreign Travel: No Contact w/other who traveled: No Recent Hopitalizations: No Recent Infectious Disease Expo: No Immunizations Up To Date Tetanus Booster (TDap): Unknown Pediatric: No Seasonal Allergies Seasonal Allergies: No Past Medical History Surgeries: Gallbladder, Orthopedic Respiratory: Asthma Currently Using CPAP: No Currently Using BIPAP: No Reproductive: No Sexually Transmitted Disease: No HIV/AIDS: No Musculoskeletal: Fractures History of Blood Disorders: Yes (SICKLE CELL ANEMIA) Adverse Reaction to Blood Akers: No Family History Reviewed Nursing Family Hx Asthma G8 BROTHER Parkinson's disease Seizure disorder G8 BROTHER Asthma, Diabetes, Hypertension Review of Systems Constitutional: no symptoms reported EENTM: nose congestion Respiratory: cough, short of breath Cardiovascular: chest pain Gastrointestinal: no symptoms reported Genitourinary: no symptoms reported Musculoskeletal: no symptoms reported Skin: no symptoms reported Psychiatric/Neurological: No Symptoms Reported Physical Exam Physical Exam Vital Signs Vital Signs - First Documented 07/06/19 07/06/19 05:36 12:45 Temp 37.1 Pulse 106 Resp 24 B/P (MAP) 114/65 (81) Pulse Ox 94 O2 Delivery Nasal Cannula O2 Flow Rate 3.0 FiO2 32 Capillary Refill : Less Than 3 Seconds Height, Weight, BMI Height: 5'6.00" Weight: 162lbs. 0.0oz. 73.959631zr; 24.21 BMI Method:Stated General Appearance: No Apparent Distress HEENT: PERRL/EOMI, Pharynx Normal, Scleral Icterus (L), Scleral Icterus (R) Neck: Normal Inspection, Supple Respiratory: Lungs Clear, Normal Breath Sounds, No Respiratory Distress Cardiovascular: Regular Rate, Rhythm, No Edema, No Murmur Gastrointestinal: Normal Bowel Sounds, Non Tender, Soft Extremity: Normal Inspection, Non Tender, No Pedal Edema Neurologic/Psychiatric: Alert, Oriented x3, No Motor/Sensory Deficits, Normal Mood/Affect Skin: Normal Color, Warm/Dry Results Results/Procedures Labs Laboratory Tests 07/06/19 05:46 Patient resulted labs reviewed. Imaging: Reviewed Imaging Report Assessment/Plan Admission Diagnosis Sickle cell crisis Admission Status: Inpatient Order (span 2 midnights) Reason for Inpatient Admission: Sickle cell crisis requiring IV antibiotics Assessment and Plan Sickle cell crisis Hemoglobin 8.4, LDH 49, reticulocyte 20%, T bili 8 Pain regimen ordered Supplemental oxygen Community acquired pneumonia Chest x-ray revealed consolidation Not sepsis, tachycardia attributed to sickle cell crisis Started on Rocephin and azithromycin Methamphetamine abuse Urine toxicology positive for amphetamines and opioids Recommend cessation DVT prophylaxis: Lovenox Diagnosis/Problems Diagnosis/Problems (1) Sickle cell crisis Status: Acute (2) Community acquired pneumonia Status: Acute Clinical Quality Measures AMI/AHF: ASA po Prior to arrival: No DVT/VTE Risk/Contraindication: Risk Factor Score Per Nursin RFS Level Per Nursing on Admit: 1=Low/No VTE PPX NELLY HOWE MD Jul 06, 2019 15:03
[2019-07-06] MEDS: ACETAMINOPHEN 500 MG TAB (TYLENOL) PO SCH (16:32)
[2019-07-06] MEDS: RT-ALBUTEROL/IPRATROPIUM 3 ML (DUONEB) VIAL INH SCH (20:14)
[2019-07-07] VITALS (12 sets, daily range): BP systolic 101–118; BP diastolic 60–71
[2019-07-07] MEDS: ACETAMINOPHEN 500 MG TAB (TYLENOL) PO SCH ×4 (00:47→22:18)
[2019-07-07] MEDS: RT-ALBUTEROL/IPRATROPIUM 3 ML (DUONEB) VIAL INH SCH ×4 (02:35→21:35)
[2019-07-07 03:59] LABS: MEAN CORPUSCULAR HGB CONC 35 G/DL (32-36); MEAN CORPUSCULAR VOLUME 90 FL (80-99); MEAN PLATELET VOLUME 11.5 FL (7.4-10.4); PLATELET COUNT 181 10^3/uL (130-400); RED CELL DISTRIBUTION WIDTH 24.1 % (10.0-14.5); WHITE BLOOD COUNT 10.9 10^3/uL (4.3-11.0)
[2019-07-07 04:03] LABS: HEMATOCRIT 21 % (40-54); MEAN CORPUSCULAR HEMOGLOBIN 32 PG (25-34)
[2019-07-07 04:06] LABS: BASOPHILS % (AUTO) 1 % (0-10); EOSINOPHILS % (AUTO) 4 % (0-10); LYMPHOCYTES # (AUTO) 3.4 X 10^3 (1.0-4.0); LYMPHOCYTES % (AUTO) 31 % (12-44); MONOCYTES % (AUTO) 17 % (0-12); NEUTROPHILS # (AUTO) 5.1 X 10^3 (1.8-7.8); NEUTROPHILS % (AUTO) 47 % (42-75)
[2019-07-07 04:07] LABS: BASOPHILS # (AUTO) 0.1 10^3/uL (0.0-0.1); EOSINOPHILS # (AUTO) 0.5 10^3/uL (0.0-0.3); MONOCYTES # (AUTO) 1.8 X 10^3 (0.0-1.0)
[2019-07-07] MEDS: NS IV 1000 ML 1,000 ML IV SCH ×4 (04:15→18:42)
[2019-07-07 04:20] LABS: BUN/CREATININE RATIO 13; CALCIUM 8.5 MG/DL (8.5-10.1); CARBON DIOXIDE 24 MMOL/L (21-32); CHLORIDE 108 MMOL/L (98-107); CHOLESTEROL 100 MG/DL (< 200); CREATININE SERUM 0.77 MG/DL (0.60-1.30); GFR ESTIMATED > 60; GLUCOSE 98 MG/DL (70-105); HDL CHOLESTEROL 25 MG/DL (40-60); POTASSIUM 4.1 MMOL/L (3.6-5.0); SODIUM 141 MMOL/L (135-145); TRIGLYCERIDES 91 MG/DL (<150); VLDL CHOLESTEROL 18 MG/DL (5-40)
[2019-07-07] MEDS: HYDROmorphone 2 MG/ML VIAL (DILAUDID) IV PRN ×4 (06:03→19:30)
[2019-07-07] MEDS ORDERED: cefTRIAXone 1,000 MG/SWFI 10 ML IV PUSH IV SCH ×2 (07:00)
[2019-07-07] MEDS ORDERED: NS IV 500 ML 500 ML IV SCH (08:00)
[2019-07-07] MEDS: AZITHROMYCIN 250 MG TAB (ZITHROMAX) PO SCH (08:52)
--- NOTE | 2019-07-07 10:18 | NUR ---
Received referral from Dr. Farris to assist pt in obtaining primary physician and to assist with possible treatment of drug abuse as was positive for opioids and methamphetamines upon admission. In reviewing pt history, since 2016 pt experienced at least 8 admissions for sickle cell crisis and has been to our Emergency room at least 5 times in the past year. After every stay pt has been [facility] and in the past 2 years he's only kept one out-pt appt which was with Dr. Alvarado in 2017. His last appt was made in November of 2018 and arranged for private cab to transport but ddn't make his appt. Attempted to meet with pt but he was sleeping and will try to meet with him when his condition improves.
--- NOTE | 2019-07-07 13:40 | Progress Note - Hospitalist ---
Subjective HPI/CC On Admission Date Seen by Provider: Jul 07, 2019 Time Seen by Provider: 09:15 Geraldo Smith is 33-year-old male with past medical history of sickle cell disease who presented with bilateral rib pain. He had been in the emergency room the night before and was to be admitted but left AGAINST MEDICAL ADVICE. He reports having bilateral lower rib pain for the past couple days. He reports shortness of breath and cough. He denies any fevers or chills. He denies any sore throat. He reports runny nose. He reports headache. He denies any abdominal pain, nausea, vomiting, or diarrhea. He denies any dysuria. He has not been seeing a doctor for years. He has not been taking any medications. Subjective/Events-last exam he reports continued rib pain on the left side. He is not having any pain anywhere else of this time. He denies any shortness of breath. He denies any fevers or chills. He denies any abdominal pain, nausea, or vomiting. Has no other complaints or concerns. Focused Exam Lactate Level 07/06/19 07:40: Lactic Acid Level 0.68 Objective Exam Vital Signs Vital Signs Date Time Temp Pulse Resp B/P (MAP) Pulse Ox O2 Delivery O2 Flow Rate FiO2 07/07/19 13:02 37.8 80 14 106/71 96 Nasal Cannula 2.00 07/06/19 12:45 32 Capillary Refill : Less Than 3 Seconds General Appearance: No Apparent Distress, WD/WN HEENT: PERRL/EOMI, Pharynx Normal, Scleral Icterus (L), Scleral Icterus (R) Neck: Normal Inspection, Supple Respiratory: Lungs Clear, Normal Breath Sounds, No Respiratory Distress, Other (left-sided chest tenderness) Cardiovascular: Regular Rate, Rhythm, No Edema, No Murmur Gastrointestinal: Normal Bowel Sounds, Non Tender, Soft Extremity: Normal Inspection, Non Tender, No Pedal Edema Neurologic/Psychiatric: Alert, Oriented x3, No Motor/Sensory Deficits, Normal Mood/Affect Skin: Normal Color, Warm/Dry Results/Procedures Lab Laboratory Tests 07/07/19 03:15 Patient resulted labs reviewed. Imaging: Reviewed Imaging Report Assessment/Plan Assessment and Plan Assess & Plan/Chief Complaint Sickle cell crisis Hemoglobin decreased to 7 today Transfuse 1 unit of PRBC Pain regimen ordered Supplemental oxygen Community acquired pneumonia Chest x-ray revealed consolidation Not sepsis, tachycardia attributed to sickle cell crisis continue Rocephin and azithromycin Methamphetamine abuse Urine toxicology positive for amphetamines and opioids Recommend cessation DVT prophylaxis: Lovenox Diagnosis/Problems Diagnosis/Problems (1) Sickle cell crisis Status: Acute (2) Community acquired pneumonia Status: Acute Clinical Quality Measures AMI/AHF: ASA po Prior to arrival: No DVT/VTE Risk/Contraindication: Risk Factor Score Per Nursin RFS Level Per Nursing on Admit: 1=Low/No VTE PPX NELLY HOWE MD Jul 07, 2019 13:40
--- NOTE | 2019-07-07 16:19 | NUR ---
Met with pt about continued care needs. He was agreeable with an appt. at [facility] and does have appt. with Bret FUNES. Jul.26 10 0'clock. Also discussed his positive drug screen. He adamantly denies using methamphetamines but does acknowledge frequent marijuana smoker" whenever he can get it" and states it helps him. Pt does have medicaid which would pay for his prescription medications and will give him his appointment card for [facility].will follow.
[2019-07-07 16:58] LABS: HEMOGLOBIN 8.2 G/DL (13.3-17.7)
--- NOTE | 2019-07-07 17:05 | NUR ---
THIS NURSE CALLED REPORT TO LINCOLN CLINE ON FOURTH FLOOR. PT TAKEN DOWN VIA WHEELCHAIR WITH PERSONAL BELONGINGS.
--- NOTE | 2019-07-07 17:10 | NUR ---
Report received from Rosalie CLINE, patient to room 422, with belongings. Patient oriented room and call light. Will assume care of patient at this time.
[2019-07-08] VITALS (7 sets, daily range): BP systolic 96–118; BP diastolic 55–65
[2019-07-08] MEDS: RT-ALBUTEROL/IPRATROPIUM 3 ML (DUONEB) VIAL INH SCH ×3 (02:29→15:27)
[2019-07-08] MEDS: ACETAMINOPHEN 500 MG TAB (TYLENOL) PO SCH ×3 (04:33→22:03)
[2019-07-08 06:10] LABS: BASOPHILS # (AUTO) 0.1 10^3/uL (0.0-0.1); BASOPHILS % (AUTO) 1 % (0-10); EOSINOPHILS # (AUTO) 0.7 10^3/uL (0.0-0.3); EOSINOPHILS % (AUTO) 6 % (0-10); HEMATOCRIT 22 % (40-54); HEMOGLOBIN 7.6 G/DL (13.3-17.7); LYMPHOCYTES # (AUTO) 2.2 X 10^3 (1.0-4.0); LYMPHOCYTES % (AUTO) 19 % (12-44); MEAN CORPUSCULAR HEMOGLOBIN 31 PG (25-34); MEAN CORPUSCULAR HGB CONC 35 G/DL (32-36); MEAN CORPUSCULAR VOLUME 88 FL (80-99); MEAN PLATELET VOLUME 10.7 FL (7.4-10.4); MONOCYTES # (AUTO) 1.8 X 10^3 (0.0-1.0); MONOCYTES % (AUTO) 16 % (0-12); NEUTROPHILS # (AUTO) 6.8 X 10^3 (1.8-7.8); NEUTROPHILS % (AUTO) 59 % (42-75); PLATELET COUNT 202 10^3/uL (130-400); RED CELL DISTRIBUTION WIDTH 23.2 % (10.0-14.5); WHITE BLOOD COUNT 11.7 10^3/uL (4.3-11.0)
[2019-07-08 06:34] LABS: BUN/CREATININE RATIO 13; CALCIUM 9.1 MG/DL (8.5-10.1); CARBON DIOXIDE 23 MMOL/L (21-32); CHLORIDE 108 MMOL/L (98-107); CREATININE SERUM 0.79 MG/DL (0.60-1.30); GFR ESTIMATED > 60; GLUCOSE 88 MG/DL (70-105); POTASSIUM 4.2 MMOL/L (3.6-5.0); SODIUM 139 MMOL/L (135-145)
[2019-07-08 07:27] LABS: ALBUMIN 3.8 GM/DL (3.2-4.5); BILIRUBIN,DIRECT 0.7 MG/DL (0.0-0.3); BILIRUBIN,INDIRECT 3.6 MG/DL; BILIRUBIN,TOTAL 4.3 MG/DL (0.1-1.0); TOTAL PROTEIN 6.9 GM/DL (6.4-8.2)
[2019-07-08] MEDS ORDERED: IBUPROFEN 600 MG (MOTRIN) TAB PO PRN (09:45)
[2019-07-08] MEDS: ONDANSETRON 4 MG (ZOFRAN) ORAL DISSOLVE TAB PO PRN (09:57)
[2019-07-08] MEDS: CEFDINIR 300 MG (OMNICEF) CAP PO SCH ×2 (09:57→22:01)
[2019-07-08] MEDS: AZITHROMYCIN 250 MG TAB (ZITHROMAX) PO SCH (09:58)
[2019-07-08] MEDS ORDERED: OXC5T PO (11:04)
[2019-07-08] MEDS ORDERED: CEFD300C3 PO (11:08)
--- NOTE | 2019-07-08 11:16 | Discharge Summary ---
Discharge Summary Hospital Course Was the Problem List Reviewed?: Yes Problems/Dx: (1) Sickle cell crisis Status: Acute (2) Community acquired pneumonia Status: Acute Hospital Course Date of Admission: Jul 06, 2019 at 07:20 Admission Diagnosis : Sickle cell crisis Family Physician/Provider: IraLocal Physician Date of Discharge: 07/08/19 Discharge Diagnosis: Sickle cell crisis Hospital Course: Geraldo Smith is a 33-year-old male with sickle cell disease who presented with rib pain and was admitted with sickle cell crisis. He was also found to have a community-acquired pneumonia. His sickle cell crisis was initially treated with IV pain medicines and his pain improved and he thought it was well-controlled on oral medications. He was discharged with a course of oral oxycodone. His pneumonia was initially treated with IV antibiotics and he was then transitioned to oral Omnicef to complete a one-week course of antibiotics. His course was also complicated by anemia and he was transfused 1 unit of blood. On discharge his hemoglobin was stable and his bilirubin and pain was improving. He currently does not have a primary care physician, but said he was planning to establish care at the [facility]. He should follow-up in about a week with repeat labs. Labs and Pending Lab Test: Laboratory Tests 07/07/19 16:50: Hemoglobin 8.2L, Hematocrit 24L 07/08/19 06:00: Hemoglobin 7.6L, Hematocrit 22L, White Blood Count 11.7H, Red Blood Count 2.48L, Mean Corpuscular Volume 88, Mean Corpuscular Hemoglobin 31, Mean Corpuscular Hemoglobin Concent 35, Red Cell Distribution Width 23.2H, Platelet Count 202, Mean Platelet Volume 10.7H, Neutrophils (%) (Auto) 59, Lymphocytes (%) (Auto) 19, Monocytes (%) (Auto) 16H, Eosinophils (%) (Auto) 6, Basophils (%) (Auto) 1, Neutrophils # (Auto) 6.8, Lymphocytes # (Auto) 2.2, Monocytes # (Auto) 1.8H, Eosinophils # (Auto) 0.7H, Basophils # (Auto) 0.1, Sodium Level 139, Potassium Level 4.2, Chloride Level 108H, Carbon Dioxide Level 23, Anion Gap 8, Blood Urea Nitrogen 10, Creatinine 0.79, Estimat Glomerular Filtration Rate > 60, BUN/ Creatinine Ratio 13, Glucose Level 88, Calcium Level 9.1, Total Bilirubin 4.3H, Direct Bilirubin 0.7H, Indirect Bilirubin 3.6, Aspartate Amino Transf (AST/SGOT) 31, Alanine Aminotransferase (ALT/SGPT) 20, Alkaline Phosphatase 64, Total Protein 6.9, Albumin 3.8 Microbiology 07/06/19 Blood Culture - Preliminary, Resulted No growth 07/06/19 Influenza Types A,B Antigen (ABRAM) - Final, Complete Home Meds Active Cefdinir 300 Mg Capsule 300 Mg PO BID 4 Days Oxycodone IR (Oxycodone HCl) 5 Mg Tab 5 Mg PO Q4H PRN MDD 30 MG 7 Days Assessment/Pt Instructions Take medications as prescribed. Complete her course of antibiotics even if you're feeling better. Establish care with a new primary care physician at the [facility]. Return with worsening fevers, shortness of breath, pain, or if you feel like you're getting worse. Discharge Planning: <30 minutes discharge planning Discharge Instructions Discharge Diet: No Restrictions Activity as Tolerated: Yes Discharge Physical Examination Vital Signs Vital Signs Date Time Temp Pulse Resp B/P (MAP) Pulse Ox O2 Delivery O2 Flow Rate FiO2 07/08/19 09:16 82 Room Air 07/08/19 08:00 37.5 91 16 96/55 (69) 3.00 07/06/19 12:45 32 General Appearance: No Apparent Distress, WD/WN HEENT: PERRL/EOMI, Pharynx Normal, Scleral Icterus (L), Scleral Icterus (R) Respiratory: Lungs Clear, Normal Breath Sounds, No Respiratory Distress, Other (Left-sided chest tenderness) Cardiovascular: Regular Rate, Rhythm, No Edema, No Murmur Gastrointestinal: Normal Bowel Sounds, Non Tender, Soft Extremity: Normal Inspection, Non Tender, No Pedal Edema Skin: Warm/Dry, Jaundice Neurologic/Psychiatric: Alert, Oriented x3, No Motor/Sensory Deficits, Normal Mood/Affect Allergies: Coded Allergies: morphine (Verified Adverse Reaction, Unknown, PT HAS TAKEN LORTAB & STADOL IN THE PAST, 04/24/18) Uncoded Allergies: SHELLFISH (Allergy, Unknown, 09/09/18) Discharge Summary Date of Admission Jul 06, 2019 at 07:20 Date of Discharge Discharge Date: Jul 08, 2019 Discharge Time: 11:15 Admission Diagnosis Sickle cell crisis Discharge Diagnosis Sickle cell crisis (1) Sickle cell crisis Status: Acute (2) Community acquired pneumonia Status: Acute Clinical Quality Measures AMI/AHF: ASA po Prior to arrival: No DVT/VTE Risk/Contraindication: Risk Factor Score Per Nursin RFS Level Per Nursing on Admit: 1=Low/No VTE PPX NELLY HOWE MD Jul 08, 2019 11:16
--- NOTE | 2019-07-08 11:26 | NUR ---
PT FOUND IN ROOM WITH OXYGEN OFF. O2 CHECKED AND FOUND TO BE 86% ON ROOM AIR HR 103. OXYGEN PLACED ON AT 3LNC. PT EDUCATED ON NEED FOR OXYGEN. DR HOWE NOTIFIED. DISCHARGE ORDERS CANCELLED.
--- NOTE | 2019-07-08 11:43 | Progress Note - Hospitalist ---
Subjective HPI/CC On Admission Date Seen by Provider: Jul 08, 2019 Time Seen by Provider: 09:40 Geraldo Smith is 33-year-old male with past medical history of sickle cell disease who presented with bilateral rib pain. He had been in the emergency room the night before and was to be admitted but left AGAINST MEDICAL ADVICE. He reports having bilateral lower rib pain for the past couple days. He reports shortness of breath and cough. He denies any fevers or chills. He denies any sore throat. He reports runny nose. He reports headache. He denies any abdominal pain, nausea, vomiting, or diarrhea. He denies any dysuria. He has not been seeing a doctor for years. He has not been taking any medications. Subjective/Events-last exam He continues to have left-sided rib pain which is improving. He denies any shortness of breath. He denies any fevers or chills. He has no other complaints or concerns. Focused Exam Lactate Level 07/06/19 07:40: Lactic Acid Level 0.68 Objective Exam Vital Signs Vital Signs Date Time Temp Pulse Resp B/P (MAP) Pulse Ox O2 Delivery O2 Flow Rate FiO2 07/08/19 09:16 82 Room Air 07/08/19 08:00 37.5 91 16 96/55 (69) 07/06/19 12:45 32 Capillary Refill : Less Than 3 SecondsLess Than 3 Seconds General Appearance: No Apparent Distress, WD/WN HEENT: PERRL/EOMI, Pharynx Normal, Scleral Icterus (L), Scleral Icterus (R) Neck: Normal Inspection, Supple Respiratory: Lungs Clear, Normal Breath Sounds, No Respiratory Distress Cardiovascular: Regular Rate, Rhythm, No Edema, No Murmur Gastrointestinal: Normal Bowel Sounds, Non Tender, Soft Extremity: Normal Inspection, Non Tender, No Pedal Edema Neurologic/Psychiatric: Alert, Oriented x3, No Motor/Sensory Deficits, Depressed Affect Skin: Warm/Dry, Jaundice Results/Procedures Lab Laboratory Tests 07/07/19 16:50 07/08/19 06:00 Patient resulted labs reviewed. Imaging: Reviewed Imaging Report Assessment/Plan Assessment and Plan Assess & Plan/Chief Complaint Sickle cell crisis Hemoglobin stable, 7.6, continue to monitor Continue pain regimen Community acquired pneumonia Acute hypoxic respiratory failure Chest x-ray revealed consolidation Not sepsis, tachycardia attributed to sickle cell crisis Omnicef and azithromycin Supplemental oxygen Methamphetamine abuse Urine toxicology positive for amphetamines and opioids Recommend cessation DVT prophylaxis: Lovenox Diagnosis/Problems Diagnosis/Problems (1) Sickle cell crisis Status: Acute (2) Community acquired pneumonia Status: Acute (3) Acute respiratory failure with hypoxia Status: Acute Clinical Quality Measures AMI/AHF: ASA po Prior to arrival: No DVT/VTE Risk/Contraindication: Risk Factor Score Per Nursin RFS Level Per Nursing on Admit: 1=Low/No VTE PPX NELLY HOWE MD Jul 08, 2019 11:43
[2019-07-08] MEDS: LACTATED RINGERS 1,000 ML IV SCH ×2 (13:10→22:04)
--- NOTE | 2019-07-08 15:27 | NUR ---
PT FOUND ON ROOM AIR @ REST WITH SPO2 72%. REPLACED O2 @ 4 LPM. SPO2 INCREASED TO 94%.
[2019-07-09] VITALS: BP 104/59
[2019-07-09] MEDS: RT-ALBUTEROL/IPRATROPIUM 3 ML (DUONEB) VIAL INH SCH ×3 (01:28→09:57)
[2019-07-09 04:00] VITALS: BP 99/59
[2019-07-09] MEDS: ACETAMINOPHEN 500 MG TAB (TYLENOL) PO SCH (05:29)
[2019-07-09 06:52] LABS: BASOPHILS # (AUTO) 0.1 10^3/uL (0.0-0.1); BASOPHILS % (AUTO) 1 % (0-10); EOSINOPHILS # (AUTO) 0.7 10^3/uL (0.0-0.3); EOSINOPHILS % (AUTO) 9 % (0-10); HEMATOCRIT 21 % (40-54); HEMOGLOBIN 7.2 G/DL (13.3-17.7); LYMPHOCYTES # (AUTO) 1.6 X 10^3 (1.0-4.0); LYMPHOCYTES % (AUTO) 21 % (12-44); MEAN CORPUSCULAR HEMOGLOBIN 31 PG (25-34); MEAN CORPUSCULAR HGB CONC 35 G/DL (32-36); MEAN CORPUSCULAR VOLUME 89 FL (80-99); MEAN PLATELET VOLUME 11.4 FL (7.4-10.4); MONOCYTES # (AUTO) 1.6 X 10^3 (0.0-1.0); MONOCYTES % (AUTO) 21 % (0-12); NEUTROPHILS # (AUTO) 3.8 X 10^3 (1.8-7.8); NEUTROPHILS % (AUTO) 49 % (42-75); PLATELET COUNT 189 10^3/uL (130-400); RED CELL DISTRIBUTION WIDTH 21.9 % (10.0-14.5); WHITE BLOOD COUNT 7.7 10^3/uL (4.3-11.0)
[2019-07-09 08:27] VITALS: BP 99/53
[2019-07-09] MEDS: LACTATED RINGERS 1,000 ML IV SCH (08:43)
[2019-07-09] MEDS: ONDANSETRON 4 MG (ZOFRAN) ORAL DISSOLVE TAB PO PRN (08:43)
[2019-07-09] MEDS: CEFDINIR 300 MG (OMNICEF) CAP PO SCH (08:43)
[2019-07-09] MEDS: AZITHROMYCIN 250 MG TAB (ZITHROMAX) PO SCH (08:43)
[2019-07-09 10:50] VITALS: BP 100/53
--- NOTE | 2019-07-09 10:50 | NUR ---
SAROJ LINDER demonstrates understanding of discharge instructions and accurately returns instructions upon questioning. Copy of Post-Discharge Instructions given to pt. SAROJ LINDER is able to manage continuing needs after discharge. Patients belongings returned to pt. Patient discharged from 422-1 on 07/09/19 at 1050. SAROJ LINDER left floor via w/c, accompanied by STAFF AND FAMILY PER AUTO.
--- NOTE | 2019-07-10 16:26 | NUR ---
Attempts made to contact pt to ensure his continued care needs were met. Pt will receive follow-up at [facility] with Labs to be drawn in one week and wanted to make sure he understood discharge and could comply with instructions. Left message to call
== END 2019-07-09 10:50 | disposition home or self-care (01) | DRG 811 ==
LOC: EDUNIT# 05:35 → ER 05:36 → ICU 07:20 → 4TH 07-07 17:45
PROVIDERS: ADMIT Internal Medicine; ATTEND Internal Medicine
DX: D57.00 Hb-SS disease with crisis, unspecified (principal); J18.9 Pneumonia, unspecified organism; F17.210 Nicotine dependence, cigarettes, uncomplicated; J45.909 Unspecified asthma, uncomplicated; F15.10 Other stimulant abuse, uncomplicated; Z28.82 Immunization not carried out because of caregiver refusal
CPT/HCPCS: 36415; 71045; 71046; 80048; 80053; 80061; 80076; 80306; 80320; 82150; 82550; 82553; 83605; 83615; 83690; 83735; 83874; 83880; 84145; 84484; 85014; 85018; 85025; 85045; 85610; 85730; 86141; 86850; 86900; 86901; 86920; 87040; 87804; 93005; 93041; 94640; 94760; 94761; 96361; 96374; 96375; 96376

== ENCOUNTER 2019-09-20 16:26 | Emergency (ER) | payer MEDICAID ==
[~2019-09-20] VITALS: Ht 167.4 cm; Wt 68.0 kg
[~2019-09-20 16:26] MED LIST changes: +OXC5T PO
[2019-09-20] MEDS ORDERED: NS IV 1000 ML 1,000 ML IV SCH (16:45)
[2019-09-20] MEDS ORDERED: KETOROLAC 30 MG/ML VIAL IVP ONE (16:45)
--- NOTE | 2019-09-20 17:22 | Diagnostic Imaging Report ---
INDICATION: Right-sided chest pain, history of sickle cell disease. TECHNIQUE: Single view chest 5:10 PM. CORRELATION STUDY: 07/06/2019. FINDINGS: Heart size and mediastinum are stable. Vasculature is slightly increased. Bibasilar opacities are present overall generally stable. Definitive new area of infiltrate is not suggested. IMPRESSION: 1. Stable heart size and vasculature slightly increased from prior study. 2. Bibasilar opacities overall appearing generally stable from previous study, right greater than left. Dictated by: Dictated on workstation # [id number]
[2019-09-20 17:33] LABS: BASOPHILS # (AUTO) 0.2 10^3/uL (0.0-0.1); BASOPHILS % (AUTO) 2 % (0-10); EOSINOPHILS # (AUTO) 0.6 10^3/uL (0.0-0.3); EOSINOPHILS % (AUTO) 5 % (0-10); HEMATOCRIT 28 % (40-54); HEMOGLOBIN 9.6 G/DL (13.3-17.7); LYMPHOCYTES % (AUTO) 23 % (12-44); MEAN CORPUSCULAR HEMOGLOBIN 32 PG (25-34); MEAN CORPUSCULAR HGB CONC 34 G/DL (32-36); MEAN CORPUSCULAR VOLUME 93 FL (80-99); MEAN PLATELET VOLUME 11.4 FL (7.4-10.4); MONOCYTES # (AUTO) 2.2 X 10^3 (0.0-1.0); MONOCYTES % (AUTO) 17 % (0-12); NEUTROPHILS # (AUTO) 7.4 X 10^3 (1.8-7.8); NEUTROPHILS % (AUTO) 55 % (42-75); PLATELET COUNT 204 10^3/uL (130-400); RED CELL DISTRIBUTION WIDTH 24.4 % (10.0-14.5); WHITE BLOOD COUNT 13.4 10^3/uL (4.3-11.0)
[2019-09-20 17:42] LABS: PROTHROMBIN TIME PATIENT 13.9 SEC (12.2-14.7)
[2019-09-20 17:44] LABS: ALBUMIN 4.2 GM/DL (3.2-4.5)
[2019-09-20 17:45] LABS: CHLORIDE 105 MMOL/L (98-107); POTASSIUM 4.6 MMOL/L (3.6-5.0); SODIUM 137 MMOL/L (135-145)
[2019-09-20 17:46] LABS: AMYLASE 88 U/L (25-125)
[2019-09-20 17:47] LABS: GLUCOSE 85 MG/DL (70-105); TOTAL PROTEIN 7.9 GM/DL (6.4-8.2)
[2019-09-20 17:48] LABS: CARBON DIOXIDE 21 MMOL/L (21-32)
[2019-09-20 17:49] LABS: BILIRUBIN,TOTAL 5.1 MG/DL (0.1-1.0)
[2019-09-20 17:50] LABS: ALKALINE PHOSPHATASE 74 U/L (40-136)
[2019-09-20 17:51] LABS: CREATININE SERUM 0.82 MG/DL (0.60-1.30); GFR ESTIMATED > 60
[2019-09-20 17:52] LABS: BUN/CREATININE RATIO 6
[2019-09-20 17:54] LABS: ALANINE AMINOTRANSFERASE 14 U/L (0-55); MAGNESIUM 2.2 MG/DL (1.6-2.4)
[2019-09-20 17:55] LABS: LIPASE 18 U/L (8-78)
[2019-09-20] MEDS ORDERED: fentaNYL INJECTION 100 MCG/2 ML AMP IVP ONE (18:00)
--- NOTE | 2019-09-20 18:18 | ED Cardiac General ---
History of Present Illness General Chief Complaint: Chest Pain Stated Complaint: CP Nursing Triage Note: PT TO ROOM 05 VIA EMS WITH C/O UPPER RIGHT CHEST PAIN. PT STATES HE FEELS LIKE HE IS HAVING A SICKLE CELL FLARE UP. Source: patient Exam Limitations: no limitations History of Present Illness Date Seen by Provider: Sep 20, 2019 Time Seen by Provider: 16:35 Initial Comments 34-year-old male who is brought to the emergency room by upper right chest pain for the past 2 days along with pain all over his body. He reports this is very typical for sickle cell flareup. His oxygen saturation was 88 on room air on arrival to the emergency room. NTG SL OBSTETRICS GYN PHYSICIAN: No ASA po OBSTETRICS GYN PHYSICIAN: No Associated Systoms: Chest Pain Allergies and Home Medications Allergies Coded Allergies: morphine (Verified Adverse Reaction, Unknown, PT HAS TAKEN LORTAB & STADOL IN THE PAST, 04/24/18) Uncoded Allergies: SHELLFISH (Allergy, Unknown, 09/09/18) Home Medications Cefdinir 300 Mg Capsule, 300 MG PO BID Prescribed by: NELLY HOWE on 07/08/19 1108 Oxycodone HCl/Acetaminophen 1 Each Tablet, 1 EACH PO Q4H PRN for PAIN-MODERATE Prescribed by: SEAN KEENAN on 09/20/19 191 Oxycodone Hcl 5 Mg Tab, 5 MG PO Q4H PRN for PAIN-SEVERE Prescribed by: NELLY HOWE on 07/08/19 1104 Patient Home Medication List Home Medication List Reviewed: Yes Review of Systems Review of Systems Constitutional: see HPI; No chills, No fever Cardiovascular: See HPI, Chest Pain Musculoskeletal: see HPI, joint pain (pain all over) All Other Systems Reviewed Negative Unless Noted: Yes Past Qjzjzup-Gyxvcl-Dyqkjj Hx Past Med/Social Hx: Reviewed Nursing Past Med/Soc Hx Patient Social History Alcohol Use: Denies Use Number of Drinks Today: GG Alcohol Beverage of Choice: Whiskey Recreational Drug Use: Yes Drug of Choice: THC, COCAINE, ALSO ADMITTED TO METHAMPHETAMINES IN PAST. Smoking Status: Current Everyday Smoker Type Used: Cigarettes 2nd Hand Smoke Exposure: Yes Recent Foreign Travel: No Contact w/Someone Who Travel: No Recent Infectious Disease Expo: No Recent Hopitalizations: No Physical Abuse: No Sexual Abuse: No Mistreated: No Fear: No Immunizations Up To Date Tetanus Booster (TDap): Unknown PED Vaccines UTD: No Seasonal Allergies Seasonal Allergies: No Past Medical History Surgeries: Yes (SPLENECTOMY) Gallbladder, Orthopedic Respiratory: No Currently Using CPAP: No Currently Using BIPAP: No Cardiac: No Neurological: No Reproductive Disorders: No Sexually Transmitted Disease: No HIV/AIDS: No Genitourinary: No Gastrointestinal: No Musculoskeletal: Yes (LEFT FOREARM INJURY AGE 5--S/P SURGERY; BIALTERAL ANKLE SURGERY ) Fractures Endocrine: No HEENT: No Cancer: No Psychosocial: No Integumentary: No Blood Disorders: Yes (SICKLE CELL ANEMIA) Adverse Reaction/Blood Tranf: No Family Medical History Reviewed Nursing Family Hx Asthma G8 BROTHER Parkinson's disease Seizure disorder G8 BROTHER Asthma, Diabetes, Hypertension Physical Exam Vital Signs Vital Signs - First Documented 09/20/19 19:45 Pulse Ox 97 Capillary Refill : Less Than 3 Seconds Height, Weight, BMI Height: 5'6.00" Weight: 162lbs. 0.0oz. 73.982425hi; 24.00 BMI Method:Stated General Appearance: No Apparent Distress, WD/WN Respiratory: Chest Non Tender, Lungs Clear, Normal Breath Sounds, No Accessory Muscle Use, No Respiratory Distress Cardiovascular: Regular Rate, Rhythm, No Edema, No Gallop, No JVD, No Murmur, Normal Peripheral Pulses Gastrointestinal: Normal Bowel Sounds, No Organomegaly, No Pulsatile Mass, Non Tender Extremity: Normal Capillary Refill, Normal Inspection, Normal Range of Motion, Non Tender, No Calf Tenderness Neurologic/Psychiatric: Alert, Oriented x3, Normal Mood/Affect Skin: Normal Color, Warm/Dry Progress/Results/Core Measures Results/Orders Lab Results Laboratory Tests Test 09/20/19 17:17 Range/Units White Blood Count 13.4 H 4.3-11.0 10^3/uL Red Blood Count 3.00 L 4.35-5.85 10^6/uL Hemoglobin 9.6 L 13.3-17.7 G/DL Hematocrit 28 L 40-54 % Mean Corpuscular Volume 93 80-99 FL Mean Corpuscular Hemoglobin 32 25-34 PG Mean Corpuscular Hemoglobin Concent 34 32-36 G/DL Red Cell Distribution Width 24.4 H 10.0-14.5 % Platelet Count 204 130-400 10^3/uL Mean Platelet Volume 11.4 H 7.4-10.4 FL Neutrophils (%) (Auto) 55 42-75 % Lymphocytes (%) (Auto) 23 12-44 % Monocytes (%) (Auto) 17 H 0-12 % Eosinophils (%) (Auto) 5 0-10 % Basophils (%) (Auto) 2 0-10 % Neutrophils # (Auto) 7.4 1.8-7.8 X 10^3 Lymphocytes # (Auto) 3.0 1.0-4.0 X 10^3 Monocytes # (Auto) 2.2 H 0.0-1.0 X 10^3 Eosinophils # (Auto) 0.6 H 0.0-0.3 10^3/uL Basophils # (Auto) 0.2 H 0.0-0.1 10^3/uL Prothrombin Time 13.9 12.2-14.7 SEC INR Comment 1.0 0.8-1.4 Activated Partial Thromboplast Time 29 24-35 SEC Sodium Level 137 135-145 MMOL/L Potassium Level 4.6 3.6-5.0 MMOL/L Chloride Level 105 98-107 MMOL/L Carbon Dioxide Level 21 21-32 MMOL/L Anion Gap 11 5-14 MMOL/L Blood Urea Nitrogen 5 L 7-18 MG/DL Creatinine 0.82 0.60-1.30 MG/DL Estimat Glomerular Filtration Rate > 60 BUN/Creatinine Ratio 6 Glucose Level 85 70-105 MG/DL Calcium Level 9.0 8.5-10.1 MG/DL Corrected Calcium 8.8 8.5-10.1 MG/DL Magnesium Level 2.2 1.6-2.4 MG/DL Total Bilirubin 5.1 H 0.1-1.0 MG/DL Aspartate Amino Transf (AST/SGOT) 41 H 5-34 U/L Alanine Aminotransferase (ALT/SGPT) 14 0-55 U/L Alkaline Phosphatase 74 40-136 U/L Myoglobin 18.4 10.0-92.0 NG/ML Troponin I < 0.028 <0.028 NG/ML Total Protein 7.9 6.4-8.2 GM/DL Albumin 4.2 3.2-4.5 GM/DL Amylase Level 88 25-125 U/L Lipase 18 8-78 U/L My Orders Orders - SEAN KEENAN Cbc With Automated Diff (09/20/19 16:34) Magnesium (09/20/19 16:34) Chest 1 View, Ap/Pa Only (09/20/19 16:34) Ekg Tracing (09/20/19 16:34) Comprehensive Metabolic Panel (09/20/19 16:34) Myoglobin Serum (09/20/19 16:34) Protime With Inr (09/20/19 16:34) Partial Thromboplastin Time (09/20/19 16:34) O2 (09/20/19 16:34) Monitor-Rhythm Ecg Trace Only (09/20/19 16:34) Ed Iv/Invasive Line Start (09/20/19 16:34) Lipase (09/20/19 16:34) Amylase (09/20/19 16:34) Troponin I (09/20/19 16:34) Ns Iv 1000 Ml (Sodium Chloride 0.9%) (09/20/19 16:45) Ketorolac Injection (Toradol Injection) (09/20/19 16:45) Fentanyl Injection (Sublimaze Injection (09/20/19 18:00) Oxycodone/Apap 7.5/325mg Tab (Percocet (09/20/19 19:15) Medications Given in ED Current Medications Medications Dose Ordered Sig/Arlene Route Start Time Stop Time Status Last Admin Dose Admin Fentanyl Citrate 50 mcg ONCE ONCE IVP 09/20/19 18:00 09/20/19 18:01 DC 09/20/19 18:14 50 MCG Ketorolac Tromethamine 30 mg ONCE ONCE IVP 09/20/19 16:45 09/20/19 16:46 DC 09/20/19 17:14 30 MG Oxycodone/ Acetaminophen 1 each ONCE ONCE PO 09/20/19 19:15 09/20/19 19:16 DC 09/20/19 19:29 1 EACH Vital Signs/I&O 09/20/19 09/20/19 09/20/19 16:36 16:36 19:45 Temp 37.1 Pulse 87 81 Resp 18 18 B/P (MAP) 110/67 (81) 128/68 Pulse Ox 97 O2 Delivery Nasal Cannula Nasal Cannula Room Air O2 Flow Rate 3.00 3.0 Blood Pressure Mean: 81 Progress Progress Note : Time: 16:00 Progress Note Patient reports feeling better after toradol injection but is still having generalized pain. He request more pain medication at this time. 1907: I have seen and evaluated the patient. I've informed him of his laboratory and imaging studies. His oxygen saturation has improved to 94-96% on room air. He reports that his pain has improved tremendously. He agrees with plan of care, plans for discharge, return precautions were given. Initial ECG Impression Date: Sep 20, 2019 Initial ECG Impression Time: 17:15 Initial ECG Rate: 84 Initial ECG Rhythm: Normal Sinus Initial ECG Impression: Normal Initial ECG Comparisson: Unchanged Departure Impression Primary Impression: Sickle cell crisis Disposition: HOME, SELF-CARE Condition: Stable/Unchanged Departure-Patient Inst. Decision time for Depature: 19:07 Referrals: NO,LOCAL PHYSICIAN (PCP/Family) Primary Care Physician Patient Instructions: LOCAL PHYSICIAN LIST, Sickle Cell Disease (DC) Add. Discharge Instructions: Drink plenty of fluids to stay hydrated. Take medications as needed. Follow up with a PCP of your choosing. Return back to the ED for worsening symptoms or concerns as needed. All discharge instructions reviewed with patient and/or family. Voiced understanding. Scripts Oxycodone HCl/Acetaminophen (Oxycodone-Acetaminophen 5-325) 1 Each Tablet 1 EACH PO Q4H PRN for PAIN-MODERATE MDD 6 for 3 Days, #15 TAB 0 Refills Prov: SEAN KEENAN 09/20/19 SEAN KEENAN Sep 20, 2019 18:18
[2019-09-20] MEDS ORDERED: OXYC-471 PO (19:11)
[2019-09-20] MEDS ORDERED: oxyCODONE/APAP 7.5-325 MG (PERCOCET 7.5) TABLET PO ONE (19:15)
[2019-09-20 19:45] VITALS: BP 128/68
== END 2019-09-20 19:45 | disposition home or self-care (01) ==
LOC: EDUNIT# 16:26 → ER 16:28
DX: D57.00 Hb-SS disease with crisis, unspecified (principal); F17.210 Nicotine dependence, cigarettes, uncomplicated; Z88.5 Allergy status to narcotic agent; Z91.013 Allergy to seafood; Z90.81 Acquired absence of spleen
CPT/HCPCS: 36415; 71045; 80053; 82150; 83690; 83735; 83874; 84484; 85025; 85610; 85730; 93041

== ENCOUNTER 2022-03-12 07:17 | Emergency (ER) | payer MEDICAID ==
[~2022-03-12] VITALS: Ht 167 cm; Wt 68.0 kg
[~2022-03-12 07:17] MED LIST changes: -FOLI0.4T2 PO; +FOLI0.4T6 PO; -FOLI1TAB24 PO; +FOLI1TAB33 PO; -OXYC-465 PO; -OXYC-471; +OXYC-556 PO; +OXYC1TAB11; +OXYC1TAB11 PO
--- NOTE | 2022-03-12 07:37 | ED General ---
General Chief Complaint: General Problems/Pain Stated Complaint: SICKLE CELL Nursing Triage Note: ARRIVED VIA EMS FROM HOME WITH COMPLAINTS OF A SICKLE CELL CRISIS. COMPLAINS OF ABD AND BACK PAIN Source of Information: Patient Exam Limitations: No Limitations History of Present Illness Date Seen by Provider: Mar 12, 2022 Time Seen by Provider: 07:25 Initial Comments 36-year-old male with history of sickle cell disease presents the emergency department today for right flank and bilateral low back pain. Symptoms started yesterday. He states his pain is similar to previous sickle cell crises. Denies any chest pain, shortness of breath. No fevers or chills. No changes in bowel or bladder habits. No dysuria, hematuria. He does not see hematology on a regular basis, it has been several years since he seen him per his report. He does take hydroxyurea and uric acid Allergies and Home Medications Allergies Coded Allergies: morphine (Verified Adverse Reaction, Unknown, PT HAS TAKEN LORTAB & STADOL IN THE PAST, 04/24/18) Uncoded Allergies: SHELLFISH (Allergy, Unknown, 09/09/18) Patient Home Medication List Home Medication List Reviewed: Yes Cefdinir (Cefdinir) 300 Mg Capsule, 300 MG PO BID Prescribed by: NELLY HOWE on 07/08/19 110 Oxycodone HCl/Acetaminophen (Oxycodone-Acetaminophen 5-325) 1 Each Tablet, 1 EACH PO Q4H PRN for PAIN-MODERATE Prescribed by: SEAN KEENAN on 09/20/191910 Oxycodone Hcl (Oxycodone IR) 5 Mg Tab, 5 MG PO Q4H PRN for PAIN-SEVERE Prescribed by: NELLY HOWE on 07/08/19 1104 Review of Systems Review of Systems Constitutional: no symptoms reported EENTM: no symptoms reported Respiratory: no symptoms reported Cardiovascular: no symptoms reported Gastrointestinal: no symptoms reported Genitourinary: no symptoms reported Musculoskeletal: muscle pain Skin: no symptoms reported Psychiatric/Neurological: No Symptoms Reported Hematologic/Lymphatic: No Symptoms Reported Past Cylimrc-Utfjnf-Uxcpvf Hx Patient Social History Tobacco Use?: Yes Use of E-Cig and/or Vaping dev: No Substance use?: No Alcohol Use?: No Immunizations Up To Date Tetanus Booster (TDap): Unknown PED Vaccines UTD: No Seasonal Allergies Seasonal Allergies: No Past Medical History Surgeries: Yes (SPLENECTOMY) Gallbladder, Orthopedic Respiratory: No Currently Using CPAP: No Currently Using BIPAP: No Cardiac: No Neurological: No Reproductive Disorders: No Sexually Transmitted Disease: No HIV/AIDS: No Genitourinary: No Gastrointestinal: No Musculoskeletal: Yes (LEFT FOREARM INJURY AGE 5--S/P SURGERY; BIALTERAL ANKLE SURGERY ) Fractures Endocrine: No HEENT: No Cancer: No Psychosocial: No Integumentary: No Blood Disorders: Yes (SICKLE CELL ANEMIA) Adverse Reaction/Blood Tranf: No Family Medical History Reviewed Nursing Family Hx Asthma G8 BROTHER Parkinson's disease Seizure disorder G8 BROTHER Asthma, Diabetes, Hypertension Physical Exam Vital Signs Vital Signs - First Documented 03/12/22 03/12/22 07:17 07:50 Pulse 101 Resp 16 B/P (MAP) 121/75 (90) Pulse Ox 99 O2 Delivery Room Air O2 Flow Rate 2.00 Capillary Refill : Less Than 3 Seconds Height, Weight, BMI Height: 5'6.00" Weight: 162lbs. 0.0oz. 73.656439ex; 24.00 BMI Method:Stated General Appearance: WD/WN, Other (Splinted breathing which he states is secondary to pain) HEENT: PERRL/EOMI, TMs Normal, Normal ENT Inspection, Pharynx Normal Neck: Full Range of Motion, Normal Inspection, Non Tender, Supple Respiratory: Chest Non Tender, Lungs Clear, Normal Breath Sounds, No Accessory Muscle Use, No Respiratory Distress Cardiovascular: Regular Rate, Rhythm, No Edema, No Gallop, No JVD, No Murmur, Normal Peripheral Pulses Gastrointestinal: Normal Bowel Sounds, No Organomegaly, No Pulsatile Mass, Non Tender, Soft Back: Other (Tenderness palpation right flank region. 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 Norm as Tested Skin: Normal Color, Warm/Dry Lymphatic: No Adenopathy Progress/Results/Core Measures Suspected Sepsis SIRS Temperature: Pulse: 101 Respiratory Rate: 16 Laboratory Tests 03/12/22 07:45: White Blood Count 14.7H Blood Pressure 121 /75 Mean: 90 Laboratory Tests 03/12/22 07:45: Creatinine 0.75, Platelet Count 199, Total Bilirubin 7.8H Results/Orders Lab Results Laboratory Tests Test 03/12/22 07:45 03/12/22 08:48 Range/Units White Blood Count 14.7 H 4.3-11.0 10^3/uL Red Blood Count 2.17 L 4.30-5.52 10^6/uL Hemoglobin 7.1 L 13.3-17.7 g/dL Hematocrit 21 L 40-54 % Mean Corpuscular Volume 95 80-99 fL Mean Corpuscular Hemoglobin 33 25-34 pg Mean Corpuscular Hemoglobin Concent 35 32-36 g/dL Red Cell Distribution Width 27.2 H 10.0-14.5 % Platelet Count 199 130-400 10^3/uL Mean Platelet Volume 11.2 9.0-12.2 fL Immature Granulocyte % (Auto) 2 % Neutrophils (%) (Auto) 53 42-75 % Lymphocytes (%) (Auto) 25 12-44 % Monocytes (%) (Auto) 16 H 0-12 % Eosinophils (%) (Auto) 3 0-10 % Basophils (%) (Auto) 1 0-10 % Neutrophils # (Auto) 7.8 1.8-7.8 10^3/uL Lymphocytes # (Auto) 3.6 1.0-4.0 10^3/uL Monocytes # (Auto) 2.4 H 0.0-1.0 10^3/uL Eosinophils # (Auto) 0.5 H 0.0-0.3 10^3/uL Basophils # (Auto) 0.2 H 0.0-0.1 10^3/uL Immature Granulocyte # (Auto) 0.2 H 0.0-0.1 10^3/uL Neutrophils % (Manual) 53 % Lymphocytes % (Manual) 33 % Monocytes % (Manual) 9 % Eosinophils % (Manual) 2 % Basophils % (Manual) 1 % Band Neutrophils 2 % Nucleated Red Blood Cells 36 Percent Immature Platelet Fraction 10.2 H 0.0-7.6 % Polychromasia MARKED Poikilocytosis MODERATE Anisocytosis MODERATE Macrocytosis SLIGHT Sickle Cells MARKED Target Cells SLIGHT [place] Bodies SLIGHT Crenated Cell Absolute Reticulocyte Count 407 H 24-90 10e9/uL Percent Reticulocyte Count 18.76 H 0.50-2.40 % Sodium Level 138 135-145 MMOL/L Potassium Level 4.1 3.6-5.0 MMOL/L Chloride Level 105 98-107 MMOL/L Carbon Dioxide Level 25 21-32 MMOL/L Anion Gap 8 5-14 MMOL/L Blood Urea Nitrogen 4 L 7-18 MG/DL Creatinine 0.75 0.60-1.30 MG/DL Estimat Glomerular Filtration Rate 119 BUN/Creatinine Ratio 5 Glucose Level 87 70-105 MG/DL Calcium Level 8.7 8.5-10.1 MG/DL Corrected Calcium 9.0 8.5-10.1 MG/DL Total Bilirubin 7.8 H 0.1-1.0 MG/DL Aspartate Amino Transf (AST/SGOT) 46 H 5-34 U/L Alanine Aminotransferase (ALT/SGPT) 10 0-55 U/L Alkaline Phosphatase 90 40-136 U/L Troponin I < 0.028 <0.028 NG/ML Total Protein 7.2 6.4-8.2 GM/DL Albumin 3.6 3.2-4.5 GM/DL Urine Color YELLOW Urine Clarity CLEAR Urine pH 6.5 5-9 Urine Specific [place] 1.010 L 1.016-1.022 Urine Protein TRACE H NEGATIVE Urine Glucose (UA) NEGATIVE NEGATIVE Urine Ketones NEGATIVE NEGATIVE Urine Nitrite NEGATIVE NEGATIVE Urine Bilirubin NEGATIVE NEGATIVE Urine Urobilinogen 2.0 < = 1.0 MG/DL Urine Leukocyte Esterase TRACE H NEGATIVE Urine RBC (Auto) TRACE-I H NEGATIVE Urine RBC RARE /HPF Urine WBC RARE /HPF Urine Squamous Epithelial Cells RARE /HPF Urine Crystals NONE /LPF Urine Bacteria TRACE /HPF Urine Casts NONE /LPF Urine Mucus NEGATIVE /LPF Urine Culture Indicated NO My Orders Orders - JAMESON ADAN DO Reticulocyte Count (03/12/22 07:27) Comprehensive Metabolic Panel (03/12/22 07:27) Chest 1 View, Ap/Pa Only (03/12/22 07:27) Cbc With Automated Diff (03/12/22 07:27) Ua Culture If Indicated (03/12/22 07:34) Fentanyl Inj (Sublimaze Injection) (03/12/22 07:45) Ns Iv 1000 Ml (Sodium Chloride 0.9%) (03/12/22 07:45) Manual Differential (03/12/22 07:45) Ketorolac Injection (Toradol Injection) (03/12/22 09:00) Hydromorphone Injection (Dilaudid Inject (03/12/22 09:15) Ct Angio Chest W (03/12/22 09:13) Iohexol Injection (Omnipaque 350 Mg/Ml 1 (03/12/22 09:30) Received Contrast (Hold Metformin- Contr (03/12/22 09:30) Sodium Chloride Flush (Catheter Flush Sy (03/12/22 09:30) Ns (Ivpb) (Sodium Chloride 0.9% Ivpb Bag (03/12/22 09:30) Troponin I Andres (03/12/22 09:28) Ekg Tracing (03/12/22 09:28) Fentanyl Inj (Sublimaze Injection) (03/12/22 11:45) General/Regular (03/12/22 Lunch) Medications Given in ED Current Medications Medications Dose Ordered Sig/Arlene Route Start Time Stop Time Status Last Admin Dose Admin Fentanyl Citrate 100 mcg ONCE ONCE IVP 03/12/22 07:45 03/12/22 07:46 DC 03/12/22 07:53 100 MCG Hydromorphone HCl 0.5 mg ONCE ONCE IV 03/12/22 09:15 03/12/22 09:16 DC 03/12/22 09:31 0.5 MG Iohexol 100 ml ONCE ONCE IV 03/12/22 09:30 03/12/22 09:31 DC 03/12/22 11:21 63 ML Ketorolac Tromethamine 30 mg ONCE PRN IVP 03/12/22 09:00 03/12/22 15:21 DC 03/12/22 09:03 30 MG Sodium Chloride 100 ml ONCE ONCE IV 03/12/22 09:30 03/12/22 09:31 DC 03/12/22 11:22 80 ML Vital Signs/I&O 03/12/22 03/12/22 03/12/22 07:17 07:50 15:15 Pulse 101 99 Resp 16 16 B/P (MAP) 121/75 (90) 120/58 Pulse Ox 99 88 O2 Delivery Room Air Nasal Cannula Nasal Cannula O2 Flow Rate 2.00 2.00 Capillary Refill : Less Than 3 Seconds Blood Pressure Mean: 90 Departure Communication (Admissions) Time/Spoke to Admitting Phy: 12:09 Spoke to IRMA Tapia, accepts on behalf of Dr Worthy. No further orders at this time. Continue to require oxygen despite pain control. Chest x-ray shows no acute findings. CTA negative as well. He has required large volumes of pain medication. Attempted to admit him to our facility but Dr. Mar was uncomfortable admitting him here without hematology. Transfer him to [facility] in [place]. He request no further orders. He is discharged in otherwise stable condition on 2 L of oxygen via nasal cannula. Impression Primary Impression: Acute chest syndrome Additional Impressions: Sickle cell pain crisis Hypoxia Disposition: XFER SHT-TRM HOSP Condition: Stable Admissions Decision to Admit Reason: Admit from ER (General) Decision to Admit/Date: Mar 12, 2022 Time/Decision to Admit Time: 12:09 Transfer Transfer Reason: Exceeds level of care Departure-Patient Inst. Referrals: NO,LOCAL PHYSICIAN (PCP/Family) Primary Care Physician JAMESON ADAN DO Mar 12, 2022 07:37
[2022-03-12] MEDS ORDERED: NS IV 1000 ML 1,000 ML IV SCH (07:45)
[2022-03-12] MEDS ORDERED: fentaNYL INJ 100 MCG/2 ML AMP IVP ONE (07:45)
[2022-03-12 07:56] LABS: BASOPHILS % (AUTO) 1 % (0-10); EOSINOPHILS % (AUTO) 3 % (0-10); HEMOGLOBIN 7.1 g/dL (13.3-17.7); MONOCYTES % (AUTO) 16 % (0-12)
[2022-03-12 07:58] LABS: ABSOLUTE RETIC # 407 10e9/uL (24-90); BASOPHILS # (AUTO) 0.2 10^3/uL (0.0-0.1); EOSINOPHILS # (AUTO) 0.5 10^3/uL (0.0-0.3); HEMATOCRIT 21 % (40-54); LYMPHOCYTES # (AUTO) 3.6 10^3/uL (1.0-4.0); LYMPHOCYTES % (AUTO) 25 % (12-44); MEAN CORPUSCULAR HEMOGLOBIN 33 pg (25-34); MEAN CORPUSCULAR HGB CONC 35 g/dL (32-36); MEAN CORPUSCULAR VOLUME 95 fL (80-99); MEAN PLATELET VOLUME 11.2 fL (9.0-12.2); MONOCYTES # (AUTO) 2.4 10^3/uL (0.0-1.0); NEUTROPHILS # (AUTO) 7.8 10^3/uL (1.8-7.8); NEUTROPHILS % (AUTO) 53 % (42-75); PLATELET COUNT 199 10^3/uL (130-400); RETICULOCYTE % 18.76 % (0.50-2.40); WHITE BLOOD COUNT 14.7 10^3/uL (4.3-11.0)
--- NOTE | 2022-03-12 08:14 | Diagnostic Imaging Report ---
Indication: Anemia, sickle cell disease and dyspnea AP view of chest is obtained with comparison made to study of 09/20/2019. There is mild cardiomegaly. Pulmonary vascularity is unremarkable. There is no evidence of consolidation, pneumothorax or significant pleural fluid. No definite osseous abnormality is appreciated. IMPRESSION: No acute abnormality. Dictated by: Dictated on workstation # [id number]
[2022-03-12 08:15] LABS: ALBUMIN 3.6 GM/DL (3.2-4.5); POTASSIUM 4.1 MMOL/L (3.6-5.0)
[2022-03-12 08:17] LABS: CALCIUM 8.7 MG/DL (8.5-10.1)
[2022-03-12 08:18] LABS: TOTAL PROTEIN 7.2 GM/DL (6.4-8.2)
[2022-03-12 08:20] LABS: BILIRUBIN,TOTAL 7.8 MG/DL (0.1-1.0)
[2022-03-12 08:21] LABS: CREATININE SERUM 0.75 MG/DL (0.60-1.30)
[2022-03-12 08:58] LABS: BILIRUBIN,URINE NEGATIVE (NEGATIVE); CLARITY,URINE CLEAR; COLOR,URINE YELLOW; GLUCOSE, URINE (UA) NEGATIVE (NEGATIVE); KETONES,URINE NEGATIVE (NEGATIVE); LEUKOCYTE ESTERASE ,URINE TRACE (NEGATIVE); NITRITE,URINE NEGATIVE (NEGATIVE); PH,URINE 6.5 (5-9); PROTEIN,URINE TRACE (NEGATIVE)
[2022-03-12] MEDS ORDERED: KETOROLAC 30 MG/ML VIAL IVP PRN (09:00)
[2022-03-12 09:08] LABS: BACTERIA,URINE TRACE /HPF; RBC,URINE RARE /HPF; SQUAMOUS EPITHELIAL CELL,UR RARE /HPF; WBC,URINE RARE /HPF
[2022-03-12] MEDS ORDERED: HYDROmorphone 2 MG/ML VIAL (DILAUDID) IV ONE (09:15)
[2022-03-12 09:21] LABS: BAND NEUTROPHILS 2 %; BASOPHILS % (MANUAL) 1 %; EOSINOPHILS % (MANUAL) 2 %; LYMPHOCYTES % (MANUAL) 33 %; MONOCYTES % (MANUAL) 9 %; NEUTROPHILS % (MANUAL) 53 %; NUCLEATED RED BLOOD CELLS 36; POIKILOCYTOSIS MODERATE; POLYCHROMASIA MARKED
[2022-03-12 09:22] LABS: ANISOCYTOSIS MODERATE; HOWELL-JOLLY BODIES SLIGHT; SICKLE CELLS MARKED; TARGET CELLS SLIGHT
[2022-03-12] MEDS ORDERED: HOLD METFORMIN - RECEIVED CONTRAST 20 ML VIAL IV SCH (09:30)
[2022-03-12] MEDS ORDERED: IOHEXOL 350 MG/ML 100 ML (OMNIPAQUE 350) VIAL IV ONE (09:30)
[2022-03-12] MEDS ORDERED: CATHETER FLUSH 10 ML SYR IV PRN (09:30)
[2022-03-12] MEDS ORDERED: NS 100 ML (IVPB) BAG IV ONE (09:30)
--- NOTE | 2022-03-12 11:38 | Diagnostic Imaging Report ---
PROCEDURE: CT angiography of the chest with contrast. TECHNIQUE: Multiple contiguous axial images were obtained through the chest after uneventful bolus administration of intravenous contrast. 3D reconstructed CTA MIP acquisitions were also performed. Auto Exposure Controls were utilized during the CT exam to meet ALARA standards for radiation dose reduction. INDICATION: Chest pain and cough. COMPARISON: No prior studies are available for comparison. FINDINGS: Evaluation of the pulmonary arterial system is without evidence of thromboembolism. No definite filling defects are seen within central, lobar or segmental branches. The thoracic aorta is normal in caliber. No dissection is identified. No pericardial or pleural fluid is identified. There are some cystic changes in the right upper lobe. Small air cysts in the left lower lobe are also noted. No infiltrates or masses are seen. The upper abdomen is unremarkable. IMPRESSION: No evidence of pulmonary embolism or acute aortic disease. Dictated by: Dictated on workstation # [id number]
[2022-03-12] MEDS ORDERED: fentaNYL INJ 100 MCG/2 ML AMP IVP PRN (11:45)
[2022-03-12 15:15] VITALS: BP 120/58
== END 2022-03-12 15:15 | disposition short-term general hospital (02) ==
LOC: EDUNIT# 07:17 → ER 07:18
DX: D57.01 Hb-SS disease with acute chest syndrome (principal); R09.02 Hypoxemia; Z72.0 Tobacco use; Z28.310 Unvaccinated for COVID-19
CPT/HCPCS: 36410; 71045; 71275; 76937; 80053; 81000; 84484; 85007; 85027; 85045; 93005; 99284; C1751; 36415